=== PATIENT | female | born 1965 | race Caucasian/White ===

== ENCOUNTER 2016-09-16 18:32 | Outpatient (CLI) | payer OTHER ==
[2016-07-01 10:47] VITALS: BMI 33.9
== END 2016-09-16 18:33 | disposition home or self-care (01) ==
LOC: AMBL 18:32
PROVIDERS: ATTEND Internal Medicine Geriatric Medicine
DX: M79.605 Pain in left leg (principal); R07.1 Chest pain on breathing; E11.9 Type 2 diabetes mellitus without complications; J44.9 Chronic obstructive pulmonary disease, unspecified

== ENCOUNTER 2016-09-22 22:17 | Emergency (ER) ==
[2016-09-22 22:33] VITALS: BP 159/91; TEMP 100; BMI 30.7
[2016-09-22] MEDS ORDERED: LOPRESSOR PO STA (22:39)
[2016-09-22 22:41] LABS: BASOPHILS # (AUTO) 0.1 K/uL (0-0.2); BASOPHILS % (AUTO) 0.5 % (0.0-3.0); EOSINOPHILS # (AUTO) 0.3 K/ul (0.0-0.7); EOSINOPHILS % (AUTO) 1.4 % (0.0-7.0); HEMATOCRIT 40.7 % (37.0-47.0); HEMOGLOBIN 14.3 g/dl (12.0-16.0); IMMATURE GRANULOCYTE % (AUTO) 0.6 % (0.0-5.0); MEAN CORPUSCULAR HGB CONC 35.1 (31.8-35.4); MEAN CORPUSCULAR VOLUME 88.3 fl (81.0-99.0); MONOCYTES # (AUTO) 0.7 K/uL (0.4-2.0); MONOCYTES % (AUTO) 3.8 (0-10); NEUTROPHILS # (AUTO) 10.5 K/ul (2.0-6.9); NEUTROPHILS % (AUTO) 59.7; PLATELET COUNT 331 10^3/uL (140-440); RED BLOOD COUNT 4.61 10^6/ul (4.20-5.40); WHITE BLOOD COUNT 17.57 K/ul (4.6-10.2)
[2016-09-22 23:25] LABS: ALANINE AMINOTRANSFERASE 43 U/L (12-78); ALBUMIN 3.8 g/dL (3.4-5.0); ALBUMIN/GLOBULIN RATIO 0.97; ALKALINE PHOSPHATASE 135 U/L (42-98); ANION GAP 18.8; ASPARTATE AMINO TRANSFERASE 38 U/L (15-37); BILIRUBIN,TOTAL 0.33 mg/dL (0.00-1.20); BLOOD UREA NITROGEN 15 mg/dL (7-18); BUN/CREATININE RATIO 13.51; CALCIUM 10.1 mg/dL (8.2-10.2); CARBON DIOXIDE 23 mmol/L (21-32); CHLORIDE 99 mmol/L (98-107); CREATINE KINASE 48 U/L; CREATININE 1.11 mg/dL (0.60-1.30); GLUCOSE 296 mg/dL (70-110); MAGNESIUM 1.9 mg/dL (1.7-2.2); POTASSIUM 3.8 mmol/L (3.5-5.10); SODIUM 137 mmol/L (136-145); TOTAL PROTEIN 7.7 g/dL (6.4-8.2)
[2016-09-22] MEDS ORDERED: PERCOCET 10-325 PO STA (23:50)
--- NOTE | 2016-09-23 03:04 | ED.PDOC ---
General ED Provider: Dr. CHESTER PELAEZ-ER Chief Complaint: Palpitations Stated Complaint: my heart start beating fast!! Time Seen by Physician: 22:25 Mode of Arrival: Walk-In Information Source: Patient, Family Exam Limitations: No limitations Primary Care Provider: VINOD SALINAS Nursing and Triage Documentation Reviewed and Agree: Yes Cardiovascular Complaint Exam - Palpitations Complaint/Exam Onset/Duration: 30 minm Symptoms Are: Still present Timing: Constant Initial Severity: Mild Current Severity: Moderate Character: Reports: Fast, Pounding Aggravating: Reports: None Alleviating: Reports: None Associated Signs and Symptoms: Denies: Lightheadedness, Dizziness, Syncope, Chest pain, Shortness of breath, Diaphoresis, Nausea, Vomiting Related History: Similar episode Cardiac Risk Factors: Reports: Hypertension Pulmonary Embolism Risk Factors: Reports: None Atrial Fibrillation Risk Factors: Reports: Hypertension Thyroid Exam: Normal Quality Indicator For Non-Traumatic Chest Pain/Syncope: EKG Performed Review of Systems - Review Of Systems Constitutional: Reports: No symptoms Eyes: Reports: No symptoms Ears, Nose, Mouth, Throat: Reports: No symptoms Respiratory: Reports: No symptoms Cardiac: Reports: Palpitations GI: Reports: No symptoms : Reports: No symptoms Musculoskeletal: Reports: No symptoms Skin: Reports: No symptoms Neurological: Reports: No symptoms Endocrine: Reports: No symptoms Hematologic/Lymphatic: Reports: No symptoms All Other Systems: Reviewed and Negative Past Medical History - Past Medical History Previously Healthy: Yes Endocrine: Reports: DM 2 ( insulin) Cardiovascular: Reports: Hypertension Respiratory: Reports: COPD Hematological: Reports: None Gastrointestinal: Reports: None Genitourinary: Reports: CKD Neuro/Psych: Reports: None Musculoskeletal: Reports: None Cancer: Reports: None Last Menstrual Period: 1998 - Surgical History General Surgical History: Reports: Hysterectomy, Other - Family History Family History: Reports: Unknown - Social History Smoking Status: Current every day smoker, Heavy tobacco smoker Hx Substance Use: No Alcohol Screening: None Lives: With family - Immunizations Tetanus Shot up to Date: Yes Physical Exam - Physical Exam Appearance: Well-appearing, No pain distress, Well-nourished Eyes: ELOISA, EOMI, Conjunctiva clear ENT: Ears normal, Nose normal, Oropharynx normal Neck: Supple Respiratory: Airway patent, Breath sounds clear, Breath sounds equal, Respirations nonlabored Cardiovascular: Tachycardia GI/: Soft, Nontender, No masses, Bowel sounds normal, No Organomegaly Musculoskeletal: Normal strength, ROM intact, No edema, No calf tenderness Skin: Warm, Dry, Normal color Neurological: Sensation intact, Motor intact, Reflexes intact, Cranial nerves intact, Alert, Oriented Psychiatric: Affect appropriate, Mood appropriate Re-Evaluation - Re-Evaluation Time of Re-Evaluation: 03:03 Status: Improved Vital Signs Stable: Yes Pain Level: 0 Appearance: NAD Lungs: Clear Skin: Warm and Dry Neuro: Alert and Oriented X3 CV: RRR Critical Care Note - Critical Care Note Total Time (mins): 0 Course - Course Hematology/Chemistry: 09/22/16 22:35 09/22/16 22:35 Orders, Labs, Meds: Lab Review 09/22/16 09/23/16 22:35 03:10 WBC 17.57 H RBC 4.61 Hgb 14.3 Hct 40.7 MCV 88.3 MCH 31.0 MCHC 35.1 RDW Coeff of Barry 13.0 Plt Count 331 Immature Gran % (Auto) 0.6 Neut % (Auto) 59.7 Lymph % (Auto) 34.0 [place] % (Auto) 3.8 Eos % (Auto) 1.4 Baso % (Auto) 0.5 Immature Gran # (Auto) 0.1 Neut # 10.5 H Lymph # 6.0 H [place] # 0.7 Eos # 0.3 Baso # 0.1 D-Dimer < 0.19 L Sodium 137 Potassium 3.8 Chloride 99 Carbon Dioxide 23 Anion Gap 18.8 BUN 15 Creatinine 1.11 Estimated GFR (MDRD) 52.00 BUN/Creatinine Ratio 13.51 Glucose 296 H Calcium 10.1 Magnesium 1.9 Total Bilirubin 0.33 AST 38 H ALT 43 Alkaline Phosphatase 135 H Total Creatine Kinase 48 Troponin I < 0.0100 Total Protein 7.7 Albumin 3.8 Globulin 3.9 Albumin/Globulin Ratio 0.97 TSH < 0.003 L Free T4 0.78 Urine Color Yellow Urine Clarity Hazy Urine pH 5.5 Ur Specific [place] 1.025 Urine Protein Trace Urine Glucose (UA) Negative Urine Ketones Negative Urine Blood Negative Urine Nitrite Negative Urine Bilirubin Negative Urine Urobilinogen 0.2 Ur Leukocyte Esterase Trace Urine Microscopic WBC 5-10 Ur Squamous Epith Cells 20-30 Urine Bacteria 1+ Urine Opiates Screen Positive Ur Oxycodone Screen Positive Urine Methadone Screen Negative Ur Propoxyphene Screen Negative Ur Barbiturates Screen Negative U Tricyclic Antidepress Negative Ur Phencyclidine Scrn Negative Ur Amphetamine Screen Negative U Methamphetamines Scrn Negative U Benzodiazepines Scrn Positive Urine Cocaine Screen Negative U Cannabinoids Screen Negative Orders Category Date Time Status EKG-(ED ONLY) Stat CARDIO 09/22/16 22:19 Completed Zone Supervisor Firearms [ED INSIDE STEWARD/STEWARDESS APPLIED] .ONCE EMERGENCY 09/22/16 22:19 Active ED APPLY ICE AFFECTED AREA .ONCE EMERGENCY 09/22/16 23:50 Active CBC W/ AUTO DIFF Stat LAB 09/22/16 22:35 Completed COMPREHENSIVE METABOLIC PANEL Stat LAB 09/22/16 22:35 Completed CREATINE KINASE Stat LAB 09/22/16 22:35 Completed D-DIMER Stat LAB 09/22/16 22:35 Completed FREE T4 (FREE THYROXINE) Stat LAB 09/22/16 22:35 Completed MAGNESIUM Stat LAB 09/22/16 22:35 Completed THYROID STIMULATING HORMONE Stat LAB 09/22/16 22:35 Completed TROPONIN I Stat LAB 09/22/16 22:35 Completed URINALYSIS C & S IF INDICATED Stat LAB 09/23/16 03:10 Completed URINE CULTURE Stat LAB 09/23/16 03:10 Received URINE DRUG SCREEN (RAPID FOR ED) [DRUG SCREEN, URINE, LAB 09/23/16 03:10 Completed RAPID] Stat Metoprolol Tartrate [Lopressor] MEDS 09/22/16 22:39 Discontinued 50 mg PO ONCE STA Oxycodone-Acetaminophen 10-325 [Percocet 10-325] MEDS 09/22/16 23:50 Discontinued 1 tab PO ONCE STA Medications Discontinued Medications Generic Name Dose Route Start Last Admin Trade Name Freq PRN Reason Stop Dose Admin Metoprolol Tartrate 50 mg 09/22/16 22:39 09/22/16 23:33 Lopressor PO 09/22/16 22:40 50 mg ONCE STA Administration Oxycodone/Acetaminophen 1 tab 09/22/16 23:50 09/23/16 00:42 Percocet 10-325 PO 09/22/16 23:51 1 tab ONCE STA Administration Vital Signs: Temp Pulse Resp BP Pulse Ox 09/22/16 22:21 100 F H 100 H 22 159/91 H 95 KATHY Risk Score KATHY Risk Score: Risk Score Odds of by 30D 0 0.1 (0.1-0.2) 1 0.3 (0.2-0.3) 2 0.4 (0.3-0.5) 3 0.7 (0.6-0.9) 4 1.2 (1.0-1.5) 5 2.2 (1.9-2.6) 6 3.0 (2.5-3.6) 7 4.8 (3.8-6.1) Departure - Departure Time of Disposition: 03:03 Disposition: HOME SELF-CARE Discharge Problem: Palpitations Instructions: Palpitations (ED) Condition: Good Pt referred to PMD for follow-up: Yes Additional Instructions: keep appt with dr salinas tomorrow--discuss thyroid function testing and white count--levaquin 250mg x 7 days-- Allergies/Adverse Reactions: Allergies codeine Adverse Reaction (Verified 09/22/16 22:30) morphine Adverse Reaction (Verified 09/22/16 22:30) Home Medications: Ambulatory Orders Diazepam [Valium] 10 mg PO BEDTIME 03/28/14 Ezetimibe [Zetia] 10 mg PO DAILY #30 tablet 03/30/14 Pregabalin [Lyrica] 75 mg PO DAILY #30 capsule 03/30/14 Clopidogrel Bisulfate [Plavix] 75 mg PO DAILY 06/10/14 Insulin Regular, Human [Humulin R] See Protocol SQ ACHS PRN 07/08/15 Hydrocodone Bit/Acetaminophen [Lortab 10-500] 1 tab PO TID PRN #1 tablet Omeprazole [Prilosec] 20 mg PO QDAC 09/30/15 Citalopram Hydrobromide [Celexa] 40 mg PO DAILY 10/01/15 Insulin Glargine,Hum.rec.anlog [Lantus] 70 unit SUBCUT BEDTIME 02/17/16 Canagliflozin [Invokana] 300 mg PO DAILY 05/29/16 Icosapent Ethyl [Vascepa] 1 gm PO BID 05/29/16 Albuterol Sulfate 0.083% Neb [Albuterol 0.083% Neb] 1 vial NEB RTQ6H PRN #120 vial.neb 05/30/16 Atorvastatin Calcium [Lipitor] 40 mg PO DAILY #30 tablet 05/30/16 Bisoprolol Fumarate [Zebeta] 5 mg PO DAILY #30 tablet 05/30/16 Lisinopril 10 mg PO DAILY #30 tablet 05/30/16 Polyethylene Glycol 3350 [Miralax] 17 gm PO EVERY OTHER DAY 05/30/16 Naproxen [Naprosyn] 500 mg PO Q12HR PRN #30 tablet 07/01/16 Citalopram Hydrobromide [Celexa] 40 mg PO BEDTIME #30 09/18/16 Clonazepam [Klonopin] 0.5 mg PO BID #60 09/18/16 Trazodone HCl 50 mg PO BEDTIME #30 09/18/16 Disposition Discussed With: Patient, Family
[2016-09-23 03:28] LABS: BILIRUBIN,URINE Negative (NEGATIVE); KETONES,URINE Negative (NEGATIVE); LEUKOCYTE ESTERASE ,URINE Trace (NEGATIVE); NITRITE,URINE Negative (NEGATIVE); PH,URINE 5.5 (5-9); PROTEIN,URINE Trace (NEGATIVE); URINE, BLOOD Negative (NEGATIVE)
[2016-09-23 03:32] LABS: ADD URINE MICROSCOPIC YES; BACTERIA,URINE 1+ (NOT PRESENT)
[2016-09-23 03:37] LABS: COCAIN SCREEN,URINE NEGATIVE (NEGATIVE)
[2016-09-23] MEDS ORDERED: LEVAQUIN PO STA (03:41)
== END 2016-09-23 03:55 | disposition home or self-care (01) ==
LOC: ED 22:17
DX: R00.2 Palpitations (principal); I10 Essential (primary) hypertension; E11.9 Type 2 diabetes mellitus without complications; F17.210 Nicotine dependence, cigarettes, uncomplicated; N18.9 Chronic kidney disease, unspecified; J44.9 Chronic obstructive pulmonary disease, unspecified; Z79.899 Other long term (current) drug therapy
CPT/HCPCS: 36415; 80053; 80306; 81001; 82550; 83735; 84439; 84443; 84484; 85025; 85379; 87086; 93005; 93010; 99284

== ENCOUNTER 2016-09-23 14:47 | Inpatient (IN) ==
[2016-09-23] MEDS ORDERED: NITROSTAT SL PRN (15:06)
[2016-09-23] MEDS ORDERED: TYLENOL PO PRN (15:06)
[2016-09-23] MEDS ORDERED: VISTARIL INJ IM PRN (15:06)
[2016-09-23] MEDS ORDERED: ATROPINE SULFATE PFS IVP PRN (15:06)
[2016-09-23 15:23] VITALS: BMI 32.1
[2016-09-23] MEDS ORDERED: TORADOL IVP SCH (15:30)
[2016-09-23] MEDS ORDERED: NAPROXEN 500 MG PO PRN ×21 (15:31)
[2016-09-23] MEDS ORDERED: ALBUTEROL 0.083% NEB NEB PRN (15:31)
[2016-09-23] MEDS ORDERED: LYRICA PO PRN (15:31)
[2016-09-23] MEDS ORDERED: DESYREL PO PRN (15:31)
[2016-09-23] MEDS: DEXTROSE 5%-1/2NS IV SOLUTION 1,000 ML IV SCH (15:40)
[2016-09-23] MEDS: ROCEPHIN 1 GM in SODIUM CHLORIDE 50 ML IV SCH (15:41)
[2016-09-23 15:43] LABS: BASOPHILS # (AUTO) 0.1 K/uL (0-0.2); BASOPHILS % (AUTO) 0.6 % (0.0-3.0); EOSINOPHILS # (AUTO) 0.3 K/ul (0.0-0.7); EOSINOPHILS % (AUTO) 2.2 % (0.0-7.0); HEMATOCRIT 39.8 % (37.0-47.0); HEMOGLOBIN 13.7 g/dl (12.0-16.0); IMMATURE GRANULOCYTE % (AUTO) 0.7 % (0.0-5.0); LYMPHOCYTES # (AUTO) 4.7 K/uL (0.60-3.4); LYMPHOCYTES % (AUTO) 36.2 (10.0-50.0); MEAN CORPUSCULAR HGB CONC 34.4 (31.8-35.4); MEAN CORPUSCULAR VOLUME 87.3 fl (81.0-99.0); MONOCYTES # (AUTO) 0.7 K/uL (0.4-2.0); MONOCYTES % (AUTO) 5.3 (0-10); NEUTROPHILS # (AUTO) 7.1 K/ul (2.0-6.9); PLATELET COUNT 288 10^3/uL (140-440); RED BLOOD COUNT 4.56 10^6/ul (4.20-5.40); WHITE BLOOD COUNT 12.95 K/ul (4.6-10.2)
[2016-09-23 15:45] LABS: BILIRUBIN,URINE Negative (NEGATIVE); KETONES,URINE Negative (NEGATIVE); LEUKOCYTE ESTERASE ,URINE Negative (NEGATIVE); NITRITE,URINE Negative (NEGATIVE); PROTEIN,URINE Negative (NEGATIVE); URINE, BLOOD Negative (NEGATIVE)
[2016-09-23 15:48] LABS: ADD URINE MICROSCOPIC NO
--- NOTE | 2016-09-23 15:59 | DI ---
EXAM: PA and lateral views of the chest HISTORY: Cough. COMPARISON: Chest x-ray 05/28/2016 FINDINGS: The cardiomediastinal silhouette is normal. There is no pneumothorax or pleural effusion . There is no consolidation, nodule or mass. The osseous structures are unremarkable. IMPRESSION: No acute cardiopulmonary process
[2016-09-23 16:03] LABS: FLU INTERNAL QC INTERNAL QC VALID; RAPID FLU A NEGATIVE (NEGATIVE); RAPID FLU B NEGATIVE (NEGATIVE)
[2016-09-23] MEDS ORDERED: DUONEB NEB PRN (16:11)
--- NOTE | 2016-09-23 16:15 | US ---
EXAM: Ultrasound thyroid. HISTORY: Elevated thyroid function tests. COMPARISON: None available. TECHNIQUE: Mclean-scale and color Doppler images. FINDINGS: The right lobe of the thyroid measures 4.4 x 1.8 x 1.6 cm. There is mildly heterogeneous echogenicit y without discrete nodule. The thyroid isthmus measures 0.3 cm. The left lobe of the thyroid measures 4.2 x 1.9 x 1.6 cm. There is mildly heterogeneous echogenicit y without discrete nodule. IMPRESSION: Mildly heterogeneous thyroid gland without nodule.
[2016-09-23] MEDS ORDERED: NAPROSYN PO PRN (16:20)
[2016-09-23 16:29] LABS: ALANINE AMINOTRANSFERASE 50 U/L (12-78); ALBUMIN 3.8 g/dL (3.4-5.0); ALBUMIN/GLOBULIN RATIO 1.03; ALKALINE PHOSPHATASE 130 U/L (42-98); ANION GAP 16.7; ASPARTATE AMINO TRANSFERASE 52 U/L (15-37); BILIRUBIN,TOTAL 0.41 mg/dL (0.00-1.20); BLOOD UREA NITROGEN 13 mg/dL (7-18); BUN/CREATININE RATIO 14.94; CALCIUM 9.9 mg/dL (8.2-10.2); CARBON DIOXIDE 24 mmol/L (21-32); CHLORIDE 99 mmol/L (98-107); CREATINE KINASE 53 U/L; CREATININE 0.87 mg/dL (0.60-1.30); GLUCOSE 135 mg/dL (70-110); MYOGLOBIN 22 ng/ml; POTASSIUM 3.7 mmol/L (3.5-5.10); SODIUM 136 mmol/L (136-145); TOTAL PROTEIN 7.5 g/dL (6.4-8.2)
[2016-09-23] MEDS: NICODERM 21 MG TD SCH (16:37)
[2016-09-23] MEDS ORDERED: PERCOCET 10-325 PO STA (17:10)
[2016-09-23] MEDS ORDERED: MYLICON PO STA (19:03)
[2016-09-23] MEDS: KLONOPIN PO SCH (21:11)
[2016-09-23] MEDS: PERCOCET 10-325 PO SCH (21:11)
[2016-09-23] MEDS: HUMULIN R SUBCUT PRN (21:12)
[2016-09-23] MEDS: LANTUS SUBCUT SCH (21:12)
[2016-09-23] MEDS: TORADOL IVP SCH (21:13)
[2016-09-23] MEDS: NON-FORMULARY MEDICATION (Icosapent Ethyl [Vascepa] 1 GM) PO SCH (22:57)
[2016-09-23 23:23] LABS: CREATINE KINASE 49 U/L; MYOGLOBIN 29 ng/ml
[2016-09-24] MEDS: DEXTROSE 5%-1/2NS IV SOLUTION 1,000 ML IV SCH (03:23)
[2016-09-24] MEDS: PRILOSEC PO SCH (05:47)
[2016-09-24] MEDS: HUMULIN R SUBCUT PRN ×4 (05:52→21:03)
[2016-09-24] MEDS: ASPIRIN EC PO SCH (08:26)
[2016-09-24] MEDS: NON-FORMULARY MEDICATION (Canagliflozin [Invokana] 300 MG) PO SCH (08:27)
[2016-09-24] MEDS: CELEXA PO SCH (08:27)
[2016-09-24] MEDS: KLONOPIN PO SCH ×2 (08:28→21:02)
[2016-09-24] MEDS: NICODERM 21 MG TD SCH (08:28)
[2016-09-24] MEDS: LIPITOR PO SCH (08:28)
[2016-09-24] MEDS: NON-FORMULARY MEDICATION (Icosapent Ethyl [Vascepa] 1 GM) PO SCH ×2 (08:28→21:05)
[2016-09-24] MEDS: PERCOCET 10-325 PO SCH ×3 (08:29→21:02)
[2016-09-24] MEDS: PLAVIX PO SCH (08:29)
[2016-09-24] MEDS: ZESTRIL PO SCH (08:29)
[2016-09-24] MEDS: ROCEPHIN 1 GM in SODIUM CHLORIDE 50 ML IV SCH (08:29)
[2016-09-24] MEDS: ZETIA PO SCH (08:29)
[2016-09-24] MEDS: ZEBETA PO SCH (08:30)
[2016-09-24] MEDS ORDERED: NON-FORMULARY MEDICATION (Atorvastatin Calcium [Lipitor] 40 MG) PO SCH ×22 (09:00)
[2016-09-24] MEDS: TORADOL IVP SCH ×2 (09:05→20:56)
--- NOTE | 2016-09-24 11:53 | PCM.PROG ---
Attending Provider: ATTENDING PROVIDER: Dr. VINOD BLANC DATE OF SERVICE: 09/24/16 SUBJECTIVE: This 50 year old WHITE/ F was hospitalized 09/23/16. The patient is admitted with fever, palpitations, not feeling well (flu type symptoms). The patient is feeling much better and looks much better today. She has been afebrile since admission. WBC 17,000 down to 12. No evidence of UTI. Thyroid functions are normal. The ultrasound of the thyroid shows heterogenous thyroid without nodule. The patient's tachycardia resolved on its own. Hydration status looks better on physical exam. REVIEW OF SYSTEMS: CONSTITUTIONAL: No night sweats. No fatigue, malaise, lethargy. No fever or chills. HEENT: Eyes: No visual changes. No eye pain. No eye discharge. ENT: No runny nose. No epistaxis. No sinus pain. No odynophagia. No congestion. RESPIRATORY: No cough, no congestion. No hemoptysis. CARDIOVASCULAR: No angina symptoms. No CHF symptoms. No atypical chest pain for CAD. No palpitations. No shortness of breath. GASTROINTESTINAL: No abdominal pain. No nausea or vomiting. No diarrhea or constipation. No hematemesis. No hematochezia. GENITOURINARY: No urgency. No frequency. No dysuria. No hematuria. No obstructive symptoms. No discharge. No pain. No significant abnormal bleeding. MUSCULOSKELETAL: No musculoskeletal pain; no joint swelling. NEUROLOGICAL: Awake, alert, oriented to time, place and person. No headache. No neck pain. No syncope. No seizures. No dizziness. PSYCHIATRIC: Not anxious. No depression. No suicidal thoughts. No homicidal thoughts. SKIN: No rash. No lesions. No wounds. ENDOCRINE: No unexplained weight loss. No weight gain. HEMATOLOGIC/LYMPHATIC: No anemia. No purpura. No petechiae. No prolonged or excessive bleeding. No palpable lymph nodes. PHYSICAL EXAMINATION: GENERAL: The patient is awake, alert and oriented, lying in bed in no distress. VITAL SIGNS: Temperature 97.0 F, Pulse 67, Respiratory Rate 21, BP 91/58, Pulse Ox 96% HEENT: Head normocephalic, atraumatic. Eyes: Extraocular muscles are intact. Pupils are equal, round and reactive to light and accommodation. Ears: No lesions. Nose appeared normal. Throat: No exudate or erythema. NECK: Supple. No JVD, no carotid bruit. No lymphadenopathy or thyromegaly. LUNGS: Clear to auscultation. Percussion note normal. Chest symmetrical. HEART: S1, S2, no S3. No murmurs. No cyanosis or clubbing. No ascites. Pulses: Dorsalis pedis and posterior tibial pulses +1 to +2 both sides. ABDOMEN: Soft. Non-tender. Bowel sounds active. No CVA tenderness. No mass felt. EXTREMITIES: No edema. Full range of motion of all extremities, equal. NEUROLOGIC: No focal deficit. Cranial nerves II through XII are grossly intact. No headache, no double vision or headache. SKIN: Not dry. Intact. Turgor-normal. LYMPHATIC: No palpable lymph nodes/no lymphedema. MUSCULOSKELETAL: Normal joints with no swelling. Muscle tone is normal. LAB REVIEW: 09/23/16 15:30 09/23/16 15:30 09/23/16 22:57: Total Creatine Kinase 49, Myoglobin 29, Troponin I < 0.0100 09/23/16 15:30: WBC 12.95 H, RBC 4.56, Hgb 13.7, Hct 39.8, MCV 87.3, MCH 30.0, MCHC 34.4, RDW Coeff of Barry 13.1, Plt Count 288, Immature Gran % (Auto) 0.7, Neut % (Auto) 55.0, Lymph % (Auto) 36.2, [place] % (Auto) 5.3, Eos % (Auto) 2.2, Baso % (Auto) 0.6, Immature Gran # (Auto) 0.1, Neut # 7.1 H, Lymph # 4.7 H, [place] # 0.7, Eos # 0.3, Baso # 0.1, Sodium 136, Potassium 3.7, Chloride 99, Carbon Dioxide 24, Anion Gap 16.7, BUN 13, Creatinine 0.87, Estimated GFR (MDRD ) 69.00, BUN/Creatinine Ratio 14.94, Glucose 135 H D, Calcium 9.9, Total Bilirubin 0.41, AST 52 H, ALT 50, Alkaline Phosphatase 130 H, Total Creatine Kinase 53, Myoglobin 22, Troponin I < 0.0100, Total Protein 7.5, Albumin 3.8, Globulin 3.7, Albumin/Globulin Ratio 1.03, TSH 1.898, Free T4 1.29 H 09/23/16 15:25: Urine Color Yellow, Urine Clarity Clear, Urine pH 7.0, Ur Specific [place] 1.010, Urine Protein Negative, Urine Glucose (UA) Negative, Urine Ketones Negative, Urine Blood Negative, Urine Nitrite Negative, Urine Bilirubin Negative, Urine Urobilinogen 0.2, Ur Leukocyte Esterase Negative, Influenza A (Rapid) Negative, Influenza B (Rapid) Negative ASSESSMENT: 1. Likely flu type sickness with fever, tachycardia and dehydration. PLAN: 1. Stop IV fluids 2. Continue Rocephin 3. Blood cultures pending. 4. Continue telemetry. Plan and coordination of the patient's care discussed in the presence of [employer] Specialist and nurse. CONDITION: Stable SCRIBED BY: GLEN STANTON Dumping Machine Operator scribed while in presence of service performed by Dr. VINOD BLANC on 09/24/16 ([id number])
[2016-09-24 12:06] LABS: BASOPHILS # (AUTO) 0.1 K/uL (0-0.2); BASOPHILS % (AUTO) 0.4 % (0.0-3.0); EOSINOPHILS # (AUTO) 0.2 K/ul (0.0-0.7); HEMOGLOBIN 12.8 g/dl (12.0-16.0); IMMATURE GRANULOCYTE % (AUTO) 0.7 % (0.0-5.0); LYMPHOCYTES # (AUTO) 4.5 K/uL (0.60-3.4); LYMPHOCYTES % (AUTO) 37.2 (10.0-50.0); MEAN CORPUSCULAR HEMOGLOBIN 30.7 pg (27.0-31.0); MEAN CORPUSCULAR HGB CONC 34.6 (31.8-35.4); MEAN CORPUSCULAR VOLUME 88.7 fl (81.0-99.0); MONOCYTES # (AUTO) 0.6 K/uL (0.4-2.0); MONOCYTES % (AUTO) 4.9 (0-10); NEUTROPHILS # (AUTO) 6.6 K/ul (2.0-6.9); NEUTROPHILS % (AUTO) 54.8; PLATELET COUNT 262 10^3/uL (140-440); RED BLOOD COUNT 4.17 10^6/ul (4.20-5.40); WHITE BLOOD COUNT 12.05 K/ul (4.6-10.2)
[2016-09-24 12:31] LABS: ALANINE AMINOTRANSFERASE 49 U/L (12-78); ALBUMIN 3.4 g/dL (3.4-5.0); ALKALINE PHOSPHATASE 123 U/L (42-98); ANION GAP 17.1; ASPARTATE AMINO TRANSFERASE 44 U/L (15-37); BILIRUBIN,TOTAL 0.21 mg/dL (0.00-1.20); BLOOD UREA NITROGEN 20 mg/dL (7-18); BUN/CREATININE RATIO 17.54; CALCIUM 9.5 mg/dL (8.2-10.2); CARBON DIOXIDE 21 mmol/L (21-32); CHLORIDE 98 mmol/L (98-107); CREATINE KINASE 52 U/L; CREATININE 1.14 mg/dL (0.60-1.30); GLUCOSE 194 mg/dL (70-110); MYOGLOBIN 27 ng/ml; POTASSIUM 4.1 mmol/L (3.5-5.10); SODIUM 132 mmol/L (136-145); TOTAL PROTEIN 6.8 g/dL (6.4-8.2)
--- NOTE | 2016-09-24 13:25 | HP ---
DATE OF SERVICE: 09/23/16 REASON FOR HOSPITALIZATION/HISTORY OF PRESENT ILLNESS: The patient is a 50 year old white female was seen in the office on follow of ER visit 09/22/16 where she was seen by ER attending for palpitation. The patient's pulse rate was noted to be 100, EKG did not show any acute changes. The patient also had some symptoms of flu type abnormal WBC count. The patient has relatively high WBC count which ranges from 12,000 to 15,000 but in the emergency room it was 17,000. The patient had also had normal U/A with 1+ bacteria. The patient's temperature was 100 in the emergency room with blood pressure 160/90 and pulse of 100 per minute. The patient's other complaints are not feeling good, weakness, dizziness and denies of any frequency of urination plus palpitation. According to the patient there was some question about her getting admitted but she told the ER doctor that she would see me today, on that note the patient was sent home. The patient's says that her appetite is poor for past several days, looks dry and dehydrated. REVIEW OF SYSTEMS: CONSTITUTIONAL: History of fever yesterday also at home for past several days according to her with fatigue and weakness. HEENT: No sinus drainage, no sore throat. Mild nasal congestion. Mild Cough but no yellowish sputum or hemoptysis. RESPIRATORY: Mild cough, no congestion. CARDIOVASCULAR: No atypical chest pain for coronary artery disease. No angina , CHF symptoms or shortness of breath. Palpitation but no chest pain. No PND. No Orthopnea. GASTROINTESTINAL: No melena or abdominal pain. No GERD. GENITOURINARY: No hematuria, no prostatism, no polyuria. EDGE BASTER: No blackout, no dizziness, no headache, no double vision. MUSCULOSKELETAL: No osteoarthritis pain, no joint swelling. ENDOCRINE: No weight loss, no weight gain. SKIN: Not dry, no rash. PSYCHIATRIC: Not anxious, no depression, no suicidal thoughts, no homicidal thoughts. SOCIAL HISTORY: Marital Status: Single. Alcohol Usage: No. Tobacco Usage: Yes, 1 1/2 pack per day. Disabled due to neuropathy. Has two daughters. Family history: Father alive 69 years old; coronary artery disease and hypertension, Mother age 69 - of blood clot, two half sisters age 25 and 27 both healthy. MEDICAL/SURGICAL HISTORY: 1986 Total abdominal hysterectomy 2000 DR. Reynoso Hypertension Dyslipidemia Diabetes Mellitus, type 2 Neuropathy Chronic lung disease, smoking Chronic pain in neck and back, follows with pain management Depression Anxiety Status post hernia repair Status post hysterectomy MEDICATIONS: Lovastatin 20mg one PO daily Lisinopril 10mg one PO daily Ipratropium-albuterol 0.5m g-3mg inhale 3 milliliters by Nebulization Zebeta take one PO daily Lantus Solostar 100unit inject 80unit by SUBCUT rout as per insulin protocol one time daily Celexa 40mg PO daily Vascepa 1 gram capsule take two capsules PO with food two times daily Invokana 300mg take one tablet PO daily Insulin regular human 100 unit/ML solution injection SUBCUT as per insulin sliding scale protocol Potassium Chloride 20MEQ take one tablet PO daily with food Omeprazole 20mg PO daily Lyrica 75mg PO daily Zetia 10mg PO daily Clopidogrel 75mg PO daily Klonopin 0.5mg twice a day Percocet 10-325mg PO three times a day ALLERGIES: Codeine Morphine Neurontin Lamictal PHYSICAL EXAMINATION: V/S: Temperature 98.2m pulse 75, respiratory rate 22, blood pressure 134/96 and pulse ox 94% GENERAL: The patient is oriented to time, place and person. HEENT: Normal. Mucosa membrane dry NECK: No JVP, no bruits. No lymphadenopathy RESPIRATORY: Decreased breaths sounds. Percussion note normal. CARDIOVASCULAR: S1, S2, no S3, no murmurs. No cyanosis, clubbing. No ascites. PMI not palpable. No JVP. No carotid bruit. GI/ABDOMEN: Soft. No tenderness. Bowel sounds are active. EXTREMITIES: No edema, pulses +1, equal. MUSCULOSKELETAL: Normal. ENDOCRINE: Normal EDGE BASTER: Deep tendon reflexes, sensory, motor and gait all normal. PELVIC: Hysterectomy, mammogram advised. SKIN: Dry. ASSESSMENT: 1. Flu symptoms 2. Fever/UTI? 3. Dehydration 4. Palpitations 5. BMI 34.4 6. Spondylosis 7. Polycythemia 8. Depression 9. PAD 10. 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 Osteoarthritis 13. Hypertension 14. Dyslipidemia 15. Obesity 16. Mitral regurgitation 17. Diabetes Mellitus-two PLAN: 1. Admit regular 2. Routine telemetry orders 3. Blood cultures x2 4. Urinalysis and cultures 5. 1,000 cc D5 1/2 normal saline 12 hours 6. T4 TSH 7. Ultrasound of Thyroid gland 8. Rocephin 1 gram IV piggyback 24 hours 9. Toradol 30mg IV Q 12 hours 10. Rapid flu A7B, it was done yesterday in ER 11. Continue all home medications. TIME SPENT: More than 70 minutes. MTDD
[2016-09-24] MEDS: LANTUS SUBCUT SCH (21:02)
[2016-09-25] MEDS: PRILOSEC PO SCH (05:31)
[2016-09-25] MEDS: HUMULIN R SUBCUT PRN ×2 (06:49→18:10)
[2016-09-25 07:50] LABS: BASOPHILS # (AUTO) 0.1 K/uL (0-0.2); BASOPHILS % (AUTO) 0.6 % (0.0-3.0); EOSINOPHILS # (AUTO) 0.2 K/ul (0.0-0.7); EOSINOPHILS % (AUTO) 1.8 % (0.0-7.0); HEMOGLOBIN 13.1 g/dl (12.0-16.0); IMMATURE GRANULOCYTE % (AUTO) 0.5 % (0.0-5.0); LYMPHOCYTES # (AUTO) 4.8 K/uL (0.60-3.4); LYMPHOCYTES % (AUTO) 38.2 (10.0-50.0); MEAN CORPUSCULAR HEMOGLOBIN 30.6 pg (27.0-31.0); MEAN CORPUSCULAR HGB CONC 34.5 (31.8-35.4); MEAN CORPUSCULAR VOLUME 88.8 fl (81.0-99.0); MONOCYTES # (AUTO) 0.5 K/uL (0.4-2.0); MONOCYTES % (AUTO) 4.2 (0-10); NEUTROPHILS # (AUTO) 6.9 K/ul (2.0-6.9); NEUTROPHILS % (AUTO) 54.7; PLATELET COUNT 266 10^3/uL (140-440); RED BLOOD COUNT 4.28 10^6/ul (4.20-5.40)
[2016-09-25 08:08] LABS: ALBUMIN 3.3 g/dL (3.4-5.0); ALBUMIN/GLOBULIN RATIO 1.06; ANION GAP 15.2; BILIRUBIN,TOTAL 0.22 mg/dL (0.00-1.20); BUN/CREATININE RATIO 21.56; CREATININE 1.02 mg/dL (0.60-1.30); POTASSIUM 4.2 mmol/L (3.5-5.10); TOTAL PROTEIN 6.4 g/dL (6.4-8.2)
[2016-09-25] MEDS: ZEBETA PO SCH (08:45)
[2016-09-25] MEDS: NICODERM 21 MG TD SCH ×2 (08:45→08:47)
[2016-09-25] MEDS: LIPITOR PO SCH (08:45)
[2016-09-25] MEDS: ROCEPHIN 1 GM in SODIUM CHLORIDE 50 ML IV SCH (08:45)
[2016-09-25] MEDS: PERCOCET 10-325 PO SCH ×3 (08:46→21:52)
[2016-09-25] MEDS: ZETIA PO SCH (08:46)
[2016-09-25] MEDS: ASPIRIN EC PO SCH (08:46)
[2016-09-25] MEDS: ZESTRIL PO SCH (08:46)
[2016-09-25] MEDS: CELEXA PO SCH (08:46)
[2016-09-25] MEDS: KLONOPIN PO SCH ×2 (08:46→21:48)
[2016-09-25] MEDS: PLAVIX PO SCH (08:46)
[2016-09-25] MEDS ORDERED: MIRALAX PO SCH (09:00)
[2016-09-25] MEDS: NON-FORMULARY MEDICATION (Canagliflozin [Invokana] 300 MG) PO SCH (09:06)
[2016-09-25] MEDS: NON-FORMULARY MEDICATION (Icosapent Ethyl [Vascepa] 1 GM) PO SCH ×2 (09:06→21:24)
[2016-09-25] MEDS: TORADOL IVP SCH ×2 (09:52→21:28)
--- NOTE | 2016-09-25 10:13 | PCM.PROG ---
Attending Provider: ATTENDING PROVIDER: Dr. VINOD BLANC DATE OF SERVICE: 09/25/16 SUBJECTIVE: This 50 year old WHITE/ F was hospitalized 09/23/16. The patient is hospitalized with flu type of symptoms with weakness and dehydration, which has steadily improved. REVIEW OF SYSTEMS: CONSTITUTIONAL: No night sweats. No fatigue, malaise, lethargy. No fever or chills. HEENT: Eyes: No visual changes. No eye pain. No eye discharge. ENT: No runny nose. No epistaxis. No sinus pain. No odynophagia. No congestion. RESPIRATORY: No cough, no congestion. No hemoptysis. CARDIOVASCULAR: No angina symptoms. No CHF symptoms. No atypical chest pain for CAD. Episode of palpitations - practically no change in telemetry. No shortness of breath. GASTROINTESTINAL: No abdominal pain. No nausea or vomiting. No diarrhea or constipation. No hematemesis. No hematochezia. GENITOURINARY: No urgency. No frequency. No dysuria. No hematuria. No obstructive symptoms. No discharge. No pain. No significant abnormal bleeding. MUSCULOSKELETAL: No musculoskeletal pain; no joint swelling. NEUROLOGICAL: Awake, alert, oriented to time, place and person. No headache. No neck pain. No syncope. No seizures. No dizziness. PSYCHIATRIC: Not anxious. No depression. No suicidal thoughts. No homicidal thoughts. SKIN: No rash. No lesions. No wounds. ENDOCRINE: No unexplained weight loss. No weight gain. HEMATOLOGIC/LYMPHATIC: No anemia. No purpura. No petechiae. No prolonged or excessive bleeding. No palpable lymph nodes. PHYSICAL EXAMINATION: GENERAL: The patient is awake, alert and oriented, lying in bed in no distress. VITAL SIGNS: Temperature 97.6 F, Pulse 71, Respiratory Rate 21, BP 110/67, Pulse Ox 93% HEENT: Head normocephalic, atraumatic. Eyes: Extraocular muscles are intact. Pupils are equal, round and reactive to light and accommodation. Ears: No lesions. Nose appeared normal. Throat: No exudate or erythema. NECK: Supple. No JVD, no carotid bruit. No lymphadenopathy or thyromegaly. LUNGS: Clear to auscultation. Percussion note normal. Chest symmetrical. HEART: S1, S2, no S3. No murmurs. No cyanosis or clubbing. No ascites. Pulses: Dorsalis pedis and posterior tibial pulses +1 to +2 both sides. ABDOMEN: Soft. Non-tender. Bowel sounds active. No CVA tenderness. No mass felt. EXTREMITIES: No edema. Full range of motion of all extremities, equal. NEUROLOGIC: No focal deficit. Cranial nerves II through XII are grossly intact. No headache, no double vision or headache. SKIN: Not dry. Intact. Turgor-normal. LYMPHATIC: No palpable lymph nodes/no lymphedema. MUSCULOSKELETAL: Normal joints with no swelling. Muscle tone is normal. LAB REVIEW: 09/25/16 07:35 09/24/16 11:55 09/25/16 07:35: WBC 12.50 H, RBC 4.28, Hgb 13.1, Hct 38.0, MCV 88.8, MCH 30.6, MCHC 34.5, RDW Coeff of Barry 13.1, Plt Count 266, Immature Gran % (Auto) 0.5, Neut % (Auto) 54.7, Lymph % (Auto) 38.2, [place] % (Auto) 4.2, Eos % (Auto) 1.8, Baso % (Auto) 0.6, Immature Gran # (Auto) 0.1, Neut # 6.9, Lymph # 4.8 H, [place] # 0.5, Eos # 0.2, Baso # 0.1 09/24/16 11:55: WBC 12.05 H, RBC 4.17 L, Hgb 12.8, Hct 37.0, MCV 88.7, MCH 30.7 , MCHC 34.6, RDW Coeff of [place] 13.0, Plt Count 262, Immature Gran % (Auto) 0.7, Neut % (Auto) 54.8, Lymph % (Auto) 37.2, [place] % (Auto) 4.9, Eos % (Auto) 2.0, Baso % (Auto) 0.4, Immature Gran # (Auto) 0.1, Neut # 6.6, Lymph # 4.5 H, [place] # 0.6, Eos # 0.2, Baso # 0.1, Sodium 132 L, Potassium 4.1, Chloride 98, Carbon Dioxide 21, Anion Gap 17.1, BUN 20 H, Creatinine 1.14, Estimated GFR (MDRD) 51.00, BUN/Creatinine Ratio 17.54, Glucose 194 H D, Calcium 9.5, Total Bilirubin 0.21, AST 44 H, ALT 49, Alkaline Phosphatase 123 H, Total Creatine Kinase 52, Myoglobin 27, Troponin I < 0.0100, Total Protein 6.8, Albumin 3.4, Globulin 3.4, Albumin/Globulin Ratio 1.00 ASSESSMENT: 1. Flu type of symptoms, dehydration all resolved. 2. Smoking 3. Diabetes mellitus 4. Dyslipidemia 5. The patient is noncompliant, not taking medications as instructed, not coming to the office as instructed. She knows her medical problems and is intelligent. She had gone out to smoke this morning when blood was to be drawn. . PLAN: 1. Renal scan to rule out renal artery stenosis 2. Ultrasound Doppler of kidneys 3. NPO Plan and coordination of the patient's care discussed in the presence of Billet Grinder and nurse. CONDITION: Stable SCRIBED BY: GLEN STANTON Fluid Jet Cutter Operator scribed while in presence of service performed by Dr. VINOD BLANC on 09/25/16 ([id number])
--- NOTE | 2016-09-25 16:12 | US ---
EXAM: Renal artery duplex Doppler HISTORY: Hypertension FINDINGS: Renal artery duplex Doppler. Mclean-scale ultrasound, color Doppler imaging and spectral a nalysis performed. Aortic velocity (meters per second): 1.0 Aortic diameter: - cm. Could not identify adequately. IVC: Open Renal veins: Open See also same day dedicated renal ultrasound. Right renal artery peak systolic velocities (meters per second). Origin: 2.3 Mid: 1.9 Renal [place]: 0.9 Right renal artery/Aortic Ratios: Origin: 2.3 Mid: 1.9 Renal [place]: 0.9 Left renal artery peak systolic velocities (meters per second). Origin: 0.6 Mid: 0.3 Renal [place]: 0.6 Left renal artery/Aortic Ratios: Origin: 0.6 Mid: 0.3 Renal [place]: 0.2 Right renal resistive index was 1.0 Left renal resistive index was 1.0 IMPRESSION: 1. 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 2. Elevated bilateral renal resistive indices.
--- NOTE | 2016-09-25 16:17 | US ---
Exam: Bilateral renal sonogram. Clinical indication: Hypertension.. Findings: The right kidney measures 10.1 x 4.8 x 4.0 cm in diameter. The right renal cortex measures 1.2 cm i n thickness. There are no focal right renal abnormalities. There is mild prominence of the right r enal collecting system, but this is unchanged from the prior CT of the abdomen dated 05/30/2016. Th ere is no renal calculi. Color Doppler interrogation right kidney is grossly unremarkable. The left kidney measures 9.3 x 4.3 x 3.9 cm in diameter. The left renal cortex measures 1.0 cm in t hickness. There are no focal left renal abnormalities. There is no left-sided hydronephrosis or re nal calculi. Color Doppler interrogation of the left kidney is unremarkable. The bladder is sonographically unremarkable. Impression: Unremarkable bilateral renal sonogram.
[2016-09-25] MEDS: LANTUS SUBCUT SCH (21:49)
[2016-09-26] MEDS: PRILOSEC PO SCH (05:35)
[2016-09-26 06:05] VITALS: BP 133/80; TEMP 97.5
[2016-09-26 06:21] LABS: BASOPHILS # (AUTO) 0.1 K/uL (0-0.2); BASOPHILS % (AUTO) 0.6 % (0.0-3.0); EOSINOPHILS # (AUTO) 0.3 K/ul (0.0-0.7); EOSINOPHILS % (AUTO) 2.5 % (0.0-7.0); HEMATOCRIT 38.6 % (37.0-47.0); IMMATURE GRANULOCYTE % (AUTO) 0.6 % (0.0-5.0); LYMPHOCYTES % (AUTO) 39.3 (10.0-50.0); MEAN CORPUSCULAR HEMOGLOBIN 30.2 pg (27.0-31.0); MEAN CORPUSCULAR HGB CONC 33.7 (31.8-35.4); MEAN CORPUSCULAR VOLUME 89.6 fl (81.0-99.0); MONOCYTES # (AUTO) 0.6 K/uL (0.4-2.0); MONOCYTES % (AUTO) 4.4 (0-10); NEUTROPHILS # (AUTO) 6.7 K/ul (2.0-6.9); NEUTROPHILS % (AUTO) 52.6; PLATELET COUNT 257 10^3/uL (140-440); RED BLOOD COUNT 4.31 10^6/ul (4.20-5.40); WHITE BLOOD COUNT 12.76 K/ul (4.6-10.2)
[2016-09-26] MEDS: HUMULIN R SUBCUT PRN (06:25)
[2016-09-26 06:51] LABS: ALBUMIN 3.2 g/dL (3.4-5.0); ALBUMIN/GLOBULIN RATIO 1.03; ANION GAP 15.6; BILIRUBIN,TOTAL 0.27 mg/dL (0.00-1.20); CALCIUM 9.1 mg/dL (8.2-10.2); POTASSIUM 4.6 mmol/L (3.5-5.10); TOTAL PROTEIN 6.3 g/dL (6.4-8.2)
[2016-09-26] MEDS: CELEXA PO SCH (08:34)
[2016-09-26] MEDS: KLONOPIN PO SCH (08:34)
[2016-09-26] MEDS: ZETIA PO SCH (08:34)
[2016-09-26] MEDS: PLAVIX PO SCH (08:34)
[2016-09-26] MEDS: ASPIRIN EC PO SCH (08:34)
[2016-09-26] MEDS: TORADOL IVP SCH (08:35)
[2016-09-26] MEDS: ROCEPHIN 1 GM in SODIUM CHLORIDE 50 ML IV SCH (08:35)
[2016-09-26] MEDS: PERCOCET 10-325 PO SCH (08:35)
[2016-09-26] MEDS: ZEBETA PO SCH (08:35)
[2016-09-26] MEDS: ZESTRIL PO SCH (08:35)
[2016-09-26] MEDS: LIPITOR PO SCH (08:35)
[2016-09-26] MEDS: NICODERM 21 MG TD SCH (08:36)
[2016-09-26] MEDS: NON-FORMULARY MEDICATION (Canagliflozin [Invokana] 300 MG) PO SCH (08:36)
[2016-09-26] MEDS: NON-FORMULARY MEDICATION (Icosapent Ethyl [Vascepa] 1 GM) PO SCH (08:36)
--- NOTE | 2016-09-26 10:21 | PCM.PROG ---
Attending Provider: ATTENDING PROVIDER: Dr. VINOD BLANC DATE OF SERVICE: 09/26/16 SUBJECTIVE: This 50 year old WHITE/ F was hospitalized 09/23/16. The patient is hospitalized with flu type of symptoms and palpitations. The patient is afebrile. No PND, no orthopnea. No chest pain. Telemetry did not show any tachy arrhythmia of any significance. REVIEW OF SYSTEMS: CONSTITUTIONAL: No night sweats. No fatigue, malaise, lethargy. No fever or chills. HEENT: Eyes: No visual changes. No eye pain. No eye discharge. ENT: No runny nose. No epistaxis. No sinus pain. No odynophagia. No congestion. RESPIRATORY: No cough, no congestion. No hemoptysis. CARDIOVASCULAR: No angina symptoms. No CHF symptoms. No atypical chest pain for CAD. No palpitations. No shortness of breath. No PND, no orthopnea. GASTROINTESTINAL: No abdominal pain. No nausea or vomiting. No diarrhea or constipation. No hematemesis. No hematochezia. GENITOURINARY: No urgency. No frequency. No dysuria. No hematuria. No obstructive symptoms. No discharge. No pain. No significant abnormal bleeding. MUSCULOSKELETAL: No musculoskeletal pain; no joint swelling. NEUROLOGICAL: Awake, alert, oriented to time, place and person. No headache. No neck pain. No syncope. No seizures. No dizziness. PSYCHIATRIC: Not anxious. No depression. No suicidal thoughts. No homicidal thoughts. SKIN: No rash. No lesions. No wounds. ENDOCRINE: No unexplained weight loss. No weight gain. HEMATOLOGIC/LYMPHATIC: No anemia. No purpura. No petechiae. No prolonged or excessive bleeding. No palpable lymph nodes. PHYSICAL EXAMINATION: GENERAL: The patient is awake, alert and oriented, lying in bed in no distress. VITAL SIGNS: Temperature 97.5 F, Pulse 69, Respiratory Rate 18, BP 133/80, Pulse Ox 96% HEENT: Head normocephalic, atraumatic. Eyes: Extraocular muscles are intact. Pupils are equal, round and reactive to light and accommodation. Ears: No lesions. Nose appeared normal. Throat: No exudate or erythema. NECK: Supple. No JVD, no carotid bruit. No lymphadenopathy or thyromegaly. LUNGS: Decreased breath sounds. Clear to auscultation. Percussion note normal. Chest symmetrical. HEART: S1, S2, no S3. No murmurs. No cyanosis or clubbing. No ascites. Pulses: Dorsalis pedis and posterior tibial pulses +1 to +2 both sides. ABDOMEN: Soft. Non-tender. Bowel sounds active. No CVA tenderness. No mass felt. EXTREMITIES: No edema. Full range of motion of all extremities, equal. NEUROLOGIC: No focal deficit. Cranial nerves II through XII are grossly intact. No headache, no double vision or headache. SKIN: Not dry. Intact. Turgor-normal. LYMPHATIC: No palpable lymph nodes/no lymphedema. MUSCULOSKELETAL: Normal joints with no swelling. Muscle tone is normal. LAB REVIEW: 09/26/16 05:30 09/26/16 05:30 09/26/16 05:30: WBC 12.76 H, RBC 4.31, Hgb 13.0, Hct 38.6, MCV 89.6, MCH 30.2, MCHC 33.7, RDW Coeff of Barry 13.1, Plt Count 257, Immature Gran % (Auto) 0.6, Neut % (Auto) 52.6, Lymph % (Auto) 39.3, [place] % (Auto) 4.4, Eos % (Auto) 2.5, Baso % (Auto) 0.6, Immature Gran # (Auto) 0.1, Neut # 6.7, Lymph # 5.0 H, [place] # 0.6, Eos # 0.3, Baso # 0.1, Sodium 137, Potassium 4.6, Chloride 105, Carbon Dioxide 21, Anion Gap 15.6, BUN 26 H, Creatinine 1.00, Estimated GFR (MDRD) 59.00, BUN/Creatinine Ratio 26.00, Glucose 161 H, Calcium 9.1, Total Bilirubin 0.27, AST 21, ALT 32, Alkaline Phosphatase 105 H, Total Protein 6.3 L, Albumin 3.2 L, Globulin 3.1, Albumin/Globulin Ratio 1.03 09/25/16 07:35: Sodium 134 L, Potassium 4.2, Chloride 101, Carbon Dioxide 22, Anion Gap 15.2, BUN 22 H, Creatinine 1.02, Estimated GFR (MDRD) 58.00, BUN/ Creatinine Ratio 21.56, Glucose 210 H, Calcium 9.0, Total Bilirubin 0.22, AST 26 , ALT 39, Alkaline Phosphatase 121 H, Total Protein 6.4, Albumin 3.3 L, Globulin 3.1, Albumin/Globulin Ratio 1.06 ASSESSMENT: 1. Flu type of symptoms, dehydration all resolved. 2. Smoking 3. Diabetes mellitus 4. Dyslipidemia 5. Renal scan showed significantly blocked renal arteries by Doppler. The patient is going to be referred to vascular surgeon. The patient again agreed to have Doubtamine stress echo Sestamibi done on Thursday. 6. The patient has been up and about with no angina. She continues to go out and smoke. BMI 32. The patient is noncompliant with followup, has canceled a lot of tests including Sestamibi. PLAN: 1. Keflex 500 mg t.i.d. for 5 days 2. Referral to Dr. Montelongo 3. Dobutamine stress echo Sestamibi as outpatient on Thursday Plan and coordination of the patient's care discussed in the presence of International Account Manager and nurse. EDUCATION: The patient has a lot of risk factors for coronary artery disease. Discussed with her about it and how to modify. Counseling for smoking done. Counseling for weight loss done. CONDITION: Stable PROGNOSIS: Guarded SCRIBED BY: GLEN STANTON, Director Of Graduate Medical Education scribed while in presence of service performed by Dr. VINOD BLANC on 09/26/16 (0002)
--- NOTE | 2016-09-26 11:35 | CM.DICTOOL ---
ADMISSION: 09/23/16 14:47 DISCHARGE: 2106 DATE OF SERVICE: 09/26/16 FINAL DIAGNOSIS: Dehydration Palpitations Chest pain Hypertension Hyperlipoproteinemia Diabetes Mellitus, type 2 Renal Artery Stenosis Obesity, BMI 34 Mitral Reguritation Dyslipidemia Depression PAD GERD Osteoarthritis Chronic back and neck pain, follows with pain management Hysterectomy Chronic lung disease Continued smoking LAST VITALS Temp Pulse Resp BP Pulse Ox 97.5 F L 69 18 133/80 96 09/26/16 06:00 09/26/16 06:00 09/26/16 07:53 09/26/16 06:00 09/26/16 06:00 ACTIVE HOME MEDICATIONS Albuterol Sulfate 1 vial NEB RT Q6H PRN PRN Reason: Wheezing Aspirin (Aspirin Ec) 81 mg PO DAILYWM [facility] Last Admin: 09/26/16 08:34 Dose: 81 mg Atorvastatin Calcium (Lipitor) 40 mg PO DAILY [facility] Last Admin: 09/26/16 08:35 Dose: 40 mg Bisoprolol Fumarate (Zebeta) 5 mg PO DAILY [facility] Last Admin: 09/26/16 08:35 Dose: 5 mg Citalopram Hydrobromide (Celexa) 40 mg PO DAILY [facility] Last Admin: 09/26/16 08:34 Dose: 40 mg Clonazepam (Klonopin) 0.5 mg PO BID [facility] Last Admin: 09/26/16 08:34 Dose: 0.5 mg Clopidogrel Bisulfate (Plavix) 75 mg PO DAILY [facility] Last Admin: 09/26/16 08:34 Dose: 75 mg Ezetimibe (Zetia) 10 mg PO DAILY [facility] Last Admin: 09/26/16 08:34 Dose: 10 mg Insulin Glargine (Lantus) 70 unit SUBCUT BEDTIME [facility] Last Admin: 09/25/16 21:49 Dose: 70 unit Insulin Human Regular (Humulin R) 0 unit SUBCUT ACHS PRN; Protocol PRN Reason: hyperglycemia Last Admin: 09/26/16 06:25 Dose: 3 unit Lisinopril (Zestril) 10 mg PO DAILY [facility] Last Admin: 09/26/16 08:35 Dose: 10 mg Naproxen (Naprosyn) 500 mg PO Q12HR PRN PRN Reason: PAIN Non-Formulary Medication (Canagliflozin [Invokana]) 300 mg PO DAILY [facility] Last Admin: 09/26/16 08:36 Dose: Not Given Non-Formulary Medication (Icosapent Ethyl [Vascepa]) 1 gm PO BID [facility] Last Admin: 09/26/16 08:36 Dose: Not Given Omeprazole (Prilosec) 20 mg PO QDAC [facility] Last Admin: 09/26/16 05:35 Dose: 20 mg Oxycodone/Acetaminophen (Percocet 10-325) 1 tab PO TID [facility] Last Admin: 09/26/16 08:35 Dose: 1 tab Polyethylene Glycol (Miralax) 17 gm PO EVERY OTHER DAY [facility] Last Admin: 09/25/16 09:06 Dose: Not Given Pregabalin (Lyrica) 75 mg PO DAILY PRN PRN Reason: neuropathy Trazodone HCl (Desyrel) 50 mg PO BEDTIME PRN PRN Reason: sleep ALLERGIES codeine Adverse Reaction (Verified 09/22/16 22:30) morphine Adverse Reaction (Verified 09/22/16 22:30) NEW PRESCRIPTIONS: Keflex 500 mg TID for 5 days. SMOKING: Strongly advised to stop smoking DISEASE SPECIFIC EDUCATION: Smoking cessation Prescriptions Outpatient testing Physician appointments/referrals LAB REVIEW: 09/26/16 05:30 09/26/16 05:30 09/26/16 05:30: WBC 12.76 H, RBC 4.31, Hgb 13.0, Hct 38.6, MCV 89.6, MCH 30.2, MCHC 33.7, RDW Coeff of Barry 13.1, Plt Count 257, Immature Gran % (Auto) 0.6, Neut % (Auto) 52.6, Lymph % (Auto) 39.3, [place] % (Auto) 4.4, Eos % (Auto) 2.5, Baso % (Auto) 0.6, Immature Gran # (Auto) 0.1, Neut # 6.7, Lymph # 5.0 H, [place] # 0.6, Eos # 0.3, Baso # 0.1, Sodium 137, Potassium 4.6, Chloride 105, Carbon Dioxide 21, Anion Gap 15.6, BUN 26 H, Creatinine 1.00, Estimated GFR (MDRD) 59.00, BUN/Creatinine Ratio 26.00, Glucose 161 H, Calcium 9.1, Total Bilirubin 0.27, AST 21, ALT 32, Alkaline Phosphatase 105 H, Total Protein 6.3 L, Albumin 3.2 L, Globulin 3.1, Albumin/Globulin Ratio 1.03 PLAN: Discharge home Diet: Consistent Carbohydrates Activity: Resume as tolerated Continue to use c-pap at night for sleep apnea Continue accu-checks at least 3 times daily and as needed Advised to stop smoking Outpatient testing/Appointments: Dobutamine Stress/Rest Sestamibi Echo on Sep.29 at 6:30 Dr. Sierra appointment on Oct.02 at 2:[address] Montelongo at [facility] on at 10:45 am Ms. Lowe is alert and oriented x 3. She is independent with all activities of daily living. She is ambulatory without use of an assistive device. Meal intakes are good at 100%, no abdominal pain or nausea is reported. No chest pain or shortness of air. A disc of the Renal Ultrasound and Doppler flow studies has been provided for the patient to take to the vascular appointment. Skin is in good condition and free of rashes, open areas or irritation. Crispin Sierra MD
--- NOTE | 2016-09-26 11:41 | PN ---
DATE OF SERVICE: 09/25/16 SUBJECTIVE: The patient is a 50 year old white female hospitalized with flu type of symptoms with palpitations and possibility of UTI and dehydrations. The patient 's condition has improved a lot and her hydration status has improved. She does not have any fever or chills. Generalized aches and pains have resolved. She had episode of palpitations yesterday. The patient is to undergo renal flow study because of he labile hypertension which was previously advised as an outpatient but she is noncompliant and probably didn't keep her appointment. She has been again educated about diabetes mellitus and it's complications. The patient had stress echo performed nearly 6 months ago which was negative. The patient has multiple risk factor for coronary artery disease which are poorly controlled because of patient's choice. REVIEW OF SYSTEMS: CONSTITUTIONAL: No night sweats. No fatigue, malaise, lethargy. No fever or chills. HEENT: Eyes: No visual changes. No eye pain. No eye discharge. ENT: No runny nose. No epistaxis. No sinus pain. No sore throat. No odynophagia. No congestion. RESPIRATORY: No cough, no congestion. No hemoptysis. CARDIOVASCULAR: No angina symptoms. No CHF symptoms. No atypical chest pain for CAD. No palpitations. No shortness of breath. GASTROINTESTINAL: No abdominal pain. No nausea or vomiting. No diarrhea or constipation. No hematemesis. No hematochezia. GENITOURINARY: No urgency. No frequency. No dysuria. No hematuria. No obstructive symptoms. No discharge. No pain. No significant abnormal bleeding. MUSCULOSKELETAL: No musculoskeletal pain; no joint swelling. NEUROLOGICAL: No headache. No neck pain. No syncope. No seizures. No dizziness. PSYCHIATRIC: Not anxious. No depression. No suicidal thoughts. No homicidal thoughts. SKIN: No rash. No lesions. No wounds. ENDOCRINE: No unexplained weight loss. No weight gain. HEMATOLOGIC/LYMPHATIC: No anemia. No purpura. No petechiae. No prolonged or excessive bleeding. No palpable lymph nodes. PHYSICAL EXAMINATION: GENERAL: The patient is oriented to time, place and person. VITAL SIGNS: Temperature 97.6, pulse 71, respiratory rate 21, blood pressure 110/67 and pulse 93%. HEENT: Head normocephalic, atraumatic. Eyes: Extraocular muscles are intact. Pupils are equal, round and reactive to light and accommodation. Ears: No lesions. Nose appeared normal. Throat: No exudate or erythema. NECK: Supple. No JVD, no carotid bruit. No lymphadenopathy or thyromegaly. LUNGS: Decreased breath sounds but Clear to auscultation. Percussion note normal. Chest symmetrical. HEART: S1, S2, no S3. No murmurs. No cyanosis or clubbing. No ascites. Pulses: Dorsalis pedis and posterior tibial pulses +1 to +2 both sides. ABDOMEN: Soft. Nontender. Bowel sounds active. No CVA tenderness. No mass felt. EXTREMITIES: No edema. Full range of motion of all extremities, equal. NEUROLOGIC: No focal deficit. Cranial nerves II through XII are grossly intact. No headache, no double vision or headache. SKIN: Not dry. Intact. Turgor - normal. LYMPHATIC: No palpable lymph nodes/no lymphedema. MUSCULOSKELETAL: Normal joints with no swelling. Muscle tone is normal. ASSESSMENT: 1. Flu type of symptoms with aches and pains 2. Dehydration has resolved 3. Palpitations, no evidence of any tachy arrhythmias of any significance through telemetry PLAN: 1. Again the patient was advised to lose weight, her BMI is 32 2. The patient has severe dyslipidemia and she is advised to take her medications on regular basis and have regular followup. 3. The patient is a heavy smoker, this morning she didn't have any labs done because three times they come to draw but she was out smoking earlier morning in the winter time. CONDITION: Stable TIME SPENT: More than 30 minutes. Plan and coordination of the patient's care discussed in the presence of nurse. LASHANDA
--- NOTE | 2016-10-01 14:53 | DS ---
DATE OF SERVICE: 09/26/16 FINAL DIAGNOSIS: 1. DEHYDRATION 2. PALPITATIONS 3. CHEST PAIN 4. HYPERTENSION 5. HYPERLIPOPROTEINEMIA 6. DIABETES MELLITUS TYPE 2 7. RENAL ARTERY STENOSIS 8. OBESITY, BMI 34 9. MITRAL REGURGITATION 10. DYSLIPIDEMIA 11. DEPRESSION 12. PERIPHERAL ARTERIAL DISEASE 13. GERD 14. OSTEOARTHRITIS 15. CHRONIC BACK AND NECK PAIN, FOLLOWS WITH PAIN MANAGEMENT 16. HYSTERECTOMY 17. CHRONIC LUNG DISEASE 18. CONTINUED SMOKING DISCHARGE INSTRUCTIONS: Followup appointment with Dr. Sierra on 10/02/16 at 2:[address] Montelongo at [facility] on 10/14/15 at 10:45 a.m. Continue to use CPAP at night for sleep apnea. Continue Accu-Cheks at least 3 times daily and as needed. Dobutamine Stress/Rest Sestamibi Echo on 09/29/16 at 0630. MEDICATIONS AT DISCHARGE: Ezetimibe (Zetia) 10 mg p.o. daily Clopidogrel (Plavix) 75 mg p.o. daily Insulin, Regular See protocol SQ ac and h.s. p.r.n. Omeprazole (Prilosec) 20 mg p.o. q.d a.c. Insulin Glargine 70 unit SQ bedtime Canagliflozin (Invokana) 300 mg p.o. daily Icosapent Ethyl (Vascepa) 1 gm p.o. b.i.d. Polyethylene Glycol 17 mg p.o. every other day Atorvastatin 40 mg p.o. daily Bisoprolol (Zebeta) 5 mg p.o. daily Lisinopril 10 mg p.o. daily Albuterol neb RT q.6h p.r.n. Naproxen 500 mg p.o. q.12.hr p.r.n. Citalopram (Celexa) 40 mg p.o. bedtime Clonazepam 0.5 mg p.o. b.i.d. Trazodone 50 mg p.o. bedtime p.r.n. Oxycodone-Acetaminophen one tab p.o. t.i.d. Pregabalin (Lyrica) 75 mg p.o. daily p.r.n. Cephalexin (Keflex) 500 mg p.o.q.8hr NEW PRESCRIPTIONS: Keflex 500 mg t.i.d. for 5 days DIET INSTRUCTIONS: Consistent carbohydrates ACTIVITY: Resume as tolerated SMOKING: Strongly advised to stop smoking DISEASE SPECIFIC EDUCATION: Smoking cessation Prescriptions Outpatient testing Physician appointments/referrals HOSPITAL COURSE: 50-year-old white female was hospitalized with flu-type of symptoms and also had palpitations, the possibility of UTI existed along with dehydration. The patient was treated conservatively. Further workup was done. She was monitored for palpitations, didn't correlate with any significant tachyarrhythmias. The patient's cardiovascular status was stable. The patient underwent renal flow study which showed possibility of hemodynamically significant renal artery stenosis. The patient was also scheduled for Dobutamine Stress Echo Sestamibi which she has canceled in the past - several times. The patient is noncompliant , has continued to smoke heavy. She is not compliant about taking her medication for dyslipidemia. She has severe dyslipidemia with total cholesterol of 300 and non HDL cholesterol more than 200. Since cardiovascular status was stable at time of discharge. She was also advised to lose weight. CONDITION AT TIME OF DISCHARGE: Stable. TIME SPENT: More than 60 minutes. LASHANDA
== END 2016-09-26 12:18 | disposition home or self-care (01) | DRG 641 ==
LOC: MEDSURG B 14:47
PROVIDERS: ADMIT Internal Medicine; ATTEND Internal Medicine
DX: E86.0 Dehydration (principal); R00.2 Palpitations; I70.1 Atherosclerosis of renal artery; R00.0 Tachycardia, unspecified; R50.9 Fever, unspecified; R68.89 Other general symptoms and signs; E11.9 Type 2 diabetes mellitus without complications; I10 Essential (primary) hypertension; N18.9 Chronic kidney disease, unspecified; J44.9 Chronic obstructive pulmonary disease, unspecified; E78.5 Hyperlipidemia, unspecified; R07.9 Chest pain, unspecified; E66.09 Other obesity due to excess calories; I34.0 Nonrheumatic mitral (valve) insufficiency; F32.9 Major depressive disorder, single episode, unspecified; I73.9 Peripheral vascular disease, unspecified; K21.9 Gastro-esophageal reflux disease without esophagitis; M19.90 Unspecified osteoarthritis, unspecified site; G89.29 Other chronic pain; M54.9 Dorsalgia, unspecified; M54.2 Cervicalgia; F17.210 Nicotine dependence, cigarettes, uncomplicated; Z91.14 Patient's other noncompliance with medication regimen; Z68.32 Body mass index [BMI] 32.0-32.9, adult; Z79.899 Other long term (current) drug therapy; Z79.01 Long term (current) use of anticoagulants; Z79.4 Long term (current) use of insulin
CPT/HCPCS: 36415; 76770; 80053; 80306; 81001; 82550; 82962; 83735; 83874; 84439; 84443; 84484; 85025; 85379; 87040; 87086; 87804; 93005; 93010; 99284

== ENCOUNTER 2016-09-29 06:29 | Outpatient (CLI) ==
[2016-09-29] MEDS ORDERED: ATROPINE SULFATE PFS ONE (07:07)
[2016-09-29] MEDS ORDERED: DOBUTAMINE 250 ML IV ONE (07:07)
--- NOTE | 2016-09-29 10:55 | NM ---
Cardiac Stress Test HISTORY: Chest pain. COMPARISON: None of this type. TECHNIQUE: Resting: The patient was injected with 12.9 millicuries of 99m technetium Sestamibi (Cardiolite) in travenously after which a "resting" SPECT study of the heart was performed. Stress: The patient was stressed pharmacologically with dobutamine and at the appropriate time inje cted with 33.4 millicuries of 99m technetium Sestamibi (Cardiolite) after which a "stress" SPECT raheel dy of the heart was performed. Gated images of the heart were also obtained to assess wall motion an d calculate ejection fraction. For details of the stress protocol employed, reference is made to th e separate report of the performing physician. FINDINGS: The stress perfusion images demonstrate a generally uniform distribution of activity in t he left ventricular myocardium. The resting perfusion images demonstrate no evidence of significant redistribution/ischemia. The left ventricular ejection fraction (LVEF) is 77%. The left ventricular wall motion was not directly evaluated. IMPRESSION: 1. Left ventricular myocardial perfusion is within normal limits. 2. The left ventricular ejection fraction (LVEF) is 77%. 3. The left ventricular wall motion was not directly evaluated.
--- NOTE | 2016-09-30 09:19 | ECHOSTRESS ---
Date of Exam: 09/29/16 Ordering Physician: VINOD BLANC Reason for Echo: CHEST PAIN, PALPITATIONS, DOBUTAMINE STRESS--NO ISCHEMIA M-Mode Normal Adult Results LV Dimensions Normal Adult Results AoV Opening excursions >1.6 LVEDD-base- 3.5-5.8 Ao root dimensions 2.0-3.7 LVESD-base- 3.1-4.6 L. Atrium dimensions 1.9-3.8 Post. Wall thickness 0.8-1.1 IV septum (thickness) 0.7-1.2 Post. Wall excursion 0.72-1.3 Septal motion Systolic motion R. Ventricular cavity 1.5-2.0 LVEF 60% Paradoxical septal wall motion 2-D: NORMAL LEFT VENTRICULAR CONTRACTILITY--RESTING AND WITH DOBUTAMINE INFUSION M-MODE: MV: AV: TV: PV: CHAMBER SIZE: WALL MOTION: NORMAL LEFT VENTRICULAR CONTRACTILITY--RESTING AND WITH DOBUTAMINE INFUSION PERICARDIUM: INTERPRETATION: 1.NORMAL LEFT VENTRICULAR CONTRACTILITY--RESTING AND WITH DOBUTAMINE INFUSION MTDD
--- NOTE | 2016-09-30 13:06 | DOBSTECHST ---
Ordering Physician: VINOD BLANC Date of Test: 09/29/16 Reason for Examination: CHEST PAIN, PALPITATIONS Current Medications: ZETIA, PLAVIX, HUMULIN, PRILOSEC, LANTUS, INVOKANA, VASEPA , MIRALAX, LIPITOR, ZEBETA, LISINOPRIL, CELEXA, KLONOPIN, TRAZODONE, LYRICA Height: 67" Weight: 202 LBS Target Heart Rate: 146/172 ST Segment Stage Time HR BPM BP mmhg Rhythm +/- Up Down Comments/Symptoms Control Sitting 72 140/80 SR X NONE Dobutamine 250mg/D5W 5cmg/KG/mn 10cmg/KG/mn 3" 86 SR X NONE 15cmg/KG/mn 2" 93 188/66 SR X NONE 20cmg/KG/mn 2" 101 184/50 SR X NONE 25cmg/KG/mn 2" 115 SR X NONE 30cmg/KG/mn 2" 122 196/60 SR X NONE 35cmg/KG/mn 1:56 131 SR X NONE 40cmg/KG/mn Time: 4" HR B/P Time: 8" HR B/P Time: 10" HR B/P Recovery 110 180/62 Recovery 90 Recovery 84 Total Time: 12:56 Maximum Heart Rate Reached: 131 __ Interpretation: 1. NO EVIDENCE OF ISCHEMIA BY ST-T WAVE 2. NO CHEST PAIN OR CHEST DISCOMFORT 3. NORMAL LEFT VENTRICULAR CONTRACTILITY--RESTING AND WITH DOBUTAMINE INFUSION MTDD
--- NOTE | 2016-10-01 06:29 | DOBSTECHST ---
Ordering Physician: [] Date of Test: [] Reason for Examination: [] Cardiac History: [] Current Medications: [] Physical Findings: [] Height: [] Weight: [] Resting EKG: [] Target Heart Rate: [] ST Segment Stage Time HR BPM BP mmhg Rhythm +/- Up Down Comments/Symptoms Control Sitting [] [] [] [] [] Dobutamine 250mg/D5W [] [] [] [] [] 5cmg/KG/mn [] [] [] [] [] 10cmg/KG/mn 15cmg/KG/mn 20cmg/KG/mn 25cmg/KG/mn 30cmg/KG/mn 35cmg/KG/mn 40cmg/KG/mn Time: [] HR B/P Time: [] HR B/P Time: [] HR B/P Recovery [] [] Recovery [] [] Recovery [] [] Total Time: [] Duration of Exercise: [] Maximum Heart Rate Reached: [] Reason for Termination: [] __ Interpretation: 1. [] 2. [] 3. [] 4. [] MTDD
== END 2016-09-29 06:30 | disposition home or self-care (01) ==
LOC: CAR 06:29
PROVIDERS: ATTEND Internal Medicine
DX: R07.9 Chest pain, unspecified (principal); I10 Essential (primary) hypertension; R00.2 Palpitations

== ENCOUNTER 2016-11-21 19:24 | Emergency (ER) ==
[2016-11-21 19:32] VITALS: BP 121/83; TEMP 99.4; BMI 30.7
[2016-11-21 19:46] LABS: BILIRUBIN,URINE Negative (NEGATIVE); KETONES,URINE Negative (NEGATIVE); LEUKOCYTE ESTERASE ,URINE Negative (NEGATIVE); NITRITE,URINE Negative (NEGATIVE); PROTEIN,URINE Negative (NEGATIVE); URINE, BLOOD Negative (NEGATIVE)
[2016-11-21 19:48] LABS: ADD URINE MICROSCOPIC NO
--- NOTE | 2016-11-21 20:06 | ED.PDOC ---
General ED Provider: Dr. JASS BALES Chief Complaint: Urinary Problem Stated Complaint: BURNING, FREQUENCY URINATION, HURTING IN LOWER BACK. also coughing some, she took azo tablets Time Seen by Physician: 20:04 Mode of Arrival: Walk-In Information Source: Patient Primary Care Provider: VINOD BLANC Nursing and Triage Documentation Reviewed and Agree: Yes Complaint Exam - UTI Female Complaint/Exam Patient Complains of: Reports: Painful urination Symptoms Are: Still present Timing: Constant Initial Severity: Mild Current Severity: Mild Location of Pain: Reports: Flank Associated Signs and Symptoms: Denies: Fever, Chills, Flank pain, Dyspareunia, Vaginal discharge Related History: Reports: Similar episode Related Surgical History: Reports: None Suprapubic Tenderness: No Differential Diagnoses: Cystitis Review of Systems - Review Of Systems Constitutional: Reports: No symptoms Eyes: Reports: No symptoms Ears, Nose, Mouth, Throat: Reports: No symptoms Respiratory: Reports: Cough Cardiac: Reports: No symptoms GI: Reports: No symptoms : Reports: Burning, Dysuria Musculoskeletal: Reports: No symptoms Skin: Reports: No symptoms Neurological: Reports: No symptoms Endocrine: Reports: No symptoms Hematologic/Lymphatic: Reports: No symptoms All Other Systems: Reviewed and Negative Past Medical History - Past Medical History Previously Healthy: Yes Endocrine: Reports: DM 2 ( insulin) Cardiovascular: Reports: Hypertension Respiratory: Reports: COPD Hematological: Reports: None Gastrointestinal: Reports: None Genitourinary: Reports: CKD Neuro/Psych: Reports: None Musculoskeletal: Reports: None Cancer: Reports: None Last Menstrual Period: NA - Surgical History General Surgical History: Reports: Hysterectomy, Other - Family History Family History: Reports: Unknown - Social History Smoking Status: Current every day smoker, Heavy tobacco smoker Smoking Cessation Counseling Time: > 3 min - 10 min Hx Substance Use: No Alcohol Screening: None Physical Exam - Physical Exam Appearance: Ill-appearing, Obese Eyes: ELOISA, EOMI, Conjunctiva clear ENT: Ears normal, Nose normal, Oropharynx normal Respiratory: Airway patent, Breath sounds clear, Breath sounds equal, Respirations nonlabored Cardiovascular: RRR, Pulses normal, No rub, No murmur GI/: Soft, Tender Musculoskeletal: Normal strength, ROM intact, No edema, No calf tenderness Skin: Warm, Dry, Normal color Neurological: Sensation intact, Motor intact, Reflexes intact, Cranial nerves intact, Alert, Oriented Psychiatric: Affect appropriate, Mood appropriate Critical Care Note - Critical Care Note Total Time (mins): 0 Course - Course Hematology/Chemistry: 11/21/16 20:10 11/21/16 20:10 Orders, Labs, Meds: Lab Review 11/21/16 11/21/16 19:35 20:10 WBC 13.74 H RBC 4.58 Hgb 13.9 Hct 40.8 MCV 89.1 MCH 30.3 MCHC 34.1 RDW Coeff of Barry 12.8 Plt Count 262 Immature Gran % (Auto) 0.4 Neut % (Auto) 61.8 Lymph % (Auto) 31.7 [place] % (Auto) 4.0 Eos % (Auto) 1.6 Baso % (Auto) 0.5 Immature Gran # (Auto) 0.1 Neut # 8.5 H Lymph # 4.4 H [place] # 0.6 Eos # 0.2 Baso # 0.1 Sodium 136 Potassium 3.9 Chloride 102 Carbon Dioxide 27 Anion Gap 10.9 BUN 20 H Creatinine 1.00 Estimated GFR (MDRD) 59.00 BUN/Creatinine Ratio 20.00 Glucose 321 H Calcium 9.1 Total Bilirubin 0.20 AST 24 ALT 49 Alkaline Phosphatase 141 H Total Protein 7.0 Albumin 4.2 Globulin 2.8 Albumin/Globulin Ratio 1.50 Urine Color Yellow Urine Clarity Clear Urine pH 5.0 Ur Specific [place] 1.015 Urine Protein Negative Urine Glucose (UA) 2+ Urine Ketones Negative Urine Blood Negative Urine Nitrite Negative Urine Bilirubin Negative Urine Urobilinogen 0.2 Ur Leukocyte Esterase Negative Orders Category Date Time Status CBC W/ AUTO DIFF Stat LAB 11/21/16 20:10 Completed COMPREHENSIVE METABOLIC PANEL Stat LAB 11/21/16 20:10 Completed UA [URINALYSIS C & S IF INDICATED] Stat LAB 11/21/16 19:35 Completed CXR [CHEST, 2 VIEWS PA & LAT] Stat RADS 11/21/16 20:03 Taken Vital Signs: Temp Pulse Resp BP Pulse Ox 11/21/16 19:28 99.4 F 92 H 20 121/83 94 L Departure - Departure Time of Disposition: 20:58 Disposition: HOME SELF-CARE Discharge Problem: Urinary symptoms Instructions: Urinary Tract Infection in Women (ED) Condition: Stable Pt referred to PMD for follow-up: Yes Additional Instructions: INCREASE HYDRATION PROBIOTICS Prescriptions: Ciprofloxacin HCl [Cipro] 250 mg PO Q12HR #14 tablet Allergies/Adverse Reactions: Allergies codeine Adverse Reaction (Verified 11/21/16 19:26) morphine Adverse Reaction (Verified 11/21/16 19:26) Home Medications: Ambulatory Orders Ezetimibe [Zetia] 10 mg PO DAILY #30 tablet 03/30/14 Clopidogrel Bisulfate [Plavix] 75 mg PO DAILY 06/10/14 Insulin Regular, Human [Humulin R] See Protocol SQ ACHS PRN 07/08/15 Omeprazole [Prilosec] 20 mg PO QDAC 09/30/15 Insulin Glargine,Hum.rec.anlog [Lantus] 70 unit SUBCUT BEDTIME 02/17/16 Canagliflozin [Invokana] 300 mg PO DAILY 05/29/16 Icosapent Ethyl [Vascepa] 1 gm PO BID 05/29/16 Albuterol Sulfate 0.083% Neb [Albuterol 0.083% Neb] 1 vial NEB RTQ6H PRN #120 vial.neb 05/30/16 Atorvastatin Calcium [Lipitor] 40 mg PO DAILY #30 tablet 05/30/16 Bisoprolol Fumarate [Zebeta] 5 mg PO DAILY #30 tablet 05/30/16 Lisinopril 10 mg PO DAILY #30 tablet 05/30/16 Polyethylene Glycol 3350 [Miralax] 17 gm PO EVERY OTHER DAY 05/30/16 Naproxen [Naprosyn] 500 mg PO Q12HR PRN #30 tablet 07/01/16 Citalopram Hydrobromide [Celexa] 40 mg PO BEDTIME #30 09/18/16 Clonazepam [Klonopin] 0.5 mg PO BID #60 09/18/16 Trazodone HCl 50 mg PO BEDTIME PRN #30 09/18/16 Oxycodone-Acetaminophen 10-325 [Percocet 10-325] 1 tab PO TID 09/23/16 Pregabalin [Lyrica] 75 mg PO DAILY PRN 09/23/16 Hydroxyzine HCl 25 mg PO TID #90 10/23/16 Zolpidem Tartrate [Ambien] 5 mg PO BEDTIME #30 10/23/16 Ciprofloxacin HCl [Cipro] 250 mg PO Q12HR #14 tablet 11/21/16 Disposition Discussed With: Patient
[2016-11-21 20:15] LABS: BASOPHILS # (AUTO) 0.1 K/uL (0-0.2); BASOPHILS % (AUTO) 0.5 % (0.0-3.0); EOSINOPHILS # (AUTO) 0.2 K/ul (0.0-0.7); EOSINOPHILS % (AUTO) 1.6 % (0.0-7.0); HEMATOCRIT 40.8 % (37.0-47.0); HEMOGLOBIN 13.9 g/dl (12.0-16.0); IMMATURE GRANULOCYTE % (AUTO) 0.4 % (0.0-5.0); LYMPHOCYTES # (AUTO) 4.4 K/uL (0.60-3.4); LYMPHOCYTES % (AUTO) 31.7 (10.0-50.0); MEAN CORPUSCULAR HEMOGLOBIN 30.3 pg (27.0-31.0); MEAN CORPUSCULAR HGB CONC 34.1 (31.8-35.4); MEAN CORPUSCULAR VOLUME 89.1 fl (81.0-99.0); MONOCYTES # (AUTO) 0.6 K/uL (0.4-2.0); NEUTROPHILS # (AUTO) 8.5 K/ul (2.0-6.9); NEUTROPHILS % (AUTO) 61.8; PLATELET COUNT 262 10^3/uL (140-440); RED BLOOD COUNT 4.58 10^6/ul (4.20-5.40); WHITE BLOOD COUNT 13.74 K/ul (4.6-10.2)
[2016-11-21 20:34] LABS: ANION GAP 10.9; CALCIUM 9.1 mg/dL (8.2-10.2); POTASSIUM 3.9 mmol/L (3.5-5.10)
[2016-11-21 20:35] LABS: ALBUMIN 4.2 g/dL (3.4-5.0); ALBUMIN/GLOBULIN RATIO 1.5; BILIRUBIN,TOTAL 0.2 mg/dL (0.00-1.20)
[2016-11-21] MEDS ORDERED: CIPRO PO STA (20:59)
--- NOTE | 2016-11-22 03:53 | DI ---
EXAM: Chest, two views, 10/24 09/09 HISTORY: Cough COMPARISON: 09/23/2016 FINDINGS / IMPRESSION: Cardiomediastinal contours appear stable. Interstitial prominence with paxton bronchial thickening. Correlate for bronchiolitis There is no focal pulmonary consolidation. No pleural effusion or pneumothorax.
== END 2016-11-21 21:15 | disposition home or self-care (01) ==
LOC: ED 19:24
DX: R30.0 Dysuria (principal); R35.0 Frequency of micturition; M54.5 Low back pain; R05 Cough; E11.9 Type 2 diabetes mellitus without complications; N18.9 Chronic kidney disease, unspecified; I10 Essential (primary) hypertension; F17.210 Nicotine dependence, cigarettes, uncomplicated; Z79.899 Other long term (current) drug therapy
CPT/HCPCS: 36415; 80053; 81001; 85025; 99283

== ENCOUNTER 2016-12-07 04:37 | Emergency (ER) ==
[2016-12-07 05:05] VITALS: BP 156/90; TEMP 98.9; BMI 30.4
--- NOTE | 2016-12-07 06:12 | ED.PDOC ---
General ED Provider: Dr. NESTOR SCOTT Chief Complaint: Extremity Pain/Injury Stated Complaint: Patient complaints of Right Elbow pain with radiation to the right 4th and 5th digits with numbness. pain started after a [place] the [place]. Denies any Trauma. Has a history of elbow fracture 20 years ago. Time Seen by Physician: 06:09 Mode of Arrival: Walk-In Information Source: Patient Exam Limitations: No limitations Primary Care Provider: VINOD BLANC Nursing and Triage Documentation Reviewed and Agree: Yes Musculoskeletal Complaint Exam - Elbow Pain Complaint/Exam Mechanism of Injury: Reports: No known trauma Onset/Duration: 5 day Symptoms Are: Still present Onset of Pain: Reports: Immediate Initial Severity: Moderate Current Severity: Moderate Location: Reports: Diffuse (lateral aspect of the elbow with radiation to the 4 and 5th digits. ) Character: Reports: Aching Alleviating: Reports: None Aggravating: Reports: Movement (bending ) Associated Signs and Symptoms: Reports: Numbness. Denies: Swelling, Redness, Bruising, Fever, Weakness, Tingling Related History: Denies: Similar episode, Occupational injury Related Surgical History: Reports: Other Orthopedic Surgery (prior fracture to the ebow 20 years ago ) Tenderness: Present: Lateral Condyle Limited Range of Motion: Present: Supination Differential Diagnoses: Sprain, Strain, Tendonitis, Other (ulnar Neuropathy ) Review of Systems - Review Of Systems Constitutional: Reports: No symptoms Eyes: Reports: No symptoms Ears, Nose, Mouth, Throat: Reports: No symptoms Respiratory: Reports: No symptoms Cardiac: Reports: No symptoms GI: Reports: No symptoms : Reports: No symptoms Musculoskeletal: Reports: Joint pain Skin: Reports: No symptoms Neurological: Reports: Anxiety, Numbness (4th and 5th digit. ) Endocrine: Reports: No symptoms Hematologic/Lymphatic: Reports: No symptoms All Other Systems: Reviewed and Negative Past Medical History - Past Medical History Previously Healthy: Yes Endocrine: Reports: DM 2 ( insulin) Cardiovascular: Reports: Hypertension Respiratory: Reports: COPD Hematological: Reports: None Gastrointestinal: Reports: None Genitourinary: Reports: CKD Neuro/Psych: Reports: None Musculoskeletal: Reports: None Cancer: Reports: None Last Menstrual Period: 1998 surg. - Surgical History General Surgical History: Reports: Hysterectomy, Other - Family History Family History: Reports: Unknown - Social History Smoking Status: Current every day smoker, Heavy tobacco smoker Hx Substance Use: No Alcohol Screening: None - Immunizations Tetanus Shot up to Date: Yes Physical Exam - Physical Exam Appearance: Ill-appearing Ill-appearing: Mild Pain Distress: Moderate Neck: Supple Respiratory: Airway patent, Breath sounds clear, Breath sounds equal, Respirations nonlabored Cardiovascular: RRR, Pulses normal, No rub, No murmur GI/: Soft, Nontender, No masses, Bowel sounds normal, No Organomegaly Musculoskeletal: Normal strength, ROM intact, No edema, No calf tenderness Skin: Warm, Dry, Normal color Neurological: Sensation intact, Motor intact, Reflexes intact, Cranial nerves intact, Alert, Oriented Psychiatric: Anxious Critical Care Note - Critical Care Note Total Time (mins): 0 Course - Course Vital Signs: Temp Pulse Resp BP Pulse Ox 12/07/16 04:54 98.9 F 90 20 156/90 H 96 Departure - Departure Time of Disposition: 06:19 Disposition: HOME SELF-CARE Discharge Problem: Ulnar neuropathy at elbow of right upper extremity Instructions: Cubital Tunnel Syndrome (ED) Condition: Fair Pt referred to PMD for follow-up: Yes Additional Instructions: take Ibuprofen as needed Take Medrol dose pack as prescribed. Prescriptions: Methylprednisolone [Medrol Dosepak] 4 mg PO DIRECTED #1 pkg Allergies/Adverse Reactions: Allergies codeine Adverse Reaction (Verified 12/07/16 05:05) morphine Adverse Reaction (Verified 12/07/16 05:05) Home Medications: Ambulatory Orders Ezetimibe [Zetia] 10 mg PO DAILY #30 tablet 03/30/14 Clopidogrel Bisulfate [Plavix] 75 mg PO DAILY 06/10/14 Insulin Regular, Human [Humulin R] See Protocol SQ ACHS PRN 07/08/15 Omeprazole [Prilosec] 20 mg PO QDAC 09/30/15 Insulin Glargine,Hum.rec.anlog [Lantus] 70 unit SUBCUT BEDTIME 02/17/16 Canagliflozin [Invokana] 300 mg PO DAILY 05/29/16 Icosapent Ethyl [Vascepa] 1 gm PO BID 05/29/16 Albuterol Sulfate 0.083% Neb [Albuterol 0.083% Neb] 1 vial NEB RTQ6H PRN #120 vial.neb 05/30/16 Atorvastatin Calcium [Lipitor] 40 mg PO DAILY #30 tablet 05/30/16 Bisoprolol Fumarate [Zebeta] 5 mg PO DAILY #30 tablet 05/30/16 Lisinopril 10 mg PO DAILY #30 tablet 05/30/16 Polyethylene Glycol 3350 [Miralax] 17 gm PO EVERY OTHER DAY 05/30/16 Naproxen [Naprosyn] 500 mg PO Q12HR PRN #30 tablet 07/01/16 Citalopram Hydrobromide [Celexa] 40 mg PO BEDTIME #30 09/18/16 Clonazepam [Klonopin] 0.5 mg PO BID #60 09/18/16 Trazodone HCl 50 mg PO BEDTIME PRN #30 09/18/16 Oxycodone-Acetaminophen 10-325 [Percocet 10-325] 1 tab PO TID 09/23/16 Pregabalin [Lyrica] 75 mg PO DAILY PRN 09/23/16 Hydroxyzine HCl 25 mg PO TID #90 10/23/16 Zolpidem Tartrate [Ambien] 5 mg PO BEDTIME #30 10/23/16 Ciprofloxacin HCl [Cipro] 250 mg PO Q12HR #14 tablet 11/21/16 Methylprednisolone [Medrol Dosepak] 4 mg PO DIRECTED #1 pkg 12/07/16 Disposition Discussed With: Patient
[2016-12-07] MEDS ORDERED: DECADRON 4 MG/ML SDV IM STA (06:18)
== END 2016-12-07 06:50 | disposition home or self-care (01) ==
LOC: ED 04:37
DX: G56.21 Lesion of ulnar nerve, right upper limb (principal)
CPT/HCPCS: 96372; 99283

== ENCOUNTER 2017-01-19 02:12 | Emergency (ER) | payer OTHER ==
[2017-01-19 02:28] VITALS: BP 157/83; TEMP 98; BMI 30.7
[2017-01-19] MEDS ORDERED: DECADRON 4 MG/ML SDV IM STA (03:04)
--- NOTE | 2017-01-19 03:11 | ED.PDOC ---
General ED Provider: Dr. JASS BALES Chief Complaint: Shortness of Air Stated Complaint: coughing, congestion, hurting all over, shortness of breath. sat 96 on ra now. Time Seen by Physician: 03:09 Mode of Arrival: Ambulance Information Source: Patient Primary Care Provider: VINOD BLACN Nursing and Triage Documentation Reviewed and Agree: Yes Respiratory Complaint Exam - Shortness of Air Complaint/Exam Symptoms Are: Resolved Timing: Intermittent Initial Severity: Mild Current Severity: None Character: Reports: Dyspnea on exertion Aggravating: Reports: URI Alleviating: Reports: None Associated Signs and Symptoms: Reports: Cough, Edema (per patient, none on exam. ) Related History: Reports: Similar episode History of Healthcare-Acquired Pneumonia: No Pulmonary Embolism Risk Factors: Reports: None Cardiac Risk Factors: Reports: None Pseudomonas Risk Factors: Reports: None Tuberculosis Risk Factors: Reports: None Home Oxygen Use: No Recent Stress Test: No Recent Echo/LV Function: No Stridor Present: No Tracheal Deviation: No Subcutaneous Emphysema: No Accessory Muscle Use: No Diminished Breath Sounds: No Prolonged Expiratory Phase: No Unable to Speak Full Sentences: No Differential Diagnoses: CHF, COPD Exacerbation, Pneumonia Review of Systems - Review Of Systems Constitutional: Reports: Malaise Eyes: Reports: No symptoms Ears, Nose, Mouth, Throat: Reports: No symptoms Respiratory: Reports: Cough, Short of air Cardiac: Reports: No symptoms GI: Reports: No symptoms : Reports: No symptoms Musculoskeletal: Reports: No symptoms Skin: Reports: No symptoms Neurological: Reports: No symptoms Endocrine: Reports: No symptoms Hematologic/Lymphatic: Reports: No symptoms All Other Systems: Reviewed and Negative Past Medical History - Past Medical History Previously Healthy: Yes Endocrine: Reports: DM 2 ( insulin) Cardiovascular: Reports: Hypertension, CHF Respiratory: Reports: COPD Hematological: Reports: None Gastrointestinal: Reports: None Genitourinary: Reports: CKD Neuro/Psych: Reports: None Musculoskeletal: Reports: None Cancer: Reports: None Last Menstrual Period: 1998 - Surgical History General Surgical History: Reports: Hysterectomy, Other - Family History Family History: Reports: Unknown - Social History Smoking Status: Current every day smoker, Heavy tobacco smoker Smoking Cessation Counseling Time: > 3 min - 10 min Hx Substance Use: No Alcohol Screening: None - Immunizations Tetanus Shot up to Date: Yes Physical Exam - Physical Exam Appearance: Well-appearing, No pain distress, Well-nourished Eyes: ELOISA, EOMI, Conjunctiva clear ENT: Ears normal, Nose normal, Oropharynx normal Respiratory: Airway patent, Breath sounds clear, Breath sounds equal, Respirations nonlabored Cardiovascular: RRR, Pulses normal, No rub, No murmur GI/: Soft, Nontender, No masses, Bowel sounds normal, No Organomegaly Musculoskeletal: Normal strength, ROM intact, No edema, No calf tenderness Skin: Warm, Dry, Normal color Neurological: Sensation intact, Motor intact, Reflexes intact, Cranial nerves intact, Alert, Oriented Psychiatric: Affect appropriate, Mood appropriate Interpretation - Radiology Interpretation Radiology Interpretation By: ED Physician Radiology Results: Negative Exam Interpreted: CXR Critical Care Note - Critical Care Note Total Time (mins): 0 Course - Course Hematology/Chemistry: 01/19/17 03:10 01/19/17 03:10 Orders, Labs, Meds: Lab Review 01/19/17 03:10 WBC 12.50 H RBC 4.31 Hgb 12.9 Hct 37.8 MCV 87.7 MCH 29.9 MCHC 34.1 RDW Coeff of [place] 12.9 Plt Count 228 Immature Gran % (Auto) 0.5 Neut % (Auto) 54.4 Lymph % (Auto) 37.6 [place] % (Auto) 4.8 Eos % (Auto) 2.2 Baso % (Auto) 0.5 Immature Gran # (Auto) 0.1 Neut # 6.8 Lymph # 4.7 H [place] # 0.6 Eos # 0.3 Baso # 0.1 Sodium 138 Potassium 3.9 Chloride 105 Carbon Dioxide 21 Anion Gap 15.9 BUN 14 Creatinine 0.83 Estimated GFR (MDRD) 73.00 BUN/Creatinine Ratio 16.86 Glucose 227 H Calcium 9.1 Total Bilirubin 0.20 AST 27 ALT 40 Alkaline Phosphatase 131 H Total Creatine Kinase 53 Troponin I < 0.0100 Total Protein 6.6 Albumin 3.4 Globulin 3.2 Albumin/Globulin Ratio 1.06 Orders Category Date Time Status EKG-(ED ONLY) Stat CARDIO 01/19/17 03:04 Ordered CBC W/ AUTO DIFF Stat LAB 01/19/17 03:10 Completed COMPREHENSIVE METABOLIC PANEL Stat LAB 01/19/17 03:10 Completed CREATINE KINASE Stat LAB 01/19/17 03:10 Completed TROPONIN I Stat LAB 01/19/17 03:10 Completed Dexamethasone 4 mg/ml Inj [Decadron 4 mg/ml Sdv] MEDS 01/19/17 03:04 Discontinued 4 mg IM ONCE STA Ketorolac Tromethamine [Toradol] MEDS 01/19/17 03:37 Discontinued 30 mg IVP ONCE STA CHEST, 1V AP ONLY Stat RADS 01/19/17 03:04 Taken Medications Discontinued Medications Generic Name Dose Route Start Last Admin Trade Name Freq PRN Reason Stop Dose Admin Dexamethasone Sodium Phosphate 4 mg 01/19/17 03:04 01/19/17 03:17 Decadron 4 Mg/Ml Sdv IM 01/19/17 03:05 4 mg ONCE STA Administration Ketorolac Tromethamine 30 mg 01/19/17 03:37 Toradol IVP 01/19/17 03:38 ONCE STA Vital Signs: Temp Pulse Resp BP Pulse Ox 01/19/17 02:13 98.0 F 88 22 157/83 H 98 Departure - Departure Time of Disposition: 03:43 Disposition: HOME SELF-CARE Discharge Problem: URTI (acute upper respiratory infection) Instructions: Upper Respiratory Infection (ED) Condition: Stable Pt referred to PMD for follow-up: Yes Additional Instructions: Keep monitoring the blood sugars. take medications with food. f/u with PMD Prescriptions: Cephalexin [Keflex] 500 mg PO Q12HR #20 capsule Prednisone 5 mg PO BIDWM #14 tablet Allergies/Adverse Reactions: Allergies codeine Adverse Reaction (Verified 01/19/17 02:29) morphine Adverse Reaction (Verified 01/19/17 02:29) Home Medications: Ambulatory Orders Ezetimibe [Zetia] 10 mg PO DAILY #30 tablet 03/30/14 Clopidogrel Bisulfate [Plavix] 75 mg PO DAILY 06/10/14 Insulin Regular, Human [Humulin R] See Protocol SQ ACHS PRN 07/08/15 Omeprazole [Prilosec] 20 mg PO QDAC 09/30/15 Insulin Glargine,Hum.rec.anlog [Lantus] 70 unit SUBCUT BEDTIME 02/17/16 Canagliflozin [Invokana] 300 mg PO DAILY 05/29/16 Icosapent Ethyl [Vascepa] 1 gm PO BID 05/29/16 Albuterol Sulfate 0.083% Neb [Albuterol 0.083% Neb] 1 vial NEB RTQ6H PRN #120 vial.neb 05/30/16 Atorvastatin Calcium [Lipitor] 40 mg PO DAILY #30 tablet 05/30/16 Bisoprolol Fumarate [Zebeta] 5 mg PO DAILY #30 tablet 05/30/16 Lisinopril 10 mg PO DAILY #30 tablet 05/30/16 Polyethylene Glycol 3350 [Miralax] 17 gm PO EVERY OTHER DAY 05/30/16 Naproxen [Naprosyn] 500 mg PO Q12HR PRN #30 tablet 07/01/16 Citalopram Hydrobromide [Celexa] 40 mg PO BEDTIME #30 09/18/16 Trazodone HCl 50 mg PO BEDTIME PRN #30 09/18/16 Oxycodone-Acetaminophen 10-325 [Percocet 10-325] 1 tab PO TID 09/23/16 Pregabalin [Lyrica] 75 mg PO DAILY PRN 09/23/16 Hydroxyzine HCl 25 mg PO TID #90 10/23/16 Zolpidem Tartrate [Ambien] 5 mg PO BEDTIME #30 10/23/16 Diazepam [Valium] 10 mg PO TID #90 01/15/17 Cephalexin [Keflex] 500 mg PO Q12HR #20 capsule 01/19/17 Prednisone 5 mg PO BIDWM #14 tablet 01/19/17 Disposition Discussed With: Patient
[2017-01-19 03:15] LABS: BASOPHILS # (AUTO) 0.1 K/uL (0-0.2); BASOPHILS % (AUTO) 0.5 % (0.0-3.0); EOSINOPHILS # (AUTO) 0.3 K/ul (0.0-0.7); EOSINOPHILS % (AUTO) 2.2 % (0.0-7.0); HEMATOCRIT 37.8 % (37.0-47.0); HEMOGLOBIN 12.9 g/dl (12.0-16.0); IMMATURE GRANULOCYTE % (AUTO) 0.5 % (0.0-5.0); LYMPHOCYTES # (AUTO) 4.7 K/uL (0.60-3.4); LYMPHOCYTES % (AUTO) 37.6 (10.0-50.0); MEAN CORPUSCULAR HEMOGLOBIN 29.9 pg (27.0-31.0); MEAN CORPUSCULAR HGB CONC 34.1 (31.8-35.4); MEAN CORPUSCULAR VOLUME 87.7 fl (81.0-99.0); MONOCYTES # (AUTO) 0.6 K/uL (0.4-2.0); MONOCYTES % (AUTO) 4.8 (0-10); NEUTROPHILS # (AUTO) 6.8 K/ul (2.0-6.9); NEUTROPHILS % (AUTO) 54.4; PLATELET COUNT 228 10^3/uL (140-440); RED BLOOD COUNT 4.31 10^6/ul (4.20-5.40)
[2017-01-19] MEDS ORDERED: TORADOL IM STA (03:35)
[2017-01-19] MEDS ORDERED: TORADOL IVP STA (03:37)
[2017-01-19 03:40] LABS: ALANINE AMINOTRANSFERASE 40 U/L (12-78); ALBUMIN 3.4 g/dL (3.4-5.0); ALBUMIN/GLOBULIN RATIO 1.06; ALKALINE PHOSPHATASE 131 U/L (42-98); ANION GAP 15.9; ASPARTATE AMINO TRANSFERASE 27 U/L (15-37); BLOOD UREA NITROGEN 14 mg/dL (7-18); BUN/CREATININE RATIO 16.86; CALCIUM 9.1 mg/dL (8.2-10.2); CARBON DIOXIDE 21 mmol/L (21-32); CHLORIDE 105 mmol/L (98-107); CREATINE KINASE 53 U/L; CREATININE 0.83 mg/dL (0.60-1.30); GLUCOSE 227 mg/dL (70-110); POTASSIUM 3.9 mmol/L (3.5-5.10); SODIUM 138 mmol/L (136-145); TOTAL PROTEIN 6.6 g/dL (6.4-8.2)
--- NOTE | 2017-01-19 06:50 | DI ---
EXAM: Chest one view HISTORY: Shortness of breath COMPARISON: 11/21/2016 TECHNIQUE: Single view of the chest was performed FINDINGS: The lungs are clear. There is no pleural effusion or pneumothorax. The heart is normal in size. The mediastinal contour is normal. There are no acute abnormalities of the bones. IMPRESSION: No acute cardiopulmonary process.
== END 2017-01-19 03:55 | disposition home or self-care (01) ==
LOC: ED 02:12
DX: J06.9 Acute upper respiratory infection, unspecified (principal); R06.02 Shortness of breath; F17.200 Nicotine dependence, unspecified, uncomplicated
CPT/HCPCS: 36415; 80053; 82550; 84484; 85025; 93005; 93010; 96372; 96374; 96375; 99284

== ENCOUNTER 2017-01-23 02:03 | Outpatient (CLI) | END 2017-01-23 02:04 | disposition home or self-care (01) | LOC: AMBL 02:03 | PROVIDERS: ATTEND Emergency Medicine | DX: R06.02 Shortness of breath (principal); R06.2 Wheezing; R60.0 Localized edema; R33.9 Retention of urine, unspecified; R73.9 Hyperglycemia, unspecified ==

== ENCOUNTER 2017-03-11 14:05 | Outpatient (CLI) ==
--- NOTE | 2017-03-11 14:36 | DI ---
EXAM: Views of the lumbar spine HISTORY: Pain, radiculopathy. TECHNIQUE: AP lateral, oblique views of the lumbar spine were obtained. FINDINGS: The alignment is normal. There is no evidence of compression deformity. The interverteb ral discs demonstrate normal height. There is no pars defect. There is mild facet arthropathy seen at L5-S1. IMPRESSION: No acute abnormalities are seen within the lumbar spine.
--- NOTE | 2017-03-11 14:40 | DI ---
EXAM: Views of the cervical spine HISTORY: Pain, degeneration. TECHNIQUE: AP lateral, oblique and open mouth views and swimmers lateral views of the cervical spin e were obtained. FINDINGS: There is straightening of the cervical spine. The intervertebral discs demonstrate jahaira l height. The neural foramina appear patent. There is a normal alignment of the facet joints. The odontoid process appears normal. IMPRESSION: No acute abnormalities are seen within the cervical spine.
== END 2017-03-11 14:06 | disposition home or self-care (01) ==
LOC: RAD 14:05
PROVIDERS: ATTEND Pain Medicine Interventional Pain Medicine
DX: M51.16 Intervertebral disc disorders with radiculopathy, lumbar region (principal); M51.17 Intervertebral disc disorders with radiculopathy, lumbosacral region; M47.812 Spondylosis without myelopathy or radiculopathy, cervical region; M47.813 Spondylosis without myelopathy or radiculopathy, cervicothoracic region; M50.31 Other cervical disc degeneration, high cervical region; M50.321 Other cervical disc degeneration at C4-C5 level; M50.322 Other cervical disc degeneration at C5-C6 level; M50.323 Other cervical disc degeneration at C6-C7 level; M50.33 Other cervical disc degeneration, cervicothoracic region

== ENCOUNTER 2017-04-04 03:42 | Emergency (ER) ==
[2017-04-04 03:49] VITALS: BP 150/88; TEMP 99.7; BMI 29.0
[2017-04-04 04:01] LABS: BASOPHILS # (AUTO) 0.1 K/uL (0-0.2); BASOPHILS % (AUTO) 0.5 % (0.0-3.0); EOSINOPHILS # (AUTO) 0.2 K/ul (0.0-0.7); EOSINOPHILS % (AUTO) 1.3 % (0.0-7.0); HEMATOCRIT 39.3 % (37.0-47.0); IMMATURE GRANULOCYTE % (AUTO) 0.3 % (0.0-5.0); LYMPHOCYTES # (AUTO) 5.9 K/uL (0.60-3.4); LYMPHOCYTES % (AUTO) 33.1 (10.0-50.0); MEAN CORPUSCULAR HEMOGLOBIN 31.5 pg (27.0-31.0); MEAN CORPUSCULAR HGB CONC 35.6 (31.8-35.4); MEAN CORPUSCULAR VOLUME 88.3 fl (81.0-99.0); MONOCYTES # (AUTO) 0.8 K/uL (0.4-2.0); MONOCYTES % (AUTO) 4.7 (0-10); NEUTROPHILS # (AUTO) 10.7 K/ul (2.0-6.9); NEUTROPHILS % (AUTO) 60.1; PLATELET COUNT 291 10^3/uL (140-440); RED BLOOD COUNT 4.45 10^6/ul (4.20-5.40); WHITE BLOOD COUNT 17.82 K/ul (4.6-10.2)
[2017-04-04 04:06] LABS: BILIRUBIN,URINE Negative (NEGATIVE); KETONES,URINE Negative (NEGATIVE); LEUKOCYTE ESTERASE ,URINE 1+ (NEGATIVE); NITRITE,URINE Negative (NEGATIVE); PROTEIN,URINE 1+ (NEGATIVE); URINE, BLOOD 3+ (NEGATIVE)
[2017-04-04 04:07] LABS: ADD URINE MICROSCOPIC YES
[2017-04-04 04:19] LABS: BACTERIA,URINE 2+ (NOT PRESENT)
[2017-04-04 04:20] LABS: ALBUMIN 3.7 g/dL (3.4-5.0); ALBUMIN/GLOBULIN RATIO 1.42; BILIRUBIN,TOTAL 0.21 mg/dL (0.00-1.20); BUN/CREATININE RATIO 22.69; CALCIUM 9.9 mg/dL (8.2-10.2); CREATININE 1.41 mg/dL (0.60-1.30); TOTAL PROTEIN 6.3 g/dL (6.4-8.2)
--- NOTE | 2017-04-04 05:01 | CT ---
Exam: CT of the abdomen and pelvis without contrast History: Flank pain and hematuria Technique: [address] of the abdomen and pelvis without intravascular contrast FINDINGS: The lung bases are clear. No significant liver abnormality. The adrenals, pancreas and sp patricia are unremarkable. The stomach and hiatus are unremarkable.Trace right hydroureter with periuret eral stranding. Right parapelvic cyst stable from 05/30/2016. No bernardo hydronephrosis. No urolithia sis is seen. The appendix is normal. Bowel loops demonstrate normal caliber. No inflamatory change s een in the mesentery or retroperitoneum. Atherosclerotic calcification of the aorta without aneurysm . Left renal artery stenting. Prior hysterectomy. Normal urinary bladder. No inflammation of the pelvic fat. No acute findings of the skeleton. Impression: 1. There is trace right hydroureter with periureteral stranding. E No urolithiasis is seen. Corre late for passed calculus versus urinary tract infection. 2. Left renal artery stenting 3. No acute findings of the abdomen or pelvis otherwise.
[2017-04-04] MEDS ORDERED: LEVAQUIN PO STA (05:10)
--- NOTE | 2017-04-04 05:13 | ED.PDOC ---
General ED Provider: Dr. CHESTER PELAEZ-ER Chief Complaint: Urinary Problem Stated Complaint: i was hurting on my right side and then it wwent away--now blood in the urine Time Seen by Physician: 03:50 Mode of Arrival: Walk-In Information Source: Patient Exam Limitations: No limitations Primary Care Provider: VINOD BLANC Nursing and Triage Documentation Reviewed and Agree: Yes Complaint Exam - UTI Female Complaint/Exam Patient Complains of: Reports: Painful urination, Blood in urine Onset/Duration: one hour Symptoms Are: Still present Timing: Constant Initial Severity: Mild Current Severity: Mild Location of Pain: Reports: Right, Flank Associated Signs and Symptoms: Reports: Flank pain. Denies: Fever, Chills, Dyspareunia, Vaginal discharge CVA Tenderness: No Suprapubic Tenderness: No Differential Diagnoses: Pyelonephritis, Ureteral Calculus Review of Systems - Review Of Systems Constitutional: Reports: No symptoms Eyes: Reports: No symptoms Ears, Nose, Mouth, Throat: Reports: No symptoms Respiratory: Reports: No symptoms Cardiac: Reports: No symptoms GI: Reports: No symptoms : Reports: Flank pain, Hematuria Musculoskeletal: Reports: No symptoms Skin: Reports: No symptoms Neurological: Reports: No symptoms Endocrine: Reports: No symptoms Hematologic/Lymphatic: Reports: No symptoms All Other Systems: Reviewed and Negative Past Medical History - Past Medical History Previously Healthy: Yes Endocrine: Reports: DM 2 ( insulin) Cardiovascular: Reports: Hypertension, CHF Respiratory: Reports: COPD Hematological: Reports: None Gastrointestinal: Reports: None Genitourinary: Reports: CKD Neuro/Psych: Reports: None Musculoskeletal: Reports: None Cancer: Reports: None Last Menstrual Period: 1998 - Surgical History General Surgical History: Reports: Hysterectomy, Other - Family History Family History: Reports: Unknown - Social History Smoking Status: Current every day smoker, Heavy tobacco smoker Hx Substance Use: No Alcohol Screening: None Lives: With family - Immunizations Tetanus Shot up to Date: Yes Physical Exam - Physical Exam Appearance: Well-appearing, No pain distress, Well-nourished Eyes: ELOISA, EOMI, Conjunctiva clear ENT: Ears normal, Nose normal, Oropharynx normal Neck: Supple Respiratory: Airway patent Cardiovascular: RRR GI/: Soft, Nontender, No masses, Bowel sounds normal, No Organomegaly Musculoskeletal: Normal strength, ROM intact, No edema, No calf tenderness Skin: Warm Neurological: Sensation intact Psychiatric: Affect appropriate, Mood appropriate Re-Evaluation - Re-Evaluation Time of Re-Evaluation: 05:12 Status: Improved (no pain) Vital Signs Stable: Yes Pain Level: 0 Appearance: NAD Lungs: Clear Skin: Warm and Dry Neuro: Alert and Oriented X3 CV: RRR Critical Care Note - Critical Care Note Total Time (mins): 0 Course - Course Hematology/Chemistry: 04/04/17 03:55 04/04/17 03:55 Orders, Labs, Meds: Lab Review 04/04/17 04/04/17 03:55 04:00 WBC 17.82 H RBC 4.45 Hgb 14.0 Hct 39.3 MCV 88.3 MCH 31.5 H MCHC 35.6 H RDW Coeff of Barry 13.2 Plt Count 291 Immature Gran % (Auto) 0.3 Neut % (Auto) 60.1 Lymph % (Auto) 33.1 [place] % (Auto) 4.7 Eos % (Auto) 1.3 Baso % (Auto) 0.5 Immature Gran # (Auto) 0.1 Neut # 10.7 H Lymph # 5.9 H [place] # 0.8 Eos # 0.2 Baso # 0.1 Sodium 138 Potassium 4.0 Chloride 102 Carbon Dioxide 23 Anion Gap 17.0 BUN 32 H Creatinine 1.41 H Estimated GFR (MDRD) 40.00 BUN/Creatinine Ratio 22.69 Glucose 195 H Calcium 9.9 Total Bilirubin 0.21 AST 14 L ALT 23 Alkaline Phosphatase 105 H Total Protein 6.3 L Albumin 3.7 Globulin 2.6 Albumin/Globulin Ratio 1.42 Urine Color Brown Urine Clarity Turbid Urine pH 6.0 Ur Specific [place] 1.015 Urine Protein 1+ Urine Glucose (UA) 3+ H Urine Ketones Negative Urine Blood 3+ Urine Nitrite Negative Urine Bilirubin Negative Urine Urobilinogen 0.2 Ur Leukocyte Esterase 1+ Urine Microscopic RBC Tntc Urine Microscopic WBC 30-50 Ur Squamous Epith Cells 2-5 Urine Bacteria 2+ Orders Category Date Time Status CBC W/ AUTO DIFF Stat LAB 04/04/17 03:55 Completed COMPREHENSIVE METABOLIC PANEL Stat LAB 04/04/17 03:55 Completed URINALYSIS C & S IF INDICATED Stat LAB 04/04/17 04:00 Completed URINE CULTURE Routine LAB 04/04/17 04:08 Received Levofloxacin [Levaquin] MEDS 04/04/17 05:10 Stat 500 mg PO ONCE STA CT ABDOMEN/PELVIS WO CONTRAST Stat RADS 04/04/17 03:49 Completed Vital Signs: Temp Pulse Resp BP Pulse Ox 04/04/17 03:44 99.7 F H 69 20 150/88 H 96 Departure - Departure Time of Disposition: 05:12 Disposition: HOME SELF-CARE Discharge Problem: Hematuria Qualifiers: Hematuria type: unspecified type Qualifier Code: (R31.9) Hematuria, unspecified Instructions: Hematuria (ED) Condition: Good Pt referred to PMD for follow-up: Yes Additional Instructions: fluids today--levaquin 250mg x 7 days--f/u wit pcp Allergies/Adverse Reactions: Allergies codeine Adverse Reaction (Verified 04/04/17 03:49) morphine Adverse Reaction (Verified 04/04/17 03:49) Home Medications: Ambulatory Orders Ezetimibe [Zetia] 10 mg PO DAILY #30 tablet 03/30/14 Clopidogrel Bisulfate [Plavix] 75 mg PO DAILY 06/10/14 Insulin Regular, Human [Humulin R] See Protocol SQ ACHS PRN 07/08/15 Omeprazole [Prilosec] 20 mg PO QDAC 09/30/15 Insulin Glargine,Hum.rec.anlog [Lantus] 80 unit SUBCUT BEDTIME 02/17/16 Canagliflozin [Invokana] 300 mg PO DAILY 05/29/16 Icosapent Ethyl [Vascepa] 1 gm PO BID 05/29/16 Albuterol Sulfate 0.083% Neb [Albuterol 0.083% Neb] 1 vial NEB RTQ6H PRN #120 vial.neb 05/30/16 Atorvastatin Calcium [Lipitor] 40 mg PO DAILY #30 tablet 05/30/16 Bisoprolol Fumarate [Zebeta] 5 mg PO DAILY #30 tablet 05/30/16 Lisinopril 10 mg PO DAILY #30 tablet 05/30/16 Polyethylene Glycol 3350 [Miralax] 17 gm PO EVERY OTHER DAY 05/30/16 Naproxen [Naprosyn] 500 mg PO Q12HR PRN #30 tablet 07/01/16 Oxycodone-Acetaminophen 10-325 [Percocet 10-325] 1 tab PO TID 09/23/16 Pregabalin [Lyrica] 75 mg PO DAILY PRN 09/23/16 Hydroxyzine HCl 25 mg PO TID #90 10/23/16 Diazepam [Valium] 10 mg PO TID PRN #90 01/15/17 Prednisone 5 mg PO BIDWM #14 tablet 01/19/17 Potassium Chloride [K-Tab ER] 10 meq PO DAILY 04/04/17 Disposition Discussed With: Patient
== END 2017-04-04 05:20 | disposition home or self-care (01) ==
LOC: ED 03:42
DX: R31.9 Hematuria, unspecified (principal); R30.0 Dysuria; E11.9 Type 2 diabetes mellitus without complications; I10 Essential (primary) hypertension; N18.9 Chronic kidney disease, unspecified; F17.210 Nicotine dependence, cigarettes, uncomplicated; Z79.899 Other long term (current) drug therapy
CPT/HCPCS: 36415; 80053; 81001; 85025; 87086; 87186; 99283

== ENCOUNTER 2017-06-09 08:20 | Outpatient (CLI) | payer OTHER ==
--- NOTE | 2017-06-09 09:25 | US ---
EXAM: Ultrasound bilateral carotid duplex. HISTORY: Dizziness. COMPARISON: 03/20/2016. TECHNIQUE: Multiple iglesias scale and color Doppler images were obtained. FINDINGS: Please note that estimates of internal carotid artery stenoses are based upon NASCET crite sari. Right carotid: Calcified plaquing noted without 50% or greater stenosis. Peak systolic velocity lien surement in the right internal carotid artery is 1.0 meters per second. Right internal to common car otid artery peak systolic velocity ratio measures 1.2. End diastolic velocity measurement in the rig ht internal carotid artery is 0.2 meters per second. Flow in the right vertebral artery is antegrade . Left carotid: Calcified plaquing noted without 50% or greater stenosis. Peak systolic velocity luis urement in the left internal carotid artery is 0.8 meters per second. Left internal to common caroti d artery peak systolic velocity ratio measures 0.8. End diastolic velocity measurement in the left i nternal carotid artery measures 0.3 meters per second. Flow in the left vertebral artery is antegrad e. IMPRESSION: 1. No evidence for 50% or greater stenosis in the right or left internal carotid artery. 2. Antegrade flow in both vertebral arteries.
== END 2017-06-09 08:21 | disposition home or self-care (01) ==
LOC: RAD 08:20
PROVIDERS: ATTEND Internal Medicine
DX: R42 Dizziness and giddiness (principal); R41.3 Other amnesia

== ENCOUNTER 2017-06-12 15:27 | Emergency (ER) ==
[2017-06-12 15:34] VITALS: BP 148/80; TEMP 98.9; BMI 31.1
--- NOTE | 2017-06-12 16:13 | ED.PDOC ---
General ED Provider: Dr. AVA PATRICK Chief Complaint: Extremity Swelling/Pain Stated Complaint: bilateral leg muscle pain hips through ankles x 2 days. Pain is different from her neuropathy or PAD pain. Patient denies any recent trauma or change in medications. Time Seen by Physician: 16:00 Mode of Arrival: Walk-In Information Source: Patient Exam Limitations: No limitations Primary Care Provider: VINOD BLANC Nursing and Triage Documentation Reviewed and Agree: Yes Musculoskeletal Complaint Exam - Lower Extremity Complaint/Exam Location of Pain: Reports: Right, Left, Ankle, Leg, Knee, Thigh, Hip Mechanism of Injury: Reports: No known trauma Onset/Duration: 2 days Symptoms Are: Still present Onset of Pain: Reports: Immediate Initial Severity: Moderate Current Severity: Severe Location: Reports: Diffuse Character: Reports: Aching, Throbbing Alleviating: Reports: None Aggravating: Reports: Movement, Weight bearing, Prolonged standing (cannot bear weight for more than a few minutes secondary to pain) Able to Bear Weight: Yes (cannot bear weight for more than a few minutes secondary to pain) DVT Risk Factors: Reports: Smoking Septic Arthritis Risk Factors: Reports: None Related Surgical History: Reports: None Lower Extremity Findings: Present: Tenderness (all muscle groups are tender to palpation, increased pain in anterior muscles with flexion of hips or knees vs resistance), Limited range of motion (pain in posterior leg groups with SLR bilaterally (left with left, right with right) (no back pain)) NV Bundle Intact Distal to Injury: Yes Compartment Syndrome Risk Factors: Present: Pain Aishwarya's Sign Present: No Differential Diagnoses: Sciatica, Strain, Other Review of Systems - Review Of Systems Constitutional: Reports: No symptoms Respiratory: Reports: No symptoms Cardiac: Reports: No symptoms GI: Reports: Nausea (from pain) : Reports: No symptoms Musculoskeletal: Reports: Muscle pain (bilateral all msucle groups of both legs , hips to ankles) Skin: Reports: No symptoms Neurological: Reports: No symptoms All Other Systems: Reviewed and Negative Past Medical History - Past Medical History Previously Healthy: Yes Endocrine: Reports: DM 2 ( insulin-requiring) Cardiovascular: Reports: Hypertension, CHF, Other (PAD) Respiratory: Reports: COPD Hematological: Reports: None Gastrointestinal: Reports: None Genitourinary: Reports: CKD Neuro/Psych: Reports: Other (peripheral neuropathy) Musculoskeletal: Reports: None Cancer: Reports: None Last Menstrual Period: hysterectomy - Surgical History General Surgical History: Reports: Hysterectomy - Family History Family History: Reports: Unknown - Social History Smoking Status: Current every day smoker, Heavy tobacco smoker Hx Substance Use: No Alcohol Screening: None Lives: Alone - Immunizations Tetanus Shot up to Date: No Influenza Vaccine within 12 Months: No Pneumococcal Vaccine up to Date: No Physical Exam - Physical Exam Appearance: Well-appearing, Well-nourished, Obese Ill-appearing: None Pain Distress: Moderate Respiratory: Airway patent, Breath sounds clear, Breath sounds equal, Respirations nonlabored Cardiovascular: RRR, Pulses normal, No rub, No murmur GI/: Soft, Nontender, No masses, Bowel sounds normal, No Organomegaly Musculoskeletal: Normal strength, No edema, No calf tenderness, Limited ROM (can 't/won't move legs secondary to pain, increased pain with passive ROM; back is nontender) Skin: Warm, Dry, Normal color Neurological: Sensation intact, Motor intact, Reflexes intact, Cranial nerves intact, Alert, Oriented Psychiatric: Affect appropriate, Mood appropriate Re-Evaluation - Re-Evaluation Time of Re-Evaluation: 18:39 Status: Improved Vital Signs Stable: Yes Pain Level: 2/10 Appearance: NAD Lungs: Clear Skin: Warm and Dry Neuro: Alert and Oriented X3 CV: RRR Additional Comments: Patient when questioned about her home meds notes she is out of oxycodone Critical Care Note - Critical Care Note Total Time (mins): 0 Course - Course Hematology/Chemistry: 06/12/17 16:24 06/12/17 16:24 Orders, Labs, Meds: Lab Review 06/12/17 06/12/17 06/12/17 16:24 16:24 16:24 WBC 13.86 H RBC 4.99 Hgb 15.1 Hct 44.1 MCV 88.4 MCH 30.3 MCHC 34.2 RDW Coeff of Barry 12.9 Plt Count 300 Immature Gran % (Auto) 0.5 Neut % (Auto) 56.3 Lymph % (Auto) 36.7 [place] % (Auto) 4.3 Eos % (Auto) 1.8 Baso % (Auto) 0.4 Immature Gran # (Auto) 0.1 Neut # 7.8 H Lymph # 5.1 H [place] # 0.6 Eos # 0.3 Baso # 0.1 Sodium 140 Potassium 4.0 Chloride 102 Carbon Dioxide 24 Anion Gap 18.0 BUN 24 H Creatinine 1.06 Estimated GFR (MDRD) 55.00 BUN/Creatinine Ratio 22.64 Glucose 152 H Lactic Acid 10.8 Calcium 10.5 H Total Bilirubin 0.24 AST 15 ALT 23 Alkaline Phosphatase 146 H Total Creatine Kinase 38 Total Protein 8.0 Albumin 4.1 Globulin 3.9 Albumin/Globulin Ratio 1.05 Orders Category Date Time Status CBC W/ AUTO DIFF Stat LAB 06/12/17 16:24 Completed CK [CREATINE KINASE] Stat LAB 06/12/17 16:24 Completed COMPREHENSIVE METABOLIC PANEL Stat LAB 06/12/17 16:24 Completed LACTIC ACID Stat LAB 06/12/17 16:24 Completed URINALYSIS C & S IF INDICATED Stat LAB 06/12/17 16:30 Received Hydromorphone HCl [Dilaudid 1 mg/ml Syringe] MEDS 06/12/17 17:54 Discontinued 1 mg IVP ONCE STA Ondansetron HCl/Pf [Zofran 4 mg/2 ml] MEDS 06/12/17 17:55 Discontinued 4 mg IVP ONCE STA Sodium Chloride 0.9% [Sodium Chloride] 1,000 ml MEDS 06/12/17 17:05 Discontinued IV BOLUS Medications Discontinued Medications Generic Name Dose Route Start Last Admin Trade Name Freq PRN Reason Stop Dose Admin Hydromorphone HCl 1 mg 06/12/17 17:54 06/12/17 18:08 Dilaudid 1 Mg/Ml Syringe IVP 06/12/17 17:55 1 mg ONCE STA Administration Sodium Chloride 1,000 mls @ 1,000 mls/hr 06/12/17 17:05 06/12/17 18:00 Sodium Chloride IV 06/12/17 18:04 1,000 mls/hr BOLUS STA Administration Ondansetron HCl 4 mg 06/12/17 17:55 06/12/17 18:04 Zofran 4 Mg/2 Ml IVP 06/12/17 17:56 4 mg ONCE STA Administration Vital Signs: Temp Pulse Resp BP Pulse Ox 06/12/17 15:28 98.9 F 86 20 148/80 H 94 L Departure - Departure Time of Disposition: 18:40 Disposition: HOME SELF-CARE Discharge Problem: Bilateral leg pain Instructions: Leg Pain (ED) Condition: Good Pt referred to PMD for follow-up: Yes (See doctor if no better in 3 days) Allergies/Adverse Reactions: Allergies codeine Adverse Reaction (Verified 06/12/17 15:36) morphine Adverse Reaction (Verified 06/12/17 15:36) Home Medications: Ambulatory Orders Ezetimibe [Zetia] 10 mg PO DAILY #30 tablet 03/30/14 Clopidogrel Bisulfate [Plavix] 75 mg PO DAILY 06/10/14 Insulin Regular, Human [Humulin R] See Protocol SQ ACHS PRN 07/08/15 Omeprazole [Prilosec] 20 mg PO QDAC 09/30/15 Insulin Glargine,Hum.rec.anlog [Lantus] 80 unit SUBCUT BEDTIME 02/17/16 Canagliflozin [Invokana] 300 mg PO DAILY 05/29/16 Icosapent Ethyl [Vascepa] 1 gm PO BID 05/29/16 Albuterol Sulfate 0.083% Neb [Albuterol 0.083% Neb] 1 vial NEB RTQ6H PRN #120 vial.neb 05/30/16 Bisoprolol Fumarate [Zebeta] 5 mg PO DAILY #30 tablet 05/30/16 Lisinopril 10 mg PO DAILY #30 tablet 05/30/16 Polyethylene Glycol 3350 [Miralax] 17 gm PO EVERY OTHER DAY 05/30/16 Naproxen [Naprosyn] 500 mg PO Q12HR PRN #30 tablet 07/01/16 Oxycodone-Acetaminophen 10-325 [Percocet 10-325] 1 tab PO TID 09/23/16 Pregabalin [Lyrica] 75 mg PO DAILY PRN 09/23/16 Hydroxyzine HCl 25 mg PO TID #90 10/23/16 Diazepam [Valium] 10 mg PO TID PRN #90 01/15/17 Potassium Chloride [K-Tab ER] 10 meq PO DAILY 04/04/17 Oxycodone HCl/Acetaminophen [Percocet 5-325 mg Tablet] 1 each PO TID PRN #20 tablet 06/12/17 Disposition Discussed With: Patient
[2017-06-12 16:31] LABS: BASOPHILS # (AUTO) 0.1 K/uL (0-0.2); BASOPHILS % (AUTO) 0.4 % (0.0-3.0); EOSINOPHILS # (AUTO) 0.3 K/ul (0.0-0.7); EOSINOPHILS % (AUTO) 1.8 % (0.0-7.0); HEMATOCRIT 44.1 % (37.0-47.0); HEMOGLOBIN 15.1 g/dl (12.0-16.0); IMMATURE GRANULOCYTE % (AUTO) 0.5 % (0.0-5.0); LYMPHOCYTES # (AUTO) 5.1 K/uL (0.60-3.4); LYMPHOCYTES % (AUTO) 36.7 (10.0-50.0); MEAN CORPUSCULAR HEMOGLOBIN 30.3 pg (27.0-31.0); MEAN CORPUSCULAR HGB CONC 34.2 (31.8-35.4); MEAN CORPUSCULAR VOLUME 88.4 fl (81.0-99.0); MONOCYTES # (AUTO) 0.6 K/uL (0.4-2.0); MONOCYTES % (AUTO) 4.3 (0-10); NEUTROPHILS # (AUTO) 7.8 K/ul (2.0-6.9); NEUTROPHILS % (AUTO) 56.3; PLATELET COUNT 300 10^3/uL (140-440); RED BLOOD COUNT 4.99 10^6/ul (4.20-5.40); WHITE BLOOD COUNT 13.86 K/ul (4.6-10.2)
[2017-06-12 16:51] LABS: ALBUMIN 4.1 g/dL (3.4-5.0); ALBUMIN/GLOBULIN RATIO 1.05; BILIRUBIN,TOTAL 0.24 mg/dL (0.00-1.20); BUN/CREATININE RATIO 22.64; CALCIUM 10.5 mg/dL (8.2-10.2); CREATININE 1.06 mg/dL (0.60-1.30)
[2017-06-12] MEDS ORDERED: SODIUM CHLORIDE 1,000 ML IV STA (17:05)
[2017-06-12] MEDS ORDERED: DILAUDID 1 MG/ML SYRINGE IVP STA (17:54)
[2017-06-12] MEDS ORDERED: ZOFRAN 4 MG/2 ML IVP STA (17:55)
[2017-06-12 18:43] LABS: BILIRUBIN,URINE Negative (NEGATIVE); KETONES,URINE Trace (NEGATIVE); LEUKOCYTE ESTERASE ,URINE Negative (NEGATIVE); NITRITE,URINE Negative (NEGATIVE); PROTEIN,URINE Negative (NEGATIVE); URINE, BLOOD Negative (NEGATIVE)
[2017-06-12 18:55] LABS: ADD URINE MICROSCOPIC NO
== END 2017-06-12 19:00 | disposition home or self-care (01) ==
LOC: ED 15:27
DX: M79.605 Pain in left leg (principal); M79.604 Pain in right leg; I10 Essential (primary) hypertension; E11.9 Type 2 diabetes mellitus without complications; N18.9 Chronic kidney disease, unspecified; I73.9 Peripheral vascular disease, unspecified; G62.9 Polyneuropathy, unspecified; I50.9 Heart failure, unspecified; J44.9 Chronic obstructive pulmonary disease, unspecified; F17.210 Nicotine dependence, cigarettes, uncomplicated; Z79.899 Other long term (current) drug therapy
CPT/HCPCS: 36415; 80053; 81001; 82550; 83605; 85025; 96361; 96374; 96375; 99283

== ENCOUNTER 2017-09-09 15:52 | Emergency (ER) | payer OTHER ==
[2017-09-09 16:04] VITALS: BMI 29.8
--- NOTE | 2017-09-09 17:44 | ED.PDOC ---
General ED Provider: Dr. ADELE ROBLERO Chief Complaint: Chest Pain Stated Complaint: chest pain Time Seen by Physician: 16:00 (started around 5 am ) Mode of Arrival: Walk-In Information Source: Patient Exam Limitations: No limitations Primary Care Provider: VINOD BLANC Nursing and Triage Documentation Reviewed and Agree: Yes Reviewed sepsis parameters & appropriate labs ordered?: Yes (described as pressure ) System Inflammatory Response Syndrome: Not Applicable Sepsis Protocol: For patient's 13 years and over: Temp is 96.8 and below OR 101 and greater Pulse >90 BPM Resp >20/minute Acutely Altered Mental Status Are patient's symptoms suggestive of a new infection, such as: -Pneumonia -Skin, Soft Tissue -Endocarditis -UTI -Bone, Joint Infection -Implantable Device -Acute Abdominal Infection -Wound Infection -Meningitis -Blood Stream Catheter Infection -Unknown System Inflammatory Response Syndrome: Not Applicable Review of Systems - Review Of Systems Constitutional: Reports: No symptoms Eyes: Reports: No symptoms Ears, Nose, Mouth, Throat: Reports: No symptoms Respiratory: Reports: No symptoms Cardiac: Reports: Chest pain GI: Reports: No symptoms : Reports: No symptoms Musculoskeletal: Reports: No symptoms Skin: Reports: No symptoms Neurological: Reports: No symptoms Endocrine: Reports: No symptoms Hematologic/Lymphatic: Reports: No symptoms All Other Systems: Reviewed and Negative Past Medical History - Past Medical History Previously Healthy: Yes Endocrine: Reports: DM 2 ( insulin-requiring) Cardiovascular: Reports: Hypertension, CHF, Other (PAD) Respiratory: Reports: COPD Hematological: Reports: None Gastrointestinal: Reports: None Genitourinary: Reports: CKD Neuro/Psych: Reports: Other (peripheral neuropathy) Musculoskeletal: Reports: None Cancer: Reports: None Last Menstrual Period: NA - Surgical History General Surgical History: Reports: Hysterectomy - Family History Family History: Reports: Unknown - Social History Smoking Status: Current some day smoker Hx Substance Use: No Alcohol Screening: None - Immunizations Tetanus Shot up to Date: Yes Influenza Vaccine within 12 Months: No Pneumococcal Vaccine up to Date: No Physical Exam - Physical Exam Appearance: Well-appearing, No pain distress, Well-nourished Eyes: ELOISA, EOMI, Conjunctiva clear ENT: Ears normal, Nose normal, Oropharynx normal Respiratory: Airway patent, Breath sounds clear, Breath sounds equal, Respirations nonlabored Cardiovascular: RRR, Pulses normal, No rub, No murmur GI/: Soft, Nontender, No masses, Bowel sounds normal, No Organomegaly Musculoskeletal: Normal strength, ROM intact, No edema, No calf tenderness Skin: Warm, Dry, Normal color Neurological: Sensation intact, Motor intact, Reflexes intact, Cranial nerves intact, Alert, Oriented Psychiatric: Affect appropriate, Mood appropriate Interpretation - Home Health Registered Nurse Rate: Normal Rhythm: Sinus Ectopy: None - EKG Interpretation Rate: Normal Rhythm: Sinus Ectopy: None [place]: NL ST Segment: Normal Physician Notification - Case Discussed Physician Notified: pmd Time of Notification: 17:52 Critical Care Note - Critical Care Note Total Time (mins): 0 Course - Course Hematology/Chemistry: 09/09/17 16:40 09/09/17 16:40 Orders, Labs, Meds: Lab Review 09/09/17 09/09/17 09/09/17 16:34 16:40 16:40 WBC 11.66 H RBC 4.40 Hgb 13.7 Hct 38.9 MCV 88.4 MCH 31.1 H MCHC 35.2 RDW Coeff of Barry 12.9 Plt Count 307 Immature Gran % (Auto) 0.6 Neut % (Auto) 47.8 Lymph % (Auto) 43.4 [place] % (Auto) 4.9 Eos % (Auto) 2.7 Baso % (Auto) 0.6 Immature Gran # (Auto) 0.1 Neut # 5.6 Lymph # 5.1 H [place] # 0.6 Eos # 0.3 Baso # 0.1 PT 9.0 L INR 0.88 Puncture Site Rr O2 Saturation 96.0 ABG pH 7.393 ABG pCO2 40.9 ABG pO2 81.0 L ABG HCO3 24.9 ABG Total CO2 26 ABG Base Excess 0 Jason Test + FiO2 % 21.0 Sodium Potassium Chloride Carbon Dioxide Anion Gap BUN Creatinine Estimated GFR (MDRD) BUN/Creatinine Ratio Glucose Calcium Total Bilirubin AST ALT Alkaline Phosphatase Total Protein Albumin Globulin Albumin/Globulin Ratio Urine Color Urine Clarity Urine pH Ur Specific [place] Urine Protein Urine Glucose (UA) Urine Ketones Urine Blood Urine Nitrite Urine Bilirubin Urine Urobilinogen Ur Leukocyte Esterase 09/09/17 09/09/17 16:40 17:00 WBC RBC Hgb Hct MCV MCH MCHC RDW Coeff of Barry Plt Count Immature Gran % (Auto) Neut % (Auto) Lymph % (Auto) [place] % (Auto) Eos % (Auto) Baso % (Auto) Immature Gran # (Auto) Neut # Lymph # [place] # Eos # Baso # PT INR Puncture Site O2 Saturation ABG pH ABG pCO2 ABG pO2 ABG HCO3 ABG Total CO2 ABG Base Excess Jason Test FiO2 % Sodium 138 Potassium 4.1 Chloride 102 Carbon Dioxide 28 Anion Gap 12.1 BUN 10 Creatinine 0.80 Estimated GFR (MDRD) 76.00 BUN/Creatinine Ratio 12.50 Glucose 228 H Calcium 9.4 Total Bilirubin 0.2 AST 27 ALT 33 Alkaline Phosphatase 149 H Total Protein 6.9 Albumin 4.3 Globulin 2.6 Albumin/Globulin Ratio 1.65 Urine Color Yellow Urine Clarity Clear Urine pH 7.0 Ur Specific [place] 1.020 Urine Protein Negative Urine Glucose (UA) Negative Urine Ketones Negative Urine Blood Negative Urine Nitrite Negative Urine Bilirubin Negative Urine Urobilinogen 0.2 Ur Leukocyte Esterase Negative Orders Category Date Time Status ABG DRAW REQUEST Stat CARDIO 09/09/17 16:34 Ordered EKG-(ED ONLY) Stat CARDIO 09/09/17 16:34 Ordered ABG Stat LAB 09/09/17 16:34 Completed CBC W/ AUTO DIFF Stat LAB 09/09/17 16:40 Completed COMPREHENSIVE METABOLIC PANEL Stat LAB 09/09/17 16:40 Completed PT WITH INR Stat LAB 09/09/17 16:40 Completed URINALYSIS C & S IF INDICATED Stat LAB 09/09/17 17:00 Completed Vital Signs: Temp Pulse Resp BP Pulse Ox 09/09/17 15:53 99.2 F 99 H 16 130/82 94 L KATHY Risk Score KATHY Risk Score: Risk Score Odds of by 30D 0 0.1 (0.1-0.2) 1 0.3 (0.2-0.3) 2 0.4 (0.3-0.5) 3 0.7 (0.6-0.9) 4 1.2 (1.0-1.5) 5 2.2 (1.9-2.6) 6 3.0 (2.5-3.6) 7 4.8 (3.8-6.1) Departure - Departure Time of Disposition: 17:52 Disposition: ADMITTED INPATIENT Discharge Problem: Chest pain Instructions: Chest Pain (ED), Angina (ED) Condition: Good Pt referred to PMD for follow-up: Yes IPMP verified?: Yes Additional Instructions: Please call your Family Physician as soon as possible to schedule a follow-up appointment. Allergies/Adverse Reactions: Allergies codeine Adverse Reaction (Verified 09/09/17 16:05) morphine Adverse Reaction (Verified 09/09/17 16:05) Home Medications: Ambulatory Orders Ezetimibe [Zetia] 10 mg PO DAILY #30 tablet 03/30/14 Clopidogrel Bisulfate [Plavix] 75 mg PO DAILY 06/10/14 Insulin Regular, Human [Humulin R] See Protocol SQ ACHS PRN 07/08/15 Omeprazole [Prilosec] 20 mg PO QDAC 09/30/15 Insulin Glargine,Hum.rec.anlog [Lantus] 80 unit SUBCUT BEDTIME 02/17/16 Canagliflozin [Invokana] 300 mg PO DAILY 05/29/16 Icosapent Ethyl [Vascepa] 1 gm PO BID 05/29/16 Albuterol Sulfate 0.083% Neb [Albuterol 0.083% Neb] 1 vial NEB RTQ6H PRN #120 vial.neb 05/30/16 Bisoprolol Fumarate [Zebeta] 5 mg PO DAILY #30 tablet 05/30/16 Lisinopril 10 mg PO DAILY #30 tablet 05/30/16 Polyethylene Glycol 3350 [Miralax] 17 gm PO EVERY OTHER DAY 05/30/16 Naproxen [Naprosyn] 500 mg PO Q12HR PRN #30 tablet 07/01/16 Oxycodone-Acetaminophen 10-325 [Percocet 10-325] 1 tab PO TID 09/23/16 Pregabalin [Lyrica] 75 mg PO DAILY PRN 09/23/16 Hydroxyzine HCl 25 mg PO TID #90 10/23/16 Diazepam [Valium] 10 mg PO TID PRN #90 01/15/17 Potassium Chloride [K-Tab ER] 10 meq PO DAILY 04/04/17 Oxycodone HCl/Acetaminophen [Percocet 5-325 mg Tablet] 1 each PO TID PRN #20 tablet 06/12/17 Disposition Discussed With: Patient
[2017-09-09] MEDS ORDERED: NON-FORMULARY MEDICATION (Diazepam [Valium] 10 MG) PO PRN (17:59)
[2017-09-09] MEDS ORDERED: PERCOCET 5-325 PO PRN (17:59)
[2017-09-09] MEDS ORDERED: HUMULIN R SUBCUT STA (18:05)
[2017-09-09] MEDS: NORCO 10-325 ONE ×2 (18:31→18:35)
[2017-09-09] MEDS ORDERED: PERCOCET 10-325 ONE (18:40)
[2017-09-09] MEDS: PERCOCET 10-325 PO SCH ×2 (18:44→22:14)
--- NOTE | 2017-09-09 19:46 | DI ---
EXAM: Chest PA and lateral HISTORY: Shortness of breath. COMPARRISON: 01/19/2017 FINDINGS: The heart is normal in size. Pulmonary vascularity is within normal limits. No focal airspa ce opacity or pleural effusion is seen. Osseous structures are unremarkable. IMPRESSION: No acute cardiopulmonary findings.
[2017-09-09] MEDS ORDERED: PERCOCET 10-325 PO PRN (21:21)
[2017-09-09] MEDS ORDERED: VALIUM ONE (21:29)
[2017-09-10] MEDS ORDERED: PERCOCET 10-325 ONE (00:36)
[2017-09-10] MEDS ORDERED: PRILOSEC PO SCH (06:30)
[2017-09-10 06:50] VITALS: BP 122/65; TEMP 98.1
[2017-09-10] MEDS ORDERED: PLAVIX PO SCH (09:00)
[2017-09-10] MEDS ORDERED: ZEBETA PO SCH (09:00)
[2017-09-10] MEDS ORDERED: ZESTRIL PO SCH (09:00)
[2017-09-10] MEDS ORDERED: NON-FORMULARY MEDICATION (Potassium Chloride [K-Tab Er] 10 MEQ) PO SCH (09:00)
[2017-09-11] MEDS ORDERED: MIRALAX PO SCH (09:00)
== END 2017-09-10 05:00 | disposition left against medical advice (07) ==
LOC: ED 15:52
DX: R07.9 Chest pain, unspecified (principal); E11.9 Type 2 diabetes mellitus without complications; I10 Essential (primary) hypertension; I50.9 Heart failure, unspecified; J44.9 Chronic obstructive pulmonary disease, unspecified; N18.9 Chronic kidney disease, unspecified; F17.210 Nicotine dependence, cigarettes, uncomplicated; I73.9 Peripheral vascular disease, unspecified; Z79.899 Other long term (current) drug therapy
CPT/HCPCS: 36415; 80053; 81001; 82550; 82803; 82962; 84484; 85025; 85610; 93005; 93010; 96372; 99284

== ENCOUNTER 2017-12-07 21:43 | Emergency (ER) ==
[2017-12-07 22:03] VITALS: BP 165/95; TEMP 99.3; BMI 32.3
[2017-12-07] MEDS ORDERED: BENTYL IM STA (22:13)
[2017-12-07] MEDS ORDERED: TORADOL IVP STA (22:13)
[2017-12-07] MEDS ORDERED: ZOFRAN 4 MG/2 ML IVP STA (22:13)
--- NOTE | 2017-12-07 23:15 | CT ---
EXAM: CT scan abdomen pelvis without contrast HISTORY: Flank pain COMPARISON: CT scan abdomen pelvis 04/04/2017 FINDINGS: Contiguous axial images obtained through the abdomen pelvis without contrast utilizing 3-m m collimation. Sagittal and coronal reconstructions were imaged and reviewed. . The visualized surya g bases are clear. The right lobe of liver is enlarged. There is diffuse fatty infiltration with fo omar fatty sparing adjacent to the gallbladder. Gallbladder is contracted. The pancreas spleen and a drenal glands have normal unenhanced CT appearance. Atherosclerotic changes are seen involving the a cammie without aneurysm formation. There is a left renal artery stent.. There is no evidence of nephr olithiasis or ureterolithiasis. There has been prior hysterectomy.. There is a normal appendix. Th ere is no free fluid or inflammatory changes. IMPRESSION: There is no acute findings.
--- NOTE | 2017-12-07 23:25 | ED.PDOC ---
General ED Provider: Dr. NESTOR SCOTT Chief Complaint: Abdominal Pain Stated Complaint: Patient states she has had right lower abdominal pain Time Seen by Physician: 21:45 Mode of Arrival: Walk-In Information Source: Patient Primary Care Provider: VINOD BLANC Nursing and Triage Documentation Reviewed and Agree: Yes Reviewed sepsis parameters & appropriate labs ordered?: No System Inflammatory Response Syndrome: Not Applicable Sepsis Protocol: For patient's 13 years and over: Temp is 96.8 and below OR 101 and greater Pulse >90 BPM Resp >20/minute Acutely Altered Mental Status Are patient's symptoms suggestive of a new infection, such as: -Pneumonia -Skin, Soft Tissue -Endocarditis -UTI -Bone, Joint Infection -Implantable Device -Acute Abdominal Infection -Wound Infection -Meningitis -Blood Stream Catheter Infection -Unknown System Inflammatory Response Syndrome: Not Applicable GI Complaint Exam - Abdominal Pain Complaint/Exam Onset: Gradual Duration: constatnt Symptoms Are: Still present Timing: Constant Initial Severity: Moderate Current Severity: Moderate Location of Pain: RLQ Radiates To: Reports: Flank Character: Reports: Aching, Throbbing Aggravating: Reports: None Associated Signs and Symptoms: Reports: Back pain, Nausea Patient Rh Status: Unknown Abdominal Findings: Present: None Review of Systems - Review Of Systems Constitutional: Reports: No symptoms Eyes: Reports: No symptoms Ears, Nose, Mouth, Throat: Reports: No symptoms Respiratory: Reports: No symptoms Cardiac: Reports: No symptoms GI: Reports: Abdominal pain : Reports: No symptoms Musculoskeletal: Reports: No symptoms Skin: Reports: No symptoms Neurological: Reports: No symptoms Endocrine: Reports: No symptoms Hematologic/Lymphatic: Reports: No symptoms All Other Systems: Reviewed and Negative Past Medical History - Past Medical History Previously Healthy: Yes Endocrine: Reports: DM 2 ( insulin-requiring) Cardiovascular: Reports: Hypertension, CHF, Other (PAD) Respiratory: Reports: COPD Hematological: Reports: None Gastrointestinal: Reports: None Genitourinary: Reports: CKD Neuro/Psych: Reports: Other (peripheral neuropathy) Musculoskeletal: Reports: None Cancer: Reports: None Last Menstrual Period: PT HAS HAD A HYSTERECTOMY - Surgical History General Surgical History: Reports: Hysterectomy - Family History Family History: Reports: Unknown - Social History Smoking Status: Current every day smoker, Heavy tobacco smoker Hx Substance Use: No Alcohol Screening: None - Immunizations Tetanus Shot up to Date: No Influenza Vaccine within 12 Months: No Pneumococcal Vaccine up to Date: No Physical Exam - Physical Exam Appearance: Ill-appearing, Obese Ill-appearing: Mild Eyes: ELOISA, EOMI, Conjunctiva clear ENT: Ears normal, Nose normal, Oropharynx normal Neck: Supple Respiratory: Airway patent, Breath sounds clear, Breath sounds equal, Respirations nonlabored Cardiovascular: RRR, Pulses normal, No rub, No murmur GI/: Soft, Nontender, No masses, Bowel sounds normal, No Organomegaly Musculoskeletal: Normal strength, ROM intact, No edema, No calf tenderness Skin: Warm, Dry, Normal color Neurological: Sensation intact, Motor intact, Reflexes intact, Cranial nerves intact, Alert, Oriented Psychiatric: Anxious Critical Care Note - Critical Care Note Total Time (mins): 0 Course - Course Hematology/Chemistry: 12/07/17 22:26 12/07/17 22:26 Orders, Labs, Meds: Lab Review 12/07/17 12/07/17 12/07/17 22:26 22:26 22:40 WBC 13.65 H RBC 4.50 Hgb 13.8 Hct 39.7 MCV 88.2 MCH 30.7 MCHC 34.8 RDW Coeff of Barry 12.0 Plt Count 307 Immature Gran % (Auto) 0.7 Neut % (Auto) 58.8 Lymph % (Auto) 33.2 [place] % (Auto) 4.8 Eos % (Auto) 1.9 Baso % (Auto) 0.6 Immature Gran # (Auto) 0.1 Neut # (Auto) 8.0 H Lymph # (Auto) 4.5 H [place] # (Auto) 0.7 Eos # (Auto) 0.3 Baso # (Auto) 0.1 Sodium 139 Potassium 4.3 Chloride 102 Carbon Dioxide 22 Anion Gap 19.3 BUN 15 Creatinine 0.95 Estimated GFR (MDRD) 62.00 BUN/Creatinine Ratio 15.78 Glucose 229 H Calcium 9.8 Total Bilirubin 0.2 AST 15 ALT 25 Alkaline Phosphatase 154 H Total Protein 7.1 Albumin 3.6 Globulin 3.5 Albumin/Globulin Ratio 1.03 Amylase 60 Lipase 94 H Urine Color Yellow Urine Clarity Clear Urine pH 6.0 Ur Specific [place] 1.020 Urine Protein Trace Urine Glucose (UA) Trace Urine Ketones Negative Urine Blood Negative Urine Nitrite Negative Urine Bilirubin Negative Urine Urobilinogen 0.2 Ur Leukocyte Esterase Negative Ur Squamous Epith Cells 10-20 Urine Mucus Trace Urine Yeast Trace Orders Category Date Time Status ED IV/MEDIPORT/POWERPORT .ONCE EMERGENCY 12/07/17 22:13 Active AMYLASE Stat LAB 12/07/17 22:26 Completed CBC W/ AUTO DIFF Stat LAB 12/07/17 22:26 Completed COMPREHENSIVE METABOLIC PANEL Stat LAB 12/07/17 22:26 Completed LIPASE Stat LAB 12/07/17 22:26 Completed URINALYSIS C & S IF INDICATED Stat LAB 12/07/17 22:40 Completed 0.9 % Sodium Chloride [Saline Flush] MEDS 12/07/17 22:13 Discontinued 1 syr IVF PRN PRN Dicyclomine Inj [Bentyl] MEDS 12/07/17 22:13 Discontinued 20 mg IM ONCE STA Ketorolac Tromethamine [Toradol] MEDS 12/07/17 22:13 Discontinued 15 mg IVP ONCE STA Ondansetron HCl/Pf [Zofran 4 mg/2 ml] MEDS 12/07/17 22:13 Discontinued 4 mg IVP ONCE STA CT ABD/PEL WO RENAL STONE PROT Stat RADS 12/07/17 22:13 Completed Medications Discontinued Medications Generic Name Dose Route Start Last Admin Trade Name Freq PRN Reason Stop Dose Admin Dicyclomine HCl 20 mg 12/07/17 22:13 12/07/17 22:36 Bentyl IM 12/07/17 22:14 20 mg ONCE STA Administration Ketorolac Tromethamine 15 mg 12/07/17 22:13 12/07/17 22:36 Toradol IVP 12/07/17 22:14 15 mg ONCE STA Administration Ondansetron HCl 4 mg 12/07/17 22:13 12/07/17 22:36 Zofran 4 Mg/2 Ml IVP 12/07/17 22:14 4 mg ONCE STA Administration Sodium Chloride 1 syr 12/07/17 22:13 Saline Flush IVF PRN PRN To flush IV Vital Signs: Temp Pulse Resp BP Pulse Ox 12/07/17 21:43 99.3 F 108 H 20 165/95 H 95 Departure - Departure Time of Disposition: 23:25 Disposition: HOME SELF-CARE Discharge Problem: Abdominal pain, Gastroenteritis Instructions: Gastroenteritis (ED), Acute Abdominal Pain (ED) Condition: Stable Pt referred to PMD for follow-up: Yes IPMP verified?: No Additional Instructions: Continue home medications Follow up with PCP in 3 days. Allergies/Adverse Reactions: Allergies codeine Adverse Reaction (Verified 12/07/17 22:00) Rash morphine Adverse Reaction (Verified 12/07/17 22:00) Vomiting SEVERE ABD PAIN, VOMITING Home Medications: Ambulatory Orders Ezetimibe [Zetia] 10 mg PO DAILY #30 tablet 03/30/14 Clopidogrel Bisulfate [Plavix] 75 mg PO DAILY 06/10/14 Insulin Regular, Human [Humulin R] See Protocol SQ ACHS PRN 07/08/15 Omeprazole [Prilosec] 20 mg PO QDAC 09/30/15 Insulin Glargine,Hum.rec.anlog [Lantus] 80 unit SUBCUT BEDTIME 02/17/16 Icosapent Ethyl [Vascepa] 1 gm PO BID 05/29/16 Albuterol Sulfate 0.083% Neb [Albuterol 0.083% Neb] 1 vial NEB RTQ6H PRN #120 vial.neb 05/30/16 Bisoprolol Fumarate [Zebeta] 5 mg PO DAILY #30 tablet 05/30/16 Lisinopril 10 mg PO DAILY #30 tablet 05/30/16 Polyethylene Glycol 3350 [Miralax] 17 gm PO EVERY OTHER DAY PRN 05/30/16 Naproxen [Naprosyn] 500 mg PO Q12HR PRN #30 tablet 07/01/16 Oxycodone-Acetaminophen 10-325 [Percocet 10-325] 1 tab PO TID 09/23/16 Pregabalin [Lyrica] 75 mg PO DAILY PRN 09/23/16 Hydroxyzine HCl 25 mg PO TID #90 10/23/16 Diazepam [Valium] 10 mg PO TID PRN #90 01/15/17 Potassium Chloride [K-Tab ER] 10 meq PO DAILY 04/04/17 Disposition Discussed With: Patient
== END 2017-12-07 23:40 | disposition home or self-care (01) ==
LOC: ED 21:43
DX: K52.9 Noninfective gastroenteritis and colitis, unspecified (principal); R10.31 Right lower quadrant pain; E11.9 Type 2 diabetes mellitus without complications; I10 Essential (primary) hypertension; I50.9 Heart failure, unspecified; N18.9 Chronic kidney disease, unspecified; G62.9 Polyneuropathy, unspecified; I73.9 Peripheral vascular disease, unspecified; F17.210 Nicotine dependence, cigarettes, uncomplicated; Z79.899 Other long term (current) drug therapy; Z79.4 Long term (current) use of insulin
CPT/HCPCS: 36415; 74176; 80053; 80061; 81001; 82150; 83690; 85025; 96372; 96374; 96375; 99283; 99284

== ENCOUNTER 2018-01-21 09:31 | Inpatient (IN) | payer OTHER ==
[2018-01-21] MEDS ORDERED: NON-FORMULARY MEDICATION (Diazepam [Valium] 10 MG) PO PRN (10:29)
[2018-01-21] MEDS ORDERED: DUONEB NEB PRN (10:29)
[2018-01-21 10:44] VITALS: BMI 31.6
--- NOTE | 2018-01-21 11:43 | CT ---
Exam: CT abdomen pelvis without intravenous contrast. Comparison: 04/04/2017. Reason for exam: Abdominal pain. FINDINGS: No pleural effusion, or focal consolidation in the partially imaged lung bases. Image interpretation is limited by the lack of intravenous contrast administration. The liver is lower in attenuation than the spleen. The spleen measures approximately 12.8 mm in length. The splenic parenchyma, adrenal glands, pancreas, and gallbladder appear grossly unremarkable within limitations of a noncontrasted study. No hydronephrosis, hydroureter, or nephrolithiasis is seen in either kidney. The bladder appears grossly unremarkable. No focal small bowel dilatation or transition point. The appendix is unremarkable. No intra-abdominal free air or pelvic free fluid. No acute fracture or malalignment. No suspicious appearing osteoblastic or osteolytic lesions. There is a tiny only fat containing periumbilical hernia. Impression: 1. No acute inflammatory findings are seen within the abdomen or pelvis. 2. Hepatic steatosis. 3. The spleen measures borderline within normal limits for size.
--- NOTE | 2018-01-21 12:25 | DI ---
EXAM: Two views of the chest. History: Chest pain, third Comparison: Chest radiograph 09/09/2017 Findings: Heart size is normal. No focal consolidation. No appreciable pleural fluid and no pneumo thorax. No acute osseous abnormalities. Metallic ring-like structure seen only on the lateral view c ould be outside the patient or within the upper abdomen. Impression: No acute cardiopulmonary process
[2018-01-21] MEDS: SODIUM CHLORIDE 1,000 ML IV SCH (13:34)
[2018-01-21] MEDS: FLAGYL PO SCH ×2 (13:35→21:08)
[2018-01-21] MEDS: HUMULIN R SUBCUT PRN ×3 (13:39→21:07)
[2018-01-21] MEDS: PERCOCET 10-325 PO SCH ×2 (15:27→21:08)
[2018-01-21] MEDS: OMEGA-3 FISH OIL PO SCH (16:59)
[2018-01-21] MEDS ORDERED: ZOFRAN 4 MG/2 ML IVP PRN (20:25)
[2018-01-21] MEDS: GI COCKTAIL PO PRN (20:32)
[2018-01-21] MEDS ORDERED: NON-FORMULARY MEDICATION (Citalopram Hydrobromide [Celexa] 40 MG) PO SCH (21:00)
[2018-01-21] MEDS ORDERED: NON-FORMULARY MEDICATION (Icosapent Ethyl [Vascepa] 1 GM) PO SCH (21:00)
[2018-01-21] MEDS: LANTUS SUBCUT SCH (21:07)
[2018-01-21] MEDS: CELEXA PO SCH (21:08)
[2018-01-21] MEDS: MEVACOR PO SCH (21:08)
[2018-01-22] MEDS: SODIUM CHLORIDE 1,000 ML IV SCH ×2 (02:12→17:35)
[2018-01-22] MEDS: GI COCKTAIL PO PRN (04:20)
[2018-01-22] MEDS: FLAGYL PO SCH ×3 (04:20→21:05)
[2018-01-22] MEDS: HUMULIN R SUBCUT PRN ×4 (05:32→22:13)
[2018-01-22] MEDS: PRILOSEC PO SCH (05:33)
[2018-01-22] MEDS ORDERED: NON-FORMULARY MEDICATION (Canagliflozin [Invokana] 300 MG) PO SCH (08:00)
[2018-01-22] MEDS ORDERED: NON-FORMULARY MEDICATION (Evolocumab [Repatha Syringe] 140 MG) IM SCH (09:00)
[2018-01-22] MEDS: K-DUR PO SCH (09:05)
[2018-01-22] MEDS: LYRICA PO SCH (09:06)
[2018-01-22] MEDS: OMEGA-3 FISH OIL PO SCH ×2 (09:06→17:10)
[2018-01-22] MEDS: ZEBETA PO SCH (09:07)
[2018-01-22] MEDS: PLAVIX PO SCH (09:07)
[2018-01-22] MEDS: PERCOCET 10-325 PO SCH ×3 (09:07→21:05)
[2018-01-22] MEDS: ZETIA PO SCH (09:08)
[2018-01-22] MEDS: ZESTRIL PO SCH (09:08)
--- NOTE | 2018-01-22 13:58 | PCM.PROG ---
Attending Provider: ATTENDING PROVIDER: Dr. VINOD BLANC This patient is seen with Sonam Abel, Nurse Practitioner. DATE OF SERVICE: 01/22/18 SUBJECTIVE: This 52 year old WHITE/ F was hospitalized 01/21/18. The patient is lying in bed, alert. She hasn't had a bowel movement since admission and unable to collect a specimen for C. diff as of yet. She is not complaining of abdominal pain. She has been on Flagyl. White count is elevated. REVIEW OF SYSTEMS: CONSTITUTIONAL: Fatigue. No night sweats. No malaise, lethargy. No fever or chills. HEENT: Eyes: No visual changes. No eye pain. No eye discharge. ENT: No runny nose. No epistaxis. No sinus pain. No odynophagia. No congestion. RESPIRATORY: Cough. No congestion. No hemoptysis. No shortness of breath. CARDIOVASCULAR: No angina symptoms. No CHF symptoms. No atypical chest pain for CAD. No palpitations. No orthopnea.. GASTROINTESTINAL: No abdominal pain. No nausea or vomiting. No diarrhea or constipation. No hematemesis. No hematochezia. GENITOURINARY: No urgency. No frequency. No dysuria. No hematuria. No obstructive symptoms. No discharge. No pain. No significant abnormal bleeding. MUSCULOSKELETAL: No musculoskeletal pain; no joint swelling. NEUROLOGICAL: Awake, alert, oriented to time, place and person. No headache. No neck pain. No syncope. No seizures. No dizziness. PSYCHIATRIC: Not anxious. No depression. No suicidal thoughts. No homicidal thoughts. SKIN: No rash. No lesions. No wounds. ENDOCRINE: No unexplained weight loss. No weight gain. HEMATOLOGIC/LYMPHATIC: No anemia. No purpura. No petechiae. No prolonged or excessive bleeding. No palpable lymph nodes. PHYSICAL EXAMINATION: GENERAL: The patient is awake, alert and oriented, lying in bed in no distress. VITAL SIGNS: Temperature 98.5 F, Pulse 65, Respiratory Rate 16, BP 126/69, Pulse Ox 97% HEENT: Head normocephalic, atraumatic. Eyes: Extraocular muscles are intact. Pupils are equal, round and reactive to light and accommodation. Ears: No lesions. Nose appeared normal. Throat: No exudate or erythema. NECK: Supple. No JVD, no carotid bruit. No lymphadenopathy or thyromegaly. LUNGS: Clear to auscultation. Percussion note normal. Chest symmetrical. HEART: S1, S2, no S3. No murmurs. No cyanosis or clubbing. No ascites. Pulses: Dorsalis pedis and posterior tibial pulses +1 to +2 both sides. ABDOMEN: Soft. Non-tender. Bowel sounds active. No CVA tenderness. No mass felt. EXTREMITIES: No edema. Full range of motion of all extremities, equal. NEUROLOGIC: No focal deficit. Cranial nerves II through XII are grossly intact. No headache, no double vision or headache. SKIN: Not dry. Intact. Turgor-normal. LYMPHATIC: No palpable lymph nodes/no lymphedema. MUSCULOSKELETAL: Normal joints with no swelling. Muscle tone is normal. LAB REVIEW: 01/22/18 04:40 01/22/18 04:40 01/22/18 04:40: Sodium 139, Potassium 4.3, Chloride 104, Carbon Dioxide 23, Anion Gap 16.3, BUN 17, Creatinine 0.85, Estimated GFR (MDRD) 71.00, BUN/ Creatinine Ratio 20.00, Glucose 152 H D, Calcium 9.4, Total Bilirubin 0.3, AST 22, ALT 32, Alkaline Phosphatase 112 H, Total Protein 6.7, Albumin 3.5, Globulin 3.2, Albumin/Globulin Ratio 1.09 01/22/18 04:40: WBC 12.66 H, RBC 4.29, Hgb 13.0, Hct 38.7, MCV 90.2, MCH 30.3, MCHC 33.6, RDW Coeff of Barry 12.9, Plt Count 288, Immature Gran % (Auto) 0.3, Neut % (Auto) 40.5, Lymph % (Auto) 49.8, [place] % (Auto) 6.1, Eos % (Auto) 2.7, Baso % (Auto) 0.6, Immature Gran # (Auto) 0.0, Neut # (Auto) 5.1, Lymph # (Auto ) 6.3 H, [place] # (Auto) 0.8, Eos # (Auto) 0.3, Baso # (Auto) 0.1 01/21/18 10:00: Sodium 136, Potassium 4.4, Chloride 103, Carbon Dioxide 20 L, Anion Gap 17.4, BUN 18, Creatinine 0.97, Estimated GFR (MDRD) 61.00, BUN/ Creatinine Ratio 18.55, Glucose 219 H, Calcium 10.3 H, Total Bilirubin 0.3, AST 21, ALT 36, Alkaline Phosphatase 128 H, Total Protein 7.2, Albumin 3.7, Globulin 3.5, Albumin/Globulin Ratio 1.06, Amylase 36, Lipase 40, TSH 1.327, Free T4 1.16 01/21/18 10:00: WBC 15.21 H, RBC 4.53, Hgb 13.7, Hct 40.4, MCV 89.2, MCH 30.2, MCHC 33.9, RDW Coeff of [place] 12.9, Plt Count 289, Immature Gran % (Auto) 0.5, Neut % (Auto) 59.4, Lymph % (Auto) 32.2, [place] % (Auto) 4.8, Eos % (Auto) 2.6, Baso % (Auto) 0.5, Immature Gran # (Auto) 0.1, Neut # (Auto) 9.0 H, Lymph # ( Auto) 4.9 H, [place] # (Auto) 0.7, Eos # (Auto) 0.4, Baso # (Auto) 0.1 ASSESSMENT: 1. DIARRHEA SEEMS TO BE IMPROVING 2. DEHYDRATION RESOLVED PLAN: 1. Collect stool for c. diff 2. Continue Flagyl Plan and coordination of the patient's care discussed in the presence of Clinical Support Specialist and nurse. CONDITION: Stable SCRIBED BY: GLEN STANTON Knockdown Man scribed while in presence of service performed by Dr. Blanc/Sonam Abel APRN on 01/22/18 ([id number])
[2018-01-22] MEDS: CELEXA PO SCH (21:05)
[2018-01-22] MEDS: MEVACOR PO SCH (21:06)
[2018-01-22] MEDS: VALIUM PO PRN (22:12)
[2018-01-22] MEDS: LANTUS SUBCUT SCH (22:17)
[2018-01-23] MEDS: PRILOSEC PO SCH (05:43)
[2018-01-23] MEDS: FLAGYL PO SCH ×3 (05:43→21:01)
[2018-01-23] MEDS: HUMULIN R SUBCUT PRN ×4 (05:45→21:15)
[2018-01-23] MEDS: K-DUR PO SCH (08:44)
[2018-01-23] MEDS: OMEGA-3 FISH OIL PO SCH ×2 (08:44→16:58)
[2018-01-23] MEDS: LYRICA PO SCH (08:44)
[2018-01-23] MEDS: PLAVIX PO SCH (08:45)
[2018-01-23] MEDS: PERCOCET 10-325 PO SCH ×3 (08:45→21:01)
[2018-01-23] MEDS: ZEBETA PO SCH (08:46)
[2018-01-23] MEDS: ZESTRIL PO SCH (08:46)
[2018-01-23] MEDS: ZETIA PO SCH (08:46)
[2018-01-23] MEDS: VALIUM PO PRN (13:14)
[2018-01-23] MEDS ORDERED: DULCOLAX RC STA (14:42)
[2018-01-23] MEDS: GI COCKTAIL PO PRN (21:00)
[2018-01-23] MEDS: MEVACOR PO SCH (21:01)
[2018-01-23] MEDS: CELEXA PO SCH (21:01)
[2018-01-23] MEDS: LANTUS SUBCUT SCH (21:13)
[2018-01-24 05:53] VITALS: BP 102/62; TEMP 98.6
[2018-01-24] MEDS: PRILOSEC PO SCH (05:57)
[2018-01-24] MEDS: FLAGYL PO SCH (05:57)
[2018-01-24] MEDS: HUMULIN R SUBCUT PRN (06:26)
--- NOTE | 2018-01-29 09:05 | PN ---
DATE OF SERVICE: 01/22/18 SUBJECTIVE: The patient was hospitalized yesterday with the abdominal pain, weight loss and diarrhea. Being investigated for C-Diff. Her condition is stable. She is afebrile. The patient is being treated with Flagyl. The patient was seen and examined with the Nurse Practitioner. TIME SPENT: More than 30 minutes. Plan and coordination of the patient's care discussed in the presence of nurse. LASHANDA
--- NOTE | 2018-01-29 09:09 | PN ---
DATE OF SERVICE: 01/23/18 SUBJECTIVE: The patient is up and about and in fact the patient had practically no bowel movement. We will give her some Dulcox suppository to get the bowel samples. The patient had given the history of having 20 loose bowel movements and had lost 15-20 pounds. REVIEW OF SYSTEMS: CONSTITUTIONAL: No night sweats. No fatigue, malaise, lethargy. No fever or chills. HEENT: Eyes: No visual changes. No eye pain. No eye discharge. ENT: No runny nose. No epistaxis. No sinus pain. No sore throat. No odynophagia. No congestion. RESPIRATORY: No cough, no congestion. No hemoptysis. No shortness of breath. CARDIOVASCULAR: No angina symptoms. No CHF symptoms. No atypical chest pain for CAD. No palpitations. No orthopnea. GASTROINTESTINAL: No abdominal pain. No nausea or vomiting. No diarrhea or constipation. No hematemesis. No hematochezia. GENITOURINARY: No urgency. No frequency. No dysuria. No hematuria. No obstructive symptoms. No discharge. No pain. No significant abnormal bleeding. MUSCULOSKELETAL: No musculoskeletal pain; no joint swelling. NEUROLOGICAL: No headache. No neck pain. No syncope. No seizures. No dizziness. PSYCHIATRIC: Not anxious. No depression. No suicidal thoughts. No homicidal thoughts. SKIN: No rash. No lesions. No wounds. ENDOCRINE: No unexplained weight loss. No weight gain. HEMATOLOGIC/LYMPHATIC: No anemia. No purpura. No petechiae. No prolonged or excessive bleeding. No palpable lymph nodes. PHYSICAL EXAMINATION: HEENT: Head normocephalic, atraumatic. Eyes: Extraocular muscles are intact. Pupils are equal, round and reactive to light and accommodation. Ears: No lesions. Nose appeared normal. Throat: No exudate or erythema. NECK: Supple. No JVD, no carotid bruit. No lymphadenopathy or thyromegaly. LUNGS: Clear to auscultation. Percussion note normal. Chest symmetrical. HEART: S1, S2, no S3. No murmurs. No cyanosis or clubbing. No ascites. Pulses: Dorsalis pedis and posterior tibial pulses +1 to +2 both sides. ABDOMEN: Soft. Nontender. Bowel sounds active. No CVA tenderness. No mass felt. EXTREMITIES: No edema. Full range of motion of all extremities, equal. NEUROLOGIC: No focal deficit. Cranial nerves II through XII are grossly intact. No headache, no double vision or headache. SKIN: Not dry. Intact. Turgor - normal. LYMPHATIC: No palpable lymph nodes/no lymphedema. MUSCULOSKELETAL: Normal joints with no swelling. Muscle tone is normal. ASSESSMENT: 1. Acute colitis, seems to have resolved no evidence of it while she is in the hospital PLAN: 1. Will get stool culture by given Dulcolax suppository 2. Cardiovascular status is stable 3. The patient is strongly advised to quit smoking, she going out to smoke. 4. She is intelligent, CAD risk factor discussed with the patient. 5. The patient is noncompliant of her medication lifestyle PROGNOSIS: Poor TIME SPENT: More than 30 minutes. Plan and coordination of the patient's care discussed in the presence of nurse. LASHANDA
--- NOTE | 2018-01-29 09:17 | PN ---
DATE OF SERVICE: 01/24/18 SUBJECTIVE: The patient is up and about doing well. The patient had a stool sample, she is forming stools. No diarrhea at all and no abdominal pain, no fowl smell stool sample she gave yesterday. Her appetite is normal with no fever and no chills. REVIEW OF SYSTEMS: CONSTITUTIONAL: No night sweats. No fatigue, malaise, lethargy. No fever or chills. HEENT: Eyes: No visual changes. No eye pain. No eye discharge. ENT: No runny nose. No epistaxis. No sinus pain. No sore throat. No odynophagia. No congestion. RESPIRATORY: No cough, no congestion. No hemoptysis. No shortness of breath. CARDIOVASCULAR: No angina symptoms. No CHF symptoms. No atypical chest pain for CAD. No palpitations. No orthopnea. GASTROINTESTINAL: No abdominal pain. No nausea or vomiting. No diarrhea or constipation. No hematemesis. No hematochezia. GENITOURINARY: No urgency. No frequency. No dysuria. No hematuria. No obstructive symptoms. No discharge. No pain. No significant abnormal bleeding. MUSCULOSKELETAL: No musculoskeletal pain; no joint swelling. NEUROLOGICAL: No headache. No neck pain. No syncope. No seizures. No dizziness. PSYCHIATRIC: Not anxious. No depression. No suicidal thoughts. No homicidal thoughts. SKIN: No rash. No lesions. No wounds. ENDOCRINE: No unexplained weight loss. No weight gain. HEMATOLOGIC/LYMPHATIC: No anemia. No purpura. No petechiae. No prolonged or excessive bleeding. No palpable lymph nodes. PHYSICAL EXAMINATION: GENERAL: The patient is oriented to time, place and person. HEENT: Head normocephalic, atraumatic. Eyes: Extraocular muscles are intact. Pupils are equal, round and reactive to light and accommodation. Ears: No lesions. Nose appeared normal. Throat: No exudate or erythema. NECK: Supple. No JVD, no carotid bruit. No lymphadenopathy or thyromegaly. LUNGS: Clear to auscultation. Percussion note normal. Chest symmetrical. HEART: S1, S2, no S3. No murmurs. No cyanosis or clubbing. No ascites. Pulses: Dorsalis pedis and posterior tibial pulses +1 to +2 both sides. ABDOMEN: Soft. Nontender. Bowel sounds active. No CVA tenderness. No mass felt. EXTREMITIES: No edema. Full range of motion of all extremities, equal. NEUROLOGIC: No focal deficit. Cranial nerves II through XII are grossly intact. No headache, no double vision or headache. SKIN: Not dry. Intact. Turgor - normal. LYMPHATIC: No palpable lymph nodes/no lymphedema. MUSCULOSKELETAL: Normal joints with no swelling. Muscle tone is normal. ASSESSMENT: 1. Acute colitis, seems to have resolved, likely the patient has IBS with a lot of underlined socioeconomic problems PLAN: 1. The patient is going out frequently to smoke, again counseling for smoking done. 2. The patient will be discharged home. CONDITION: Stable TIME SPENT: More than 30 minutes. Plan and coordination of the patient's care discussed in the presence of nurse. LASHANDA
--- NOTE | 2018-01-29 09:36 | HP ---
DATE OF SERVICE: 01/21/18 REASON FOR HOSPITALIZATION/HISTORY OF PRESENT ILLNESS: Still with diarrhea-very fowl smelling. Got constipated with Lomotil. Lost 10 pounds since last vitis. PAST MEDICAL HISTORY: Depression PAD Hypertension Diabetes Mellitus type 2 Esophageal reflux Osteoarthritis Dyslipidemia Mitral regurgitation Polycythemia Spondylosis PAST SURGICAL HISTORY: Hysterectomy Hernia Stent right kidney REVIEW OF SYSTEMS: CONSTITUTIONAL: No fever, Fatigue. HEENT: No sinus drainage, no sore throat. RESPIRATORY: No cough, no congestion. CARDIOVASCULAR: No atypical chest pain for coronary artery disease. No angina , CHF symptoms, palpitations or shortness of breath. GASTROINTESTINAL: No melena or abdominal pain. No GERD. Diarrhea 5x today. GENITOURINARY: No hematuria, no prostatism, no polyuria. SHEET METAL SMITH: No blackout, no dizziness, no headache, no double vision. MUSCULOSKELETAL: Osteoarthritis pain, no joint swelling. ENDOCRINE: Weight loss; 10 pounds, no weight gain. SKIN: Not dry, no rash. PSYCHIATRIC: Not anxious, no depression, no suicidal thoughts, no homicidal thoughts. SOCIAL HISTORY: Marital Status: . Alcohol Usage: No. Tobacco Usage: Yes. FAMILY HISTORY: Father living Mother Brother 0 Sister 5 (1/2 sister) MEDICATIONS: Lantus 60 units Celexa 40mg PO daily Invokana 300mg PO daily Lyrica 75mg PO daily Valium 10mg three times a day PRN Vascepa 1 gram two capsules PO twice a day Zebeta 5mg PO daily Zetia 10mg Po daily Clopidogrel 75mg PO daily Lisinopril 10mg Po daily Lovastatin 20mg PO daily Metformin 500mg two times a day Omeprazole 20mg Po daily Potassium Chloride 20meq PO daily Insulin regular Lotrisone cream apply twice daily Percocet 10-325 ALLERGIES: Codeine Morphine PHYSICAL EXAMINATION: V/S: Pulse 132, blood pressure 102/72, oxygen saturation 97%. Height 5'5", weight 195.8 with BMI 32.6. GENERAL APPEARANCE: Oriented times three. Pale. Mucosa membrane dry. HEENT: Normal. NECK: No JVP, no bruits. RESPIRATORY: Decreased breath sounds. CARDIOVASCULAR: S1, S2, no S3, no murmurs. No cyanosis, clubbing. No ascites. GI/ABDOMEN: No tenderness. Bowel sounds are hyperactive. EXTREMITIES: edema, pulses +1, equal. SHEET METAL SMITH: Deep tendon reflexes, sensory, motor and gait all normal. RECTAL: Appointment Dr. Gtz January 2018/PELVIC: hysterectomy, Mammogram advised. ASSESSMENT: 1. Diarrhea x5 today/Colitis/IBS? 2. Dehydration 3. Spondylosis 4. Polycythemia 5. Depression 6. PAD 7. Esophageal reflux 8. Osteoarthritis 9. Hypertension 10. Obesity 11.Hyperlipoproteinemia 12.Mitral regurgitation 13.Diabetes Mellitus type 2 14.Dyslipidemia 15.Family history colon cancer 16.Renal artery stents; 10/10 Dr. Malone PLAN: 1. Admit 2. Normal saline @75cc and hour 3. BRAT diet(bland) 4. Stool for C-Diff 5. Stool for blood occult 6. GI panel by PCR (send out) 7. CT of abdomen without contrast 8. CBC/CMP now and daily 9. Chest x-ray now 10.Continue home medications-hold Metformin 11.Flagyl 500mg PO three times a day 12.Sliding scale for insulin TIME SPENT: More than 70 minutes. MTDD
--- NOTE | 2018-01-29 13:51 | DS ---
DATE OF SERVICE: 01/24/18 FINAL DIAGNOSIS: 1. Diarrhea likely irritable bowel syndrome alternating diarrhea with constipation 2. Dyslipidemia 3. Coronary artery disease 4. Diabetes Mellitus 5. Obesity 6. Smoking with chronic lung disease 7. Metabolic syndrome 8. Noncompliance 9. PAD 10.Esophageal reflux 11.Hyperlipoproteinemia 12.Mitral regurgitation 13.Renal artery stents, 10/10 14.Depression 15.Polycythemia DISCHARGE INSTRUCTIONS: Discharge home. Continue the same medications as before. MEDICATIONS AT DISCHARGE: Zetia 10mg PO daily Plavix 75mg PO daily Humulin R ACHS PRN Prilosec 20mg PO QDAC Lantus 60 units SUBCUT bedtime Vascepa 1gram PO twice a day Zebeta 5mg PO daily Lisinopril 10mg PO daily Percocet 10-325 PO three times a day Lyrica 75mg Po daily Valium 10mg PO three times a day PRN Celexa 40mg PO bedtime K-Dur 20meq PO daily Glucophage 500mg PO twice a day Mevacor 20mg PO bedtime DUO NEBS three times a day PRN ALLERGIES: Codeine Morphine NEW PRESCRIPTIONS: None. DIET INSTRUCTIONS: As tolerated ACTIVITY: As tolerated SMOKING: Current everyday smoker HOSPITAL COURSE: Anita was hospitalized with history of weight loss and diarrhea of four weeks duration. She said that she had been going to the bathroom 10-15 times. As soon as she was admitted to the hospital there was no bowl movement at all for couple of days. The patient is noncompliance and doesn't keep her appointment on regular basis. She does not follow her lifestyle modifications. Continued to smoke. Prognosis is poor considering family history and multiple risk factors that she has for stroke, coronary artery disease, etc. She is discharged in stable condition to be followed as an outpatient. TIME SPENT: More than 60 minutes. LASHANDA
--- NOTE | 2018-01-29 13:52 | PN ---
01/23/18: Level 5 01/24/18: Intermediate 01/25/18: D as in discharge. MTDD
== END 2018-01-24 08:00 | disposition home or self-care (01) | DRG 392 ==
LOC: MEDSURG B 09:31
PROVIDERS: ADMIT Internal Medicine; ATTEND Internal Medicine
DX: K58.2 Mixed irritable bowel syndrome (principal); E78.5 Hyperlipidemia, unspecified; I25.10 Atherosclerotic heart disease of native coronary artery without angina pectoris; E11.9 Type 2 diabetes mellitus without complications; E66.9 Obesity, unspecified; J44.9 Chronic obstructive pulmonary disease, unspecified; E88.81 Metabolic syndrome and other insulin resistance; I73.9 Peripheral vascular disease, unspecified; K21.9 Gastro-esophageal reflux disease without esophagitis; I34.0 Nonrheumatic mitral (valve) insufficiency; F32.9 Major depressive disorder, single episode, unspecified; D75.1 Secondary polycythemia; F17.210 Nicotine dependence, cigarettes, uncomplicated; Z95.820 Peripheral vascular angioplasty status with implants and grafts; Z91.19 Patient's noncompliance with other medical treatment and regimen; Z79.4 Long term (current) use of insulin; Z79.02 Long term (current) use of antithrombotics/antiplatelets
CPT/HCPCS: 36415; 80053; 82150; 82272; 82962; 83690; 84439; 84443; 85025; 87493

== ENCOUNTER 2018-02-20 00:58 | Emergency (ER) | payer OTHER ==
[2018-02-20 01:04] VITALS: BP 159/82; TEMP 99.5; BMI 31.9
[2018-02-20] MEDS ORDERED: NORCO 10-325 PO STA (02:07)
[2018-02-20] MEDS ORDERED: DILAUDID ONE (02:12)
--- NOTE | 2018-02-20 02:21 | CT ---
EXAM: CT scan pelvis without contrast HISTORY: Fall COMPARISON: None. FINDINGS: Contiguous axial images obtained through the pelvis without contrast utilizing 3-mm collim ation sagittal and coronal reconstructions were imaged and reviewed. Facet arthropathy is seen in th e lower lumbar spine.. There is no acute fracture or dislocation. Mild degenerative changes noted a bout the hip joints right greater than left.. There is no free fluid or inflammatory changes. IMPRESSION: No acute findings
--- NOTE | 2018-02-20 02:29 | CT ---
EXAM: CT scan lumbar spine HISTORY: Fall COMPARISON: None. FINDINGS: Contiguous axial images obtained through the lumbar spine utilizing 3-mm collimation. Sag ittal and coronal reconstructions were imaged and reviewed... The vertebral bodies normal height and alignment. Facet joints intact. There is mild levoscoliosis. There is no acute fracture or disloc ation. There is a concentric non compressive disc bulge L4-L5 with facet arthropathy. At L5-S1 ther e is moderate disc bulge with likely left paracentral protrusion abutting the left S1 nerve with narr owing of both neural foramen. IMPRESSION: No acute findings.
[2018-02-20] MEDS ORDERED: DILAUDID IM STA (02:39)
--- NOTE | 2018-02-20 02:54 | ED.PDOC ---
General ED Provider: Dr. CHESTER PELAEZ-ER Chief Complaint: Extremity Pain/Injury Stated Complaint: my hip hurts since i fell last week Time Seen by Physician: 01:00 Mode of Arrival: Walk-In Information Source: Patient Exam Limitations: No limitations Primary Care Provider: VINOD BLANC Nursing and Triage Documentation Reviewed and Agree: Yes Does patient meet sepsis criteria?: No System Inflammatory Response Syndrome: Not Applicable Sepsis Protocol: For patient's 13 years and over: Temp is 96.8 and below OR 101 and greater Pulse >90 BPM Resp >20/minute Acutely Altered Mental Status Are patient's symptoms suggestive of a new infection, such as: -Pneumonia -Skin, Soft Tissue -Endocarditis -UTI -Bone, Joint Infection -Implantable Device -Acute Abdominal Infection -Wound Infection -Meningitis -Blood Stream Catheter Infection -Unknown Musculoskeletal Complaint Exam - Hip/Pelvis Complaint/Exam Location of Pain: Reports: Right, Hip Mechanism of Injury: Reports: Trauma Onset/Duration: one week Symptoms Are: Still present Initial Severity: Mild Location: Reports: Discrete Character: Reports: Aching Aggravating: Reports: Movement, Weight bearing Associated Signs and Symptoms: Reports: Syncope Tenderness: Present: Right NV Bundle Intact Distal to Injury: Yes Review of Systems - Review Of Systems Constitutional: Reports: No symptoms Eyes: Reports: No symptoms Ears, Nose, Mouth, Throat: Reports: No symptoms Respiratory: Reports: No symptoms Cardiac: Reports: No symptoms GI: Reports: No symptoms : Reports: No symptoms Musculoskeletal: Reports: Muscle pain Skin: Reports: No symptoms Neurological: Reports: No symptoms Endocrine: Reports: No symptoms Hematologic/Lymphatic: Reports: No symptoms All Other Systems: Reviewed and Negative Past Medical History - Past Medical History Previously Healthy: Yes Endocrine: Reports: DM 2 ( insulin-requiring) Cardiovascular: Reports: Hypertension, CHF, Other (PAD) Respiratory: Reports: COPD Hematological: Reports: None Gastrointestinal: Reports: None Genitourinary: Reports: CKD Neuro/Psych: Reports: Other (peripheral neuropathy) Musculoskeletal: Reports: None Cancer: Reports: None Last Menstrual Period: PT HAS HAD A HYSTERECTOMY - Surgical History General Surgical History: Reports: Hysterectomy - Family History Family History: Reports: Unknown - Social History Smoking Status: Current every day smoker, Heavy tobacco smoker Hx Substance Use: No Alcohol Screening: None - Immunizations Tetanus Shot up to Date: No Influenza Vaccine within 12 Months: No Pneumococcal Vaccine up to Date: No Physical Exam - Physical Exam Appearance: Well-appearing, No pain distress, Well-nourished Pain Distress: Moderate Eyes: ELOISA, EOMI, Conjunctiva clear ENT: Ears normal, Nose normal, Oropharynx normal Neck: Supple Respiratory: Airway patent, Breath sounds clear, Breath sounds equal, Respirations nonlabored Cardiovascular: RRR, Pulses normal, No rub, No murmur GI/: Soft, Nontender, No masses, Bowel sounds normal, No Organomegaly Musculoskeletal: Limited ROM Skin: Warm, Dry, Normal color Neurological: Sensation intact, Motor intact, Reflexes intact, Cranial nerves intact, Alert, Oriented Psychiatric: Affect appropriate, Mood appropriate Interpretation - Radiology Interpretation Radiology Interpretation By: Radiologist Radiology Results: Negative Exam Interpreted: CT Scan Critical Care Note - Critical Care Note Total Time (mins): 0 Course - Course Orders, Labs, Meds: Orders Category Date Time Status Hydromorphone HCl [Dilaudid] MEDS 02/20/18 02:12 Discontinued 1 mg .ROUTE .STK-MED ONE Hydromorphone HCl [Dilaudid] MEDS 02/20/18 02:39 Discontinued 1 mg IM ONCE STA CT LUMBAR SPINE W/O CONTRAST Stat RADS 02/20/18 01:[address] PELVIS W/O CONTRAST Stat RADS 02/20/18 01:53 Completed Medications Discontinued Medications Generic Name Dose Route Start Last Admin Trade Name Freq PRN Reason Stop Dose Admin Hydromorphone HCl 1 mg 02/20/18 02:39 02/20/18 02:41 Dilaudid IM 02/20/18 02:40 1 mg ONCE STA Administration Vital Signs: Temp Pulse Resp BP Pulse Ox 02/20/18 00:59 99.5 F 98 H 20 159/82 H 95 Departure - Departure Time of Disposition: 02:55 Disposition: HOME SELF-CARE Discharge Problem: Injury of lower extremity Instructions: Hip Sprain (ED) Condition: Good Pt referred to PMD for follow-up: Yes IPMP verified?: No Additional Instructions: f/u with pcp Allergies/Adverse Reactions: Allergies codeine Adverse Reaction (Verified 02/20/18 01:05) Rash morphine Adverse Reaction (Verified 02/20/18 01:05) Vomiting SEVERE ABD PAIN, VOMITING Home Medications: Ambulatory Orders Ezetimibe [Zetia] 10 mg PO DAILY #30 tablet 08/07/14 Clopidogrel Bisulfate [Plavix] 75 mg PO DAILY 06/10/14 Insulin Regular, Human [Humulin R] See Protocol SQ ACHS PRN 07/08/15 Omeprazole [Prilosec] 20 mg PO QDAC 09/30/15 Insulin Glargine,Hum.rec.anlog [Lantus] 60 unit SUBCUT BEDTIME 02/17/16 Icosapent Ethyl [Vascepa] 1 gm PO BID 05/29/16 Bisoprolol Fumarate [Zebeta] 5 mg PO DAILY #30 tablet 05/30/16 Lisinopril 10 mg PO DAILY #30 tablet 05/30/16 Oxycodone-Acetaminophen 10-325 [Percocet 10-325] 1 tab PO TID 09/23/16 Pregabalin [Lyrica] 75 mg PO DAILY 09/23/16 Diazepam [Valium] 10 mg PO TID PRN #90 01/15/17 Evolocumab [Repatha Syringe] 140 mg IM EVERY OTHER WEEK 01/21/18 Ipratropium/Albuterol Neb [Duoneb] 1 vial INH TID PRN 01/21/18 Lovastatin [Mevacor] 20 mg PO BEDTIME 01/21/18 Metformin HCl [Glucophage] 500 mg PO BID 01/21/18 Potassium Chloride [K-Dur] 20 meq PO DAILY 01/21/18 Disposition Discussed With: Patient
== END 2018-02-20 04:25 | disposition home or self-care (01) ==
LOC: ED 00:58
DX: M25.551 Pain in right hip (principal); W19.XXXA Unspecified fall, initial encounter; F17.210 Nicotine dependence, cigarettes, uncomplicated
CPT/HCPCS: 96372; 99282

== ENCOUNTER 2018-02-25 23:00 | Emergency (ER) | payer OTHER ==
[2018-02-25 23:08] VITALS: BP 139/84; TEMP 98.9; BMI 30.7
--- NOTE | 2018-02-25 23:41 | DI ---
EXAM: Left tibia-fibula two views HISTORY: Pain by 3 days , no Trauma COMPARISON: None. FINDINGS: There is no acute fracture or dislocation or bony abnormality. The surrounding soft tissu es are unremarkable. IMPRESSION: No acute findings
[2018-02-26] MEDS ORDERED: PHENERGAN 25 MG/ML VIAL IM STA (00:31)
--- NOTE | 2018-02-26 00:34 | ED.PDOC ---
General ED Provider: Dr. CHESTER PELAEZ-ER Chief Complaint: Extremity Swelling/Pain Stated Complaint: my leg is numb again Time Seen by Physician: 23:10 Mode of Arrival: Walk-In Information Source: Patient Exam Limitations: No limitations Primary Care Provider: VINOD SALINAS Nursing and Triage Documentation Reviewed and Agree: Yes Does patient meet sepsis criteria?: No System Inflammatory Response Syndrome: Not Applicable Sepsis Protocol: For patient's 13 years and over: Temp is 96.8 and below OR 101 and greater Pulse >90 BPM Resp >20/minute Acutely Altered Mental Status Are patient's symptoms suggestive of a new infection, such as: -Pneumonia -Skin, Soft Tissue -Endocarditis -UTI -Bone, Joint Infection -Implantable Device -Acute Abdominal Infection -Wound Infection -Meningitis -Blood Stream Catheter Infection -Unknown Musculoskeletal Complaint Exam - Lower Extremity Complaint/Exam Location of Pain: Reports: Left Mechanism of Injury: Reports: No known trauma Symptoms Are: Still present Onset of Pain: Reports: Immediate Initial Severity: Mild Current Severity: Mild Location: Reports: Diffuse Character: Reports: Dull, Aching Alleviating: Reports: None Aggravating: Reports: None Able to Bear Weight: Yes Associated Signs and Symptoms: Reports: Numbness NV Bundle Intact Distal to Injury: Yes Compartment Syndrome Risk Factors: Present: Pain Differential Diagnoses: Sciatica Review of Systems - Review Of Systems Constitutional: Reports: No symptoms Eyes: Reports: No symptoms Ears, Nose, Mouth, Throat: Reports: No symptoms Respiratory: Reports: No symptoms Cardiac: Reports: No symptoms GI: Reports: No symptoms : Reports: No symptoms Musculoskeletal: Reports: No symptoms Skin: Reports: No symptoms Neurological: Reports: Tingling Endocrine: Reports: No symptoms Hematologic/Lymphatic: Reports: No symptoms All Other Systems: Reviewed and Negative Past Medical History - Past Medical History Previously Healthy: Yes Endocrine: Reports: DM 2 ( insulin-requiring) Cardiovascular: Reports: Hypertension, CHF, Other (PAD) Respiratory: Reports: COPD Hematological: Reports: None Gastrointestinal: Reports: None Genitourinary: Reports: CKD Neuro/Psych: Reports: Other (peripheral neuropathy) Musculoskeletal: Reports: None Cancer: Reports: None Last Menstrual Period: PT HAS HAD A HYSTERECTOMY - Surgical History General Surgical History: Reports: Hysterectomy - Family History Family History: Reports: Unknown - Social History Smoking Status: Current every day smoker, Heavy tobacco smoker Hx Substance Use: No Alcohol Screening: None - Immunizations Tetanus Shot up to Date: No Influenza Vaccine within 12 Months: No Pneumococcal Vaccine up to Date: No Physical Exam - Physical Exam Appearance: Well-appearing, No pain distress, Well-nourished Pain Distress: Mild Eyes: ELOISA, EOMI, Conjunctiva clear ENT: Ears normal, Nose normal, Oropharynx normal Neck: Supple Respiratory: Airway patent, Breath sounds clear, Breath sounds equal, Respirations nonlabored Cardiovascular: RRR GI/: Soft, Nontender, No masses, Bowel sounds normal, No Organomegaly Musculoskeletal: Normal strength Skin: Warm, Dry, Normal color Neurological: Sensation intact Psychiatric: Affect appropriate, Mood appropriate Interpretation - Radiology Interpretation Radiology Interpretation By: Radiologist Radiology Results: Negative Critical Care Note - Critical Care Note Total Time (mins): 0 Course - Course Orders, Labs, Meds: Lab Review 02/25/18 23:31 D-Dimer (Manual) 402.68 Orders Category Date Time Status CBC W/ AUTO DIFF Stat LAB 02/26/18 00:31 Ordered COMPREHENSIVE METABOLIC PANEL Stat LAB 02/26/18 00:31 Ordered D-DIMER Stat LAB 02/25/18 23:31 Completed ESR Stat LAB 02/26/18 00:31 Ordered SERUM PROTEIN ELECTROPHORESIS Stat LAB 02/26/18 00:31 Ordered Promethazine HCl [Phenergan 25 mg/ml Vial] MEDS 02/26/18 00:31 Stat 25 mg IM ONCE STA TIBIA/FIBULA, LEFT 2 VIEWS Stat RADS 02/25/18 23:20 Completed Vital Signs: Temp Pulse Resp BP Pulse Ox 02/25/18 23:01 98.9 F 80 20 139/84 94 L Departure - Departure Time of Disposition: 00:34 Disposition: HOME SELF-CARE Discharge Problem: Leg pain Qualifiers: Laterality: left Qualified Code(s): M79.605 - Pain in left leg Instructions: Leg Pain (ED) Condition: Good Pt referred to PMD for follow-up: Yes IPMP verified?: No Additional Instructions: f/u with dr [place] Allergies/Adverse Reactions: Allergies codeine Adverse Reaction (Verified 02/25/18 23:09) Rash morphine Adverse Reaction (Verified 02/25/18 23:09) Vomiting SEVERE ABD PAIN, VOMITING Home Medications: Ambulatory Orders Ezetimibe [Zetia] 10 mg PO DAILY #30 tablet 03/30/14 Clopidogrel Bisulfate [Plavix] 75 mg PO DAILY 06/10/14 Insulin Regular, Human [Humulin R] See Protocol SQ ACHS PRN 07/08/15 Omeprazole [Prilosec] 20 mg PO QDAC 09/30/15 Insulin Glargine,Hum.rec.anlog [Lantus] 60 unit SUBCUT BEDTIME 02/17/16 Icosapent Ethyl [Vascepa] 1 gm PO BID 05/29/16 Bisoprolol Fumarate [Zebeta] 5 mg PO DAILY #30 tablet 05/30/16 Lisinopril 10 mg PO DAILY #30 tablet 05/30/16 Oxycodone-Acetaminophen 10-325 [Percocet 10-325] 1 tab PO TID 09/23/16 Pregabalin [Lyrica] 75 mg PO DAILY 09/23/16 Diazepam [Valium] 10 mg PO TID PRN #90 01/15/17 Evolocumab [Repatha Syringe] 140 mg IM EVERY OTHER WEEK 01/21/18 Ipratropium/Albuterol Neb [Duoneb] 1 vial INH TID PRN 01/21/18 Lovastatin [Mevacor] 20 mg PO BEDTIME 01/21/18 Metformin HCl [Glucophage] 500 mg PO BID 01/21/18 Potassium Chloride [K-Dur] 20 meq PO DAILY 01/21/18 Disposition Discussed With: Patient
== END 2018-02-26 01:30 | disposition home or self-care (01) ==
LOC: ED 23:00
DX: M79.605 Pain in left leg (principal); R20.0 Anesthesia of skin; F17.210 Nicotine dependence, cigarettes, uncomplicated; Z79.899 Other long term (current) drug therapy
CPT/HCPCS: 36415; 80053; 84165; 85025; 85379; 85651; 96372; 99283

== ENCOUNTER 2018-03-06 04:41 | Emergency (ER) | payer OTHER ==
[2018-03-06 04:51] VITALS: BP 152/87; TEMP 98.8; BMI 32.3
[2018-03-06] MEDS ORDERED: DILAUDID 2 MG/ML SYRINGE ONE (05:12)
[2018-03-06] MEDS ORDERED: PHENERGAN 25 MG/ML VIAL ONE (05:13)
[2018-03-06] MEDS ORDERED: PHENERGAN 25 MG/ML VIAL IM STA (05:15)
[2018-03-06] MEDS ORDERED: DILAUDID 2 MG/ML SYRINGE IM STA (05:15)
--- NOTE | 2018-03-06 06:20 | ED.PDOC ---
General ED Provider: Dr. CHESTER PELAEZ-ER Chief Complaint: Extremity Pain/Injury Stated Complaint: this pain is shooting down my leg into my calf Time Seen by Physician: 04:45 Mode of Arrival: Walk-In Information Source: Patient Exam Limitations: No limitations Primary Care Provider: VINOD SALINAS Nursing and Triage Documentation Reviewed and Agree: Yes Does patient meet sepsis criteria?: No System Inflammatory Response Syndrome: Not Applicable Sepsis Protocol: For patient's 13 years and over: Temp is 96.8 and below OR 101 and greater Pulse >90 BPM Resp >20/minute Acutely Altered Mental Status Are patient's symptoms suggestive of a new infection, such as: -Pneumonia -Skin, Soft Tissue -Endocarditis -UTI -Bone, Joint Infection -Implantable Device -Acute Abdominal Infection -Wound Infection -Meningitis -Blood Stream Catheter Infection -Unknown Musculoskeletal Complaint Exam - Lower Extremity Complaint/Exam Location of Pain: Reports: Left, Leg Mechanism of Injury: Reports: No known trauma Symptoms Are: Still present Onset of Pain: Reports: Weeks Initial Severity: Mild Current Severity: Moderate Location: Reports: Discrete Character: Reports: Spasmodic, Stiffness, Burning Alleviating: Reports: None Aggravating: Reports: None Able to Bear Weight: Yes Associated Signs and Symptoms: Denies: Swelling, Redness, Bruising, Fever, Weakness, Numbness, Tingling Septic Arthritis Risk Factors: Reports: None Lower Extremity Findings: Absent: Swelling, Ecchymosis, Abnormal contour, Laceration, Erythema, Foreign body, Tenderness, Limited range of motion NV Bundle Intact Distal to Injury: Yes Compartment Syndrome Risk Factors: Present: Pain Aishwarya's Sign Present: No Differential Diagnoses: Sciatica, Other Review of Systems - Review Of Systems Constitutional: Reports: No symptoms Eyes: Reports: No symptoms Ears, Nose, Mouth, Throat: Reports: No symptoms Respiratory: Reports: No symptoms Cardiac: Reports: No symptoms GI: Reports: No symptoms : Reports: No symptoms Musculoskeletal: Reports: No symptoms Skin: Reports: No symptoms Neurological: Reports: No symptoms Endocrine: Reports: No symptoms Hematologic/Lymphatic: Reports: No symptoms All Other Systems: Reviewed and Negative Past Medical History - Past Medical History Previously Healthy: Yes Endocrine: Reports: DM 2 ( insulin-requiring) Cardiovascular: Reports: Hypertension, CHF, Other (PAD) Respiratory: Reports: COPD Hematological: Reports: None Gastrointestinal: Reports: None Genitourinary: Reports: CKD Neuro/Psych: Reports: Other (peripheral neuropathy) Musculoskeletal: Reports: None Cancer: Reports: None Last Menstrual Period: PT HAS HAD A HYSTERECTOMY - Surgical History General Surgical History: Reports: Hysterectomy - Family History Family History: Reports: Unknown - Social History Smoking Status: Current every day smoker, Heavy tobacco smoker Hx Substance Use: No Alcohol Screening: None - Immunizations Tetanus Shot up to Date: (UNKNOWN) Influenza Vaccine within 12 Months: No Pneumococcal Vaccine up to Date: No Physical Exam - Physical Exam Appearance: Well-appearing, No pain distress, Well-nourished Pain Distress: Moderate Eyes: ELOISA, EOMI, Conjunctiva clear ENT: Ears normal, Nose normal, Oropharynx normal Neck: Supple Respiratory: Airway patent, Breath sounds clear, Breath sounds equal, Respirations nonlabored Cardiovascular: RRR, Pulses normal, No rub, No murmur GI/: Soft, Nontender, No masses, Bowel sounds normal, No Organomegaly Musculoskeletal: Normal strength, ROM intact, No edema, No calf tenderness Skin: Warm, Dry, Normal color Neurological: Sensation intact, Motor intact, Reflexes intact, Cranial nerves intact, Alert, Oriented Psychiatric: Affect appropriate, Mood appropriate Re-Evaluation - Re-Evaluation Time of Re-Evaluation: 06:20 Status: Improved Vital Signs Stable: Yes Pain Level: 1 Appearance: NAD Lungs: Clear Skin: Warm and Dry Neuro: Alert and Oriented X3 CV: RRR Critical Care Note - Critical Care Note Total Time (mins): 0 Course - Course Hematology/Chemistry: 03/06/18 05:20 03/06/18 05:20 Orders, Labs, Meds: Lab Review 03/06/18 03/06/18 03/06/18 05:20 05:20 05:20 WBC 14.27 H RBC 4.32 Hgb 13.4 Hct 38.5 MCV 89.1 MCH 31.0 MCHC 34.8 RDW Coeff of Barry 12.7 Plt Count 280 Immature Gran % (Auto) 0.7 Neut % (Auto) 53.3 Lymph % (Auto) 38.1 Coke % (Auto) 5.3 Eos % (Auto) 2.0 Baso % (Auto) 0.6 Immature Gran # (Auto) 0.1 Neut # (Auto) 7.6 H Lymph # (Auto) 5.4 H Coke # (Auto) 0.8 Eos # (Auto) 0.3 Baso # (Auto) 0.1 D-Dimer (Manual) 410.16 Sodium 134 L Potassium 4.1 Chloride 102 Carbon Dioxide 18 L Anion Gap 18.1 BUN 17 Creatinine 1.10 Estimated GFR (MDRD) 53.00 BUN/Creatinine Ratio 15.45 Glucose 245 H Calcium 9.7 Total Bilirubin 0.3 AST 28 ALT 39 Alkaline Phosphatase 129 H Total Protein 7.6 Albumin 3.6 Globulin 4.0 Albumin/Globulin Ratio 0.90 TSH 1.606 Orders Category Date Time Status CBC W/ AUTO DIFF Stat LAB 03/06/18 05:20 Completed COMPREHENSIVE METABOLIC PANEL Stat LAB 03/06/18 05:20 Completed D-DIMER Stat LAB 03/06/18 05:20 Completed THYROID STIMULATING HORMONE Stat LAB 03/06/18 05:20 Completed Hydromorphone HCl/Pf [Dilaudid 2 mg/ml Syringe] MEDS 03/06/18 05:12 Discontinued 2 mg .ROUTE .STK-MED ONE Hydromorphone HCl/Pf [Dilaudid 2 mg/ml Syringe] MEDS 03/06/18 05:15 Discontinued 2 mg IM ONCE STA Promethazine HCl [Phenergan 25 mg/ml Vial] MEDS 03/06/18 05:13 Discontinued 25 mg .ROUTE .STK-MED ONE Promethazine HCl [Phenergan 25 mg/ml Vial] MEDS 03/06/18 05:15 Discontinued 25 mg IM ONCE STA Medications Discontinued Medications Generic Name Dose Route Start Last Admin Trade Name Freq PRN Reason Stop Dose Admin Hydromorphone HCl 2 mg 03/06/18 05:15 03/06/18 05:22 Dilaudid 2 Mg/Ml Syringe IM 03/06/18 05:16 Not Given ONCE STA Promethazine HCl 25 mg 03/06/18 05:15 03/06/18 05:20 Phenergan 25 Mg/Ml Vial IM 03/06/18 05:16 25 mg ONCE STA Administration Vital Signs: Temp Pulse Resp BP Pulse Ox 03/06/18 04:42 98.8 F 91 H 18 152/87 H 97 Departure - Departure Time of Disposition: 06:21 Disposition: HOME SELF-CARE Discharge Problem: Neuropathy Instructions: Paresthesia (ED) Condition: Good Pt referred to PMD for follow-up: Yes IPMP verified?: No Additional Instructions: f/u with dr [place] Allergies/Adverse Reactions: Allergies codeine Adverse Reaction (Verified 03/06/18 04:51) Rash morphine Adverse Reaction (Verified 03/06/18 04:51) Vomiting SEVERE ABD PAIN, VOMITING Home Medications: Ambulatory Orders Ezetimibe [Zetia] 10 mg PO DAILY #30 tablet 03/30/14 Clopidogrel Bisulfate [Plavix] 75 mg PO DAILY 06/10/14 Insulin Regular, Human [Humulin R] See Protocol SQ ACHS PRN 07/08/15 Omeprazole [Prilosec] 20 mg PO QDAC 09/30/15 Insulin Glargine,Hum.rec.anlog [Lantus] 60 unit SUBCUT BEDTIME 02/17/16 Icosapent Ethyl [Vascepa] 1 gm PO BID 05/29/16 Bisoprolol Fumarate [Zebeta] 5 mg PO DAILY #30 tablet 05/30/16 Lisinopril 10 mg PO DAILY #30 tablet 05/30/16 Oxycodone-Acetaminophen 10-325 [Percocet 10-325] 1 tab PO TID 09/23/16 Pregabalin [Lyrica] 75 mg PO DAILY 09/23/16 Diazepam [Valium] 10 mg PO TID PRN #90 01/15/17 Evolocumab [Repatha Syringe] 140 mg IM EVERY OTHER WEEK 01/21/18 Ipratropium/Albuterol Neb [Duoneb] 1 vial INH TID PRN 01/21/18 Lovastatin [Mevacor] 20 mg PO BEDTIME 01/21/18 Metformin HCl [Glucophage] 500 mg PO BID 01/21/18 Potassium Chloride [K-Dur] 20 meq PO DAILY 01/21/18 Amoxicillin 500 mg PO BID 03/06/18 Disposition Discussed With: Patient
== END 2018-03-06 06:37 | disposition home or self-care (01) ==
LOC: ED 04:41
DX: G62.9 Polyneuropathy, unspecified (principal); E11.9 Type 2 diabetes mellitus without complications; N18.9 Chronic kidney disease, unspecified; I10 Essential (primary) hypertension; I73.9 Peripheral vascular disease, unspecified; F17.210 Nicotine dependence, cigarettes, uncomplicated; Z79.4 Long term (current) use of insulin; Z79.899 Other long term (current) drug therapy
CPT/HCPCS: 36415; 80053; 84443; 85025; 85379; 96372; 99283

== ENCOUNTER 2018-03-22 04:29 | Emergency (ER) ==
[2018-03-22 04:29] VITALS: BMI 32.3
[2018-03-22 04:49] VITALS: BP 155/83; TEMP 99.4
[2018-03-22] MEDS ORDERED: DILAUDID 0.5 MG/0.5 ML SYRINGE IM STA (05:30)
[2018-03-22] MEDS ORDERED: PHENERGAN 25 MG/ML VIAL IM STA (05:30)
--- NOTE | 2018-03-22 06:02 | ED.PDOC ---
General ED Provider: Dr. CHESTER PELAEZ-ER Chief Complaint: Palpitations Stated Complaint: stephany got three things going on--stephany got this cyst down there i have been squeeingand getting pus and blood out and it made me nervous--also my neuropathy is flaring and my legs hurt Time Seen by Physician: 04:35 Mode of Arrival: Walk-In Information Source: Patient Exam Limitations: No limitations Primary Care Provider: VINOD SALINAS Nursing and Triage Documentation Reviewed and Agree: Yes Does patient meet sepsis criteria?: No System Inflammatory Response Syndrome: Not Applicable Sepsis Protocol: For patient's 13 years and over: Temp is 96.8 and below OR 101 and greater Pulse >90 BPM Resp >20/minute Acutely Altered Mental Status Are patient's symptoms suggestive of a new infection, such as: -Pneumonia -Skin, Soft Tissue -Endocarditis -UTI -Bone, Joint Infection -Implantable Device -Acute Abdominal Infection -Wound Infection -Meningitis -Blood Stream Catheter Infection -Unknown Skin Complaint Exam - Skin/Soft Tissue Complaint/Exam Onset/Duration: seveal weeks Symptoms Are: Still present Timing: Constant Initial Severity: Mild Current Severity: None Character: Reports: Painful Aggravating: Reports: Touch Alleviating: Reports: None Associated Signs and Symptoms: Reports: Drainage, Tenderness Recent Exposure to Others w/Similar Symptoms: No Skin Findings: Present: Induration, Pustules Joint Tenderness Present: No Differential Diagnoses: Infection Review of Systems - Review Of Systems Constitutional: Reports: No symptoms Eyes: Reports: No symptoms Ears, Nose, Mouth, Throat: Reports: No symptoms Respiratory: Reports: No symptoms Cardiac: Reports: Palpitations GI: Reports: No symptoms : Reports: No symptoms Musculoskeletal: Reports: Muscle pain Skin: Reports: No symptoms Neurological: Reports: No symptoms Endocrine: Reports: No symptoms Hematologic/Lymphatic: Reports: No symptoms All Other Systems: Reviewed and Negative Past Medical History - Past Medical History Previously Healthy: Yes Endocrine: Reports: DM 2 ( insulin-requiring) Cardiovascular: Reports: Hypertension, CHF, Other (PAD) Respiratory: Reports: COPD Hematological: Reports: None Gastrointestinal: Reports: None Genitourinary: Reports: CKD Neuro/Psych: Reports: Other (peripheral neuropathy) Musculoskeletal: Reports: None Cancer: Reports: None Last Menstrual Period: PT HAS HAD A HYSTERECTOMY - Surgical History General Surgical History: Reports: Hysterectomy - Family History Family History: Reports: Unknown - Social History Smoking Status: Current every day smoker, Heavy tobacco smoker Hx Substance Use: No Alcohol Screening: None - Immunizations Tetanus Shot up to Date: (UNKNOWN) Influenza Vaccine within 12 Months: No Pneumococcal Vaccine up to Date: No Physical Exam - Physical Exam Appearance: Well-appearing, No pain distress, Well-nourished Eyes: ELOISA, EOMI, Conjunctiva clear ENT: Ears normal, Nose normal, Oropharynx normal Neck: Supple Respiratory: Airway patent, Breath sounds clear, Breath sounds equal, Respirations nonlabored Cardiovascular: RRR GI/: Soft, Nontender, No masses, Bowel sounds normal, No Organomegaly Musculoskeletal: Normal strength Skin: Warm (noted pustule near left labia) Neurological: Sensation intact Psychiatric: Affect appropriate, Mood appropriate, Anxious Interpretation - EKG Interpretation Time of EKG #1: 06:05 Rate: Normal Rhythm: Sinus Ectopy: None [place]: [place] ST Segment: Normal Critical Care Note - Critical Care Note Total Time (mins): 0 Course - Course Hematology/Chemistry: 03/22/18 05:18 Orders, Labs, Meds: Lab Review 03/22/18 05:18 WBC 13.71 H RBC 4.28 Hgb 13.3 Hct 38.0 MCV 88.8 MCH 31.1 H MCHC 35.0 RDW Coeff of Barry 12.6 Plt Count 268 Immature Gran % (Auto) 0.4 Neut % (Auto) 53.9 Lymph % (Auto) 39.2 [place] % (Auto) 4.7 Eos % (Auto) 1.4 Baso % (Auto) 0.4 Immature Gran # (Auto) 0.1 Neut # (Auto) 7.4 H Lymph # (Auto) 5.4 H [place] # (Auto) 0.6 Eos # (Auto) 0.2 Baso # (Auto) 0.1 Orders Category Date Time Status EKG-(ED ONLY) Stat CARDIO 03/22/18 05:11 Completed Livestock Slaughterer [ED CUSHION MAT MAKER APPLIED] .ONCE EMERGENCY 03/22/18 05:12 Active CBC W/ AUTO DIFF Stat LAB 03/22/18 05:18 Completed COMPREHENSIVE METABOLIC PANEL Stat LAB 03/22/18 05:18 Received CREATINE KINASE Stat LAB 03/22/18 05:18 Received TROPONIN I Stat LAB 03/22/18 05:18 Received TSH [THYROID STIMULATING HORMONE] Stat LAB 03/22/18 05:18 Received Hydromorphone HCl [Dilaudid 0.5 mg/0.5 ml Syringe] MEDS 03/22/18 05:30 Discontinued 0.5 mg IM ONCE STA Promethazine HCl [Phenergan 25 mg/ml Vial] MEDS 03/22/18 05:30 Discontinued 25 mg IM ONCE STA Medications Discontinued Medications Generic Name Dose Route Start Last Admin Trade Name Caroline PRN Reason Stop Dose Admin Hydromorphone HCl 0.5 mg 03/22/18 05:30 03/22/18 05:46 Dilaudid 0.5 Mg/0.5 Ml Syringe IM 03/22/18 05:31 0.5 mg ONCE STA Administration Promethazine HCl 25 mg 03/22/18 05:30 03/22/18 05:46 Phenergan 25 Mg/Ml Vial IM 03/22/18 05:31 25 mg ONCE STA Administration Vital Signs: Temp Pulse Resp BP Pulse Ox 03/22/18 04:30 99.4 F 98 H 24 155/83 H 96 Departure - Departure Time of Disposition: 06:03 Disposition: HOME SELF-CARE Discharge Problem: Palpitations, Anxiety, Labial abscess, Neuropathy Instructions: Abscess (ED) Condition: Good Pt referred to PMD for follow-up: Yes IPMP verified?: No Additional Instructions: clindamycin 300mg tid #21---warm compresses--see dr salinas this week for f/u Allergies/Adverse Reactions: Allergies codeine Adverse Reaction (Verified 03/22/18 04:41) Rash morphine Adverse Reaction (Verified 03/22/18 04:41) Vomiting SEVERE ABD PAIN, VOMITING Home Medications: Ambulatory Orders Ezetimibe [Zetia] 10 mg PO DAILY #30 tablet 03/30/14 Clopidogrel Bisulfate [Plavix] 75 mg PO DAILY 06/10/14 Insulin Regular, Human [Humulin R] See Protocol SQ ACHS PRN 07/08/15 Omeprazole [Prilosec] 20 mg PO QDAC 09/30/15 Insulin Glargine,Hum.rec.anlog [Lantus] 60 unit SUBCUT BEDTIME 02/17/16 Icosapent Ethyl [Vascepa] 1 gm PO BID 05/29/16 Bisoprolol Fumarate [Zebeta] 5 mg PO DAILY #30 tablet 05/30/16 Lisinopril 10 mg PO DAILY #30 tablet 05/30/16 Oxycodone-Acetaminophen 10-325 [Percocet 10-325] 1 tab PO TID 09/23/16 Pregabalin [Lyrica] 75 mg PO DAILY 09/23/16 Diazepam [Valium] 10 mg PO TID PRN #90 01/15/17 Evolocumab [Repatha Syringe] 140 mg IM EVERY OTHER WEEK 01/21/18 Ipratropium/Albuterol Neb [Duoneb] 1 vial INH TID PRN 01/21/18 Lovastatin [Mevacor] 20 mg PO BEDTIME 01/21/18 Metformin HCl [Glucophage] 500 mg PO BID 01/21/18 Potassium Chloride [K-Dur] 20 meq PO DAILY 01/21/18
== END 2018-03-22 06:13 | disposition home or self-care (01) ==
LOC: ED 04:29
DX: R00.2 Palpitations (principal); F41.9 Anxiety disorder, unspecified; G62.9 Polyneuropathy, unspecified; N76.4 Abscess of vulva; F17.210 Nicotine dependence, cigarettes, uncomplicated; Z79.899 Other long term (current) drug therapy
CPT/HCPCS: 36415; 80053; 82550; 84443; 84484; 85025; 93005; 93010; 96372; 99283

== ENCOUNTER 2018-05-03 10:06 | Inpatient (IN) ==
--- NOTE | 2018-05-03 11:19 | DI ---
Exam: Chest two-view HISTORY: Pain. Comparison: 01/21/2018. FINDINGS: Two views of the chest demonstrate moderately expanded lungs with no evidence of pneumonia or edema. The cardiac silhouette is at the upper limit of normal size. The pulmonary vasculature is not congested. The skeletal structures are intact. Mild degenerative findings are noted in the spin e. IMPRESSION: No acute cardiopulmonary disease. The cardiac silhouette is at the upper limit of normal size.
[2018-05-03] MEDS ORDERED: HUMULIN R SUBCUT STA (11:48)
[2018-05-03] MEDS ORDERED: NON-FORMULARY MEDICATION (Diazepam [Valium] 10 MG) PO PRN (11:49)
[2018-05-03] MEDS ORDERED: DUONEB NEB PRN (11:49)
--- NOTE | 2018-05-03 11:55 | ED.PDOC ---
General ED Provider: Dr. ADELE ROBLERO Chief Complaint: Hypertension Stated Complaint: chest pain, pt stated that she care for her father the stress imposed upon her causes her blood pressure to go up and she experinces chest pains Time Seen by Physician: 10:10 (pt see with her nurse at all times at time of exam was pain free) Mode of Arrival: Walk-In Information Source: Patient Exam Limitations: No limitations Primary Care Provider: VINOD SALINAS Nursing and Triage Documentation Reviewed and Agree: Yes Does patient meet sepsis criteria?: No System Inflammatory Response Syndrome: Not Applicable Sepsis Protocol: For patient's 13 years and over: Temp is 96.8 and below OR 101 and greater Pulse >90 BPM Resp >20/minute Acutely Altered Mental Status Are patient's symptoms suggestive of a new infection, such as: -Pneumonia -Skin, Soft Tissue -Endocarditis -UTI -Bone, Joint Infection -Implantable Device -Acute Abdominal Infection -Wound Infection -Meningitis -Blood Stream Catheter Infection -Unknown Cardiovascular Complaint Exam - Chest Pain Complaint/Exam Onset: Gradual Duration: 2 days Symptoms Are: Resolved Timing: Intermittent Length of Chest Pain Episodes: 1 hr Initial Severity: Moderate Current Severity: None Location: Reports: Midsternal Pain Radiates: Reports: None Character: Reports: Aching Aggravating: Reports: None Alleviating: Reports: Rest Associated Signs and Symptoms: Denies: Diaphoresis, Nausea, Vomiting, Fever, Palpitations, Cough, Hemoptysis, Back pain, Abdominal pain, Dizziness, Short of air, Calf pain, Calf swelling Related History: Reports: Similar episode Related Surgical History: Reports: None History of Healthcare-Acquired Pneumonia: Reports: No AMI/ACS Risk Factors: Reports: Hypertension TAD Risk Factors: Reports: Hypertension Pulmonary Embolism Risk Factors: Reports: None Recent Stress Test: No Recent Echo/LV Function: No JVD Present: No Subcutaneous Emphysema Present: No Diminshed Breath Sounds: No Reproducible Chest Wall Pain: No Bilateral Pulses Present: No Unequal Pulses Noted: No If Risk Factors for AMI/ACS Consider: EKG, Cardiac Enzymes Differential Diagnoses: Stable Angina Quality Indicators For Acute NH or Cardiac Chest Pain: EKG in 10min. Review of Systems - Review Of Systems Constitutional: Reports: No symptoms Eyes: Reports: No symptoms Ears, Nose, Mouth, Throat: Reports: No symptoms Respiratory: Reports: No symptoms Cardiac: Reports: Chest pain GI: Reports: No symptoms : Reports: No symptoms Musculoskeletal: Reports: No symptoms Skin: Reports: No symptoms Neurological: Reports: No symptoms Endocrine: Reports: No symptoms Hematologic/Lymphatic: Reports: No symptoms All Other Systems: Reviewed and Negative Past Medical History - Past Medical History Previously Healthy: Yes Endocrine: Reports: DM 2 ( insulin-requiring) Cardiovascular: Reports: Hypertension, CHF, Other (PAD) Respiratory: Reports: COPD Hematological: Reports: None Gastrointestinal: Reports: None Genitourinary: Reports: CKD Neuro/Psych: Reports: Other (peripheral neuropathy) Musculoskeletal: Reports: None Cancer: Reports: None Last Menstrual Period: N/A - Surgical History General Surgical History: Reports: Hysterectomy - Family History Family History: Reports: Unknown - Social History Smoking Status: Current every day smoker, Heavy tobacco smoker Hx Substance Use: No Alcohol Screening: None - Immunizations Influenza Vaccine within 12 Months: No Pneumococcal Vaccine up to Date: No Physical Exam - Physical Exam Appearance: Well-appearing, No pain distress, Well-nourished Eyes: ELOISA, EOMI, Conjunctiva clear ENT: Ears normal, Nose normal, Oropharynx normal Respiratory: Airway patent, Breath sounds clear, Breath sounds equal, Respirations nonlabored Cardiovascular: RRR, Pulses normal, No rub, No murmur GI/: Soft, Nontender, No masses, Bowel sounds normal, No Organomegaly Musculoskeletal: Normal strength, ROM intact, No edema, No calf tenderness Skin: Warm, Dry, Normal color Neurological: Sensation intact, Motor intact, Reflexes intact, Cranial nerves intact, Alert, Oriented Psychiatric: Affect appropriate, Mood appropriate Interpretation - Radiology Interpretation Radiology Interpretation By: Radiologist Radiology Results: No acute changes Exam Interpreted: CXR - Manager Business Information Rate: Normal Rhythm: Sinus Ectopy: None - EKG Interpretation Rate: Normal Rhythm: Sinus Ectopy: None [place]: [place] ST Segment: Normal Re-Evaluation - Re-Evaluation Time of Re-Evaluation: 11:00 Status: Improved Vital Signs Stable: Yes Pain Level: 0 Appearance: NAD Lungs: Clear Skin: Warm and Dry Neuro: Alert and Oriented X3 CV: RRR - Re-Evaluation Time of Re-Evaluation: 11:57 Status: Improved Vital Signs Stable: Yes Pain Level: 0 Appearance: NAD Skin: Warm and Dry Neuro: Alert and Oriented X3 CV: RRR Physician Notification - Case Discussed Physician Notified: salinas Time of Notification: 11:57 Admit/Transition Orders Entered by ED Provider: Yes Admit To: Inpatient Critical Care Note - Critical Care Note Total Time (mins): 0 Course - Course Hematology/Chemistry: 05/03/18 10:50 05/03/18 10:50 Orders, Labs, Meds: Lab Review 05/03/18 05/03/18 10:50 10:50 WBC 10.68 H RBC 4.26 Hgb 13.0 Hct 38.4 MCV 90.1 MCH 30.5 MCHC 33.9 RDW Coeff of Barry 12.6 Plt Count 259 Immature Gran % (Auto) 0.7 Neut % (Auto) 51.9 Lymph % (Auto) 40.6 [place] % (Auto) 4.5 Eos % (Auto) 1.7 Baso % (Auto) 0.6 Immature Gran # (Auto) 0.1 Neut # (Auto) 5.5 Lymph # (Auto) 4.3 H [place] # (Auto) 0.5 Eos # (Auto) 0.2 Baso # (Auto) 0.1 Sodium 132 L Potassium 4.6 Chloride 99 Carbon Dioxide 22 Anion Gap 15.6 BUN 20 H Creatinine 0.85 Estimated GFR (MDRD) 71.00 BUN/Creatinine Ratio 23.52 Glucose 436 H Calcium 9.6 Total Bilirubin 0.3 AST 34 ALT 42 H Alkaline Phosphatase 170 H Total Creatine Kinase 31 Troponin I < 0.012 Total Protein 7.5 Albumin 4.1 Globulin 3.4 Albumin/Globulin Ratio 1.21 Orders Category Date Time Status EKG-(ED ONLY) Stat CARDIO 05/03/18 10:45 Ordered EKG-(ED ONLY) Stat CARDIO 05/03/18 11:48 Ordered EKG-(IP & OP ONLY) DAILY CARDIO 05/04/18 06:00 Ordered EKG-(IP & OP ONLY) DAILY CARDIO 05/05/18 06:00 Ordered EKG-(IP & OP ONLY) DAILY CARDIO 05/06/18 06:00 Ordered STRESS ECHO Routine CARDIO 05/03/18 11:48 Ordered ACTIVITY .BR with BRP CARE 05/03/18 11:52 Ordered BLOOD GLUCOSE MONITORING ACCUCHECK Q6H CARE 05/03/18 11:52 Ordered GIVE HS SNACK 2100 CARE 05/03/18 11:53 Ordered VITAL SIGNS Q8HR CARE 05/03/18 11:52 Ordered ADA 1800 THERESA. DIET DIETARY 05/03/18 Lunch Ordered HS SNACK DIETARY 05/03/18 Dinner Ordered CBC W/ AUTO DIFF DAILY@0600 LAB 05/04/18 06:00 Ordered CBC W/ AUTO DIFF DAILY@0600 LAB 05/05/18 06:00 Ordered CBC W/ AUTO DIFF Stat LAB 05/03/18 10:45 Ordered COMPREHENSIVE METABOLIC PANEL DAILY@0600 LAB 05/04/18 06:00 Ordered COMPREHENSIVE METABOLIC PANEL DAILY@0600 LAB 05/05/18 06:00 Ordered COMPREHENSIVE METABOLIC PANEL Stat LAB 05/03/18 10:45 Ordered CREATINE KINASE Q8H LAB 05/03/18 18:00 Ordered CREATINE KINASE Q8H LAB 05/04/18 02:00 Ordered CREATINE KINASE Stat LAB 05/03/18 10:45 Ordered TROPONIN I Q8H LAB 05/03/18 18:00 Ordered TROPONIN I Q8H LAB 05/04/18 02:00 Ordered TROPONIN I Stat LAB 05/03/18 10:45 Ordered Bisoprolol Fumarate [Zebeta] MEDS 05/04/18 09:00 Ordered 5 mg PO DAILY Citalopram Hydrobromide [Celexa] MEDS 05/03/18 21:00 Ordered 40 mg PO BEDTIME Clopidogrel Bisulfate [Plavix] MEDS 05/04/18 09:00 Ordered 75 mg PO DAILY Diazepam [Valium] MEDS 05/03/18 11:49 Ordered 10 mg PO TID PRN Evolocumab [Repatha Syringe] MEDS 05/03/18 12:00 Ordered 140 mg IM EVERY OTHER WEEK Ezetimibe [Zetia] MEDS 05/04/18 09:00 Ordered 10 mg PO DAILY Insulin Regular, Human [Humulin R] MEDS 05/03/18 11:48 Stat See Dose Instructions SUBCUT ONCE STA Ipratropium/Albuterol Neb [Duoneb] MEDS 05/03/18 11:49 Ordered 1 vial NEB TID PRN Lisinopril [Zestril] MEDS 05/04/18 09:00 Ordered 10 mg PO DAILY Lovastatin [Mevacor] MEDS 05/03/18 21:00 Ordered 20 mg PO BEDTIME Omeprazole [Prilosec] MEDS 05/04/18 06:30 Ordered 20 mg PO QDAC Oxycodone-Acetaminophen 10-325 [Percocet 10-325] MEDS 05/03/18 15:00 Ordered 1 tab PO TID Pregabalin [Lyrica] MEDS 05/04/18 09:00 Ordered 75 mg PO DAILY Sodium Chloride 0.9% [Sodium Chloride] 1,000 ml MEDS 05/03/18 12:00 Ordered IV 75 mls/hr CHEST, 2 VIEWS PA & LAT Stat RADS 05/03/18 10:45 Ordered Medications Generic Name Dose Route Start Last Admin Trade Name Freq PRN Reason Stop Dose Admin Albuterol/Ipratropium 1 vial 05/03/18 11:49 Duoneb NEB TID PRN Bronchospasm Bisoprolol Fumarate 5 mg 05/04/18 09:00 Zebeta PO DAILY CAMILA Clopidogrel Bisulfate 75 mg 05/04/18 09:00 Plavix PO DAILY CAMILA Ezetimibe 10 mg 05/04/18 09:00 Zetia PO DAILY CAMILA Lisinopril 10 mg 05/04/18 09:00 Zestril PO DAILY CAMILA Lovastatin 20 mg 05/03/18 21:00 Mevacor PO BEDTIME CAMILA Non-Formulary Medication 40 mg 05/03/18 21:00 Citalopram Hydrobromide [Celexa] PO BEDTIME CAMILA Non-Formulary Medication 10 mg 05/03/18 11:49 Diazepam [Valium] PO TID PRN Agitation Non-Formulary Medication 140 mg 05/03/18 12:00 Evolocumab [Repatha Syringe] IM EVERY OTHER WEEK CAMILA Omeprazole 20 mg 05/04/18 06:30 Prilosec PO QDAC CAMILA Oxycodone/Acetaminophen 1 tab 05/03/18 15:00 Percocet 10-325 PO TID CAMILA Pregabalin 75 mg 05/04/18 09:00 Lyrica PO DAILY CAMILA Discontinued Medications Generic Name Dose Route Start Last Admin Trade Name Freq PRN Reason Stop Dose Admin Insulin Human Regular 0 unit 05/03/18 11:48 Humulin R SUBCUT 05/03/18 11:49 ONCE STA Protocol Vital Signs: Temp Pulse Resp BP Pulse Ox 05/03/18 10:07 98.2 F 88 20 150/88 H 97 KATHY Risk Score KATHY Risk Score: Risk Score Odds of by 30D 0 0.1 (0.1-0.2) 1 0.3 (0.2-0.3) 2 0.4 (0.3-0.5) 3 0.7 (0.6-0.9) 4 1.2 (1.0-1.5) 5 2.2 (1.9-2.6) 6 3.0 (2.5-3.6) 7 4.8 (3.8-6.1) Departure - Departure Time of Disposition: 11:57 Disposition: ADMITTED INPATIENT Discharge Problem: Chest pain Qualifiers: Chest pain type: unspecified Qualified Code(s): R07.9 - Chest pain, unspecified Instructions: Angina (ED), Chest Pain (DC) Condition: Good Pt referred to PMD for follow-up: Yes IPMP verified?: No Additional Instructions: Please call your Family Physician as soon as possible to schedule a follow-up appointment. Allergies/Adverse Reactions: Allergies codeine Adverse Reaction (Verified 05/03/18 10:11) Rash morphine Adverse Reaction (Verified 05/03/18 10:11) Vomiting SEVERE ABD PAIN, VOMITING Home Medications: Ambulatory Orders Ezetimibe [Zetia] 10 mg PO DAILY #30 tablet 03/30/14 Clopidogrel Bisulfate [Plavix] 75 mg PO DAILY 06/10/14 Insulin Regular, Human [Humulin R] See Protocol SQ ACHS PRN 07/08/15 Omeprazole [Prilosec] 20 mg PO QDAC 09/30/15 Insulin Glargine,Hum.rec.anlog [Lantus] 60 unit SUBCUT BEDTIME 02/17/16 Icosapent Ethyl [Vascepa] 1 gm PO BID 05/29/16 Bisoprolol Fumarate [Zebeta] 5 mg PO DAILY #30 tablet 05/30/16 Lisinopril 10 mg PO DAILY #30 tablet 05/30/16 Oxycodone-Acetaminophen 10-325 [Percocet 10-325] 1 tab PO TID 09/23/16 Pregabalin [Lyrica] 75 mg PO DAILY 09/23/16 Diazepam [Valium] 10 mg PO TID PRN #90 01/15/17 Evolocumab [Repatha Syringe] 140 mg IM EVERY OTHER WEEK 01/21/18 Ipratropium/Albuterol Neb [Duoneb] 1 vial INH TID PRN 01/21/18 Lovastatin [Mevacor] 20 mg PO BEDTIME 05/31/18 Metformin HCl [Glucophage] 500 mg PO BID 01/21/18 Potassium Chloride [K-Dur] 20 meq PO DAILY 01/21/18 Disposition Discussed With: Patient
[2018-05-03] MEDS ORDERED: NON-FORMULARY MEDICATION (Evolocumab [Repatha Syringe] 140 MG) IM SCH (12:00)
[2018-05-03] MEDS: SODIUM CHLORIDE 1,000 ML IV SCH (12:50)
[2018-05-03 13:20] VITALS: BMI 33.5
[2018-05-03] MEDS: VALIUM PO PRN (13:48)
[2018-05-03] MEDS: PERCOCET 10-325 PO SCH ×2 (14:19→21:05)
[2018-05-03] MEDS ORDERED: TORADOL IVP STA (18:27)
[2018-05-03] MEDS ORDERED: NON-FORMULARY MEDICATION (Citalopram Hydrobromide [Celexa] 40 MG) PO SCH (21:00)
[2018-05-03] MEDS: CELEXA PO SCH (21:05)
[2018-05-03] MEDS: MEVACOR PO SCH (21:05)
[2018-05-03] MEDS: HUMULIN R SUBCUT PRN (21:05)
[2018-05-04] MEDS: TORADOL IVP SCH ×3 (05:35→20:36)
[2018-05-04] MEDS: HUMULIN R SUBCUT PRN ×4 (05:36→20:36)
[2018-05-04] MEDS: SODIUM CHLORIDE 1,000 ML IV SCH (05:37)
[2018-05-04] MEDS: PRILOSEC PO SCH (05:37)
[2018-05-04] MEDS: ZETIA PO SCH (08:16)
[2018-05-04] MEDS: ZEBETA PO SCH (08:16)
[2018-05-04] MEDS: LYRICA PO SCH (08:16)
[2018-05-04] MEDS: PLAVIX PO SCH (08:16)
[2018-05-04] MEDS: ZESTRIL PO SCH (08:16)
[2018-05-04] MEDS: PERCOCET 10-325 PO SCH ×3 (08:17→20:36)
[2018-05-04] MEDS: WELLBUTRIN XL PO SCH (10:21)
--- NOTE | 2018-05-04 10:42 | PCM.PROG ---
Attending Provider: ATTENDING PROVIDER: Dr. VINOD BLANC DATE OF SERVICE: 05/04/18 SUBJECTIVE: This 52 year old WHITE/ F was hospitalized 05/03/18 with chest pain. No evidence of myocardial event. She is up and about smoking. Counseling for smoking done. She has multiple risk factors for CAD. She is noncompliant and she agrees to not taking care of herself. REVIEW OF SYSTEMS: CONSTITUTIONAL: No night sweats. No fatigue, malaise, lethargy. No fever or chills. HEENT: Eyes: No visual changes. No eye pain. No eye discharge. ENT: No runny nose. No epistaxis. No sinus pain. No odynophagia. No congestion. RESPIRATORY: No cough, no congestion. No hemoptysis. No shortness of breath. CARDIOVASCULAR: No angina symptoms. No CHF symptoms. No atypical chest pain for CAD. No palpitations. No orthopnea.. GASTROINTESTINAL: No abdominal pain. No nausea or vomiting. No diarrhea or constipation. No hematemesis. No hematochezia. GENITOURINARY: No urgency. No frequency. No dysuria. No hematuria. No obstructive symptoms. No discharge. No pain. No significant abnormal bleeding. MUSCULOSKELETAL: No musculoskeletal pain; no joint swelling. NEUROLOGICAL: Awake, alert, oriented to time, place and person. No headache. No neck pain. No syncope. No seizures. No dizziness. PSYCHIATRIC: Not anxious. No depression. No suicidal thoughts. No homicidal thoughts. SKIN: No rash. No lesions. No wounds. ENDOCRINE: No unexplained weight loss. No weight gain. HEMATOLOGIC/LYMPHATIC: No anemia. No purpura. No petechiae. No prolonged or excessive bleeding. No palpable lymph nodes. PHYSICAL EXAMINATION: GENERAL: The patient is awake, alert and oriented, sitting in chair in no distress. VITAL SIGNS: Temperature 97.6 F, Pulse 85, Respiratory Rate 18, BP 158/94, Pulse Ox 95% HEENT: Head normocephalic, atraumatic. Eyes: Extraocular muscles are intact. Pupils are equal, round and reactive to light and accommodation. Ears: No lesions. Nose appeared normal. Throat: No exudate or erythema. NECK: Supple. No JVD, no carotid bruit. No lymphadenopathy or thyromegaly. LUNGS: Clear to auscultation. Percussion note normal. Chest symmetrical. HEART: S1, S2, no S3. No murmurs. No cyanosis or clubbing. No ascites. Pulses: Dorsalis pedis and posterior tibial pulses +1 to +2 both sides. ABDOMEN: Soft. Non-tender. Bowel sounds active. No CVA tenderness. No mass felt. EXTREMITIES: No edema. Full range of motion of all extremities, equal. NEUROLOGIC: No focal deficit. Cranial nerves II through XII are grossly intact. No headache, no double vision or headache. SKIN: Warm and dry. Intact. Turgor-normal. LYMPHATIC: No palpable lymph nodes/no lymphedema. MUSCULOSKELETAL: Normal joints with no swelling. Muscle tone is normal. LAB REVIEW: 05/04/18 01:50 05/04/18 01:50 05/04/18 01:50: Sodium 135 L, Potassium 4.28, Chloride 100, Carbon Dioxide 28.0 , Anion Gap 11.28, BUN 27 H, Creatinine 1.42 H D, Estimated GFR (MDRD) 39.00, BUN/Creatinine Ratio 19.01, Glucose 285.9 H D, Calcium 8.8, Total Bilirubin 0.3 , AST 41 H, ALT 39 H, Alkaline Phosphatase 129 H D, Total Protein 6.8, Albumin 3.7, Globulin 3.1, Albumin/Globulin Ratio 1.19 05/04/18 01:50: WBC 10.54 H, RBC 4.16 L, Hgb 12.8, Hct 37.6, MCV 90.4, MCH 30.8 , MCHC 34.0, RDW Coeff of Barry 12.5, Plt Count 262, Immature Gran % (Auto) 1.0, Neut % (Auto) 48.0, Lymph % (Auto) 43.6, [place] % (Auto) 4.7, Eos % (Auto) 2.1, Baso % (Auto) 0.6, Immature Gran # (Auto) 0.1, Neut # (Auto) 5.1, Lymph # (Auto ) 4.6 H, [place] # (Auto) 0.5, Eos # (Auto) 0.2, Baso # (Auto) 0.1 05/04/18 01:50: Total Creatine Kinase 39, Troponin I < 0.012 05/03/18 17:50: Total Creatine Kinase 37, Troponin I < 0.012 05/03/18 10:50: Sodium 132 L, Potassium 4.6, Chloride 99, Carbon Dioxide 22, Anion Gap 15.6, BUN 20 H, Creatinine 0.85, Estimated GFR (MDRD) 71.00, BUN/ Creatinine Ratio 23.52, Glucose 436 H, Calcium 9.6, Total Bilirubin 0.3, AST 34 , ALT 42 H, Alkaline Phosphatase 170 H, Total Creatine Kinase 31, Troponin I < 0.012, Total Protein 7.5, Albumin 4.1, Globulin 3.4, Albumin/Globulin Ratio 1.21 05/03/18 10:50: WBC 10.68 H, RBC 4.26, Hgb 13.0, Hct 38.4, MCV 90.1, MCH 30.5, MCHC 33.9, RDW Coeff of [place] 12.6, Plt Count 259, Immature Gran % (Auto) 0.7, Neut % (Auto) 51.9, Lymph % (Auto) 40.6, [place] % (Auto) 4.5, Eos % (Auto) 1.7, Baso % (Auto) 0.6, Immature Gran # (Auto) 0.1, Neut # (Auto) 5.5, Lymph # (Auto ) 4.3 H, [place] # (Auto) 0.5, Eos # (Auto) 0.2, Baso # (Auto) 0.1 ASSESSMENT: 1. The patient wants a mood stabilizer. She states Celexa is working well. I will add Wellbutrin to help cut down on smoking and to add mood stabilizing effect, will start on smaller dose. 2. Cardiovascular status is stable. PLAN: 1. Stress Sestamibi tomorrow 2. D/C IV 3. Counseling for smoking done 4. Wellbutrin 150 mg daily Plan and coordination of the patient's care discussed in the presence of Insurance Salesman and nurse. CONDITION: STABLE SCRIBED BY: GLEN STANTON, Supervisor Remelt scribed while in presence of service performed by Dr. VINOD BLANC on 05/04/18 ([id number])
[2018-05-04] MEDS: MEVACOR PO SCH (20:36)
[2018-05-04] MEDS: CELEXA PO SCH (20:36)
[2018-05-05] MEDS: TORADOL IVP SCH ×3 (05:21→20:57)
[2018-05-05] MEDS ORDERED: ATROPINE SULFATE PFS ONE (07:50)
[2018-05-05] MEDS ORDERED: DOBUTAMINE 250 ML IV ONE (07:50)
[2018-05-05] MEDS ORDERED: DILAUDID 2 MG/ML SDV IVP STA (07:55)
[2018-05-05] MEDS ORDERED: DILAUDID 2 MG/ML SDV ONE (07:57)
[2018-05-05] MEDS: PLAVIX PO SCH (07:59)
[2018-05-05] MEDS: PRILOSEC PO SCH (07:59)
[2018-05-05] MEDS: ZEBETA PO SCH (07:59)
[2018-05-05] MEDS: ZETIA PO SCH (07:59)
[2018-05-05] MEDS: PERCOCET 10-325 PO SCH ×3 (07:59→20:57)
[2018-05-05] MEDS: LYRICA PO SCH (07:59)
[2018-05-05] MEDS: ZESTRIL PO SCH (07:59)
[2018-05-05] MEDS: WELLBUTRIN XL PO SCH (08:00)
[2018-05-05] MEDS ORDERED: CATAPRES PO STA (08:08)
[2018-05-05] MEDS ORDERED: VASOTEC IV IVP STA (08:08)
--- NOTE | 2018-05-05 10:35 | NM ---
Cardiac Stress Test HISTORY: Chest pain. COMPARISON: 09/29/2016. TECHNIQUE: Resting: The patient was injected with 3.4 mCi of thallium 201 chloride intravenously after which a "resting" SPECT study of the heart was performed. Stress: The patient was stressed pharmacologically with dobutamine and at the appropriate time injec jus with 24.8 millicuries of 99m technetium Sestamibi (Cardiolite) after which a "stress" SPECT study of the heart was performed. Gated images of the heart were also obtained to assess wall motion and c alculate ejection fraction. For details of the stress protocol employed, reference is made to the se landine report of the performing physician. FINDINGS: The stress perfusion images demonstrate a generally uniform distribution of activity in th e left ventricular myocardium. The resting perfusion images demonstrate no evidence of significant r edistribution/ischemia. The left ventricular ejection fraction (LVEF) is 79%. The previous ejection fraction was 77%. IMPRESSION: 1. Left ventricular myocardial perfusion is within normal limits. 2. The left ventricular ejection fraction (LVEF) is 79%. The previous ejection fraction was 77%.
--- NOTE | 2018-05-05 10:39 | ECHOSTRESS ---
Date of Exam: 05/05/18 Ordering Physician: DR. VINOD BLANC Reason for Echo: CHEST PAIN, DOBUTAMINE STRESS SESTAMIBI--NO ISCHEMIA M-Mode Normal Adult Results LV Dimensions Normal Adult Results AoV Opening excursions >1.6 LVEDD-base- 3.5-5.8 Ao root dimensions 2.0-3.7 LVESD-base- 3.1-4.6 L. Atrium dimensions 1.9-3.8 Post. Wall thickness 0.8-1.1 IV septum (thickness) 0.7-1.2 Post. Wall excursion 0.72-1.3 Septal motion Systolic motion R. Ventricular cavity 1.5-2.0 LVEF 60% Paradoxical septal wall motion 2-D: NORMAL LEFT VENTRICULAR CONTRACTILITY RESTING AND WITH DOBUTAMINE INFUSION M-MODE: MV: AV: TV: PV: CHAMBER SIZE: WALL MOTION: NORMAL LEFT VENTRICULAR CONTRACTILITY RESTING AND WITH DOBUTAMINE INFUSION PERICARDIUM: INTERPRETATION: 1. NORMAL LEFT VENTRICULAR CONTRACTILITY RESTING AND WITH DOBUTAMINE INFUSION MTDD
--- NOTE | 2018-05-05 10:44 | ECHO2D ---
Date of Exam: 05/05/18 Ordering Physician: DR. VINOD BLANC Room #: 119 Reason for Echo: CHEST PAIN M-Mode Normal Adult Results LV Dimensions Normal Adult Results AoV Opening excursions >1.6 >1.6 LVEDD-base- 3.5-5.8 5.0 Ao root dimensions 2.0-3.7 3.3 LVESD-base- 3.1-4.6 L. Atrium dimensions 1.9-3.8 4.5 Post. Wall thickness 0.8-1.1 1.2 IV septum (thickness) 0.7-1.2 1.2 Post. Wall excursion 0.72-1.3 NORMAL Septal motion NORMAL Systolic motion R. Ventricular cavity 1.5-2.0 NORMAL LVEF 60% 72% Paradoxical septal wall motion NORMAL 2-D : 2-D M Mode Echocardiogram was performed using apical four chamber and left parasternal long and short axis views. Mitral, tricuspid and aortic valves appear to be normal. Contractility of the left ventricle seems to be normal, so is the cavity size. Enlarged left atrial cavity. Aortic root appears to be normal. There is no pericardial effusion. There is no thrombus noted in the left ventricular or left aortic cavity. No mitral valve prolapse noted. M-MODE: MV: NORMAL AV: NORMAL TV: NORMAL PV: CHAMBER SIZE: ENLARGED LEFT ATRIAL CAVITY WALL MOTION: NORMAL PERICARDIUM: NORMAL INTERPRETATION: 1. BORDERLINE LEFT VENTRICULAR HYPERTROPHY 2. ENLARGED LEFT ATRIAL CAVITY 3. NORMAL VALVES 4. NORMAL LEFT VENTRICULAR CONTRACTILITY MTDD
--- NOTE | 2018-05-05 10:57 | DOBSTECHST ---
Ordering Physician: DR. VINOD BLANC Date of Test: 05/05/18 Occupation: UNEMPLOYED Reason for Examination: CHEST PAIN Smoking History: YES Height: 66" Weight: 207 LBS Current Medications: ZETIA, PLAVIX, HUMULIN, PRILOSEC, LANTUS, VASCEPAL, ZEBETA , LISINOPRIL, PERCOCET, LYRICA, VALIUM, CELEXA, REPATHA, GLUCOPHAGE, MEVACOR Target Heart Rate: 144/170 S-T Segment Stage Time HR BPM BP MMHG Rhythm +/- Elevation Depression Comments/ Symptoms Control Sitting 68 170/94 SR X NONE Dobutamine 250mg/D5W 5cmg/KG/mn 10cmg/KG/mn 3:00 82 168/92 SR X NONE 15cmg/KG/mn 2:00 95 184/70 SR X NONE 20cmg/KG/mn 1:20 108 200/64 SR X NONE 25cmg/KG/mn 30cmg/KG/mn 35cmg/KG/mn 40cmg/KG/mn 4:00 MIN POST INFUSION z 93 192/72 SR X NO COMMENTS 10:00 MIN POST INFUSION z 72 180/64 SR X NO COMMENTS DURATION OF INFUSION 6:20 MAXIMUM HEART RATE REACHED 108 BPM 93% OXYGEN SATURATION WITH DOBUTAMINE INFUSION Interpretation: 1. NO EVIDENCE OF ISCHEMIA BY ST-T WAVE FROM RESTING HEART RATE OF 68 BPM TO 108 BPM WITH DOBUTAMINE INFUSION 2. NO CHEST PAIN OR DISCOMFORT 3. NORMAL LEFT VENTRICULAR CONTRACTILITY--RESTING AND WITH DOBUTAMINE INFUSION SESTAMIBI TO FOLLOW PATIENT WAS GIVEN VASOTEC 1.25MG IV AND 0.1 CLONIDINE PO BEFORE THE STRESS TEST MTDD
[2018-05-05] MEDS: HUMULIN R SUBCUT PRN ×3 (11:15→20:57)
--- NOTE | 2018-05-05 14:55 | PN ---
DATE OF SERVICE: 05/03/18 SUBJECTIVE: This is a 52 year old white female hospitalized with chest pain. The patient is going through a lot of stress at home, the father has been for the last three months at home dying. She is noncompliant of her medications, followups, diet and is noncompliant in all the departments of her care. She is intelligent. PHYSICAL EXAMINATION: VITAL SIGNS: Temp 96.2, pulse 80, RR 20, BP 150/88, pulse ox 97% room air HEENT: Head normocephalic, atraumatic. Eyes: Extraocular muscles are intact. Pupils are equal, round and reactive to light and accommodation. Ears: No lesions. Nose appeared normal. Throat: No exudate or erythema. NECK: Supple. No JVD, no carotid bruit. No lymphadenopathy or thyromegaly. LUNGS: Decreased breath sounds and clear. Chest symmetrical. HEART: S1, S2, no S3. No murmurs. No cyanosis or clubbing. No ascites. Pulses: Dorsalis pedis and posterior tibial pulses +1 to +2 both sides. ABDOMEN: Soft. Bowel sounds active. EXTREMITIES: No edema. Full range of motion of all extremities, equal. NEUROLOGIC: No focal deficit. Cranial nerves II through XII are grossly intact. No headache, no double vision or headache. SKIN: Not dry. Intact. Turgor - normal. LYMPHATIC: No palpable lymph nodes/no lymphedema. MUSCULOSKELETAL: Normal joints with no swelling. Muscle tone is normal. ASSESSMENT: CHEST PAIN, ETIOLOGY SEEMS TO BE NONCARDIAC WITH MULTIPLE RISK FACTORS FOR CORONARY ARTERY DISEASE LIKE DIABETES, HYPERTENSION, DYSLIPIDEMIA, OBESITY, FAMILY HISTORY. PLAN: Do telemetry, do stress echo and also do sliding scale with coverage. EDUCATION CARRIED OUT ABOUT: Education for diabetes carried out. Patient was examined in her room 119-1 TIME SPENT: More than 30 minutes. Plan and coordination of the patient's care discussed in the presence of nurse. LASHANDA
[2018-05-05] MEDS: MEVACOR PO SCH (20:56)
[2018-05-05] MEDS: CELEXA PO SCH (20:56)
[2018-05-05] MEDS: VALIUM PO PRN (22:04)
[2018-05-06] MEDS: TORADOL IVP SCH (05:49)
[2018-05-06] MEDS: PRILOSEC PO SCH (05:49)
[2018-05-06] MEDS: HUMULIN R SUBCUT PRN (06:30)
[2018-05-06] MEDS: ZESTRIL PO SCH (09:18)
[2018-05-06] MEDS: LYRICA PO SCH (09:18)
[2018-05-06] MEDS: PLAVIX PO SCH (09:18)
[2018-05-06] MEDS: WELLBUTRIN XL PO SCH (09:18)
[2018-05-06] MEDS: ZEBETA PO SCH (09:18)
[2018-05-06] MEDS: ZETIA PO SCH (09:18)
[2018-05-06] MEDS: PERCOCET 10-325 PO SCH (09:19)
[2018-05-06 09:51] VITALS: BP 168/83; TEMP 97.8
--- NOTE | 2018-05-06 09:56 | CM.DICTOOL ---
ADMISSION: 05/03/18 11:56 DISCHARGE: 05/06/18 FINAL DIAGNOSIS CHEST PAIN -ACUTE ANXIETY HISTORY OF: HYPERTENSION DM TYPE 2 CHF COPD CHRONIC KIDNEY DISEASE PERIPHERAL NEUROPATHY S/P HYSTERECTOMY SMOKER DYSLIPIDEMIA S/P RIGHT KIDNEY STENT SLEEP APNEA GERD OSTEOARTHRITIS DEPRESSION/ANXIETY ANEMIA S/P LEFT INGUINAL HERNIA REPAIR S/P X 2 LAST VITALS Temp Pulse Resp BP Pulse Ox 97.9 F 70 18 127/71 95 05/06/18 05:28 05/06/18 05:28 05/06/18 05:28 05/06/18 05:28 05/06/18 05:28 TAKE THESE MEDICATIONS AT HOME Albuterol/Ipratropium (Duoneb) 1 vial NEB RTTID PRN PRN Reason: Bronchospasm Bisoprolol Fumarate (Zebeta) 5 mg PO DAILY [facility] Last Admin: 05/06/18 09:18 Dose: 5 mg Bupropion HCl (Wellbutrin Xl) 150 mg PO DAILY [facility] Last Admin: 05/06/18 09:18 Dose: 150 mg Citalopram Hydrobromide (Celexa) 40 mg PO BEDTIME [facility] Last Admin: 05/05/18 20:56 Dose: 40 mg Clopidogrel Bisulfate (Plavix) 75 mg PO DAILY [facility] Last Admin: 05/06/18 09:18 Dose: 75 mg Diazepam (Valium) 10 mg PO TID PRN PRN Reason: AGITATION Last Admin: 05/05/18 22:04 Dose: 10 mg Ezetimibe (Zetia) 10 mg PO DAILY [facility] Last Admin: 05/06/18 09:18 Dose: 10 mg Insulin Human Regular (Humulin R) 0 unit SUBCUT PRN PRN; Protocol PRN Reason: Hyperglycemica Last Admin: 05/06/18 06:30 Dose: 4 unit Lisinopril (Zestril) 10 mg PO DAILY [facility] Last Admin: 05/06/18 09:18 Dose: 10 mg Lovastatin (Mevacor) 20 mg PO BEDTIME [facility] Last Admin: 05/05/18 20:56 Dose: 20 mg Non-Formulary Medication (Evolocumab [Repatha Syringe]) 140 mg IM EVERY OTHER WEEK [facility] Omeprazole (Prilosec) 20 mg PO QDAC [facility] Last Admin: 05/06/18 05:49 Dose: 20 mg Oxycodone/Acetaminophen (Percocet 10-325) 1 tab PO TID [facility] Last Admin: 05/06/18 09:19 Dose: 1 tab Pregabalin (Lyrica) 75 mg PO DAILY [facility] Last Admin: 05/06/18 09:18 Dose: 75 mg Sodium Chloride (Saline Flush) 1 syr IVF Q8HR [facility] Last Admin: 05/06/18 05:50 Dose: 1 syr VASCEPA 1 GM PO BID LANTUS 60UNITS SQ AT HS METFORMIN 500MG PO BID K-DUR 20MEQ PO EVERY OTHER DAY ALLERGIES codeine Adverse Reaction (Verified 05/03/18 10:11) Rash morphine Adverse Reaction (Verified 05/03/18 10:11) Vomiting Discontinued Medications Clonidine (Catapres) 0.1 mg PO ONCE STA Stop: 05/05/18 08:09 Last Admin: 05/05/18 08:12 Dose: 0.1 mg Enalaprilat (Vasotec Iv) 1.25 mg IVP ONCE STA Stop: 05/05/18 08:09 Last Admin: 05/05/18 08:13 Dose: 1.25 mg Hydromorphone HCl (Dilaudid 2 Mg/Ml Sdv) 1 mg IVP ONCE STA Stop: 05/05/18 07:56 Last Admin: 05/05/18 08:00 Dose: 1 mg Sodium Chloride (Sodium Chloride) 1,000 mls @ 75 mls/hr IV .[id number] [facility] Last Admin: 05/04/18 05:37 Dose: 75 mls/hr Insulin Human Regular (Humulin R) 0 unit SUBCUT ONCE STA; Protocol Stop: 05/03/18 11:49 Last Admin: 05/03/18 13:47 Dose: 6 unit Ketorolac Tromethamine (Toradol) 30 mg IVP ONCE STA Stop: 05/03/18 18:28 Last Admin: 05/03/18 18:38 Dose: 30 mg NEW PRESCRIPTIONS: CONTINUE HOME MEDICATIONS PER NURSING SHEET WITH FOLLOWING CHANGE: 1. TAKE POTASSIUM ON THURSDAY, THURSDAY AND THURSDAY INSTEAD OF DAILY. NEW MEDICATIONS: 1. DYAZIDE 15MG TAKE 1 TABLET 2 TIMES A WEEK NEEDED FOR SWELLING. 2. WELLBUTRIN 150MG TAKE 1 TABLET DAILY SMOKING: SMOKING CESSATION COUNSELING DISEASE SPECIFIC EDUCATION: CHEST PAIN ANXIETY STRESS MANAGEMENT MEDICATION MANAGEMENT IMPORTANCE OF FOLLOW UP WITH MENTAL HEALTH SMOKING LAB REVIEW: 05/06/18 06:45 05/06/18 06:45 05/06/18 06:45: Sodium 135.2 L, Potassium 4.79, Chloride 104.4, Carbon Dioxide 22.3, Anion Gap 13.29, BUN 19.6 H, Creatinine 0.93, Estimated GFR (MDRD) 64.00, BUN/Creatinine Ratio 21.07, Glucose 249.5 H, Calcium 8.98, Total Bilirubin 0.64 , AST 70.6 H, ALT 72.3 H, Alkaline Phosphatase 143.1 H D, Total Protein 7.10, Albumin 4.01, Globulin 3.09, Albumin/Globulin Ratio 1.29 05/06/18 06:45: WBC 11.89 H, RBC 4.02 L, Hgb 12.3, Hct 35.9 L, MCV 89.3, MCH 30.6, MCHC 34.3, RDW Coeff of Barry 12.6, Plt Count 235, Immature Gran % (Auto) 0.8, Neut % (Auto) 64.5, Lymph % (Auto) 27.6, [place] % (Auto) 5.0, Eos % (Auto) 1.7, Baso % (Auto) 0.4, Immature Gran # (Auto) 0.1, Neut # (Auto) 7.7 H, Lymph # (Auto) 3.3, [place] # (Auto) 0.6, Eos # (Auto) 0.2, Baso # (Auto) 0.1 PLAN: DISCHARGE HOME TODAY. 05/06/18. CONTINUE HOME MEDICATIONS PER NURSING SHEET WITH FOLLOWING CHANGE: 1. TAKE POTASSIUM EVERY OTHER DAY INSTEAD OF DAILY. NEW MEDICATIONS: 1. DYAZIDE 15MG TAKE 1 TABLET 2 TIMES A WEEK NEEDED FOR SWELLING. 2. WELLBUTRIN 150MG TAKE 1 TABLET DAILY DECREASE/STOP SMOKING. DIET 1800 CALORIE DIET. ACTIVITY TOLERATED. GRADUALLY RESUME ACTIVITY. FOLLOW UP WITH MENTAL HEALTH. FOLLOW UP WITH DR. BLANC NEXT WEEK. YOU HAVE CHOOSEN TO MAKE YOUR OWN APPOINTMENT. PLEASE CALL TO MAKE APPOINTMENT. [phone]. PATIENT IS A DNR. SITTING UP IN BED. ALERT AND ORIENTED X 4. Pepe LACEY MANAGER OFFICE SERVICES INTO SEE PATIENT. PATIENT STATES SHE IS FEELING BETTER. STATES SHE HAS A NEW GRANDBABY BORN LAST PM. TEST RESULTS REVIEWED PER Pepe LACEY MANAGER OFFICE SERVICES. PLAN OF CARE DISCUSSED PER Pepe LACEY INCLUDING MEDICATIONS, DISCHARGE INSTRUCTIONS AND IMPORTANCE OF FOLLOWING UP WITH MENTAL HEALTH. PATIENT VERBALIZES UNDERSTANDING AND AGREEMENT. APPETITE IS GOOD. VITAL SIGNS ARE STABLE WITH BLOOD PRESSURE IMPROVED. HAS BEEN AFEBRILE. POX 95% ON O2 AT 2L/C. HEART TONES ARE REGULAR WITH TELEMETRY REVEALING SINUS RHYTHM WITH FIRST DEGREE AVB AND BBB. NO C/O CHEST PAIN. LUNGS ARE CLEAR WITH DIMINISHED BREATH SOUNDS. NO COUGH OR DYSPNEA NOTED. ABDOMEN IS SOFT, NON-TENDER WITH BOWEL SOUNDS POSITIVE IN ALL 4 QUADS. PEDAL PULSES POSITIVE WITHOUT EDEMA. HAS SALINE LOCK IN RIGHT FOREARM SITE IS CLEAR. IS INDEPENDENT WITH ACTIVITIES OF DAILY LIVING. PATIENT STATES SHE IS READY TO GO HOME TODAY. EDUCATION COMPLETED PER Pepe LACEY APRN OF ANXIETY AND STRESS MANAGEMENT. VINOD BLANC MD Pepe PETTY APRN
--- NOTE | 2018-05-06 10:14 | PCM.PROG ---
Attending Provider: ATTENDING PROVIDER: Dr. VINOD BLANC This patient is seen with Sonam Abel, Nurse Practitioner. DATE OF SERVICE: 05/06/18 SUBJECTIVE: This 52 year old WHITE/ F was hospitalized 05/03/18. The patient is sitting in the bed resting comfortably. She has been going out to smoke. She had a negative Dobutamine yesterday. Chest pain and elevation in BP likely due to increasing anxiety due to stress at home. The patient has been started on Wellbutrin. She also sees [facility] which she was advised to followup with as soon as possible. Blood pressure has been within normal limits after stress test. REVIEW OF SYSTEMS: CONSTITUTIONAL: No night sweats. No fatigue, malaise, lethargy. No fever or chills. HEENT: Eyes: No visual changes. No eye pain. No eye discharge. ENT: No runny nose. No epistaxis. No sinus pain. No odynophagia. No congestion. RESPIRATORY: No cough, no congestion. No hemoptysis. No shortness of breath. CARDIOVASCULAR: No angina symptoms. No CHF symptoms. No atypical chest pain for CAD. No palpitations. No orthopnea.. GASTROINTESTINAL: No abdominal pain. No nausea or vomiting. No diarrhea or constipation. No hematemesis. No hematochezia. GENITOURINARY: No urgency. No frequency. No dysuria. No hematuria. No obstructive symptoms. No discharge. No pain. No significant abnormal bleeding. MUSCULOSKELETAL: No musculoskeletal pain; no joint swelling. NEUROLOGICAL: Awake, alert, oriented to time, place and person. No headache. No neck pain. No syncope. No seizures. No dizziness. PSYCHIATRIC: Anxious. No depression. No suicidal thoughts. No homicidal thoughts. SKIN: No rash. No lesions. No wounds. ENDOCRINE: No unexplained weight loss. No weight gain. HEMATOLOGIC/LYMPHATIC: No anemia. No purpura. No petechiae. No prolonged or excessive bleeding. No palpable lymph nodes. PHYSICAL EXAMINATION: GENERAL: The patient is awake, alert and oriented, sitting in bed in no distress. VITAL SIGNS: Temperature 97.9 F, Pulse 70, Respiratory Rate 18, BP 127/71, Pulse Ox 95% HEENT: Head normocephalic, atraumatic. Eyes: Extraocular muscles are intact. Pupils are equal, round and reactive to light and accommodation. Ears: No lesions. Nose appeared normal. Throat: No exudate or erythema. NECK: Supple. No JVD, no carotid bruit. No lymphadenopathy or thyromegaly. LUNGS: Diminished breath sounds. Clear to auscultation. Percussion note normal. Chest symmetrical. HEART: S1, S2, no S3. No murmurs. No cyanosis or clubbing. No ascites. Pulses: Dorsalis pedis and posterior tibial pulses +1 to +2 both sides. ABDOMEN: Soft. Non-tender. Bowel sounds active. No CVA tenderness. No mass felt. EXTREMITIES: Trace pedal edema. Full range of motion of all extremities, equal. NEUROLOGIC: No focal deficit. Cranial nerves II through XII are grossly intact. No headache, no double vision or headache. SKIN: Not dry. Intact. Turgor-normal. LYMPHATIC: No palpable lymph nodes/no lymphedema. MUSCULOSKELETAL: Normal joints with no swelling. Muscle tone is normal. LAB REVIEW: 05/06/18 06:45 05/06/18 06:45 05/06/18 06:45: Sodium 135.2 L, Potassium 4.79, Chloride 104.4, Carbon Dioxide 22.3, Anion Gap 13.29, BUN 19.6 H, Creatinine 0.93, Estimated GFR (MDRD) 64.00, BUN/Creatinine Ratio 21.07, Glucose 249.5 H, Calcium 8.98, Total Bilirubin 0.64 , AST 70.6 H, ALT 72.3 H, Alkaline Phosphatase 143.1 H D, Total Protein 7.10, Albumin 4.01, Globulin 3.09, Albumin/Globulin Ratio 1.29 05/06/18 06:45: WBC 11.89 H, RBC 4.02 L, Hgb 12.3, Hct 35.9 L, MCV 89.3, MCH 30.6, MCHC 34.3, RDW Coeff of Barry 12.6, Plt Count 235, Immature Gran % (Auto) 0.8, Neut % (Auto) 64.5, Lymph % (Auto) 27.6, [place] % (Auto) 5.0, Eos % (Auto) 1.7, Baso % (Auto) 0.4, Immature Gran # (Auto) 0.1, Neut # (Auto) 7.7 H, Lymph # (Auto) 3.3, [place] # (Auto) 0.6, Eos # (Auto) 0.2, Baso # (Auto) 0.1 ASSESSMENT: 1. The patient wants a mood stabilizer. She states Celexa is working well. I will add Wellbutrin to help cut down on smoking and to add mood stabilizing effect, will start on smaller dose. 2. The patient has been having some foot swelling off and on when standing. Will start Dyazide p.r.n. 1 to 2 times per week. 3. Cardiovascular status is stable. 4. Hypertension controlled. 5. Anxiety. PLAN: 1. D/C home today 2. Start Dyazide 15 mg 3. Continue Wellbutrin daily 4. The patent to follow with Mental Health as soon as possible 5. Anxiety and stress management discussed 6. Monitor blood pressure weekly at home 7. Followup next week in Dr. Blanc's office Plan and coordination of the patient's care discussed in the presence of Curriculum Writer and nurse. CONDITION: Stable SCRIBED BY: GLEN STANTON Decorating Supervisor scribed while in presence of service performed by Dr. Blanc/Sonam Abel APRN on 05/06/18 ([id number])
--- NOTE | 2018-05-06 13:23 | PN ---
DATE OF SERVICE: 05/06/18 SUBJECTIVE: The patient was seen and examined with Nurse Practitioner. The patient's condition is stable. Her Dobutamine Stress Sestamibi was negative for ischemia. The patient is up and about smoking. She is noncompliant of her medications, followup and lifestyle. She is open about is. PROGNOSIS: Guarded TIME SPENT: More than 30 minutes. Plan and coordination of the patient's care discussed in the presence of nurse. LASHANDA
--- NOTE | 2018-05-06 13:24 | PN ---
05/03/18: Level 5 05/04/18: Intermediate 05/05/18: Intermediate 05/06/18: D as in discharge MTDD
--- NOTE | 2018-05-06 14:39 | DS ---
DATE OF SERVICE: 05/06/18 FINAL DIAGNOSIS: 1. CHEST PAIN ACUTE 2. ANXIETY 3. HISTORY OF HYPERTENSION 4. DIABETES MELLITUS TYPE 2 5. CHF 6. COPD 7. CHRONIC KIDNEY DISEASE 8. PERIPHERAL NEUROPATHY 9. S/P HYSTERECTOMY 10. SMOKER 11. DYSLIPIDEMIA 12. S/P RIGHT KIDNEY STENT 13. SLEEP APNEA 14. GERD 15. OSTEOARTHRITIS 16. DEPRESSION/ANXIETY 17. ANEMIA 18. S/P LEFT INGUINAL HERNIA REPAIR 19. S/P TIMES TWO DISCHARGE INSTRUCTIONS: Followup appointment: Followup with Dr. Sierra next week. You have chosen to make your own appointment. Please call to make appointment. Patient is DNR. MEDICATIONS AT DISCHARGE: Albuterol/Ipratropium (Duoneb) one vial neb RT t.i.d. p.r.n. Zebeta 5 mg p.o. daily [facility] Wellbutrin XL 150 mg p.o. daily [facility] Celexa 40 mg p.o. bedtime [facility] Plavix 75 mg p.o. daily [facility] Diazepam 10 mg p.o. t.i.d. p.r.n. Zetia 10 mg p.o. daily [facility] Humulin R 0 unit subcut p.r.n. Lisinopril (Zestril) 10 mg p.o. daily [facility] Lovastatin (Mevacor) 20 mg p.o. bedtime Repatha 140 mg IM every other week [facility] Prilosec 20 mg p.o. qda.c. [facility] Oxycodone/Acetaminophen (Percocet 10-325) one tab p.o. t.i.d. [facility] Pregablin (Lyrica) 75 mg p.o. daily [facility] Sodium Chloride one syringe IVF q.8hr [facility] Vascepa 1 gm p.o. b.i.d. Lantus 50 units SQ at h.s. Metformin 500 mg p.o. b.i.d. K-Dur 20 mEq p.o. every other day DISCONTINUED MEDICATIONS: Clonidine (Catapres) 0.1 mg p.o. once STA Enalaprilat (Vasotec IV) 1.25 IVP once STA Hydromorphone (Dilaudid 2 mg/mL Sdv) 1 mg IVP once STA Sodium Chloride 1,000 mls @ 75 mls/hr IV q13h 20M [facility] Insulin Human regular 0 uit subcut once STA Ketorolac (Toradol) 30 mg IVP once STA MEDICATION CHANGE: Continue home medications per nursing sheet with the following change: Take potassium on Thursday, Thursday and Thursday instead of daily. NEW PRESCRIPTIONS: Dyazide 15 mg take one tablet 2 times a week as needed for swelling Wellbutrin 150 mg take one tablet daily DIET INSTRUCTIONS: 1800 calorie diet ACTIVITY: As tolerated. Gradually resume activity SMOKING: Smoking cessation counseling DISEASE SPECIFIC EDUCATION: Chest pain Anxiety Stress Management Medication Management Importance of follow up with Mental Health Smoking HOSPITAL COURSE: This is a 52-year-old white female who presented to the emergency room with elevated blood pressure around 150/90 complaining of chest pain. She states she has been under a lot of stress lately caring for a family member. She is a heavy smoker and has several cardiac risk factors including hypertension, diabetes mellitus Type 2, peripheral vascular disease, dyslipidemia. EKG showed no acute changes in the emergency room. Troponin was normal. CK was normal. She was admitted, placed on routine telemetry orders. She was initially given Clonidine 0.1 mg in order to lower her blood pressure. Chest x-ray was normal. She was placed on fluids. Dr. Sierra ordered a Dobutamine Stress Sestamibi and an echo which he performed yesterday. Echo showed ejection fraction of 79% with borderline left ventricular hypertrophy. The Sestamibi was negative for any ischemia. It is believed to be that her chest pain is more a result of anxiety and panic type attacks. She has Valium 10 mg. She can take t.i.d. p.r.n. that has been given to her. She is also a patient of [facility] but she states she missed her last appointment. She is also on Celexa 40 mg daily which was also continued while she was here. Dr. Sierra also started her on Wellbutrin 150 mg in order to help with her anxiety. Information was also given to her regarding smoking cessation. She was educated on stress management and anxiety. She has not experienced any chest pain since admission. Her chest pain, she did report as a tightness, however she did not experience any shortness of breath or sweating. Again, her EKG was normal with no acute changes as well as cardiac enzymes are normal. Her telemetry was normal during her stay. All of her testing was negative. Again, this is all thought to be a result of increased stress and anxiety. She is instructed to followup with Mental Health at [place] as soon as possible. She is to continue the Wellbutrin for which she will be given a new prescription. Her blood pressure has been normal since she has been admitted. It was increased prior to the stress test however after the stress test was over it has been normal, was normal through the night. Again this is also thought to be due to stress and anxiety as she reported that she was anxious about having the test. She is discharged in stable condition and will see her next week. TIME SPENT: More than 60 minutes. LASHANDA
--- NOTE | 2018-05-07 09:51 | HP ---
DATE OF SERVICE: 05/03/18 REASON FOR HOSPITALIZATION/HISTORY OF PRESENT ILLNESS: 53 year old white female who presents to the emergency room complaining of chest pain. She stated that she had been caring for her father here lately and has been under increased stress which is causing her blood pressure to go up and she is reporting pain. PAST MEDICAL HISTORY: History of colitis Spondylosis Polycythemia Depression Peripheral arterial disease GERD Osteoarthritis Dyslipidemia Hypertension Obesity Mitral regurgitation Diabetes Mellitus type 2 Cyst on the back of the neck Renal artery stenosis PAST SURGICAL HISTORY: Status post hysterectomy Stents in renal arteries. She had an appointment with Dr. Gtz in January2017 for which she did not go for colonoscopy REVIEW OF SYSTEMS: CONSTITUTIONAL: No night sweats. Fatigue. No fever or chills. HEENT: Eyes: No visual changes. No eye pain. No eye discharge. ENT: No runny nose. No epistaxis. No sinus pain. No sore throat. No odynophagia. No ear pain. No congestion. RESPIRATORY: No cough, no congestion. No hemoptysis. No shortness of breath. CARDIOVASCULAR: No angina symptoms. No CHF symptoms. Atypical chest pain for CAD. No palpitations. No PND. No orthopnea. GASTROINTESTINAL: No abdominal pain. No nausea or vomiting. No diarrhea or constipation. No hematemesis. No hematochezia. GENITOURINARY: No urgency. No frequency. No dysuria. No hematuria. No obstructive symptoms. No discharge. No pain. No significant abnormal bleeding. MUSCULOSKELETAL: No musculoskeletal pain. No joint swelling. No arthritis. NEUROLOGICAL: No headache. No neck pain. No syncope. No seizures. No dizziness. PSYCHIATRIC: Anxious. No depression. No suicidal thoughts. No homicidal thoughts. SKIN: No rash. No lesions. No wounds. ENDOCRINE: No unexplained weight loss. No weight gain. HEMATOLOGIC/LYMPHATIC: No anemia. No purpura. No petechiae. No prolonged or excessive bleeding. No palpable lymph nodes. PERSONAL/FAMILY/SOCIAL HISTORY: The is a heavy current everyday smoker. Denies any alcohol or illicit drug use. She is and lives alone. MEDICATIONS: Zetia 10mg PO daily Plavix 75mg PO daily Humulin R Prilosec 20mg PO QDAC Lantus 60 unit SUBCUT bedtime Vascepa 1gram PO twice a day Zebeta 5mg PO daily Lisinopril 10mg PO daily Percocet 10-325 PO three times a day Lyrica 75mg PO daily Valium 10mg PO three times a day PRN Celexa 40mg PO bedtime Repatha syringe 140mg IM every other week K-Dur 20meq PO daily Glucophage 500mg PO twice a day Mevacor 20mg PO bedtime DUO NEB 1 vial three times a day PRN ALLERGIES: Codeine Morphine PHYSICAL EXAMINATION: GENERAL: The patient is alert and oriented with no acute distress. VITAL SIGNS: Temperature 98.2, heart rate 88, respiratory rate 20, blood pressure 150/88 and pulse 97% on room air. HEENT: Head normocephalic, atraumatic. Eyes: Extraocular muscles are intact. Pupils are equal, round and reactive to light and accommodation. Ears: No lesions. Nose appeared normal. Throat: No exudate or erythema. NECK: Supple. No JVD, no carotid bruit. No lymphadenopathy or thyromegaly. LUNGS: Diminished breath sounds bilaterally. Clear to auscultation. Percussion note normal. Chest symmetrical. HEART: S1, S2, no S3. No murmurs. No cyanosis or clubbing. No ascites. Pulses: Dorsalis pedis and posterior tibial pulses +1 to +2 bilaterally. ABDOMEN: Soft. Nontender. Bowel sounds active. No CVA tenderness. No mass felt. EXTREMITIES: No edema. Full range of motion of all extremities, equal. NEUROLOGIC: No focal deficit. Cranial nerves II through XII are grossly intact. No headache, no double vision or headache. SKIN: Not dry. Intact. Turgor - normal. LYMPHATIC: No palpable lymph nodes/no lymphedema. MUSCULOSKELETAL: Normal joints with no swelling. Muscle tone is normal. LABS: WBC 10.68, hgb 13, hct 38.4, plt count 259, sodium 132, potassium 4.6, BUN 210, creatinine 0.85, glucose 436, AST 34, ALT 42, Alkaline phosphatase 170 , total CK 31, Troponin less than 0.01, total protein 7.5. EKG shows no acute changes. ASSESSMENT: 1. Chest pain 2. Hypertension 3. Peripheral arterial disease 4. Dyslipidemia 5. Diabetes Mellitus 6. Chronic kidney disease 7. Heavy smoker 8. COPD PLAN: 1. Will admit 2. Routine telemetry orders 3. CBC and CMP daily 4. Continue all home medications 5. Low sodium diet 6. Information regarding smoking cessation 7. Normal saline IV and 75cc and hour 8. Chest x-ray 9. A1c 10.Serial cardiac enzymes 11.DUO NEBS three times a day PRN Will follow closely. TIME SPENT: More than 70 minutes. MTDD
== END 2018-05-06 10:28 | disposition home or self-care (01) | DRG 313 ==
LOC: ED 10:06 → MEDSURG B 11:56
PROVIDERS: ADMIT Internal Medicine; ATTEND Internal Medicine
DX: R07.9 Chest pain, unspecified (principal); E11.9 Type 2 diabetes mellitus without complications; E78.5 Hyperlipidemia, unspecified; I50.9 Heart failure, unspecified; J44.9 Chronic obstructive pulmonary disease, unspecified; N18.9 Chronic kidney disease, unspecified; G62.9 Polyneuropathy, unspecified; G47.30 Sleep apnea, unspecified; K21.9 Gastro-esophageal reflux disease without esophagitis; M19.90 Unspecified osteoarthritis, unspecified site; F41.8 Other specified anxiety disorders; D64.9 Anemia, unspecified
CPT/HCPCS: 36415; 80053; 81001; 82550; 82962; 84484; 85025; 93005; 93010; 97802; 99283

== ENCOUNTER 2018-12-28 06:31 | Outpatient (CLI) | payer OTHER ==
--- NOTE | 2018-12-28 12:58 | ECHO2D ---
Date of Exam: 12/28/18 Ordering Physician: DR. VINOD BLANC Room #: OP Reason for Echo: PALPITATIONS, SOB M-Mode Normal Adult Results LV Dimensions Normal Adult Results AoV Opening excursions >1.6 >1.6 LVEDD-base- 3.5-5.8 4.3 Ao root dimensions 2.0-3.7 3.2 LVESD-base- 3.1-4.6 L. Atrium dimensions 1.9-3.8 4.5 Post. Wall thickness 0.8-1.1 1.3 IV septum (thickness) 0.7-1.2 1.3 Post. Wall excursion 0.72-1.3 NORMAL Septal motion NORMAL Systolic motion R. Ventricular cavity 1.5-2.0 NORMAL LVEF 60% 76% Paradoxical septal wall motion NORMAL 2-D : 2-D M Mode Echocardiogram was performed using apical four chamber and left parasternal long and short axis views. Mitral, tricuspid and aortic valves appear to be normal. Contractility of the left ventricle seems to be normal, so is the cavity size. Enlarged Left atrial cavity size. Aortic root appears to be normal. There is no pericardial effusion. There is no thrombus noted in the left ventricular or left aortic cavity. No mitral valve prolapse noted. M-MODE: MV: NORMAL AV: NORMAL TV: NORMAL PV: CHAMBER SIZE: ENLARGED LEFT ATRIAL CAVITY WALL MOTION: NORMAL PERICARDIUM: NORMAL INTERPRETATION: 1. LEFT VENTRICULAR HYPERTROPHY WITH ENLARGED LEFT ATRIAL CAVITY 2. NORMAL LEFT VENTRICULAR CONTRACTILITY 3. NORMAL VALVES MTDD
== END 2018-12-28 06:32 | disposition home or self-care (01) ==
LOC: RAD 06:31 → CAR 06:32
PROVIDERS: ATTEND Internal Medicine
DX: R06.02 Shortness of breath (principal); R00.2 Palpitations
CPT/HCPCS: 93227

== ENCOUNTER 2019-01-26 10:52 | Emergency (ER) ==
[2019-01-26 10:59] VITALS: TEMP 98.5; BMI 31.8
[2019-01-26 11:11] VITALS: BP 156/97
--- NOTE | 2019-01-26 11:21 | ED.PDOC ---
General ED Provider: Dr. BRANNON LACKEY Chief Complaint: Hypertension Stated Complaint: 53 y ole patient saye that she feels exhausted.Suffers frim HTN,DM,smokes and COPD with chronic bronchitis,wheezes poresent,also dysuria with frequency she believes she has a UTI.Diabetes is apparently not controlled patient states that her dietary discioline and BG are up anmd down.Takes 69 Lantus at pm and supplements with metrformin am and later in a day.For HTN she mentions Lisinopril,atenolol and statin.She rests on her bed comfortably. Time Seen by Physician: 11:15 Mode of Arrival: Walk-In Information Source: Patient Exam Limitations: No limitations Primary Care Provider: VINOD BLANC Nursing and Triage Documentation Reviewed and Agree: Yes Does patient meet sepsis criteria?: No System Inflammatory Response Syndrome: Not Applicable Sepsis Protocol: For patient's 13 years and over: Temp is 96.8 and below OR 101 and greater Pulse >90 BPM Resp >20/minute Acutely Altered Mental Status Are patient's symptoms suggestive of a new infection, such as: -Pneumonia -Skin, Soft Tissue -Endocarditis -UTI -Bone, Joint Infection -Implantable Device -Acute Abdominal Infection -Wound Infection -Meningitis -Blood Stream Catheter Infection -Unknown Cardiovascular Complaint Exam - Hypertension Complaint/Exam Onset/Duration: today Symptoms Are: Still present Timing: Intermittent Reported B/P Prior to Arrival: 195/68 Aggravating: Reports: None Alleviating: Reports: None Associated Signs and Symptoms: Reports: Anxiety Related History: Reports: Similar episode, Current Estiven Inhibitors, Current Beta Angelia Related Surgical History: Reports: None Cardiac Risk Factors: Reports: Hypertension, Smoking Recent Change in Medications: No A/V [place]: No Papilledema Present: No JVD Present: No Carotid Bruit Present: No Femoral Pulses Bounding: No Differential Diagnoses: Endocrine Disorder, Hypertension Review of Systems - Review Of Systems Constitutional: Reports: Malaise Eyes: Reports: No symptoms Ears, Nose, Mouth, Throat: Reports: No symptoms Respiratory: Reports: Other Cardiac: Reports: No symptoms GI: Reports: No symptoms : Reports: No symptoms Musculoskeletal: Reports: No symptoms Skin: Reports: No symptoms Neurological: Reports: No symptoms Endocrine: Reports: No symptoms Hematologic/Lymphatic: Reports: No symptoms All Other Systems: Reviewed and Negative Past Medical History - Past Medical History Previously Healthy: Yes Endocrine: Reports: DM 2 ( insulin-requiring) Cardiovascular: Reports: Hypertension, CHF, Other (PAD) Respiratory: Reports: COPD Hematological: Reports: None Gastrointestinal: Reports: None Genitourinary: Reports: CKD Neuro/Psych: Reports: Other (peripheral neuropathy) Musculoskeletal: Reports: None Cancer: Reports: None Last Menstrual Period: hysterectomy - Surgical History General Surgical History: Reports: Hysterectomy - Family History Family History: Reports: Unknown - Social History Smoking Status: Current every day smoker, Heavy tobacco smoker Hx Substance Use: No Alcohol Screening: None - Immunizations Influenza Vaccine within 12 Months: No Pneumococcal Vaccine up to Date: No Physical Exam - Physical Exam Appearance: Well-appearing Ill-appearing: Mild Pain Distress: None Eyes: ELOISA, EOMI, Conjunctiva clear, Conjunctiva inflammed ENT: Ears normal, Nose normal, Oropharynx normal Neck: Supple Respiratory: Airway patent, Breath sounds diminished, Wheezes Cardiovascular: RRR, Pulses normal, No rub, No murmur GI/: Soft, Nontender, No masses, Bowel sounds normal, No Organomegaly Musculoskeletal: Normal strength, ROM intact, No edema, No calf tenderness Skin: Warm, Dry, Normal color Neurological: Sensation intact, Motor intact, Reflexes intact, Cranial nerves intact, Alert, Oriented Psychiatric: Affect appropriate Critical Care Note - Critical Care Note Total Time (mins): 0 Course - Course Hematology/Chemistry: 01/26/19 11:35 01/26/19 11:35 Orders, Labs, Meds: Lab Review 01/26/19 01/26/19 01/26/19 11:29 11:35 11:35 WBC 10.38 H RBC 4.28 Hgb 12.9 Hct 37.7 MCV 88.1 MCH 30.1 MCHC 34.2 RDW Coeff of Barry 12.3 Plt Count 247 Immature Gran % (Auto) 0.9 Neut % (Auto) 50.0 Lymph % (Auto) 40.7 [place] % (Auto) 5.2 Eos % (Auto) 2.8 Baso % (Auto) 0.4 Immature Gran # (Auto) 0.1 Neut # (Auto) 5.2 Lymph # (Auto) 4.2 H [place] # (Auto) 0.5 Eos # (Auto) 0.3 Baso # (Auto) 0.0 Sodium 133.7 L Potassium 4.06 Chloride 97.6 L Carbon Dioxide 24.4 Anion Gap 15.76 BUN 9.7 Creatinine 0.74 Estimated GFR (MDRD) 83.00 BUN/Creatinine Ratio 13.10 Glucose 558.5 H* Calcium 9.53 Total Bilirubin 0.43 AST 42.8 H ALT 34.3 Alkaline Phosphatase 143.6 H Troponin I Total Protein 6.93 Albumin 4.30 Globulin 2.63 Albumin/Globulin Ratio 1.63 Urine Color Yellow Urine Clarity Clear Urine pH 6.0 Ur Specific [place] <=1.005 Urine Protein Negative Urine Glucose (UA) 2+ Urine Ketones Negative Urine Blood Trace-intact Urine Nitrite Negative Urine Bilirubin Negative Urine Urobilinogen 0.2 Ur Leukocyte Esterase Negative Urine Microscopic RBC 2-5 Urine Microscopic WBC 0-2 Ur Squamous Epith Cells 2-5 Acetone, Qual 01/26/19 01/26/19 01/26/19 11:35 11:35 12:35 WBC RBC Hgb Hct MCV MCH MCHC RDW Coeff of Barry Plt Count Immature Gran % (Auto) Neut % (Auto) Lymph % (Auto) [place] % (Auto) Eos % (Auto) Baso % (Auto) Immature Gran # (Auto) Neut # (Auto) Lymph # (Auto) [place] # (Auto) Eos # (Auto) Baso # (Auto) Sodium Potassium Chloride Carbon Dioxide Anion Gap BUN Creatinine Estimated GFR (MDRD) BUN/Creatinine Ratio Glucose Calcium Total Bilirubin AST ALT Alkaline Phosphatase Troponin I < 0.012 < 0.012 Total Protein Albumin Globulin Albumin/Globulin Ratio Urine Color Urine Clarity Urine pH Ur Specific [place] Urine Protein Urine Glucose (UA) Urine Ketones Urine Blood Urine Nitrite Urine Bilirubin Urine Urobilinogen Ur Leukocyte Esterase Urine Microscopic RBC Urine Microscopic WBC Ur Squamous Epith Cells Acetone, Qual N Orders Category Date Time Status EKG-(ED ONLY) Stat CARDIO 01/26/19 11:27 Completed BLOOD GLUCOSE MONITORING DIRECTED CARE 01/26/19 12:17 Active IV [ED IV/MEDIPORT/POWERPORT] .ONCE EMERGENCY 01/26/19 12:22 Active ACETONE, QUALITATIVE Stat LAB 01/26/19 11:35 Completed CBC W/ AUTO DIFF Stat LAB 01/26/19 11:35 Completed COMPREHENSIVE METABOLIC PANEL Stat LAB 01/26/19 11:35 Completed TROPONIN I Stat LAB 01/26/19 11:35 Completed TROPONIN I Stat LAB 01/26/19 12:35 Completed URINALYSIS C & S IF INDICATED Stat LAB 01/26/19 11:29 Completed 0.9 % Sodium Chloride [Saline Flush] MEDS 01/26/19 12:22 Active 1 syr IVF PRN PRN 0.9 % Sodium Chloride [Sodium Chloride] 100 ml MEDS 01/26/19 12:30 Active Insulin Regular, Human [Humulin R] 100 unit IV 5 unit/hr Sodium Chloride 0.9% [Sodium Chloride] 1,000 ml MEDS 01/26/19 12:23 Discontinued IV BOLUS CHEST, 2 VIEWS PA & LAT Stat RADS 01/26/19 11:28 Completed Medications Generic Name Dose Route Start Last Admin Trade Name Freq PRN Reason Stop Dose Admin Insulin Human Regular 100 unit 100 mls @ 5 mls/hr 01/26/19 12:30 01/26/19 12: 30 / Sodium Chloride IV 5 unit/hr .Q20H CAMILA 5 mls/hr Administration Protocol 5 UNIT/HR Sodium Chloride 1 syr 01/26/19 12:22 Saline Flush IVF PRN PRN To flush IV Discontinued Medications Generic Name Dose Route Start Last Admin Trade Name Freq PRN Reason Stop Dose Admin Sodium Chloride 1,000 mls @ 1,000 mls/hr 01/26/19 12:23 01/26/19 12:30 Sodium Chloride IV 01/26/19 13:22 1,000 mls/hr BOLUS STA Administration Vital Signs: Temp Pulse Resp BP Pulse Ox 01/26/19 11:10 156/97 H 01/26/19 10:52 98.5 F 85 20 195/68 H 96 KATHY Risk Score KATHY Risk Score: Risk Score Odds of by 30D 0 0.1 (0.1-0.2) 1 0.3 (0.2-0.3) 2 0.4 (0.3-0.5) 3 0.7 (0.6-0.9) 4 1.2 (1.0-1.5) 5 2.2 (1.9-2.6) 6 3.0 (2.5-3.6) 7 4.8 (3.8-6.1) Departure - Departure Time of Disposition: 14:25 Disposition: HOME SELF-CARE Discharge Problem: Hypertension Instructions: Foot Care for People with Diabetes (ED), Hyperosmolar Hyperglycemic State (ED), Hypertension in the Older Adult (ED) Condition: Good Pt referred to PMD for follow-up: Yes (Follow with Dr.B.Patel WOOD within 1 week) IPMP verified?: No Additional Instructions: Continue Lantus and OHA as before with diet as prescribed.Results of today IV insulin drip show no Insulin resistance. Allergies/Adverse Reactions: Allergies codeine Adverse Reaction (Verified 01/26/19 11:01) Rash morphine Adverse Reaction (Verified 01/26/19 11:01) Vomiting SEVERE ABD PAIN, VOMITING Home Medications: Ambulatory Orders Ezetimibe [Zetia] 10 mg PO DAILY #30 tablet 03/30/14 Clopidogrel Bisulfate [Plavix] 75 mg PO DAILY 06/10/14 Insulin Regular, Human [Humulin R] See Protocol SQ ACHS PRN 07/08/15 Omeprazole [Prilosec] 20 mg PO QDAC 09/30/15 Insulin Glargine,Hum.rec.anlog [Lantus] 60 unit SUBCUT BEDTIME 02/17/16 Icosapent Ethyl [Vascepa] 1 gm PO BID 05/29/16 Bisoprolol Fumarate [Zebeta] 5 mg PO DAILY #30 tablet 05/30/16 Lisinopril 10 mg PO DAILY #30 tablet 05/30/16 Oxycodone-Acetaminophen 10-325 [Percocet 10-325] 1 tab PO TID 09/23/16 Pregabalin [Lyrica] 75 mg PO DAILY 09/23/16 Diazepam [Valium] 10 mg PO TID PRN #90 01/15/17 Evolocumab [Repatha Syringe] 140 mg IM EVERY OTHER WEEK 01/21/18 Ipratropium/Albuterol Neb [Duoneb] 1 vial INH TID PRN 01/21/18 Lovastatin [Mevacor] 20 mg PO BEDTIME 01/21/18 Metformin HCl [Glucophage] 500 mg PO BID 01/21/18 Bupropion HCl [Wellbutrin Sr] 150 mg PO DAILY #30 tablet.er 05/06/18 Potassium Chloride [K-Dur] 20 meq PO MOWEFR #20 tab 05/06/18 Triamterene/Hydrochlorothiazid [Dyazide 37.5-25 Capsule] 1 each PO 2 TIMES PER WEEK PRN #15 capsule 05/06/18 Disposition Discussed With: Patient
--- NOTE | 2019-01-26 12:05 | DI ---
EXAM: CHEST FRONTAL AND LATERAL VIEWS HISTORY: Hypertension. COMPARISON: 05/03/2018 FINDINGS: Mild cardiomegaly is again suggested. No acute infiltrates are seen. No vascular congest ion. There is no consolidation, visible pleural fluid or pneumothorax. Bones reveal no acute fractu re. IMPRESSION: Mild cardiomegaly. No acute cardiopulmonary process.
[2019-01-26] MEDS ORDERED: SODIUM CHLORIDE 1,000 ML IV STA ×3 (12:23→14:09)
[2019-01-26] MEDS ORDERED: HUMULIN R 100 UNIT in SODIUM CHLORIDE 100 ML IV SCH (12:30)
== END 2019-01-26 14:45 | disposition home or self-care (01) ==
LOC: ED 10:52
DX: I10 Essential (primary) hypertension (principal); E11.65 Type 2 diabetes mellitus with hyperglycemia; R30.0 Dysuria; R35.0 Frequency of micturition; R53.83 Other fatigue; J44.9 Chronic obstructive pulmonary disease, unspecified; N18.9 Chronic kidney disease, unspecified; F17.210 Nicotine dependence, cigarettes, uncomplicated; Z79.4 Long term (current) use of insulin; Z79.899 Other long term (current) drug therapy
CPT/HCPCS: 36415; 80053; 81001; 82009; 82962; 84484; 85025; 93005; 93010; 96365; 96366; 99283

== ENCOUNTER 2019-02-13 07:41 | Inpatient (IN) ==
--- NOTE | 2019-02-13 07:56 | ED.PDOC ---
General ED Provider: Dr. CHESTER SANDOVAL Chief Complaint: Urinary Problem Stated Complaint: Rt Flank Pain; 2-3 day hx of discomfort in her Rt side involving Flank and RLQ. Believes there is blood in urine. States Past hx Rt Renal Arterial Stent. States has take percocet at home without relief. Time Seen by Physician: 07:45 Mode of Arrival: Walk-In Information Source: Patient Exam Limitations: No limitations Primary Care Provider: VINOD SALINAS Nursing and Triage Documentation Reviewed and Agree: Yes Does patient meet sepsis criteria?: No System Inflammatory Response Syndrome: Not Applicable Sepsis Protocol: For patient's 13 years and over: Temp is 96.8 and below OR 101 and greater Pulse >90 BPM Resp >20/minute Acutely Altered Mental Status Are patient's symptoms suggestive of a new infection, such as: -Pneumonia -Skin, Soft Tissue -Endocarditis -UTI -Bone, Joint Infection -Implantable Device -Acute Abdominal Infection -Wound Infection -Meningitis -Blood Stream Catheter Infection -Unknown Review of Systems - Review Of Systems Constitutional: Reports: No symptoms Eyes: Reports: No symptoms Ears, Nose, Mouth, Throat: Reports: No symptoms Respiratory: Reports: No symptoms Cardiac: Reports: No symptoms GI: Reports: No symptoms, Abdominal pain (RT Mid -Rt CVA/Flank) : Reports: No symptoms, Dysuria Musculoskeletal: Reports: No symptoms Skin: Reports: No symptoms Neurological: Reports: No symptoms Endocrine: Reports: No symptoms Hematologic/Lymphatic: Reports: No symptoms All Other Systems: Reviewed and Negative Past Medical History - Past Medical History Previously Healthy: Yes Endocrine: Reports: DM 2 ( insulin-requiring) Cardiovascular: Reports: Hypertension, CHF, Other (PAD) Respiratory: Reports: COPD Hematological: Reports: None Gastrointestinal: Reports: None Genitourinary: Reports: CKD Neuro/Psych: Reports: Other (peripheral neuropathy) Musculoskeletal: Reports: None Cancer: Reports: None Last Menstrual Period: N/A - Surgical History General Surgical History: Reports: Hysterectomy - Family History Family History: Reports: Unknown - Social History Smoking Status: Current every day smoker, Heavy tobacco smoker Hx Substance Use: No Alcohol Screening: None - Immunizations Tetanus Shot up to Date: No Influenza Vaccine within 12 Months: No Pneumococcal Vaccine up to Date: No Physical Exam - Physical Exam Appearance: Ill-appearing, Obese Ill-appearing: Mild Pain Distress: Moderate Eyes: ELOISA, EOMI, Conjunctiva clear ENT: Ears normal, Nose normal, Oropharynx normal Neck: Supple Respiratory: Airway patent, Breath sounds clear, Breath sounds equal, Respirations nonlabored GI/: Soft, No masses, Bowel sounds normal, No Organomegaly, Tender (RUQ/RLQ and RT Flank) Musculoskeletal: Normal strength, ROM intact, No edema, No calf tenderness Skin: Warm, Dry, Normal color Neurological: Sensation intact, Motor intact, Reflexes intact, Cranial nerves intact, Alert, Oriented Psychiatric: Affect appropriate, Mood appropriate Re-Evaluation - Re-Evaluation Time of Re-Evaluation: 08:40 Status: Unchanged (Continues experience moderate pain in Rt Flank and Rt Mid abdomen. State sl nauseated and had multiple episoded of N-V last night.) Vital Signs Stable: Yes (Explained current findings discussed with patient) Appearance: NAD Lungs: Clear Skin: Warm and Dry Neuro: Alert and Oriented X3 CV: RRR Physician Notification - Case Discussed Physician Notified: Dr Salinas Time of Notification: 10:10 (agrees to admit-telemetry) Critical Care Note - Critical Care Note Total Time (mins): 60 Course - Course Hematology/Chemistry: 02/13/19 08:05 02/13/19 08:05 Orders, Labs, Meds: Lab Review 02/13/19 02/13/19 02/13/19 08:00 08:00 08:05 WBC 11.61 H RBC 4.10 L Hgb 12.3 Hct 36.6 L MCV 89.3 MCH 30.0 MCHC 33.6 RDW Coeff of Barry 12.3 Plt Count 288 Immature Gran % (Auto) 0.7 Neut % (Auto) 81.3 Lymph % (Auto) 15.6 Teller % (Auto) 1.2 Eos % (Auto) 0.9 Baso % (Auto) 0.3 Immature Gran # (Auto) 0.1 Neut # (Auto) 9.4 H Lymph # (Auto) 1.8 Teller # (Auto) 0.1 L Eos # (Auto) 0.1 Baso # (Auto) 0.0 Sodium Potassium Chloride Carbon Dioxide Anion Gap BUN Creatinine Estimated GFR (MDRD) BUN/Creatinine Ratio Glucose Lactic Acid Calcium Total Bilirubin AST ALT Alkaline Phosphatase Total Protein Albumin Globulin Albumin/Globulin Ratio Urine Color Yellow Urine Clarity Cloudy Urine pH 7.0 Ur Specific [place] 1.015 Urine Protein 2+ Urine Glucose (UA) 2+ Urine Ketones Negative Urine Blood 3+ Urine Nitrite Positive Urine Bilirubin Negative Urine Urobilinogen 2.0 Ur Leukocyte Esterase 2+ Urine Microscopic RBC Tntc Urine Microscopic WBC 30-50 Ur Squamous Epith Cells Not present Urine Bacteria 3+ Urine Opiates Screen Negative Ur Oxycodone Screen Negative Urine Methadone Screen Negative Ur Propoxyphene Screen Negative Ur Barbiturates Screen Negative U Tricyclic Antidepress Negative Ur Phencyclidine Scrn Negative Ur Amphetamine Screen Negative U Methamphetamines Scrn Negative U Benzodiazepines Scrn Positive Urine Cocaine Screen Negative U Cannabinoids Screen Negative 02/13/19 02/13/19 08:05 10:00 WBC RBC Hgb Hct MCV MCH MCHC RDW Coeff of Barry Plt Count Immature Gran % (Auto) Neut % (Auto) Lymph % (Auto) Teller % (Auto) Eos % (Auto) Baso % (Auto) Immature Gran # (Auto) Neut # (Auto) Lymph # (Auto) Teller # (Auto) Eos # (Auto) Baso # (Auto) Sodium 136.9 Potassium 3.99 Chloride 96.0 L Carbon Dioxide 28.3 Anion Gap 16.59 BUN 17.1 H Creatinine 0.79 Estimated GFR (MDRD) 77.00 BUN/Creatinine Ratio 21.64 Glucose 300.2 H Lactic Acid 2.61 H Calcium 9.42 Total Bilirubin 0.53 AST 23.0 ALT 26.7 Alkaline Phosphatase 121.5 Total Protein 6.74 Albumin 4.31 Globulin 2.43 Albumin/Globulin Ratio 1.77 Urine Color Urine Clarity Urine pH Ur Specific [place] Urine Protein Urine Glucose (UA) Urine Ketones Urine Blood Urine Nitrite Urine Bilirubin Urine Urobilinogen Ur Leukocyte Esterase Urine Microscopic RBC Urine Microscopic WBC Ur Squamous Epith Cells Urine Bacteria Urine Opiates Screen Ur Oxycodone Screen Urine Methadone Screen Ur Propoxyphene Screen Ur Barbiturates Screen U Tricyclic Antidepress Ur Phencyclidine Scrn Ur Amphetamine Screen U Methamphetamines Scrn U Benzodiazepines Scrn Urine Cocaine Screen U Cannabinoids Screen Orders Category Date Time Status ADMIT PATIENT INPATIENT .TO MEDSURG (MONITORED BED) ADMISSION 02/13/19 10: 01 Active EKG-(ED ONLY) Stat CARDIO 02/13/19 10:01 Ordered ACTIVITY .BR with BRP CARE 02/13/19 10:02 Active BLOOD GLUCOSE MONITORING 0630,1100,1700,2100 CARE 02/13/19 10:04 Active BLOOD GLUCOSE MONITORING Q1HR CARE 02/13/19 08:53 Active GIVE HS SNACK 2100 CARE 02/13/19 10:04 Active INTAKE & OUTPUT Q8HR CARE 02/13/19 10:02 Active NPO REMINDER: IMAGING ONCE CARE 02/13/19 07:59 Completed TELEMETRY MONITORING TELE CARE 02/13/19 10:01 Active Telemetry [TELEMETRY MONITORING] TELE CARE 02/13/19 10:00 Active VITAL SIGNS Q4HR CARE 02/13/19 10:02 Active ADA 1800 THERESA. DIET DIETARY 02/13/19 Lunch Ordered HS SNACK DIETARY 02/13/19 Dinner Ordered ED IV/MEDIPORT/POWERPORT .ONCE EMERGENCY 02/13/19 07:58 Active BLOOD CULTURE (ED ONLY) Stat LAB 02/13/19 10:00 Received BLOOD CULTURE Routine LAB 02/13/19 10:03 Uncollected CBC W/ AUTO DIFF DAILY@0600 LAB 02/14/19 06:00 Ordered CBC W/ AUTO DIFF DAILY@0600 LAB 02/15/19 06:00 Ordered CBC W/ AUTO DIFF Stat LAB 02/13/19 08:05 Completed CMP [COMPREHENSIVE METABOLIC PANEL] Stat LAB 02/13/19 08:05 Completed COMPREHENSIVE METABOLIC PANEL DAILY@0600 LAB 02/14/19 06:00 Ordered COMPREHENSIVE METABOLIC PANEL DAILY@0600 LAB 02/15/19 06:00 Ordered LACTIC ACID Stat LAB 02/13/19 10:00 Completed PT WITH INR DAILY@0600 LAB 02/14/19 06:00 Ordered PT WITH INR DAILY@0600 LAB 02/15/19 06:00 Ordered UA [URINALYSIS C & S IF INDICATED] Stat LAB 02/13/19 08:00 Completed URINE CULTURE Stat LAB 02/13/19 08:00 Received URINE DRUG SCREEN (RAPID FOR ED) [DRUG SCREEN, URINE, LAB 02/13/19 08:00 Completed RAPID] Stat Aztreonam [Azactam] 1 gm MEDS 02/13/19 13:00 Ordered 0.9 % Sodium Chloride [Sodium Chloride] 50 ml IV Q8HR Ceftriaxone Sodium [Rocephin] MEDS 02/13/19 09:48 Discontinued 1 gm .ROUTE .STK-MED ONE Ceftriaxone Sodium [Rocephin] 1 gm MEDS 02/14/19 09:00 Ordered 0.9 % Sodium Chloride [Sodium Chloride] 50 ml IV DAILY Ceftriaxone Sodium [Rocephin] 1 gm MEDS 02/13/19 09:01 Discontinued 0.9 % Sodium Chloride [Sodium Chloride] 50 ml IV ONCE Enoxaparin Sodium [Lovenox] MEDS 02/13/19 10:30 Active 40 mg SUBCUT DAILY Insulin Regular, Human [Humulin R] MEDS 02/13/19 08:52 Discontinued 8 unit SUBCUT ONCE STA Nalbuphine HCl [Nubain] MEDS 02/13/19 08:54 Discontinued 10 mg IM ONCE STA Oxycodone-Acetaminophen 5-325 [Percocet 5-325] MEDS 02/13/19 10:02 Active 1 tab PO Q6H PRN Potassium Chloride in 0.9%NaCl [Sodium Chloride 0.9%- MEDS 02/13/19 10:30 Active KCl 20 Meq] 1,000 ml IV 125 mls/hr Promethazine HCl [Phenergan 25 mg/ml Vial] MEDS 02/13/19 08:55 Discontinued 25 mg .ROUTE .STK-MED ONE Promethazine HCl [Phenergan 25 mg/ml Vial] 25 mg MEDS 02/13/19 08:48 Discontinued 0.9 % Sodium Chloride [Sodium Chloride] 50 ml IV ONCE Sodium Chloride 0.9% [Sodium Chloride] 1,000 ml MEDS 02/13/19 08:42 Discontinued IV BOLUS RESUSCITATION STATUS Routine OTHERS 02/13/19 10:[address] ABDOMEN W/O CONTRAST Stat RADS 02/13/19 09:[address] ABDOMEN/PELVIS W/WO CONTRAS Stat RADS 02/13/19 07:58 Completed Medications Generic Name Dose Route Start Last Admin Trade Name Freq PRN Reason Stop Dose Admin Enoxaparin Sodium 40 mg 02/13/19 10:30 Lovenox SUBCUT DAILY CAMILA Ceftriaxone Sodium 1 gm/ 50 mls @ 75 mls/hr 02/14/19 09:00 Sodium Chloride IV 02/17/19 08:59 DAILY CAMILA Potassium Chloride/Sodium Chloride 1,000 mls @ 125 mls/hr 02/13/19 10:30 Sodium Chloride 0.9%-Kcl 20 Meq IV .Q8H CAMILA Aztreonam 1 gm/ Sodium 50 mls @ 75 mls/hr 02/13/19 13:00 Chloride IV 02/16/19 12:59 Q8HR CAMILA Oxycodone/Acetaminophen 1 tab 02/13/19 10:02 Percocet 5-325 PO Q6H PRN Flank or abdominal pain Discontinued Medications Generic Name Dose Route Start Last Admin Trade Name Caroline PRN Reason Stop Dose Admin Sodium Chloride 1,000 mls @ 1,000 mls/hr 02/13/19 08:42 02/13/19 09:06 Sodium Chloride IV 02/13/19 09:41 1,000 mls/hr BOLUS STA Administration Promethazine HCl 25 mg/ Sodium 51 mls @ 75 mls/hr 02/13/19 08:48 02/13/19 09: 06 Chloride IV 02/13/19 09:28 75 mls/hr ONCE STA Administration Ceftriaxone Sodium 1 gm/ 50 mls @ 75 mls/hr 02/13/19 09:01 02/13/19 10:04 Sodium Chloride IV 02/13/19 09:40 75 mls/hr ONCE STA Administration Insulin Human Regular 8 unit 02/13/19 08:52 02/13/19 09:08 Humulin R SUBCUT 02/13/19 08:53 8 unit ONCE STA Administration Nalbuphine HCl 10 mg 02/13/19 08:54 02/13/19 09:07 Nubain IM 02/13/19 08:55 10 mg ONCE STA Administration Vital Signs: Temp Pulse Resp BP Pulse Ox 02/13/19 07:43 99.7 F H 102 H 20 145/73 H 96 Departure - Departure Time of Disposition: 10:15 Disposition: ADMITTED INPATIENT Discharge Problem: Pyelonephritis, Dyslipidemia, Hypertension DM II (diabetes mellitus, type II), controlled Qualifiers: Diabetes mellitus complication status: with circulatory complication Condition: Fair Pt referred to PMD for follow-up: Yes (dr salinas) IPMP verified?: No Allergies/Adverse Reactions: Allergies codeine Adverse Reaction (Verified 02/13/19 07:57) Rash morphine Adverse Reaction (Verified 02/13/19 07:57) Vomiting SEVERE ABD PAIN, VOMITING Home Medications: Ambulatory Orders Ezetimibe [Zetia] 10 mg PO DAILY #30 tablet 03/30/14 Clopidogrel Bisulfate [Plavix] 75 mg PO DAILY 06/10/14 Insulin Regular, Human [Humulin R] See Protocol SQ ACHS PRN 07/08/15 Omeprazole [Prilosec] 20 mg PO QDAC 09/30/15 Insulin Glargine,Hum.rec.anlog [Lantus] 60 unit SUBCUT BEDTIME 02/17/16 Icosapent Ethyl [Vascepa] 1 gm PO BID 05/29/16 Bisoprolol Fumarate [Zebeta] 5 mg PO DAILY #30 tablet 05/30/16 Lisinopril 10 mg PO DAILY #30 tablet 05/30/16 Oxycodone-Acetaminophen 10-325 [Percocet 10-325] 1 tab PO TID 09/23/16 Pregabalin [Lyrica] 75 mg PO DAILY 09/23/16 Diazepam [Valium] 10 mg PO TID PRN #90 01/15/17 Evolocumab [Repatha Syringe] 140 mg IM EVERY OTHER WEEK 01/21/18 Ipratropium/Albuterol Neb [Duoneb] 1 vial INH TID PRN 01/21/18 Lovastatin [Mevacor] 20 mg PO BEDTIME 01/21/18 Metformin HCl [Glucophage] 500 mg PO BID 01/21/18 Bupropion HCl [Wellbutrin Sr] 150 mg PO DAILY #30 tablet.er 05/06/18 Potassium Chloride [K-Dur] 20 meq PO MOWEFR #20 tab 05/06/18 Triamterene/Hydrochlorothiazid [Dyazide 37.5-25 Capsule] 1 each PO 2 TIMES PER WEEK PRN #15 capsule 05/06/18 Disposition Discussed With: Patient, Other (Dr Salinas)
[2019-02-13] MEDS ORDERED: SODIUM CHLORIDE 1,000 ML IV STA (08:42)
[2019-02-13] MEDS ORDERED: PHENERGAN 25 MG/ML VIAL 25 MG in SODIUM CHLORIDE 50 ML IV STA (08:48)
[2019-02-13] MEDS ORDERED: HUMULIN R SUBCUT STA (08:52)
[2019-02-13] MEDS ORDERED: NUBAIN IM STA (08:54)
[2019-02-13] MEDS ORDERED: PHENERGAN 25 MG/ML VIAL ONE (08:55)
[2019-02-13] MEDS ORDERED: ROCEPHIN 1 GM VIAL 1 GM in SODIUM CHLORIDE 50 ML IV STA (09:01)
--- NOTE | 2019-02-13 09:14 | CT ---
EXAM: CT of the abdomen and pelvis without and with contrast dated 02/13/2019 CLINICAL HISTORY: Right flank pain TECHNIQUE: Multiple axial images were obtained through the abdomen and pelvis prior to and after int ravenous contrast. Sagittal and coronal reformats were obtained. FINDINGS: The lung bases are clear. The heart size is normal. The liver shows mild fatty infiltrat ion. The gallbladder is normal. The spleen is normal. The pancreas and adrenal glands are unremark able. Mild hydronephrosis and hydroureter is seen on the right with no evidence of distal ureteral s tone. The right kidney is enlarged. Bowel loops within the abdomen and pelvis are normal. No bowel obstruction is seen. The urinary bladder is intact. No free fluid is seen. The aorta is atheroscl erotic. No retroperitoneal masses are seen. A left renal arterial stent is present. Bony structure s are intact. The abdominal wall is also intact. IMPRESSION: Mild fatty infiltration of the liver Mild right hydronephrosis and hydroureter with no evidence of stones Enlargement of the right kidney Left renal arterial stent
[2019-02-13] MEDS ORDERED: ROCEPHIN 1 GM VIAL ONE (09:48)
[2019-02-13] MEDS ORDERED: PERCOCET 5-325 PO PRN (10:02)
[2019-02-13] MEDS ORDERED: NON-FORMULARY MEDICATION (Diazepam [Valium] 10 MG) PO PRN (10:23)
[2019-02-13] MEDS ORDERED: DUONEB NEB PRN (10:25)
[2019-02-13] MEDS ORDERED: HUMULIN R SUBCUT PRN (10:25)
[2019-02-13] MEDS ORDERED: DYAZIDE PO PRN ×2 (10:30→10:54)
[2019-02-13 10:42] VITALS: BMI 30.4
--- NOTE | 2019-02-13 10:52 | DI ---
EXAM: Portable AP view of the chest CLINICAL HISTORY: Sepsis FINDINGS: Comparison is made to an exam dated 01/26/2019. The heart size and mediastinal contours are normal. No masses are seen. No infiltrates are demonstrated. No pneumothorax is evident. No effu sions are seen. Bony structures are grossly intact. IMPRESSION: No acute cardiopulmonary process
[2019-02-13] MEDS: AZACTAM 1 GM in SODIUM CHLORIDE 50 ML IV SCH ×2 (12:43→21:12)
[2019-02-13] MEDS: SODIUM CHLORIDE 0.9%-KCL 20 MEQ 1,000 ML IV SCH (12:44)
[2019-02-13] MEDS: LOVENOX SUBCUT SCH (12:44)
[2019-02-13] MEDS: TORADOL IVP PRN ×2 (12:53→22:49)
[2019-02-13] MEDS: NICODERM 21 MG TD SCH (14:44)
[2019-02-13] MEDS: PERCOCET 10-325 PO SCH ×2 (14:44→21:11)
[2019-02-13] MEDS ORDERED: NON-FORMULARY MEDICATION (Icosapent Ethyl [Vascepa] 1 GM) PO SCH (21:00)
[2019-02-13] MEDS ORDERED: NON-FORMULARY MEDICATION (Citalopram Hydrobromide [Celexa] 40 MG) PO SCH (21:00)
[2019-02-13] MEDS: LANTUS SUBCUT SCH (21:09)
[2019-02-13] MEDS: HUMULIN R SUBCUT PRN (21:10)
[2019-02-13] MEDS: MEVACOR PO SCH (21:11)
[2019-02-13] MEDS: OMEGA-3 FISH OIL PO SCH (21:11)
[2019-02-13] MEDS: CELEXA PO SCH (21:11)
[2019-02-13] MEDS: VALIUM PO PRN (21:15)
[2019-02-14] MEDS: SODIUM CHLORIDE 0.9%-KCL 20 MEQ 1,000 ML IV SCH ×2 (00:11→12:04)
[2019-02-14] MEDS: AZACTAM 1 GM in SODIUM CHLORIDE 50 ML IV SCH ×3 (05:42→20:55)
[2019-02-14] MEDS: PRILOSEC PO SCH (05:42)
[2019-02-14] MEDS: HUMULIN R SUBCUT PRN ×4 (05:43→21:01)
[2019-02-14] MEDS: ZETIA PO SCH (09:21)
[2019-02-14] MEDS: LYRICA PO SCH (09:21)
[2019-02-14] MEDS: ZEBETA PO SCH (09:21)
[2019-02-14] MEDS: PLAVIX PO SCH (09:21)
[2019-02-14] MEDS: SODIUM CHLORIDE 1,000 ML IV SCH ×2 (09:21→23:58)
[2019-02-14] MEDS: OMEGA-3 FISH OIL PO SCH ×2 (09:22→20:55)
[2019-02-14] MEDS: PERCOCET 10-325 PO SCH ×3 (09:22→21:02)
[2019-02-14] MEDS: ROCEPHIN 1 GM VIAL 1 GM in SODIUM CHLORIDE 50 ML IV SCH (09:22)
[2019-02-14] MEDS: LOVENOX SUBCUT SCH (09:22)
[2019-02-14] MEDS: ZESTRIL PO SCH (09:22)
[2019-02-14] MEDS: NICODERM 21 MG TD SCH (09:26)
--- NOTE | 2019-02-14 09:52 | PCM.PROG ---
Attending Provider: ATTENDING PROVIDER: Dr. VINOD BLANC This patient is seen with Sonam Abel, Nurse Practitioner. DATE OF SERVICE: 02/14/19 SUBJECTIVE: This 53 year old WHITE/ F was hospitalized 02/13/19. The patient is resting comfortably. CT showed she had swelling of right kidney. She is still complaining of some flank pain. No fever or vomiting since admission. The patient is nauseated and not much appetite. REVIEW OF SYSTEMS: CONSTITUTIONAL: No night sweats. No fatigue, malaise, lethargy. No fever or chills. HEENT: Eyes: No visual changes. No eye pain. No eye discharge. ENT: No runny nose. No epistaxis. No sinus pain. No odynophagia. No congestion. RESPIRATORY: No cough, no congestion. No hemoptysis. No shortness of breath. CARDIOVASCULAR: No angina symptoms. No CHF symptoms. No atypical chest pain for CAD. No palpitations. No orthopnea.. GASTROINTESTINAL: Flank pain. No nausea or vomiting. No diarrhea or constipation. No hematemesis. No hematochezia. GENITOURINARY: No urgency. No frequency. Dysuria. No hematuria. No obstructive symptoms. No discharge. No pain. No significant abnormal bleeding. MUSCULOSKELETAL: No musculoskeletal pain; no joint swelling. Weakness. NEUROLOGICAL: Awake, alert, oriented to time, place and person. No headache. No neck pain. No syncope. No seizures. No dizziness. PSYCHIATRIC: Not anxious. No depression. No suicidal thoughts. No homicidal thoughts. SKIN: No rash. No lesions. No wounds. ENDOCRINE: No unexplained weight loss. No weight gain. HEMATOLOGIC/LYMPHATIC: No anemia. No purpura. No petechiae. No prolonged or excessive bleeding. No palpable lymph nodes. PHYSICAL EXAMINATION: GENERAL: The patient is awake, alert and oriented, lying in bed in no distress. VITAL SIGNS: Temperature 98.1 F, Pulse 69, Respiratory Rate 16, BP 121/65, Pulse Ox 99% HEENT: Head normocephalic, atraumatic. Eyes: Extraocular muscles are intact. Pupils are equal, round and reactive to light and accommodation. Ears: No lesions. Nose appeared normal. Throat: No exudate or erythema. NECK: Supple. No JVD, no carotid bruit. No lymphadenopathy or thyromegaly. LUNGS: Decrased breath sounds. Clear to auscultation. Percussion note normal. Chest symmetrical. HEART: S1, S2, no S3. No murmurs. No cyanosis or clubbing. No ascites. Pulses: Dorsalis pedis and posterior tibial pulses +1 to +2 both sides. ABDOMEN: Soft. Non-tender. Bowel sounds active. Right CVA tenderness. No mass felt. EXTREMITIES: No edema. Full range of motion of all extremities, equal. NEUROLOGIC: No focal deficit. Cranial nerves II through XII are grossly intact. No headache, no double vision or headache. SKIN: Not dry. Intact. Turgor-normal. LYMPHATIC: No palpable lymph nodes/no lymphedema. MUSCULOSKELETAL: Normal joints with no swelling. Muscle tone is normal. LAB REVIEW: 02/14/19 03:45 02/14/19 03:45 02/14/19 03:45: Sodium 136.2, Potassium 4.30, Chloride 100.7, Carbon Dioxide 26.6, Anion Gap 13.20, BUN 20.4 H, Creatinine 0.78, Estimated GFR (MDRD) 78.00, BUN/Creatinine Ratio 26.15, Glucose 187.1 H D, Calcium 8.60, Total Bilirubin 0.47, AST 30.9, ALT 25.8, Alkaline Phosphatase 106.5, Total Protein 6.13 L, Albumin 3.64, Globulin 2.49, Albumin/Globulin Ratio 1.46 02/14/19 03:45: PT 9.7, INR 0.97 02/14/19 03:45: WBC 12.51 H, RBC 3.63 L, Hgb 11.0 L, Hct 32.8 L, MCV 90.4, MCH 30.3, MCHC 33.5, RDW Coeff of Barry 12.4, Plt Count 241, Immature Gran % (Auto) 0.6, Neut % (Auto) 59.2, Lymph % (Auto) 30.2, [place] % (Auto) 8.3, Eos % (Auto) 1.4, Baso % (Auto) 0.3, Immature Gran # (Auto) 0.1, Neut # (Auto) 7.4 H, Lymph # (Auto) 3.8 H, [place] # (Auto) 1.0, Eos # (Auto) 0.2, Baso # (Auto) 0.0 02/13/19 10:00: Lactic Acid 2.61 H 02/13/19 08:05: Sodium 136.9, Potassium 3.99, Chloride 96.0 L, Carbon Dioxide 28.3, Anion Gap 16.59, BUN 17.1 H, Creatinine 0.79, Estimated GFR (MDRD) 77.00, BUN/Creatinine Ratio 21.64, Glucose 300.2 H, Calcium 9.42, Total Bilirubin 0.53 , AST 23.0, ALT 26.7, Alkaline Phosphatase 121.5, Total Protein 6.74, Albumin 4.31, Globulin 2.43, Albumin/Globulin Ratio 1.77 02/13/19 08:05: WBC 11.61 H, RBC 4.10 L, Hgb 12.3, Hct 36.6 L, MCV 89.3, MCH 30.0, MCHC 33.6, RDW Coeff of Barry 12.3, Plt Count 288, Immature Gran % (Auto) 0.7, Neut % (Auto) 81.3, Lymph % (Auto) 15.6, [place] % (Auto) 1.2, Eos % (Auto) 0.9, Baso % (Auto) 0.3, Immature Gran # (Auto) 0.1, Neut # (Auto) 9.4 H, Lymph # (Auto) 1.8, [place] # (Auto) 0.1 L, Eos # (Auto) 0.1, Baso # (Auto) 0.0 02/13/19 08:00: Urine Color Yellow, Urine Clarity Cloudy, Urine pH 7.0, Ur Specific [place] 1.015, Urine Protein 2+, Urine Glucose (UA) 2+, Urine Ketones Negative, Urine Blood 3+, Urine Nitrite Positive, Urine Bilirubin Negative, Urine Urobilinogen 2.0, Ur Leukocyte Esterase 2+, Urine Microscopic RBC Tntc, Urine Microscopic WBC 30-50, Ur Squamous Epith Cells Not present, Urine Bacteria 3+ 02/13/19 08:00: Urine Opiates Screen Negative, Ur Oxycodone Screen Negative, Urine Methadone Screen Negative, Ur Propoxyphene Screen Negative, Ur Barbiturates Screen Negative, U Tricyclic Antidepress Negative, Ur Phencyclidine Scrn Negative, Ur Amphetamine Screen Negative, U Methamphetamines Scrn Negative, U Benzodiazepines Scrn Positive, Urine Cocaine Screen Negative, U Cannabinoids Screen Negative ASSESSMENT: Please see below. 1. Acute right pyelonephritis 2. UTI, culture pending 3. Diabetes mellitus type 2 controlled 4. Hypertension 5. Noncompliance with medications, diet, lifestyle and followup. PLAN: 1. Normal saline 75cc an hour 2. Continue IV antibiotics 3. Continue all home medications. Plan and coordination of the patient's care discussed in the presence of Jet Operator and nurse. SCRIBED BY: Augusta HUMMEL scribed while in presence of service performed by Dr. Blanc/Sonam Abel APRN on 02/14/19 (0800)
[2019-02-14] MEDS: TORADOL IVP PRN ×2 (11:03→22:35)
[2019-02-14] MEDS: NON-FORMULARY MEDICATION (Bupropion Hcl [Wellbutrin Sr] 150 MG) PO SCH (12:15)
[2019-02-14] MEDS: K-DUR PO SCH (12:37)
[2019-02-14] MEDS: VALIUM PO PRN (15:34)
[2019-02-14] MEDS: CELEXA PO SCH (20:56)
[2019-02-14] MEDS: MEVACOR PO SCH (20:56)
[2019-02-14] MEDS: LANTUS SUBCUT SCH (20:58)
[2019-02-15] MEDS: AZACTAM 1 GM in SODIUM CHLORIDE 50 ML IV SCH (05:56)
[2019-02-15] MEDS: PRILOSEC PO SCH (05:56)
--- NOTE | 2019-02-15 08:35 | HP ---
DATE OF SERVICE: 02/13/19 HISTORY OF PRESENT ILLNESS: 53-year-old white female hospitalized in the emergency room because of having chills and fever with evidence of acute pyelonephritis on the right side. The patient had right angle sign positive on physical exam. She has been having this problem for the past several days. She was busy with a family affair that she had to take care of so she decided to come today for several days. REVIEW OF SYSTEMS: CONSTITUTIONAL: No night sweats. No fatigue, malaise, lethargy. Fever and chills at home the past several days. HEENT: Eyes: No visual changes. No eye pain. No eye discharge. ENT: No runny nose. No epistaxis. No sinus pain. No sore throat. No odynophagia. No congestion. RESPIRATORY: No cough, no congestion. No hemoptysis. CARDIOVASCULAR: Short of breath on exertion as usual. No angina symptoms. No CHF symptoms. No atypical chest pain for CAD. No palpitations. No PND. No orthopnea. GASTROINTESTINAL: Poor appetite. No abdominal pain. Mild nausea. No vomiting. No diarrhea or constipation. No hematemesis. No hematochezia. GENITOURINARY: The patient has pain in the right renal angle. No urgency. No frequency. No dysuria. No hematuria. No obstructive symptoms. No discharge. No significant abnormal bleeding. MUSCULOSKELETAL: No musculoskeletal pain; no joint swelling. NEUROLOGICAL: No headache. No neck pain. No syncope. No seizures. No dizziness. PSYCHIATRIC: Not anxious. No depression. No suicidal thoughts. No homicidal thoughts. SKIN: No rash. No lesions. No wounds. ENDOCRINE: No unexplained weight loss. No weight gain. HEMATOLOGIC/LYMPHATIC: No anemia. No purpura. No petechiae. No prolonged or excessive bleeding. No palpable lymph nodes. ALLERGIES: CODEINE AND MORPHINE MEDICATIONS: Zetia 10 mg p.o. daily Plavix 75 mg p.o. daily Humulin R Insulin SQ a.c. h.s. p.r.n. Prilosec 20 mg p.o. q.d a.c. Insulin Lantus 60 unit subcut bedtime Vascepa 1 gm p.o. b.i.d. Zebeta 5 mg p.o. daily Lisinopril 10 mg p.o. daily Oxycodone-Acetaminophen 10-325 one tab p.o. t.i.d. Pregabalin 75 mg p.o. daily Valium 10 mg p.o. t.i.d. p.r.n. Celexa 40 mg p.o. bedtime Evolocumab 140 mg IM every other week Metformin 500 mg p.o. b.i.d. Mevacor 20 mg p.o. bedtime Ipratropium/Albuterol one vial INH t.i.d. p.r.n. Bupropion 150 mg p.o. daily Potassium Chloride (K-Dur) 20 mEq p.o. MoWeFr Triamterene/Hydrochlorothiazide one each p.o. two times per week p.r.n. PERSONAL/FAMILY/SOCIAL HISTORY: The patient is single. She smokes more than one pack per day. No alcohol use. She lives alone. She does all activity of daily living. PAST MEDICAL HISTORY: The patient is noncompliant of medications, followup, diet and lifestyle. The patient has several medical problems like severe dyslipidemia, poorly treated by patient's choice. Hypertension Diabetes mellitus BMI 30 PHYSICAL EXAMINATION: GENERAL: The patient is oriented to time, place and person. VITAL SIGNS: Temperature 98.2, pulse 94, respiratory rate 18, blood pressure 140/70, pulse ox 93%. HEENT: Head normocephalic, atraumatic. Eyes: Extraocular muscles are intact. Pupils are equal, round and reactive to light and accommodation. Ears: No lesions. Nose appeared normal. Throat: No exudate or erythema. Mucous membranes dry. NECK: Supple. No JVD, no carotid bruit. No lymphadenopathy or thyromegaly. LUNGS: Decreased breath sounds but clear to auscultation. Percussion note normal. Chest symmetrical. HEART: S1, S2, no S3. No murmurs. No cyanosis or clubbing. No ascites. Pulses: Dorsalis pedis and posterior tibial pulses +2 bilaterally. ABDOMEN: Soft. Nontender. Bowel sounds active. No CVA tenderness. No mass felt. EXTREMITIES: No pedal edema. Full range of motion of all extremities, equal. NEUROLOGIC: Complete neurological status is normal. No focal deficit. Cranial nerves II through XII are grossly intact. No headache, no double vision or headache. SKIN: Dry. Intact. Turgor - normal. LYMPHATIC: No palpable lymph nodes/no lymphedema. MUSCULOSKELETAL: Normal joints with no swelling. Muscle tone is normal. LABS: Hemoglobin 12.3, hematocrit 36, WBC 11.61, normal differential. Creatinine 0.7, BUN 17, potassium 3.9, glucose 300, GFR 77 cc/min. Chest x-ray normal. CT scan of the abdomen and pelvis with and without contrast mild fatty infiltration of the liver, mild right hydronephrosis, hydroureter with no evidence of stone. Enlargement of the right kidney, left renal arterial stent. ASSESSMENT: 1. ACUTE PYELONEPHRITIS. 2. DEHYDRATION. 3. NONCOMPLIANCE OF LIFESTYLE, MEDICATIONS, FOLLOWUP. 4. SEVERE DYSLIPIDEMIA. 5. LEFT RENAL ARTERY STENT. 6. DIABETES MELLITUS. 7. HYPERTENSION. 8. DYSLIPIDEMIA. 9. SMOKING. PLAN: 1. Give IV fluids. 2. Watch for fluid overload. 3. Telemetry. 4. IV Rocephin and Azactam combination. 5. Blood cultures. 6. Urine cultures. 7. CT scan of the abdomen was already done. Report as discussed above. 8. Counseling for smoking done. CONDITION: Stable. TIME SPENT: More than 30 minutes. Plan and coordination of the patient's care discussed in the presence of nurse. LASHANDA
[2019-02-15] MEDS: ROCEPHIN 1 GM VIAL 1 GM in SODIUM CHLORIDE 50 ML IV SCH (09:27)
[2019-02-15] MEDS: NON-FORMULARY MEDICATION (Bupropion Hcl [Wellbutrin Sr] 150 MG) PO SCH (09:37)
[2019-02-15] MEDS: ZEBETA PO SCH (09:38)
[2019-02-15] MEDS: LYRICA PO SCH (09:39)
[2019-02-15] MEDS: ZETIA PO SCH (09:39)
[2019-02-15] MEDS: OMEGA-3 FISH OIL PO SCH ×2 (09:39→21:11)
[2019-02-15] MEDS: PLAVIX PO SCH (09:39)
[2019-02-15] MEDS: ZESTRIL PO SCH (09:39)
[2019-02-15] MEDS: PERCOCET 10-325 PO SCH ×3 (09:39→21:11)
[2019-02-15] MEDS: PYRIDIUM PO PRN ×2 (09:40→21:10)
[2019-02-15] MEDS: NICODERM 21 MG TD SCH (09:40)
[2019-02-15] MEDS: VALIUM PO PRN ×2 (09:56→22:01)
--- NOTE | 2019-02-15 09:57 | PCM.PROG ---
Attending Provider: ATTENDING PROVIDER: Dr. VINOD BLANC This patient is seen with Sonam Abel, Nurse Practitioner. DATE OF SERVICE: 02/15/19 SUBJECTIVE: This 53 year old WHITE/ F was hospitalized 02/13/19. The patient is resting comfortably. Her pain has slightly improved, still with bladder spasms and right flank pain. The patient has been getting up multiple times a day to go out and smoke. REVIEW OF SYSTEMS: CONSTITUTIONAL: No night sweats. No fatigue, malaise, lethargy. No fever or chills. HEENT: Eyes: No visual changes. No eye pain. No eye discharge. ENT: No runny nose. No epistaxis. No sinus pain. No odynophagia. No congestion. RESPIRATORY: No cough, no congestion. No hemoptysis. No shortness of breath. CARDIOVASCULAR: No angina symptoms. No CHF symptoms. No atypical chest pain for CAD. No palpitations. No orthopnea.. GASTROINTESTINAL: No abdominal pain. No nausea or vomiting. No diarrhea or constipation. No hematemesis. No hematochezia. Right flank pain. GENITOURINARY: No urgency. No frequency. Dysuria. No hematuria. No obstructive symptoms. No discharge. No pain. No significant abnormal bleeding. MUSCULOSKELETAL: No musculoskeletal pain; no joint swelling. NEUROLOGICAL: Awake, alert, oriented to time, place and person. No headache. No neck pain. No syncope. No seizures. No dizziness. PSYCHIATRIC: Not anxious. No depression. No suicidal thoughts. No homicidal thoughts. SKIN: No rash. No lesions. No wounds. ENDOCRINE: No unexplained weight loss. No weight gain. HEMATOLOGIC/LYMPHATIC: No anemia. No purpura. No petechiae. No prolonged or excessive bleeding. No palpable lymph nodes. PHYSICAL EXAMINATION: GENERAL: The patient is awake, alert and oriented, lying in bed in no distress. VITAL SIGNS: Temperature 97.9 F, Pulse 73, Respiratory Rate 16, BP 131/73, Pulse Ox 98% HEENT: Head normocephalic, atraumatic. Eyes: Extraocular muscles are intact. Pupils are equal, round and reactive to light and accommodation. Ears: No lesions. Nose appeared normal. Throat: No exudate or erythema. NECK: Supple. No JVD, no carotid bruit. No lymphadenopathy or thyromegaly. LUNGS: Diminished breath sounds. Clear to auscultation. Percussion note normal. Chest symmetrical. HEART: S1, S2, no S3. No murmurs. No cyanosis or clubbing. No ascites. Pulses: Dorsalis pedis and posterior tibial pulses +1 to +2 both sides. ABDOMEN: Soft. Non-tender. Bowel sounds active. No CVA tenderness. No mass felt. EXTREMITIES: No edema. Full range of motion of all extremities, equal. NEUROLOGIC: No focal deficit. Cranial nerves II through XII are grossly intact. No headache, no double vision or headache. SKIN: Not dry. Intact. Turgor-normal. LYMPHATIC: No palpable lymph nodes/no lymphedema. MUSCULOSKELETAL: Normal joints with no swelling. Muscle tone is normal. LAB REVIEW: 02/15/19 05:00 02/15/19 05:00 02/15/19 05:00: Sodium 138.0, Potassium 4.61, Chloride 104.3, Carbon Dioxide 27.2, Anion Gap 11.11, BUN 20.0 H, Creatinine 0.88, Estimated GFR (MDRD) 68.00, BUN/Creatinine Ratio 22.72, Glucose 132.0 H, Calcium 8.35 L, Total Bilirubin 0.42, AST 39.6 H, ALT 39.0 H, Alkaline Phosphatase 129.3 H, Total Protein 6.13 L , Albumin 3.51, Globulin 2.62, Albumin/Globulin Ratio 1.33 02/15/19 05:00: PT 9.7, INR 0.97 02/15/19 05:00: WBC 9.11, RBC 3.68 L, Hgb 11.0 L, Hct 33.7 L, MCV 91.6, MCH 29.9 , MCHC 32.6, RDW Coeff of Barry 12.2, Plt Count 224, Immature Gran % (Auto) 0.9, Neut % (Auto) 59.5, Lymph % (Auto) 29.3, Teller % (Auto) 8.0, Eos % (Auto) 2.0, Baso % (Auto) 0.3, Immature Gran # (Auto) 0.1, Neut # (Auto) 5.4, Lymph # (Auto ) 2.7, Teller # (Auto) 0.7, Eos # (Auto) 0.2, Baso # (Auto) 0.0 ASSESSMENT: Please see below. 1. Acute right pyelonephritis 2. UTI,e-coli 3. Noncompliance PLAN: 1. Discontinue Azactam 2. Discontinue IV fluids 3. Pyridium 200mg three times a day PRN 4. Discontinue Lovenox. Plan and coordination of the patient's care discussed in the presence of Corporate Planner and nurse. SCRIBED BY: Augusta HUMMEL scribed while in presence of service performed by Dr. Blanc/Sonam Abel APRN on 02/15/19 ([id number])
[2019-02-15] MEDS: HUMULIN R SUBCUT PRN ×3 (13:04→21:12)
[2019-02-15] MEDS: TORADOL IVP PRN (14:46)
[2019-02-15] MEDS: CELEXA PO SCH (21:10)
[2019-02-15] MEDS: MEVACOR PO SCH (21:10)
[2019-02-15] MEDS: LANTUS SUBCUT SCH (21:11)
[2019-02-16] MEDS: TORADOL IVP PRN (02:19)
[2019-02-16] MEDS: HUMULIN R SUBCUT PRN ×2 (05:44→11:20)
[2019-02-16] MEDS: PRILOSEC PO SCH (05:47)
[2019-02-16] MEDS: ROCEPHIN 1 GM VIAL 1 GM in SODIUM CHLORIDE 50 ML IV SCH (09:04)
[2019-02-16] MEDS: K-DUR PO SCH (09:04)
[2019-02-16] MEDS: ZETIA PO SCH (09:04)
[2019-02-16] MEDS: ZEBETA PO SCH (09:04)
[2019-02-16] MEDS: PLAVIX PO SCH (09:04)
[2019-02-16] MEDS: LYRICA PO SCH (09:04)
[2019-02-16] MEDS: OMEGA-3 FISH OIL PO SCH (09:04)
[2019-02-16] MEDS: ZESTRIL PO SCH (09:04)
[2019-02-16] MEDS: PERCOCET 10-325 PO SCH ×2 (09:05→14:29)
[2019-02-16] MEDS: NICODERM 21 MG TD SCH (09:10)
[2019-02-16] MEDS: NON-FORMULARY MEDICATION (Bupropion Hcl [Wellbutrin Sr] 150 MG) PO SCH (09:10)
[2019-02-16] MEDS: VALIUM PO PRN (11:39)
[2019-02-16] MEDS: PYRIDIUM PO PRN (11:39)
[2019-02-16 14:31] VITALS: BP 162/89; TEMP 98.4
--- NOTE | 2019-03-03 11:44 | PN ---
DATE OF SERVICE: 02/16/19 - DISCHARGE NOTE SUBJECTIVE: 53-year-old white female hospitalized with pyelonephritis. The patient is afebrile, walking around. REVIEW OF SYSTEMS: CONSTITUTIONAL: No night sweats. No fatigue, malaise, lethargy. No fever or chills. HEENT: Eyes: No visual changes. No eye pain. No eye discharge. ENT: No runny nose. No epistaxis. No sinus pain. No sore throat. No odynophagia. No congestion. RESPIRATORY: No cough, no congestion. No hemoptysis. No shortness of breath. CARDIOVASCULAR: No angina symptoms. No CHF symptoms. No atypical chest pain for CAD. No palpitations. No PND. No orthopnea. GASTROINTESTINAL: No abdominal pain. No nausea or vomiting. No diarrhea or constipation. No hematemesis. No hematochezia. GENITOURINARY: No urgency. No frequency. No dysuria. No hematuria. No obstructive symptoms. No discharge. No pain. No significant abnormal bleeding. MUSCULOSKELETAL: No musculoskeletal pain; no joint swelling. NEUROLOGICAL: No headache. No neck pain. No syncope. No seizures. No dizziness. PSYCHIATRIC: Not anxious. No depression. No suicidal thoughts. No homicidal thoughts. SKIN: No rash. No lesions. No wounds. ENDOCRINE: No unexplained weight loss. No weight gain. HEMATOLOGIC/LYMPHATIC: No anemia. No purpura. No petechiae. No prolonged or excessive bleeding. No palpable lymph nodes. PHYSICAL EXAMINATION: HEENT: Head normocephalic, atraumatic. Eyes: Extraocular muscles are intact. Pupils are equal, round and reactive to light and accommodation. Ears: No lesions. Nose appeared normal. Throat: No exudate or erythema. NECK: Supple. No JVD, no carotid bruit. No lymphadenopathy or thyromegaly. LUNGS: Clear to auscultation. Percussion note normal. Chest symmetrical. HEART: S1, S2, no S3. No murmurs. No cyanosis or clubbing. No ascites. Pulses: Dorsalis pedis and posterior tibial pulses +1 to +2 bilaterally. ABDOMEN: Soft. Nontender. Bowel sounds active. No CVA tenderness. No mass felt. EXTREMITIES: No edema. Full range of motion of all extremities, equal. NEUROLOGIC: No focal deficit. Cranial nerves II through XII are grossly intact. No headache, no double vision or headache. SKIN: Not dry. Intact. Turgor - normal. LYMPHATIC: No palpable lymph nodes/no lymphedema. MUSCULOSKELETAL: Normal joints with no swelling. Muscle tone is normal. ASSESSMENT/PLAN: 1. The patient is obese, noncompliant of medications, diet, followup and lifestyle. 2. Pyelonephritis seems to have clinically resolved. Advised to continue all the medications with her antibiotics. She is to be seen as an outpatient. CONDITION: Stable. TIME SPENT: More than 30 minutes. Plan and coordination of the patient's care discussed in the presence of nurse. LASHANDA
--- NOTE | 2019-03-22 10:19 | DS ---
DATE OF SERVICE: 02/16/19 FINAL DIAGNOSIS: 1. Acute pyelonephritis 2. UTI, E-coli organism 3. COPD 4. Hypertension 5. Diabetes Mellitus type 2. 6. Obesity, BMI 30.5 7. Dyslipidemia 8. Depression 9. Anxiety 10.Peripheral artery disease 11.GERD 12.Osteoarthritis 13.Continued smoking 14. Sleep apnea, CPAP 15. Non-compliance of lifestyle, medications and followups. 16. Left inguinal hernia repair 17. Renal artery stent, left per CT 18. Last echocardiogram: 12/2018 LVEF 76%, LVH with enlarged left atrial cavity. Normal valves LAST VITAL: Temperature 98.1, Pulse 73, respiratory rate 18, blood pressure 148/82, pulse ox 90%. DISCHARGE INSTRUCTIONS: Discharge home. An appointment is scheduled with Dr. Sierra/Sonam Abel APRN on February 21 at 9:30am. Continue all medications as listed on nursing discharge information sheet. MEDICATIONS AT DISCHARGE: DUO NEB one vial NEB three times a day PRN Zebeta 5mg PO daily Celexa 40mg PO bedtime Plavix 75mg PO daily Valium 10mg PO three times a day PRN Zetia 10mg PO daily Vascepa 1,000mg PO twice a day Lantus 60 units SUCUT at bedtime daily Humulin R 0 units SUBCUT ACHS PRN Metformin 500mg twice a day Zestril 10mg PO daily Mevacor 20mg PO bedtime Wellbutrin SR 150mg PO daily Prilosec 20mg PO QDAC Percocet 10-325 one tablet PO three times a day Pyridium 100mg PO three times a day PRN K-Dur 20meq PO MoWeFr @ [address] Lyrica 75mg PO daily Dyazide 1 capsule PO Thu and PRN Keflex 500mg TIC PO [facility] for 7 days ALLERGIES: Codeine Morphine NEW PRESCRIPTIONS: Keflex 500mg three times a day for 7 days Pyridium 100mg three times a day PRN DISCONTINUED MEDICATIONS: None DIET INSTRUCTIONS: Consistent carbohydrates Water encouraged, limit caffeine products ACTIVITY: Gradually resume as tolerated SMOKING: Advised to stop smoking DISEASE SPECIFIC EDUCATION: Urinary tract infection Risk factor modification: diet, exercise, blood sugar control and smoking. HOSPITAL COURSE: Anita Lowe was hospitalized with acute pyelonephritis. She was treated with IV Azactam and Rocephin. Her condition improved. At the time of discharge she has been up and about. In fact she has been going out and smoking in spite of counseling. She has multiple risk factors for coronary artery disease. She is also diabetic. She is noncompliant of followup, lifestyle. She is to be seen in the office on Thursday morning on followup and until then she is advised to rest and to drink plenty of fluids. TIME SPENT: More than 60 minutes. LASHANDA
--- NOTE | 2019-03-22 10:24 | PN ---
02/13/19: Level 5 02/14/19: Intermediate 02/15/19: Intermediate 02/16/19: D as in discharge MTDD
--- NOTE | 2019-04-08 14:15 | PN ---
DATE OF SERVICE: 02/14/19 SUBJECTIVE: The patient was seen and examined with Nurse Practitioner. The patient is afebrile. Acute pyelonephritis seems to be under control. Condition antibiotics. TIME SPENT: More than 30 minutes. Plan and coordination of the patient's care discussed in the presence of nurse. LASHANDA
--- NOTE | 2019-04-08 14:28 | PN ---
DATE OF SERVICE: 02/15/19 SUBJECTIVE: The patient is up and about going out to smoke. Pyelonephritis is better. Appetite has improved. Continue antibiotics. The patient was seen and examined with Nurse Practitioner. TIME SPENT: More than 30 minutes. Plan and coordination of the patient's care discussed in the presence of nurse. LASHANDA
== END 2019-02-16 14:57 | disposition home or self-care (01) | DRG 690 ==
LOC: ED 07:41 → MEDSURG B 10:05
PROVIDERS: ADMIT Internal Medicine; ATTEND Internal Medicine
DX: E86.0 Dehydration; I73.9 Peripheral vascular disease, unspecified; R31.9 Hematuria, unspecified; Z68.30 Body mass index [BMI] 30.0-30.9, adult; Z91.19 Patient's noncompliance with other medical treatment and regimen; Z72.0 Tobacco use; J44.9 Chronic obstructive pulmonary disease, unspecified; N39.0 Urinary tract infection, site not specified; E66.9 Obesity, unspecified; I10 Essential (primary) hypertension; F41.8 Other specified anxiety disorders; E11.9 Type 2 diabetes mellitus without complications; B96.20 Unspecified Escherichia coli [E. coli] as the cause of diseases classified elsewhere; M19.90 Unspecified osteoarthritis, unspecified site; G47.30 Sleep apnea, unspecified; K21.9 Gastro-esophageal reflux disease without esophagitis; E78.5 Hyperlipidemia, unspecified; R30.0 Dysuria; N10 Acute pyelonephritis

== ENCOUNTER 2020-02-12 17:25 | Inpatient (IN) ==
[2020-02-12 17:30] VITALS: BMI 28.2
[2020-02-12] MEDS ORDERED: ZOFRAN 4 MG/2 ML IM STA (17:36)
[2020-02-12] MEDS ORDERED: SODIUM CHLORIDE 1,000 ML IV STA ×2 (17:36→19:07)
--- NOTE | 2020-02-12 17:41 | ED.PDOC ---
General ED Provider: Dr. LAMONTE KANG MD Chief Complaint: Nausea/Vomiting Stated Complaint: mild to mod NV off and on for 2 weeks, denies abdominal pain, no blood in stool, hx hysterectomy and dm, no injury Time Seen by Physician: 17:39 Mode of Arrival: Walk-In Information Source: Patient Primary Care Provider: VINOD BLANC Nursing and Triage Documentation Reviewed and Agree: Yes Does patient meet sepsis criteria?: No System Inflammatory Response Syndrome: Not Applicable Sepsis Protocol: For patient's 13 years and over: Temp is 96.8 and below OR 101 and greater Pulse >90 BPM Resp >20/minute Acutely Altered Mental Status Are patient's symptoms suggestive of a new infection, such as: -Pneumonia -Skin, Soft Tissue -Endocarditis -UTI -Bone, Joint Infection -Implantable Device -Acute Abdominal Infection -Wound Infection -Meningitis -Blood Stream Catheter Infection -Unknown GI Complaint Exam Vomiting/Diarrhea Complaint/Exam Onset/Duration: 2 weeks Symptoms Are: Still present Initial Severity: Mild Current Severity: Moderate Character of Vomiting: Denies Bloody Character of Diarrhea: Denies Bloody Associated Signs and Symptoms: Denies Dizziness, Melena, Fever and Abdominal pain Related History: Reports Similar episode Related Surgical History: Denies Appendectomy and Colectomy Review of Systems Review Of Systems Constitutional: Denies Fever Eyes: Denies Vision change Ears, Nose, Mouth, Throat: Denies Throat pain Respiratory: Denies Short of air Cardiac: Denies Chest pain GI: Reports Vomiting; Denies Abdominal pain : Denies Burning Musculoskeletal: Denies Neck pain Skin: Denies Rash Neurological: Denies Cognitive dysfunction and Headache All Other Systems: Other [facility] Social History Smoking and tobacco status: Current every day smoker Alcohol intake: never Substance use type: does not use History of recent travel: No Female Reproductive History Menstrual Hx Hysterectomy: Yes Hx Tubal Ligation: No Physical Exam Physical Exam Appearance: Reports Well-appearing Ill-appearing: None Pain Distress: None Eyes: Reports ELOISA, EOMI and Conjunctiva clear ENT: Reports Oropharynx normal Neck: Supple Respiratory: Reports Airway patent Cardiovascular: Reports Tachycardia GI/: Reports Soft and Nontender Musculoskeletal: Reports ROM intact and No edema Skin: Reports Warm and Dry Neurological: Reports Cranial nerves intact, Alert and Oriented Psychiatric: Reports Affect appropriate Interpretation Radiology Interpretation Radiology Interpretation By: Radiologist Radiology Results: No acute changes Exam Interpreted: CXR Radiology Interpretation By: Radiologist Radiology Results: No acute changes Exam Interpreted: CT Scan Xray Comments: no obstruction EKG Interpretation Time of EKG #1: 19:19 Rate: Tachy Rhythm: Sinus Ectopy: None Interpretation: no stemi Re-Evaluation Re-Evaluation Time of Re-Evaluation: 19:20 Status: Improved Vital Signs Stable: Yes Appearance: NAD Lungs: Clear Skin: Warm and Dry Neuro: Alert and Oriented X3 Additional Comments: admit d/w Dr Blanc, differential includes cholecystitis, uti, viral syndrome w/ vomiting Critical Care Note Critical Care Note Total Time (mins): 0 Course Course Hematology/Chemistry: 02/12/20 17:44 02/12/20 17:44 Orders, Labs, Meds: Lab Review 02/12/20 02/12/20 02/12/20 17:44 17:44 17:44 WBC 18.71 H RBC 4.53 Hgb 14.0 Hct 39.7 MCV 87.6 MCH 30.9 MCHC 35.3 RDW Coeff of Barry 12.4 Plt Count 359 Immature Gran % (Auto) 0.5 Neut % (Auto) 63.0 Lymph % (Auto) 30.4 [place] % (Auto) 4.4 Eos % (Auto) 1.3 Baso % (Auto) 0.4 Neut # (Auto) 11.8 H Lymph # (Auto) 5.7 H [place] # (Auto) 0.8 Eos # (Auto) 0.2 Baso # (Auto) 0.1 Immature Gran # (Auto) 0.1 Sodium 132.1 L Potassium 4.33 Chloride 98.0 Carbon Dioxide 23.0 Anion Gap 15.43 BUN 18.7 H Creatinine 0.96 Estimated GFR (MDRD) 61.00 BUN/Creatinine Ratio 19.47 Glucose 394.2 H Lactic Acid Calcium 9.82 Total Bilirubin 0.39 AST 39.5 H ALT 31.8 Alkaline Phosphatase 141.9 H Troponin I < 0.012 Total Protein 7.35 Albumin 4.37 Globulin 2.98 Albumin/Globulin Ratio 1.46 Lipase 132.3 Procalcitonin 0.05 Urine Color Urine Clarity Urine pH Ur Specific [place] Urine Protein Urine Glucose (UA) Urine Ketones Urine Blood Urine Nitrite Urine Bilirubin Urine Urobilinogen Ur Leukocyte Esterase Urine Microscopic WBC Ur Squamous Epith Cells Urine Bacteria Urine Opiates Screen Ur Oxycodone Screen Urine Methadone Screen Ur Propoxyphene Screen Ur Barbiturates Screen U Tricyclic Antidepress Ur Phencyclidine Scrn Ur Amphetamine Screen U Methamphetamines Scrn U Benzodiazepines Scrn Urine Cocaine Screen U Cannabinoids Screen 02/12/20 02/12/20 02/12/20 18:50 18:58 18:58 WBC RBC Hgb Hct MCV MCH MCHC RDW Coeff of Barry Plt Count Immature Gran % (Auto) Neut % (Auto) Lymph % (Auto) [place] % (Auto) Eos % (Auto) Baso % (Auto) Neut # (Auto) Lymph # (Auto) [place] # (Auto) Eos # (Auto) Baso # (Auto) Immature Gran # (Auto) Sodium Potassium Chloride Carbon Dioxide Anion Gap BUN Creatinine Estimated GFR (MDRD) BUN/Creatinine Ratio Glucose Lactic Acid 2.18 H Calcium Total Bilirubin AST ALT Alkaline Phosphatase Troponin I Total Protein Albumin Globulin Albumin/Globulin Ratio Lipase Procalcitonin Urine Color Yellow Urine Clarity Slightly Urine pH 5.5 Ur Specific [place] 1.020 Urine Protein Negative Urine Glucose (UA) 2+ H Urine Ketones Negative Urine Blood Negative Urine Nitrite Positive H Urine Bilirubin Negative Urine Urobilinogen 0.2 Ur Leukocyte Esterase Negative Urine Microscopic WBC 0-2 Ur Squamous Epith Cells 0-2 Urine Bacteria 2+ Urine Opiates Screen Negative Ur Oxycodone Screen Positive H Urine Methadone Screen Negative Ur Propoxyphene Screen Negative Ur Barbiturates Screen Negative U Tricyclic Antidepress Negative Ur Phencyclidine Scrn Negative Ur Amphetamine Screen Negative U Methamphetamines Scrn Negative U Benzodiazepines Scrn Negative Urine Cocaine Screen Negative U Cannabinoids Screen Negative Orders Category Date Time Status ADMIT PATIENT INPATIENT .TO [facility] (MONITORED BED) ADMISSION 02/12/20 19:22 Active ADMIT PATIENT INPATIENT .TO [facility] (MONITORED BED) ADMISSION 02/12/20 19:33 Active EKG-(ED ONLY) Stat CARDIO 02/12/20 17:36 Completed EKG-(IP & OP ONLY) DAILY CARDIO 02/13/20 06:00 Ordered EKG-(IP & OP ONLY) DAILY CARDIO 02/14/20 06:00 Ordered EKG-(IP & OP ONLY) Stat CARDIO 02/12/20 19:23 Ordered OXYGEN Routine CARDIO 02/12/20 19:23 Ordered ACTIVITY .BR with BRP CARE 02/12/20 19:22 Active BLOOD GLUCOSE MONITORING 0630,1100,1700,2100 CARE 02/12/20 19:27 Active INSERT SALINE LOCK ONCE CARE 02/12/20 19:23 Active NPO REMINDER: IMAGING ONCE CARE 02/12/20 19:24 Active TELEMETRY MONITORING TELE CARE 02/12/20 19:23 Active TELEMETRY MONITORING TELE CARE 02/12/20 19:23 Active TELEMETRY MONITORING TELE CARE 02/12/20 19:33 Active VITAL SIGNS Q8HR CARE 02/12/20 19:23 Active NOTHING BY MOUTH DIETARY 02/13/20 Breakfast Ordered BLOOD CULTURE Stat LAB 02/12/20 19:20 Received CBC W/ AUTO DIFF Stat LAB 02/12/20 17:44 Completed CBC W/ AUTO DIFF Stat LAB 02/12/20 19:23 Ordered COMPREHENSIVE METABOLIC PANEL Stat LAB 02/12/20 17:44 Completed COMPREHENSIVE METABOLIC PANEL Stat LAB 02/12/20 19:23 Ordered CREATINE KINASE Q8H LAB 02/12/20 19:30 Ordered CREATINE KINASE Q8H LAB 02/13/20 03:30 Ordered DRUG SCREEN, URINE, RAPID Stat LAB 02/12/20 18:58 Completed LACTIC ACID Stat LAB 02/12/20 18:50 Completed LIPASE Stat LAB 02/12/20 17:44 Completed PROCALCITONIN Stat LAB 02/12/20 17:44 Completed TROPONIN I Q8H LAB 02/12/20 19:30 Ordered TROPONIN I Q8H LAB 02/13/20 03:30 Ordered TROPONIN I Stat LAB 02/12/20 17:44 Completed URINALYSIS C & S IF INDICATED Stat LAB 02/12/20 18:58 Completed URINALYSIS C & S IF INDICATED Stat LAB 02/12/20 19:23 Uncollected URINE CULTURE Stat LAB 02/12/20 18:58 Received 0.9 % Sodium Chloride [Saline Flush] MEDS 02/12/20 21:00 Active 1 syr IVF Q8HR Acetaminophen [Tylenol] MEDS 02/12/20 19:22 Active 650 mg PO Q4H PRN Aspirin [Aspirin EC] MEDS 02/13/20 08:30 Active 81 mg PO DAILYWM Atropine Sulfate Inj [Atropine Sulfate Pfs] MEDS 02/12/20 19:22 Active 0.5 mg IVP ONCE PRN Bisoprolol Fumarate [Zebeta] MEDS 02/13/20 09:00 Active 5 mg PO DAILY Clopidogrel Bisulfate [Plavix] MEDS 02/13/20 09:00 Ordered 75 mg PO DAILY Ezetimibe [Zetia] MEDS 02/13/20 09:00 Ordered 10 mg PO DAILY Hydroxyzine HCl [Vistaril Inj] MEDS 02/12/20 19:22 Active 25 mg IM Q4H PRN Insulin Regular, Human [Humulin R] MEDS 02/12/20 18:39 Discontinued 3 unit IVP ONCE STA Insulin Regular, Human [Humulin R] MEDS 02/12/20 19:22 Active See Protocol SUBCUT PRN PRN Levofloxacin/D5w [Levaquin 750 mg/150 ml D5w] MEDS 02/12/20 18:36 Active 750 mg in 150 ml IV ONCE Lisinopril [Zestril] MEDS 02/13/20 09:00 Ordered 10 mg PO DAILY Lovastatin [Mevacor] MEDS 02/12/20 21:00 Ordered 20 mg PO BEDTIME Nitroglycerin [Nitrostat] MEDS 02/12/20 19:22 Active 0.4 mg SL Q5MIN X 3 DOSES PRN Omeprazole [Prilosec] MEDS 02/13/20 06:30 Ordered 20 mg PO QDAC Ondansetron HCl/Pf [Zofran 4 mg/2 ml] MEDS 02/12/20 17:48 Discontinued 4 mg IVP ONCE STA Ondansetron HCl/Pf [Zofran 4 mg/2 ml] MEDS 02/12/20 19:22 Active 4 mg IVP Q4H PRN Potassium Chloride [K-Dur] MEDS 02/13/20 19:30 Ordered 20 meq PO MOWEFR Pregabalin [Lyrica] MEDS 02/13/20 09:00 Ordered 75 mg PO DAILY Sodium Chloride 0.9% [Sodium Chloride] 1,000 ml MEDS 02/12/20 17:36 Discontinued IV BOLUS Sodium Chloride 0.9% [Sodium Chloride] 1,000 ml MEDS 02/12/20 19:07 Active IV BOLUS Sodium Chloride 0.9% [Sodium Chloride] 500 ml MEDS 02/12/20 19:22 Active IV 100 mls/hr CHEST, 1V AP ONLY Stat RADS 02/12/20 18:[address] ABDOMEN/PELVIS WO CONTRAST Stat RADS 02/12/20 17:36 Completed U/S ABDOMEN RT UPPER QUAD Stat RADS 02/12/20 19:22 Ordered Medications Generic Name Dose Route Start Last Admin Trade Name Freq PRN Reason Stop Dose Admin Acetaminophen 650 mg 02/12/20 19:22 Tylenol PO Q4H PRN Headache Aspirin 81 mg 02/13/20 08:30 Aspirin Ec PO DAILYWM [facility] Atropine Sulfate 0.5 mg 02/12/20 19:22 Atropine Sulfate Pfs IVP ONCE PRN Symptomatic Bradycardia Bisoprolol Fumarate 5 mg 02/13/20 09:00 Zebeta PO DAILY [facility] Clopidogrel Bisulfate 75 mg 02/13/20 09:00 Plavix PO DAILY [facility] Ezetimibe 10 mg 02/13/20 09:00 Zetia PO DAILY [facility] Hydroxyzine HCl 25 mg 02/12/20 19:22 Vistaril Inj IM Q4H PRN Nausea/Vomiting/Restlessness Levofloxacin/Dextrose 750 mg in 150 mls @ 100 mls/hr 02/12/20 18:36 02/12/20 18:47 Levaquin 750 Mg/150 Ml D5w IV 02/12/20 20:05 100 mls/hr ONCE STA Administration Sodium Chloride 1,000 mls @ 1,000 mls/hr 02/12/20 19:07 02/12/20 19:12 Sodium Chloride IV 02/12/20 20:06 1,000 mls/hr BOLUS STA Administration Sodium Chloride 500 mls @ 100 mls/hr 02/12/20 19:22 Sodium Chloride IV 02/13/20 00:21 .Q5H STA Insulin Human Regular 0 unit 02/12/20 19:22 Humulin R SUBCUT PRN PRN Hyperglycemia Protocol Lisinopril 10 mg 02/13/20 09:00 Zestril PO DAILY [facility] Lovastatin 20 mg 02/12/20 21:00 Mevacor PO BEDTIME [facility] Nitroglycerin 0.4 mg 02/12/20 19:22 Nitrostat SL Q5MIN X 3 DOSES PRN Chest Pain Omeprazole 20 mg 02/13/20 06:30 Prilosec PO QDAC [facility] Ondansetron HCl 4 mg 02/12/20 19:22 Zofran 4 Mg/2 Ml IVP Q4H PRN Nausea / Vomiting Potassium Chloride 20 meq 02/13/20 19:30 K-Dur PO MOWEFR CAMILA Pregabalin 75 mg 02/13/20 09:00 Lyrica PO DAILY CAMILA Sodium Chloride 1 syr 02/12/20 21:00 Saline Flush IVF Q8HR CAMILA Discontinued Medications Generic Name Dose Route Start Last Admin Trade Name Freq PRN Reason Stop Dose Admin Sodium Chloride 1,000 mls @ 1,000 mls/hr 02/12/20 17:36 02/12/20 18:09 Sodium Chloride IV 02/12/20 18:35 1,000 mls/hr BOLUS STA Administration Insulin Human Regular 3 unit 02/12/20 18:39 02/12/20 18:47 Humulin R IVP 02/12/20 18:40 3 unit ONCE STA Administration Ondansetron HCl 4 mg 02/12/20 17:48 02/12/20 18:09 Zofran 4 Mg/2 Ml IVP 02/12/20 17:49 4 mg ONCE STA Administration Vital Signs: Temp Pulse Resp BP Pulse Ox 02/12/20 17:25 99.8 F H 120 H 18 122/78 96 Discharge Plan Discharge Patient Disposition: ADMITTED INPATIENT Discharge Problem: Vomiting UTI (urinary tract infection) Qualifiers: Urinary tract infection type: site unspecified Hematuria presence: without hematuria Qualified Code(s): N39.0 - Urinary tract infection, site not specified ED Provider: LAMONTE KANG Condition: Stable
[2020-02-12 17:48] LABS: HEMATOCRIT 39.7 % (37.0-47.0)
[2020-02-12] MEDS ORDERED: ZOFRAN 4 MG/2 ML IVP STA (17:48)
--- NOTE | 2020-02-12 18:17 | CT ---
EXAM: CT scan of the abdomen and pelvis without contrast HISTORY: Vomiting TECHNIQUE: Helical imaging of the abdomen pelvis was performed without contrast. 3 mm thin axial im ages and coronal and sagittal reconstructions were provided for internal. FINDINGS: The liver, spleen, pancreas, kidneys appear normal. The proximal ureters are normal size. The small and large bowel loops are normal caliber. There is no free air. No retroperitoneal abno rmalities are seen. The appendix appears normal. There is no free fluid seen within the pelvis. There has been previous hysterectomy. Lung bases are clear. No lytic or blastic lesions are seen within the osseous structures. IMPRESSION: There is no bowel obstruction or acute inflammatory change seen within the abdomen and p genaro. There is no ureteral obstruction.
[2020-02-12] MEDS ORDERED: LEVAQUIN 750 MG/150 ML D5W 750 MG/150 ML BAG IV STA (18:36)
[2020-02-12] MEDS ORDERED: HUMULIN R IVP STA (18:39)
--- NOTE | 2020-02-12 18:50 | DI ---
EXAM: Single view chest COMPARISON: Chest Xray from 10/20/2019 HISTORY: Vomiting FINDINGS: Lungs are clear with no lobar consolidation, failure, large effusion or significant atelec tasis. Cardiac and mediastinal silhouettes show no acute abnormality. No acute soft tissue or osseo us abnormalities. IMPRESSION: No active disease.
[2020-02-12] MEDS ORDERED: SODIUM CHLORIDE 500 ML IV STA (19:22)
[2020-02-12] MEDS ORDERED: ATROPINE SULFATE PFS IVP PRN (19:22)
[2020-02-12] MEDS ORDERED: TYLENOL PO PRN (19:22)
[2020-02-12] MEDS ORDERED: NITROSTAT SL PRN (19:22)
[2020-02-12] MEDS ORDERED: ZOFRAN 4 MG/2 ML IVP PRN (19:22)
[2020-02-12] MEDS ORDERED: VISTARIL INJ IM PRN (19:22)
[2020-02-12] MEDS: MEVACOR PO SCH (20:41)
[2020-02-12] MEDS: PERCOCET 10-325 PO PRN (21:26)
[2020-02-12] MEDS: CELEXA PO SCH (21:26)
[2020-02-12] MEDS: VALIUM PO PRN (21:27)
[2020-02-13 03:41] LABS: HEMATOCRIT 35.4 % (37.0-47.0)
[2020-02-13] MEDS: PRILOSEC PO SCH (06:20)
--- NOTE | 2020-02-13 08:24 | PCM.PROG ---
Attending Provider: ATTENDING PROVIDER: Dr. VINOD BLANC This patient is seen with Edie Carter, Nurse Practitioner. DATE OF SERVICE: 02/13/20 SUBJECTIVE: This 54 year old /WHITE F was hospitalized 02/12/20. The patient is resting comfortably in bed. She reports that she is feeling better. The patient is denying any further nausea or vomiting. She is NPO this morning for ultrasound of liver. We will start the patient on IV normal saline at 75cc per hour and Levaquin 500mg daily for treatment of UTI. She is afebrile this morning. REVIEW OF SYSTEMS: CONSTITUTIONAL: No night sweats. No fatigue, malaise, lethargy. No fever or chills. Weakness. HEENT: Eyes: No visual changes. No eye pain. No eye discharge. ENT: No runny nose. No epistaxis. No sinus pain. No odynophagia. No congestion. RESPIRATORY: No cough, no congestion. No hemoptysis. No shortness of breath. CARDIOVASCULAR: No angina symptoms. No CHF symptoms. No atypical chest pain for CAD. No palpitations. No orthopnea.. GASTROINTESTINAL: No abdominal pain. No nausea or vomiting. No diarrhea or constipation. No hematemesis. No hematochezia. GENITOURINARY: No urgency. No frequency. No dysuria. No hematuria. No obstructive symptoms. No discharge. No pain. No significant abnormal bleeding. MUSCULOSKELETAL: No musculoskeletal pain; no joint swelling. NEUROLOGICAL: Awake, alert, oriented to time, place and person. No headache. No neck pain. No syncope. No seizures. No dizziness. PSYCHIATRIC: Not anxious. No depression. No suicidal thoughts. No homicidal thoughts. SKIN: No rash. No lesions. No wounds. ENDOCRINE: No unexplained weight loss. No weight gain. HEMATOLOGIC/LYMPHATIC: No anemia. No purpura. No petechiae. No prolonged or excessive bleeding. No palpable lymph nodes. PHYSICAL EXAMINATION: GENERAL: The patient is awake, alert and oriented, lying in bed in no distress. VITAL SIGNS: Temperature 97.9 F, Pulse 80, Respiratory Rate 18, BP 118/72, Pulse Ox 99% HEENT: Head normocephalic, atraumatic. Eyes: Extraocular muscles are intact. Pupils are equal, round and reactive to light and accommodation. Ears: No lesions. Nose appeared normal. Throat: No exudate or erythema. NECK: Supple. No JVD, no carotid bruit. No lymphadenopathy or thyromegaly. LUNGS: Diminished breath sounds. Clear to auscultation. Percussion note normal. Chest symmetrical. HEART: S1, S2, no S3. No murmurs. No cyanosis or clubbing. No ascites. Pulses: Dorsalis pedis and posterior tibial pulses +1 to +2 both sides. ABDOMEN: Soft. Non-tender. Bowel sounds active. No CVA tenderness. No mass felt. EXTREMITIES: No edema. Full range of motion of all extremities, equal. NEUROLOGIC: No focal deficit. Cranial nerves II through XII are grossly intact. No headache, no double vision or headache. SKIN: Not dry. Intact. Turgor-normal. LYMPHATIC: No palpable lymph nodes/no lymphedema. MUSCULOSKELETAL: Normal joints with no swelling. Muscle tone is normal. LAB REVIEW: 02/13/20 03:40 02/13/20 03:50 02/13/20 03:50: Sodium 136.8, Potassium 4.20, Chloride 103.9, Carbon Dioxide 26.0, Anion Gap 11.10, BUN 15.6, Creatinine 0.75, Estimated GFR (MDRD) 81.00, BUN/Creatinine Ratio 20.80, Glucose 135.3 H D, Calcium 9.10, Total Bilirubin 0.32, AST 30.0, ALT 26.0, Alkaline Phosphatase 100.7 D, Total Protein 6.29 L, Albumin 3.69, Globulin 2.60, Albumin/Globulin Ratio 1.41 02/13/20 03:50: Total Creatine Kinase 44.9, Troponin I 0.016 02/13/20 03:40: WBC 13.68 H D, RBC 3.92 L, Hgb 12.1, Hct 35.4 L, MCV 90.3, MCH 30.9, MCHC 34.2, RDW Coeff of [place] 12.6, Plt Count 261, Immature Gran % (Auto) 0.5, Neut % (Auto) 42.1 L, Lymph % (Auto) 49.2, [place] % (Auto) 5.6, Eos % (Auto) 2.0, Baso % (Auto) 0.6, Neut # (Auto) 5.8, Lymph # (Auto) 6.7 H, [place] # (Auto) 0.8, Eos # (Auto) 0.3, Baso # (Auto) 0.1, Immature Gran # (Auto) 0.1 02/12/20 19:55: Total Creatine Kinase 46.3, Troponin I 0.013 02/12/20 18:58: Urine Opiates Screen Negative, Ur Oxycodone Screen Positive H, Urine Methadone Screen Negative, Ur Propoxyphene Screen Negative, Ur Barbiturates Screen Negative, U Tricyclic Antidepress Negative, Ur Phencyclidine Scrn Negative, Ur Amphetamine Screen Negative, U Methamphetamines Scrn Negative, U Benzodiazepines Scrn Negative, Urine Cocaine Screen Negative, U Cannabinoids Screen Negative 02/12/20 18:58: Urine Color Yellow, Urine Clarity Slightly, Urine pH 5.5, Ur Specific [place] 1.020, Urine Protein Negative, Urine Glucose (UA) 2+ H, Urine Ketones Negative, Urine Blood Negative, Urine Nitrite Positive H, Urine Bilirubin Negative, Urine Urobilinogen 0.2, Ur Leukocyte Esterase Negative, Urine Microscopic WBC 0-2, Ur Squamous Epith Cells 0-2, Urine Bacteria 2+ 02/12/20 18:50: Lactic Acid 2.18 H 02/12/20 17:44: Procalcitonin 0.05 02/12/20 17:44: Sodium 132.1 L, Potassium 4.33, Chloride 98.0, Carbon Dioxide 23.0, Anion Gap 15.43, BUN 18.7 H, Creatinine 0.96, Estimated GFR (MDRD) 61.00, BUN/Creatinine Ratio 19.47, Glucose 394.2 H, Calcium 9.82, Total Bilirubin 0.39, AST 39.5 H, ALT 31.8, Alkaline Phosphatase 141.9 H, Troponin I < 0.012, Total Protein 7.35, Albumin 4.37, Globulin 2.98, Albumin/Globulin Ratio 1.46, Lipase 132.3 02/12/20 17:44: WBC 18.71 H, RBC 4.53, Hgb 14.0, Hct 39.7, MCV 87.6, MCH 30.9, MCHC 35.3, RDW Coeff of [place] 12.4, Plt Count 359, Immature Gran % (Auto) 0.5, Neut % (Auto) 63.0, Lymph % (Auto) 30.4, [place] % (Auto) 4.4, Eos % (Auto) 1.3, Baso % (Auto) 0.4, Neut # (Auto) 11.8 H, Lymph # (Auto) 5.7 H, [place] # (Auto) 0.8, Eos # (Auto) 0.2, Baso # (Auto) 0.1, Immature Gran # (Auto) 0.1 ASSESSMENT: Please see below. 1. UTI 2. Nausea 2. Vomiting 3. Weakness 4. Diabetes Mellitus type 2 5. Hypertension 6. Dyslipidemia PLAN: 1. 500mg Levaquin 2. Sliding scale 3. Normal saline at 75cc an hour 4. Ultrasound of the liver Plan and coordination of the patient's care discussed in the presence of [employer] Supervisor and nurse. SCRIBED BY: Hernan HUMMEList scribed while in presence of service performed by Dr. Blanc/Edie Carter APRN on 02/13/20 ([id number])
[2020-02-13] MEDS ORDERED: K-DUR PO SCH (08:30)
[2020-02-13] MEDS: SODIUM CHLORIDE 1,000 ML IV SCH ×2 (08:58→22:29)
[2020-02-13] MEDS ORDERED: NON-FORMULARY MEDICATION (Bupropion Hcl 150 MG) PO SCH (09:00)
[2020-02-13] MEDS: ZETIA PO SCH (10:14)
[2020-02-13] MEDS: WELLBUTRIN XL PO SCH (10:15)
[2020-02-13] MEDS: LYRICA PO SCH (10:15)
[2020-02-13] MEDS: ZESTRIL PO SCH (10:15)
[2020-02-13] MEDS: VALIUM PO PRN ×2 (10:16→21:22)
[2020-02-13] MEDS: PLAVIX PO SCH (10:16)
[2020-02-13] MEDS: ASPIRIN EC PO SCH (10:16)
[2020-02-13] MEDS: ZEBETA PO SCH (10:16)
[2020-02-13] MEDS: PERCOCET 10-325 PO PRN (10:18)
--- NOTE | 2020-02-13 10:44 | US ---
EXAM: Limited abdominal sonogram. HISTORY: Evaluate for cholecystitis TECHNIQUE: Real time with duplex. COMPARISON: CT dated 02/12/2020 FINDINGS: The liver measures up to a 17.4 cm in length. The liver demonstrates normal echogencity. There is n o intrahepatic biliary dilation. The portal vein is patent and antegrade. The visualized pancreas is unremarkable. The gallbladder wall measures 0.14 cm. No evidense of cholelithiasis, gallbladder wall thickening, or pericholecystic fluid. The common bile duct measures 0.43 cm. The right kidney measures 13.9 x 5.3 x 5.6 cm. There is no hydronephrosis or renal calculus. IMPRESSION: Normal right upper quadrant sonogram.
[2020-02-13] MEDS: HUMULIN R SUBCUT PRN ×3 (12:02→21:14)
--- NOTE | 2020-02-13 14:50 | PN ---
DATE OF SERVICE: 02/12/2020 ADMIT NOTE SUBJECTIVE: The patient was brought to the emergency room. Dr. Wells examined the patient. The patient had acute gastroenteritis with nausea and vomiting. CT scan of the abdomen was negative for any acute event. Chest x-ray was normal. Procalcitonin was normal. Lactic was slightly elevated. The patient had no distress. No abdominal pain. Amylase and lipase was negative. REVIEW OF SYSTEMS: CONSTITUTIONAL: No night sweats. No fatigue, malaise, lethargy. No fever or chills. HEENT: Eyes: No visual changes. No eye pain. No eye discharge. ENT: No runny nose. No epistaxis. No sinus pain. No sore throat. No odynophagia. No congestion. RESPIRATORY: No cough, no congestion. No hemoptysis. No shortness of breath. CARDIOVASCULAR: No angina symptoms. No CHF symptoms. No atypical chest pain for CAD. No palpitations. No PND. No orthopnea. GASTROINTESTINAL: No abdominal pain. No nausea or vomiting. No diarrhea or constipation. No hematemesis. No hematochezia. GENITOURINARY: No urgency. No frequency. No dysuria. No hematuria. No obstructive symptoms. No discharge. No pain. No significant abnormal bleeding. MUSCULOSKELETAL: No musculoskeletal pain; no joint swelling. NEUROLOGICAL: No headache. No neck pain. No syncope. No seizures. No dizziness. PSYCHIATRIC: Not anxious. No depression. No suicidal thoughts. No homicidal thoughts. SKIN: No rash. No lesions. No wounds. ENDOCRINE: No unexplained weight loss. No weight gain. HEMATOLOGIC/LYMPHATIC: No anemia. No purpura. No petechiae. No prolonged or excessive bleeding. No palpable lymph nodes. PHYSICAL EXAMINATION: HEENT: Head normocephalic, atraumatic. Eyes: Extraocular muscles are intact. Pupils are equal, round and reactive to light and accommodation. Ears: No lesions. Nose appeared normal. Throat: No exudate or erythema. NECK: Supple. No JVD, no carotid bruit. No lymphadenopathy or thyromegaly. LUNGS: Clear to auscultation. Percussion note normal. Chest symmetrical. HEART: S1, S2, no S3. No murmurs. No cyanosis or clubbing. No ascites. Pulses: Dorsalis pedis and posterior tibial pulses +1 to +2 bilaterally. ABDOMEN: Soft. Nontender. Bowel sounds active. No CVA tenderness. No mass felt. EXTREMITIES: No edema. Full range of motion of all extremities, equal. NEUROLOGIC: No focal deficit. Cranial nerves II through XII are grossly intact. No headache, no double vision or headache. SKIN: Not dry. Intact. Turgor - normal. LYMPHATIC: No palpable lymph nodes/no lymphedema. MUSCULOSKELETAL: Normal joints with no swelling. Muscle tone is normal. ASSESSMENT: 1. Acute gastroenteritis 2. U/A slightly abnormal PLAN: 1. We will give Levaquin 500mg just one dose and see where we go from there. 2. IV fluids will be start 3. The patient will have telemetry and we will watch her for any fluid overload 4. EKG sinus tachycardia 5. The patient has diabetes mellitus. We will be covering the diabetes with accu-check with sliding scale CONDITION: Stable. TIME SPENT: More than 30 minutes. Plan and coordination of the patient's care discussed in the presence of nurse. LASHANDA
[2020-02-13] MEDS: OXYCODONE PO SCH ×2 (15:40→21:15)
[2020-02-13] MEDS ORDERED: LEVAQUIN 500 MG/100 ML D5W 500 MG/100 ML BAG IV SCH (21:00)
[2020-02-13] MEDS: CELEXA PO SCH (21:14)
[2020-02-13] MEDS: MEVACOR PO SCH (21:15)
[2020-02-14 05:26] LABS: HEMATOCRIT 34.3 % (37.0-47.0)
[2020-02-14] MEDS: PRILOSEC PO SCH (05:34)
[2020-02-14 05:35] VITALS: BP 133/68; TEMP 98.1
[2020-02-14] MEDS: HUMULIN R SUBCUT PRN ×2 (06:12→11:04)
[2020-02-14] MEDS: ASPIRIN EC PO SCH (08:38)
[2020-02-14] MEDS: PLAVIX PO SCH (08:38)
[2020-02-14] MEDS: ZEBETA PO SCH (08:38)
[2020-02-14] MEDS: ZESTRIL PO SCH (08:38)
[2020-02-14] MEDS: OXYCODONE PO SCH (08:39)
[2020-02-14] MEDS: LYRICA PO SCH (08:39)
[2020-02-14] MEDS: ZETIA PO SCH (08:39)
[2020-02-14] MEDS: WELLBUTRIN XL PO SCH (08:39)
--- NOTE | 2020-02-14 09:04 | PN ---
DATE OF SERVICE: 02/13/20 SUBJECTIVE: The patient was hospitalized with acute gastroenteritis. The patient possibly had trace UTI since being treated with Levaquin and IV fluids and is feeling better. Nausea is still present but vomiting has subsided. The patient was seen with the nurse practitioner. The patient will be treated with IV fluids. Cardiovascular status stable. TIME SPENT: More than 30 minutes. Plan and coordination of the patient's care discussed in the presence of nurse. LASHANDA
[2020-02-14] MEDS ORDERED: ROCEPHIN 1 GM/50 ML D5W 1 GM/50 ML BAG IV STA (09:19)
--- NOTE | 2020-02-14 09:34 | PCM.PROG ---
Attending Provider: ATTENDING PROVIDER: Dr. VINOD BLANC This patient is seen with Edie Carter, Nurse Practitioner. DATE OF SERVICE: 02/14/20 SUBJECTIVE: This 54 year old /WHITE F was hospitalized 02/12/20. The patient is resting comfortably in bed. She reports she is feeling much better. She denies any further nausea and vomiting. She has had a good appetite. She has been up in the room. Abdominal US reviewed. The patient's liver enzymes are mildly elevated today. Her morning blood sugar is 298, A1C 10.82. She is very noncompliant with medications, diet and lifestyle. She is stable for discharge. We will continue Levaquin 500 mg p.o. for 7 days and will see her back in office in one week. The patient states she needs something for her bowels. REVIEW OF SYSTEMS: CONSTITUTIONAL: No night sweats. No fatigue, malaise, lethargy. No fever or chills. HEENT: Eyes: No visual changes. No eye pain. No eye discharge. ENT: No runny nose. No epistaxis. No sinus pain. No odynophagia. No congestion. RESPIRATORY: No cough, no congestion. No hemoptysis. No shortness of breath. CARDIOVASCULAR: No angina symptoms. No CHF symptoms. No atypical chest pain for CAD. No palpitations. No orthopnea.. GASTROINTESTINAL: No abdominal pain. No nausea or vomiting. No diarrhea or constipation. No hematemesis. No hematochezia. GENITOURINARY: No urgency. No frequency. No dysuria. No hematuria. No obstructive symptoms. No discharge. No pain. No significant abnormal bleeding. MUSCULOSKELETAL: No musculoskeletal pain; no joint swelling. NEUROLOGICAL: Awake, alert, oriented to time, place and person. No headache. No neck pain. No syncope. No seizures. No dizziness. PSYCHIATRIC: Not anxious. No depression. No suicidal thoughts. No homicidal thoughts. SKIN: No rash. No lesions. No wounds. ENDOCRINE: No unexplained weight loss. No weight gain. HEMATOLOGIC/LYMPHATIC: No anemia. No purpura. No petechiae. No prolonged or excessive bleeding. No palpable lymph nodes. PHYSICAL EXAMINATION: GENERAL: The patient is awake, alert and oriented, lying/sitting in bed in no distress. VITAL SIGNS: Temperature 98.1 F, Pulse 75, Respiratory Rate 15, BP 133/68, Pulse Ox 96% HEENT: Head normocephalic, atraumatic. Eyes: Extraocular muscles are intact. Pupils are equal, round and reactive to light and accommodation. Ears: No lesions. Nose appeared normal. Throat: No exudate or erythema. NECK: Supple. No JVD, no carotid bruit. No lymphadenopathy or thyromegaly. LUNGS: Clear to auscultation. Percussion note normal. Chest symmetrical. HEART: S1, S2, no S3. No murmurs. No cyanosis or clubbing. No ascites. Pulses: Dorsalis pedis and posterior tibial pulses +1 to +2 both sides. ABDOMEN: Soft. Non-tender. Bowel sounds active. No CVA tenderness. No mass felt. EXTREMITIES: No edema. Full range of motion of all extremities, equal. NEUROLOGIC: No focal deficit. Cranial nerves II through XII are grossly intact. No headache, no double vision or headache. SKIN: Not dry. Intact. Turgor-normal. LYMPHATIC: No palpable lymph nodes/no lymphedema. MUSCULOSKELETAL: Normal joints with no swelling. Muscle tone is normal. LAB REVIEW: 02/14/20 05:20 02/14/20 05:20 02/14/20 05:20: Free T4 1.07 02/14/20 05:20: Hemoglobin A1c 10.82 H D 02/14/20 05:20: Sodium 135.7, Potassium 4.94, Chloride 103.4, Carbon Dioxide 27.0, Anion Gap 10.24, BUN 16.9, Creatinine 0.72, Estimated GFR (MDRD) 85.00, BUN/Creatinine Ratio 23.47, Glucose 297.9 H, Calcium 9.18, Total Bilirubin 0.22, AST 47.8 H, ALT 40.1 H, Alkaline Phosphatase 143.0 H D, Total Protein 6.18 L, Albumin 3.72, Globulin 2.46, Albumin/Globulin Ratio 1.51, Triglycerides 466.6 H, Cholesterol 269.2 H, LDL Cholesterol, Calc , VLDL Cholesterol , HDL Cholesterol 34.1 L, Cholesterol/HDL Ratio 7.9 H, TSH 2.290 02/14/20 05:20: WBC 10.94 H, RBC 3.75 L, Hgb 11.5 L, Hct 34.3 L, MCV 91.5, MCH 30.7, MCHC 33.5, RDW Coeff of Barry 12.5, Plt Count 269, Immature Gran % (Auto) 0.5, Neut % (Auto) 42.3, Lymph % (Auto) 48.7, [place] % (Auto) 5.9, Eos % (Auto) 2.1, Baso % (Auto) 0.5, Neut # (Auto) 4.6, Lymph # (Auto) 5.3 H, [place] # (Auto) 0.6, Eos # (Auto) 0.2, Baso # (Auto) 0.1, Immature Gran # (Auto) 0.1 ASSESSMENT: Please see below. 1. UTI improving 2. Nausea resolved 2. Vomiting resolved 3. Weakness 4. Diabetes Mellitus type 2 5. Hypertension 6. Dyslipidemia 7. Noncompliance PLAN: 1. Discharge home. 2. Levaquin 500 mg times 7 days. 3. Increase fluids. 4. Increase Lantus to 75 at bedtime. 5. Followup in one week. Plan and coordination of the patient's care discussed in the presence of Script Developer and nurse. CONDITION: Stable SCRIBED BY: GLEN STANTON [employer] scribed while in presence of service performed by Dr. Blanc/Edie Carter APRN on 02/14/20 ([id number])
--- NOTE | 2020-02-14 11:00 | CM.DICTOOL ---
ADMISSION: 02/12/20 19:35 DISCHARGE: January DATE OF SERVICE: 02/14/20 FINAL DIAGNOSIS UTI - E-COLI PER C/S 02/13- IMPROVING ACUTE GASTROENTERITIS- IMPROVED WEAKNESS DIABETES MELLITUS TYPE 2 HYPERTENSION DYSLIPIDEMIA NON-COMPLIANCE: MEDS,DIET, LIFESTYLE AND FOLLOW-UP HX: PYELONEPHRITIS UTI- E- COLI COPD HYPERTENSION PERIPHERAL ARTERY DISEASE DIABETES MELLITUS, TYPE 2 OBESITY, BMI 30.5 DYSLIPIDEMIA GERD DEPRESSION ANXIETY OSTEOARTHRITIS CONTINUED SMOKING SLEEP APNEA -- USES CPAP NON-COMPLIANT OF MEDS, DIET, LIFESTYLE AND FOLLOW-UPS LAST VITALS Temp Pulse Resp BP Pulse Ox 98.1 F 75 15 133/68 96 02/14/20 05:34 02/14/20 05:34 02/14/20 05:34 02/14/20 05:34 02/14/20 05:34 TAKE THESE MEDICATIONS AT HOME Bisoprolol Fumarate (Zebeta) 5 mg PO DAILY [facility] Last Admin: 02/14/20 08:38 Dose: 5 mg Bupropion HCl (Wellbutrin Xl) 150 mg PO QAM [facility] Last Admin: 02/14/20 08:39 Dose: 150 mg Citalopram Hydrobromide (Celexa) 40 mg PO BEDTIME [facility] Last Admin: 02/13/20 21:14 Dose: 40 mg Clopidogrel Bisulfate (Plavix) 75 mg PO DAILY [facility] Last Admin: 02/14/20 08:38 Dose: 75 mg Diazepam (Valium) 10 mg PO TID PRN PRN Reason: Anxiety Last Admin: 02/13/20 21:22 Dose: 10 mg Ezetimibe (Zetia) 10 mg PO DAILY [facility] Last Admin: 02/14/20 08:39 Dose: 10 mg Lisinopril (Zestril) 10 mg PO DAILY [facility] Last Admin: 02/14/20 08:38 Dose: 10 mg Lovastatin (Mevacor) 20 mg PO BEDTIME [facility] Last Admin: 02/13/20 21:15 Dose: 20 mg Omeprazole (Prilosec) 20 mg PO QDAC [facility] Last Admin: 02/14/20 05:34 Dose: 20 mg Oxycodone HCl (Oxycodone) 10 mg PO TID [facility] Last Admin: 02/14/20 08:39 Dose: 10 mg Potassium Chloride (K-Dur) 20 meq PO [id number] [facility] Last Admin: 02/13/20 10:16 Dose: 20 meq Pregabalin (Lyrica) 75 mg PO DAILY [facility] Last Admin: 02/14/20 08:39 Dose: 75 mg DYAZIDE 37.5/25 MG 1 PO TWICE WEEKLY IPRATROPIUM-ALBUTEROL 1 VIAL INHALATION TID PRN METFORMIN 500 MG PO BID ZOFRAN 4 MG PO EVERY 12 HOURS PRN VASCEPA 1 GRAM PO BID REPATHA 140 MG IM EVERY OTHER WEEK LANTUS 75 UNITS SQ AT BEDTIME -- ( CHANGED) HUMULIN R REGULAR SQ PRN USE DR. BLANC PROTOCOL ACHS MOVANTIK 25 MG PO DAILY IN THE AM -- ( NEW) MACROBID 100 MG PO BID X 7 DAYS, START 02/15/2020 -- ( NEW) ALLERGIES codeine Adverse Reaction (Verified 02/12/20 17:32) Rash morphine Adverse Reaction (Verified 02/12/20 17:32) Vomiting DISCONTINUED MEDICATIONS NONE NEW PRESCRIPTIONS: MOVANTIK 25 MG PO DAILY IN THE AM ( SAMPLES FROM DR. MARTINEZ OFFICE PROVIDED AND LABELED) -- ( NEW) MACROBID 100 MG PO BID X 7 DAYS, START 02/15/2020 -- ( NEW) LANTUS 75 UNITS SQ AT BEDTIME -- ( CHANGED) SMOKING: SMOKING CESSATION DISEASE SPECIFIC EDUCATION: EFFECTS OF SMOKING UTI DM CHOLESTEROL HEART HEALTHY, 1800 ADA DIET COVID LAB REVIEW: 02/14/20 05:20 02/14/20 05:20 02/14/20 05:20: Free T4 1.07 02/14/20 05:20: Hemoglobin A1c 10.82 H D 02/14/20 05:20: Sodium 135.7, Potassium 4.94, Chloride 103.4, Carbon Dioxide 27.0, Anion Gap 10.24, BUN 16.9, Creatinine 0.72, Estimated GFR (MDRD) 85.00, BUN/Creatinine Ratio 23.47, Glucose 297.9 H, Calcium 9.18, Total Bilirubin 0.22, AST 47.8 H, ALT 40.1 H, Alkaline Phosphatase 143.0 H D, Total Protein 6.18 L, Albumin 3.72, Globulin 2.46, Albumin/Globulin Ratio 1.51, Triglycerides 466.6 H, Cholesterol 269.2 H, LDL Cholesterol, Calc , VLDL Cholesterol , HDL Cholesterol 34.1 L, Cholesterol/HDL Ratio 7.9 H, TSH 2.290 02/14/20 05:20: WBC 10.94 H, RBC 3.75 L, Hgb 11.5 L, Hct 34.3 L, MCV 91.5, MCH 30.7, MCHC 33.5, RDW Coeff of Barry 12.5, Plt Count 269, Immature Gran % (Auto) 0.5, Neut % (Auto) 42.3, Lymph % (Auto) 48.7, [place] % (Auto) 5.9, Eos % (Auto) 2. 1, Baso % (Auto) 0.5, Neut # (Auto) 4.6, Lymph # (Auto) 5.3 H, [place] # (Auto) 0.6, Eos # (Auto) 0.2, Baso # (Auto) 0.1, Immature Gran # (Auto) 0.1 PLAN: DISCHARGE HOME TODAY, TUESDAY, FEBRUARY 13 ACTIVITY: UP TOLERATED. WALK FREQUENTLY WITH REST PERIODS. DIET: HEART HEALTHY, 1800 ADA. DM MANAGEMENT: TAKE HOME MEDS CHECK BLOOD SUGARS BEFORE, UTILIZE INSULIN BEFORE. MD FOLLOW-UP: SEE DR. BLANC/CHRIS LACEY APRN/MIGEL BREAUX APRN IN THE OFFICE THURSDAY, FEBRUARY 20, 2020 @ 1030 AM. ANY QUESTIONS CALL DR. MARTINEZ OFFICE AT [phone]. IF DISTRESS PRESENT SELF TO LOCAL EMERGENCY ROOM DEPARTMENT. CODE STATUS: FULL CODE. M[facility] CLARK REMAINS ALERT AND ORIENTED X4. NO FURTHER NAUSEA OR VOMITING. NO ACUTE BACK/NECK OR LEG PAIN. OXYCODONE EFFECTIVE. DENIES ANY BURNING UPON URINATION. VERBALIZED BEING OUT OF HOME MEDS FOR A WHILE NOW AND WAS TO SEE DR. BLANC OR OFFICE STAFF ON ( 02/16/2020) FOR REFILLS. INSTRUCTED TO CALL DR OFFICE IF A REFILL IS NEEDED. SHE IS UP TOLERATED, INDEPENDENTLY, STEADY GAIT AND NO DIZZINESS OR WEAKNESS. APPETITE AND NUTRITIONAL INTAKE HAS BEEN GOOD EVEN WITH PERIODS OF NAUSEA. SKIN WARM AND DRY AND INTACT. CONTINENT OF BOWEL AND BLADDER. LAST BM 02/10/2020. NO ABDOMINAL PAIN, NAUSEA OR CRAMPING. PRUNE JUICE PROVIDED. MD CHRIS MERA APRN ALYCE HANNAN, APRN
[2020-02-14] MEDS: SODIUM CHLORIDE 1,000 ML IV SCH (11:11)
--- NOTE | 2020-02-14 13:08 | HP ---
DATE OF SERVICE: 02/12/20 HISTORY OF PRESENT ILLNESS: This is a 54-year-old white female who was admitted with a UTI. She came to the emergency room with nausea and vomiting. She has had this off and on for two weeks. She denied any abdominal pain. She did have a low grade fever. She is very noncompliant, uncontrolled diabetes mellitus type 2. PAST MEDICAL HISTORY: CAD Palpitations Fatigue Colitis Polycythemia Depression GERD Dyslipidemia Metabolic syndrome Hypertension Obesity Hyperproteinemia Mitral regurgitation Diabetes mellitus type 2 - last A1C was 11 Cyst on neck Renal artery [place] [address] Montelongo Noncompliance with medications, diet and lifestyle REVIEW OF SYSTEMS: CONSTITUTIONAL: Low grade fever. No night sweats. No fatigue, malaise, lethargy. No chills. HEENT: Eyes: No visual changes. No eye pain. No eye discharge. ENT: No runny nose. No epistaxis. No sinus pain. No sore throat. No odynophagia. No ear pain. No congestion. RESPIRATORY: No cough, no congestion. No hemoptysis. No shortness of breath. CARDIOVASCULAR: No angina symptoms. No CHF symptoms. No atypical chest pain for CAD. No palpitations. No PND. No orthopnea. GASTROINTESTINAL: Positive for nausea and vomiting. No abdominal pain. No diarrhea or constipation. No hematemesis. No hematochezia. GENITOURINARY: Dysuria. No urgency. No frequency. No hematuria. No obstructive symptoms. No discharge. No pain. No significant abnormal bleeding. MUSCULOSKELETAL: No musculoskeletal pain. No joint swelling. No arthritis. NEUROLOGICAL: No headache. No neck pain. No syncope. No seizures. No dizziness. PSYCHIATRIC: Not anxious. No depression. No suicidal thoughts. No homicidal thoughts. SKIN: No rash. No lesions. No wounds. ENDOCRINE: No unexplained weight loss. No weight gain. HEMATOLOGIC/LYMPHATIC: No anemia. No purpura. No petechiae. No prolonged or excessive bleeding. No palpable lymph nodes. PERSONAL/FAMILY/SOCIAL HISTORY: Family History is positive for colon cancer. Social History: She is a smoker. She is single. No alcohol or illicit drug use. MEDICATIONS: (HOME) Zetia 10 mg p.o. daily Plavix 75 mg p.o. daily Humulin R Regular-100 Insulin see protocol SQ a.c. h.s. p.r.n. Omeprazole 20 mg p.o. q.d a.c. Lantus U-100 Insulin 60 unit subcut bedtime Vascepa 1 gm p.o. b.i.d. Bisoprolol 5 mg p.o. daily Lisinopril 10 mg p.o. daily Pregabalin (Lyrica) 75 mg p.o. daily Diazepam 10 mg p.o. t.i.d. p.r.n. Citalopram (Celexa) 40 mg p.o. bedtime Repatha syringe 140 mg IM every other week Metformin 500 mg p.o. b.i.d. Lovastatin 20 mg p.o. bedtime Ipratropium-albuterol 0.5 mg-3 mg one vial INH t.i.d. p.r.n. Potassium Chloride (K-Dur) 20 mEq p.o. MoWeFr Triamterene-Hydrochlorothiazide one each p.o. two times per week p.r.n. Ondansetron 4 mg p.o. q.12h p.r.n. Bupropion 150 mg p.o. q.a.m. Oxycodone 10 mg p.o. t.i.d. ALLERGIES: CODEINE, MORPHINE PHYSICAL EXAMINATION: GENERAL: The patient is alert and oriented times three. HEENT: Head normocephalic, atraumatic. Eyes: Extraocular muscles are intact. Pupils are equal, round and reactive to light and accommodation. Ears: No lesions. Nose appeared normal. Throat: No exudate or erythema. NECK: Supple. No JVD, no carotid bruit. No lymphadenopathy or thyromegaly. LUNGS: Diminished breath sounds. Clear to auscultation. Percussion note normal. Chest symmetrical. HEART: S1, S2, no S3. No murmur. No cyanosis or clubbing. No ascites. Pulses: Dorsalis pedis and posterior tibial pulses +1 to +2 bilaterally. ABDOMEN: Soft. Nontender. Bowel sounds active. No CVA tenderness. No mass felt. EXTREMITIES: No edema. Full range of motion of all extremities, equal. PELVIC/EXTERNAL GENITALIA: Slight suprapubic tenderness. NEUROLOGIC: No focal deficit. Cranial nerves II through XII are grossly intact. No headache, no double vision or headache. SKIN: Not dry. Intact. Turgor - normal. LYMPHATIC: No palpable lymph nodes/no lymphedema. MUSCULOSKELETAL: Normal joints with no swelling. Muscle tone is normal. White count 18,000, hemoglobin 14, hematocrit 39.7, platelets 359. Sodium 132, potassium 4.3, BUN 18, creatinine 0.96, glucose 394, AST 39, ALT 31, alkaline phosphatase 141. Lactic acid 2.18. Urine is yellow, pH 5.5, protein negative, 2+ glucose, negative ketones, negative blood, positive nitrites, 2+ bacteria. ASSESSMENT: 1. ACUTE URINARY TRACT INFECTION 2. FEVER 3. UNCONTROLLED DIABETES MELLITUS TYPE 2 PLAN: 1. We will admit. 2. Routine telemetry orders. 3. CBC, CMP daily. 4. Levaquin 500 mg IV daily. 5. Tylenol for fever. 6. NS IV @ 75 cc/hr. 7. Zofran 4 mg IV q.6hr p.r.n. nausea. 8. ER has ordered an ultrasound of the abdomen due to the right upper quadrant pain. 9. Continue home medications. 10. Sliding scale for insulin. 11. Will monitor glucose. 12. Follow closely. TIME SPENT: More than 70 minutes. MTDD
--- NOTE | 2020-02-14 13:51 | PN ---
DATE OF SERVICE: 02/14/20 - Discharge Note SUBJECTIVE: The patient was seen and examined with the nurse practitioner. The patient is up and about doing well. No nausea, no vomiting. Cardiovascular status is stable. UTI is being treated with antibiotics. The patient's condition is stable. REVIEW OF SYSTEMS: CONSTITUTIONAL: No night sweats. No fatigue, malaise, lethargy. No fever or chills. HEENT: Eyes: No visual changes. No eye pain. No eye discharge. ENT: No runny nose. No epistaxis. No sinus pain. No sore throat. No odynophagia. No congestion. RESPIRATORY: No cough, no congestion. No hemoptysis. No shortness of breath. CARDIOVASCULAR: No angina symptoms. No CHF symptoms. No atypical chest pain for CAD. No palpitations. No PND. No orthopnea. GASTROINTESTINAL: No abdominal pain. No nausea or vomiting. No diarrhea or constipation. No hematemesis. No hematochezia. GENITOURINARY: No urgency. No frequency. No dysuria. No hematuria. No obstructive symptoms. No discharge. No pain. No significant abnormal bleeding. MUSCULOSKELETAL: No musculoskeletal pain; no joint swelling. NEUROLOGICAL: No headache. No neck pain. No syncope. No seizures. No dizziness. PSYCHIATRIC: Not anxious. No depression. No suicidal thoughts. No homicidal thoughts. SKIN: No rash. No lesions. No wounds. ENDOCRINE: No unexplained weight loss. No weight gain. HEMATOLOGIC/LYMPHATIC: No anemia. No purpura. No petechiae. No prolonged or excessive bleeding. No palpable lymph nodes. PHYSICAL EXAMINATION: HEENT: Head normocephalic, atraumatic. Eyes: Extraocular muscles are intact. Pupils are equal, round and reactive to light and accommodation. Ears: No lesions. Nose appeared normal. Throat: No exudate or erythema. NECK: Supple. No JVD, no carotid bruit. No lymphadenopathy or thyromegaly. LUNGS: Clear to auscultation. Percussion note normal. Chest symmetrical. HEART: S1, S2, no S3. No murmurs. No cyanosis or clubbing. No ascites. Pulses: Dorsalis pedis and posterior tibial pulses +1 to +2 bilaterally. ABDOMEN: Soft. Nontender. Bowel sounds active. No CVA tenderness. No mass felt. EXTREMITIES: No edema. Full range of motion of all extremities, equal. NEUROLOGIC: No focal deficit. Cranial nerves II through XII are grossly intact. No headache, no double vision or headache. SKIN: Not dry. Intact. Turgor - normal. LYMPHATIC: No palpable lymph nodes/no lymphedema. MUSCULOSKELETAL: Normal joints with no swelling. Muscle tone is normal. Condition is stable. Noncompliant of medications, diet, lifestyle with multiple comorbidities. Prognosis is poor. TIME SPENT: More than 30 minutes. Plan and coordination of the patient's care discussed in the presence of nurse. LASHANDA
--- NOTE | 2020-02-17 13:27 | DS ---
DATE OF SERVICE: 02/14/20 FINAL DIAGNOSIS: 1. UTI - E-COLI PER C/S 02/13- IMPROVING 2. ACUTE GASTROENTERITIS- IMPROVED 3. WEAKNESS 4. DIABETES MELLITUS TYPE 2 5. HYPERTENSION 6. DYSLIPIDEMIA 7. NON-COMPLIANCE: MEDS,DIET, LIFESTYLE AND FOLLOW-UP HX: 8. PYELONEPHRITIS 9. UTI- E- COLI 10. COPD 11. HYPERTENSION 12. PERIPHERAL ARTERY DISEASE 13. DIABETES MELLITUS, TYPE 2 14. OBESITY, BMI 30.5 15. DYSLIPIDEMIA 16. GERD 17. DEPRESSION 18. ANXIETY 19. OSTEOARTHRITIS 20. CONTINUED SMOKING 21. SLEEP APNEA -- USES CPAP 22. NON-COMPLIANT OF MEDS, DIET, LIFESTYLE AND FOLLOW-UPS DISCHARGE INSTRUCTIONS: 1. DISCHARGE HOME TODAY, TUESDAY, FEBRUARY 13 DM MANAGEMENT: TAKE HOME MEDS CHECK BLOOD SUGARS BEFORE, UTILIZE INSULIN BEFORE. 2. MD FOLLOW-UP: SEE DR. BLANC/CHRIS LACEY APRN/MIGEL BREAUX APRN IN THE OFFICE THURSDAY, FEBRUARY 20, 2020 @ 1030 AM. ANY QUESTIONS CALL DR. MARTINEZ OFFICE AT [phone]. IF DISTRESS PRESENT SELF TO LOCAL EMERGENCY ROOM DEPARTMENT. 3. CODE STATUS: FULL CODE. MEDICATIONS AT DISCHARGE: Bisoprolol Fumarate (Zebeta) 5 mg PO DAILY [facility] Last Admin: 02/14/20 08:38 Dose: 5 mg Bupropion HCl (Wellbutrin Xl) 150 mg PO QAM [facility] Last Admin: 02/14/20 08:39 Dose: 150 mg Citalopram Hydrobromide (Celexa) 40 mg PO BEDTIME [facility] Last Admin: 02/13/20 21:14 Dose: 40 mg Clopidogrel Bisulfate (Plavix) 75 mg PO DAILY [facility] Last Admin: 02/14/20 08:38 Dose: 75 mg Diazepam (Valium) 10 mg PO TID PRN PRN Reason: Anxiety Last Admin: 02/13/20 21:22 Dose: 10 mg Ezetimibe (Zetia) 10 mg PO DAILY [facility] Last Admin: 02/14/20 08:39 Dose: 10 mg Lisinopril (Zestril) 10 mg PO DAILY [facility] Last Admin: 02/14/20 08:38 Dose: 10 mg Lovastatin (Mevacor) 20 mg PO BEDTIME [facility] Last Admin: 02/13/20 21:15 Dose: 20 mg Omeprazole (Prilosec) 20 mg PO QDAC [facility] Last Admin: 02/14/20 05:34 Dose: 20 mg Oxycodone HCl (Oxycodone) 10 mg PO TID [facility] Last Admin: 02/14/20 08:39 Dose: 10 mg Potassium Chloride (K-Dur) 20 meq PO [id number] [facility] Last Admin: 02/13/20 10:16 Dose: 20 meq Pregabalin (Lyrica) 75 mg PO DAILY [facility] Last Admin: 02/14/20 08:39 Dose: 75 mg DYAZIDE 37.5/25 MG 1 PO TWICE WEEKLY IPRATROPIUM-ALBUTEROL 1 VIAL INHALATION TID PRN METFORMIN 500 MG PO BID ZOFRAN 4 MG PO EVERY 12 HOURS PRN VASCEPA 1 GRAM PO BID REPATHA 140 MG IM EVERY OTHER WEEK LANTUS 75 UNITS SQ AT BEDTIME -- ( CHANGED) HUMULIN R REGULAR SQ PRN USE DR. BLANC PROTOCOL ACHS MOVANTIK 25 MG PO DAILY IN THE AM -- ( NEW) MACROBID 100 MG PO BID X 7 DAYS, START 02/15/2020 -- ( NEW) NEW PRESCRIPTIONS: MOVANTIK 25 MG PO DAILY IN THE AM ( SAMPLES FROM DR. MARTINEZ OFFICE PROVIDED AND LABELED) -- ( NEW) MACROBID 100 MG PO BID X 7 DAYS, START 02/15/2020 -- ( NEW) LANTUS 75 UNITS SQ AT BEDTIME -- (CHANGED) DISCONTINUED MEDICATIONS: NONE DIET INSTRUCTIONS: HEART HEALTHY, 1800 [address]. ACTIVITY: UP TOLERATED. WALK FREQUENTLY WITH REST PERIODS. SMOKING: SMOKING CESSATION DISEASE SPECIFIC EDUCATION: EFFECTS OF SMOKING UTI DM CHOLESTEROL HEART HEALTHY, 1800 ADA DIET [facility]: 54-year-old white female presented to the ER with mild to moderate nausea and vomiting that had been ongoing for approximately two weeks. This was accompanied with fever. Her UA was abnormal. Culture was positive for E. coli. She was begun on Levaquin IV. She was switched to Rocephin. She responded well to IV antibiotics. There was no further fever or vomiting for 48 hours. She did have a right upper quadrant ultrasound which was normal except fatty liver. The patient is noncompliant and has uncontrolled diabetes Type 2. She was discharged on Macrobid 100 mg b.i.d. orally for 7 days. She is discharged in stable condition. She is to followup in the office in one week. LAB REVIEW: 02/14/20 05:20: Free T4 1.07 02/14/20 05:20: Hemoglobin A1c 10.82 H D 02/14/20 05:20: Sodium 135.7, Potassium 4.94, Chloride 103.4, Carbon Dioxide 27.0, Anion Gap 10.24, BUN 16.9, Creatinine 0.72, Estimated GFR (MDRD) 85.00, BUN/Creatinine Ratio 23.47, Glucose 297.9 H, Calcium 9.18, Total Bilirubin 0.22, AST 47.8 H, ALT 40.1 H, Alkaline Phosphatase 143.0 H D, Total Protein 6.18 L, Albumin 3.72, Globulin 2.46, Albumin/Globulin Ratio 1.51, Triglycerides 466.6 H, Cholesterol 269.2 H, LDL Cholesterol, Calc , VLDL Cholesterol , HDL Cholesterol 34.1 L, Cholesterol/HDL Ratio 7.9 H, TSH 2.290 02/14/20 05:20: WBC 10.94 H, RBC 3.75 L, Hgb 11.5 L, Hct 34.3 L, MCV 91.5, MCH 30.7, MCHC 33.5, RDW Coeff of Barry 12.5, Plt Count 269, Immature Gran % (Auto) 0.5, Neut % (Auto) 42.3, Lymph % (Auto) 48.7, [place] % (Auto) 5.9, Eos % (Auto) 2.1, Baso % (Auto) 0.5, Neut # (Auto) 4.6, Lymph # (Auto) 5.3 H, [place] # (Auto) 0.6, Eos # (Auto) 0.2, Baso # (Auto) 0.1, Immature Gran # (Auto) 0.1 TIME SPENT: More than 60 minutes. MTDD
== END 2020-02-14 12:30 | disposition home or self-care (01) | DRG 392 ==
LOC: ED 17:25 → MEDSURG B 19:35
PROVIDERS: ADMIT Internal Medicine; ATTEND Internal Medicine
DX: E88.81 Metabolic syndrome and other insulin resistance; R10.11 Right upper quadrant pain; Z87.19 Personal history of other diseases of the digestive system; G47.30 Sleep apnea, unspecified; K21.9 Gastro-esophageal reflux disease without esophagitis; Z68.30 Body mass index [BMI] 30.0-30.9, adult; Z79.4 Long term (current) use of insulin; I10 Essential (primary) hypertension; R00.0 Tachycardia, unspecified; N39.0 Urinary tract infection, site not specified; I73.9 Peripheral vascular disease, unspecified; I25.10 Atherosclerotic heart disease of native coronary artery without angina pectoris; K52.9 Noninfective gastroenteritis and colitis, unspecified; E11.65 Type 2 diabetes mellitus with hyperglycemia; Z91.19 Patient's noncompliance with other medical treatment and regimen; F32.9 Major depressive disorder, single episode, unspecified; R11.2 Nausea with vomiting, unspecified; N10 Acute pyelonephritis; E66.9 Obesity, unspecified; R53.1 Weakness; F17.210 Nicotine dependence, cigarettes, uncomplicated; R50.9 Fever, unspecified; F41.9 Anxiety disorder, unspecified; J44.9 Chronic obstructive pulmonary disease, unspecified; R82.90 Unspecified abnormal findings in urine; M19.90 Unspecified osteoarthritis, unspecified site; B96.20 Unspecified Escherichia coli [E. coli] as the cause of diseases classified elsewhere; E78.5 Hyperlipidemia, unspecified; K76.0 Fatty (change of) liver, not elsewhere classified; Z79.899 Other long term (current) drug therapy; Z51.81 Encounter for therapeutic drug level monitoring

== ENCOUNTER 2020-06-03 12:59 | Inpatient (IN) ==
[2020-06-03 13:08] VITALS: BMI 28.8
[2020-06-03] MEDS ORDERED: SODIUM CHLORIDE 1,000 ML IV STA (13:31)
[2020-06-03 14:06] LABS: BASOPHILS # (AUTO) 0.1 K/uL (0-0.2); BASOPHILS % (AUTO) 0.5 % (0.0-3.0); EOSINOPHILS # (AUTO) 0.2 K/ul (0.0-0.7); EOSINOPHILS % (AUTO) 1.2 % (0.0-7.0); HEMATOCRIT 39.4 % (37.0-47.0); HEMOGLOBIN 13.7 g/dl (12.0-16.0); IMMATURE GRANULOCYTE # (AUTO) 0.1 (0.0-1.0); IMMATURE GRANULOCYTE % (AUTO) 0.6 % (0.0-5.0); LYMPHOCYTES # (AUTO) 4.3 K/uL (0.60-3.4); LYMPHOCYTES % (AUTO) 33.2 (10.0-50.0); MEAN CORPUSCULAR HEMOGLOBIN 30.4 pg (27.0-31.0); MEAN CORPUSCULAR HGB CONC 34.8 (31.8-35.4); MEAN CORPUSCULAR VOLUME 87.4 fl (81.0-99.0); MONOCYTES # (AUTO) 0.6 K/uL (0.4-2.0); MONOCYTES % (AUTO) 4.7 (0-10); NEUTROPHILS # (AUTO) 7.7 K/ul (2.0-6.9); NEUTROPHILS % (AUTO) 59.8 % (42.2-75.2); PLATELET COUNT 404 10^3/uL (140-440); RDW COEFFICIENT OF VARIATION 12.7 % (11.6-14.8); RED BLOOD COUNT 4.51 10^6/ul (4.20-5.40)
[2020-06-03 14:14] LABS: ALANINE AMINOTRANSFERASE 23.9 U/L (0-35); ALBUMIN 4.36 g/dL (3.5-5.0); ALKALINE PHOSPHATASE 139.7 U/L (38-126); ASPARTATE AMINO TRANSFERASE 36.2 U/L (14-36); BILIRUBIN,TOTAL 0.45 mg/dL (0.2-1.3); BLOOD UREA NITROGEN 13.3 mg/dL (7-17); CALCIUM 10.38 mg/dL (8.4-10.2); CARBON DIOXIDE 23.4 mmol/L (22-30.0); CHLORIDE 101.6 mmol/L (98-107); CREATINE KINASE 182.7 U/L (30-135); CREATININE 0.75 mg/dL (0.60-1.30); GLUCOSE 271.1 mg/dL (74-106); POTASSIUM 4.09 mmol/L (3.5-5.1); SODIUM 136.2 mmol/L (134.5-145); TOTAL PROTEIN 7.58 g/dL (6.3-8.2)
[2020-06-03 14:25] LABS: MOLECULAR FLU A NEGATIVE BY NAAT (NEGATIVE); MOLECULAR FLU B NEGATIVE BY NAAT (NEGATIVE)
[2020-06-03 14:29] LABS: CREATINE KINASE MB 0.975 ng/ml (0.0-2.38)
[2020-06-03 14:35] LABS: WHITE BLOOD COUNT 12.93 K/ul (4.6-10.2)
[2020-06-03 14:36] LABS: BILIRUBIN,URINE Negative (NEGATIVE); CLARITY,URINE Slightly (CLEAR); COLOR,URINE Dark (YELLOW); GLUCOSE, URINE (UA) 2+ (NEGATIVE); KETONES,URINE Negative (NEGATIVE); LEUKOCYTE ESTERASE ,URINE 1+ (NEGATIVE); NITRITE,URINE Positive (NEGATIVE); PH,URINE 5.5 (5-9); PROTEIN,URINE 1+ (NEGATIVE); URINE, BLOOD 2+ (NEGATIVE); UROBILINOGEN,URINE 0.2 (0.2)
[2020-06-03 14:40] LABS: BACTERIA,URINE 1+ (NOT PRESENT)
[2020-06-03 14:40] LABS: ERYTHROCYTE SEDIMENTATION RATE 15 mm/hr (0-20)
[2020-06-03 14:48] LABS: AMPHETAMINE SCREEN,URINE POSITIVE (NEGATIVE); BARBITURATE SCREEN,URINE NEGATIVE (NEGATIVE); BENZODIAZEPINES SCREEN,URINE POSITIVE (NEGATIVE); CANNABINOID SCREEN,URINE NEGATIVE (NEGATIVE); COCAIN SCREEN,URINE NEGATIVE (NEGATIVE); METHADONE URINE SCREEN NEGATIVE (NEGATIVE); METHAMPHETAMINES SCREEN,URINE POSITIVE (NEGATIVE); OPIATE SCREEN,URINE NEGATIVE (NEGATIVE); OXYCODONE URINE SCREEN NEGATIVE (NEGATIVE); PHENCYCLIDINE SCREEN,URINE NEGATIVE (NEGATIVE); PROPOXYPHENE URINE SCREEN NEGATIVE (NEGATIVE); TRICYCLIC ANTIDEPRESSANTS URIN NEGATIVE (NEGATIVE)
[2020-06-03] MEDS ORDERED: TYLENOL PO STA (15:09)
--- NOTE | 2020-06-03 15:21 | ED.PDOC ---
General ED Provider: Dr. CHESTER SANDOVAL Chief Complaint: Non-specific Complaint Stated Complaint: Dry non productive cough, fever chills and back aching. Cough for 2 months Time Seen by Physician: 13:20 Mode of Arrival: Walk-In Information Source: Patient Exam Limitations: No limitations Primary Care Provider: VINOD SIERRA Nursing and Triage Documentation Reviewed and Agree: Yes Does patient meet sepsis criteria?: Yes If yes, has appropriate treatment been initiated?: Yes System Inflammatory Response Syndrome: Temp 101F or Greater and Pulse >90 BPM Sepsis Protocol: For patient's 13 years and over: Temp is 96.8 and below OR 101 and greater Pulse >90 BPM Resp >20/minute Acutely Altered Mental Status Are patient's symptoms suggestive of a new infection, such as: -Pneumonia -Skin, Soft Tissue -Endocarditis -UTI -Bone, Joint Infection -Implantable Device -Acute Abdominal Infection -Wound Infection -Meningitis -Blood Stream Catheter Infection -Unknown Respiratory Complaint Exam Respiratory Complaint/Exam Onset/Duration: Over 2 weeks Symptoms Are: Still present Timing: Intermittent Initial Severity: Moderate Current Severity: Moderate Location: Chest Character: Reports Non-productive cough Aggravating: Reports Recumbent position Alleviating: Reports None Associated Signs and Symptoms: Reports Dyspnea, Fever, Wheezing and URI Related History: Denies Similar episode History of Healthcare-Acquired Pneumonia: No Related Surgical History: Reports None Pulmonary Embolism Risk Factors: None Cardiac Risk Factors: Reports None Pseudomonas Risk Factors: Reports None Tuberculosis Risk Factors: Reports None; Denies Drug addiction and Smoking Status Asthmaticus Risk Factors: Reports None Home Oxygen Use: No Recent Stress Test: No Recent Echo/LV Function: No Current Antibiotic Use: No Current Asthma Medication Use: No Respiratory Distress: None Inadequate Respiratory Effort: No Dysphagia Present: No Stridor Present: No Retractions: Not Present Diminished Breath Sounds: No Sinus Tenderness: None Grunting Respirations: No Kussmaul Respirations: No Differential Diagnoses: Pneumonia Quality Indicators For Pneumonia: Blood Cultures-SCU admit Review of Systems Review Of Systems Constitutional: Reports Chills, Fever, Malaise, Weakness, Sweats and Loss of appetite Eyes: Reports No symptoms Ears, Nose, Mouth, Throat: Reports No symptoms Respiratory: Reports Cough and Wheezing Cardiac: Reports No symptoms GI: Reports Nausea : Reports Dysuria Musculoskeletal: Reports No symptoms Skin: Reports No symptoms Neurological: Reports No symptoms Endocrine: Reports No symptoms Hematologic/Lymphatic: Reports No symptoms All Other Systems: Reviewed and Negative [facility] Medical History (Updated 06/03/20 @ 17:22 by CHESTER SANDOVAL DO) Anxiety COPD (chronic obstructive pulmonary disease) Depression Diabetes Hyperlipemia Hypertension PAD (peripheral artery disease) Social History Smoking and tobacco status: Current every day smoker Alcohol intake: never Substance use type: does not use History of recent travel: No Surgical History (Updated 02/13/20 @ 07:58 by OWEN MOCK) H/O hernia repair H/O: hysterectomy Female Reproductive History Menstrual Hx Hysterectomy: Yes Hx Tubal Ligation: No Physical Exam Physical Exam Appearance: Reports Well-appearing, No pain distress and Well-nourished Ill-appearing: Mild Pain Distress: Mild Eyes: Reports ELOISA, EOMI and Conjunctiva clear ENT: Reports Ears normal, Nose normal and Oropharynx normal Neck: Supple Respiratory: Reports Airway patent, Breath sounds clear, Breath sounds equal and Respirations nonlabored Cardiovascular: Reports RRR, Pulses normal, No rub and No murmur GI/: Reports Soft, No masses, Bowel sounds normal, No Organomegaly and Tender (suprapubic region ) Musculoskeletal: Reports Normal strength, ROM intact, No edema and No calf tenderness Skin: Reports Warm, Dry and Normal color Neurological: Reports Sensation intact, Motor intact, Reflexes intact, Cranial nerves intact, Alert and Oriented Psychiatric: Reports Affect appropriate and Mood appropriate Physician Notification Case Discussed Physician Notified: Dr Sierra -admit for urosepsis covid R/O Time of Notification: 17:23 Critical Care Note Critical Care Note Total Critical Care Time (mins): 60 Course Course Hematology/Chemistry: 06/03/20 13:40 06/03/20 13:40 Orders, Labs, Meds: Lab Review 06/03/20 06/03/20 06/03/20 13:30 13:40 13:40 WBC 12.93 H RBC 4.51 Hgb 13.7 Hct 39.4 MCV 87.4 MCH 30.4 MCHC 34.8 RDW Coeff of Barry 12.7 Plt Count 404 Immature Gran % (Auto) 0.6 Neut % (Auto) 59.8 Lymph % (Auto) 33.2 [place] % (Auto) 4.7 Eos % (Auto) 1.2 Baso % (Auto) 0.5 Neut # (Auto) 7.7 H Lymph # (Auto) 4.3 H [place] # (Auto) 0.6 Eos # (Auto) 0.2 Baso # (Auto) 0.1 Immature Gran # (Auto) 0.1 ESR 15 Sodium 136.2 Potassium 4.09 Chloride 101.6 Carbon Dioxide 23.4 Anion Gap 15.29 BUN 13.3 Creatinine 0.75 Estimated GFR (MDRD) 81.00 BUN/Creatinine Ratio 17.73 Glucose 271.1 H Lactic Acid Calcium 10.38 H Total Bilirubin 0.45 AST 36.2 H ALT 23.9 Alkaline Phosphatase 139.7 H Total Creatine Kinase 182.7 H CK-MB (CK-2) 0.975 CK-MB (CK-2) % 0.5300 Total Protein 7.58 Albumin 4.36 Globulin 3.22 Albumin/Globulin Ratio 1.35 Lipase 576.0 H Procalcitonin Urine Color Urine Clarity Urine pH Ur Specific [place] Urine Protein Urine Glucose (UA) Urine Ketones Urine Blood Urine Nitrite Urine Bilirubin Urine Urobilinogen Ur Leukocyte Esterase Urine Microscopic WBC Ur Squamous Epith Cells Urine Bacteria Urine Opiates Screen Ur Oxycodone Screen Urine Methadone Screen Ur Propoxyphene Screen Ur Barbiturates Screen U Tricyclic Antidepress Ur Phencyclidine Scrn Ur Amphetamine Screen U Methamphetamines Scrn U Benzodiazepines Scrn Urine Cocaine Screen U Cannabinoids Screen Influ A Molecular Assay Negative by naat Influ B Molecular Assay Negative by naat 06/03/20 06/03/20 06/03/20 13:40 13:40 14:20 WBC RBC Hgb Hct MCV MCH MCHC RDW Coeff of Barry Plt Count Immature Gran % (Auto) Neut % (Auto) Lymph % (Auto) [place] % (Auto) Eos % (Auto) Baso % (Auto) Neut # (Auto) Lymph # (Auto) [place] # (Auto) Eos # (Auto) Baso # (Auto) Immature Gran # (Auto) ESR Sodium Potassium Chloride Carbon Dioxide Anion Gap BUN Creatinine Estimated GFR (MDRD) BUN/Creatinine Ratio Glucose Lactic Acid 2.88 H Calcium Total Bilirubin AST ALT Alkaline Phosphatase Total Creatine Kinase CK-MB (CK-2) CK-MB (CK-2) % Total Protein Albumin Globulin Albumin/Globulin Ratio Lipase Procalcitonin < 0.05 Urine Color Dark Urine Clarity Slightly Urine pH 5.5 Ur Specific [place] 1.025 Urine Protein 1+ H Urine Glucose (UA) 2+ H Urine Ketones Negative Urine Blood 2+ H Urine Nitrite Positive H Urine Bilirubin Negative Urine Urobilinogen 0.2 Ur Leukocyte Esterase 1+ H Urine Microscopic WBC 5-10 Ur Squamous Epith Cells 5-10 Urine Bacteria 1+ Urine Opiates Screen Ur Oxycodone Screen Urine Methadone Screen Ur Propoxyphene Screen Ur Barbiturates Screen U Tricyclic Antidepress Ur Phencyclidine Scrn Ur Amphetamine Screen U Methamphetamines Scrn U Benzodiazepines Scrn Urine Cocaine Screen U Cannabinoids Screen Influ A Molecular Assay Influ B Molecular Assay 06/03/20 14:20 WBC RBC Hgb Hct MCV MCH MCHC RDW Coeff of Barry Plt Count Immature Gran % (Auto) Neut % (Auto) Lymph % (Auto) [place] % (Auto) Eos % (Auto) Baso % (Auto) Neut # (Auto) Lymph # (Auto) [place] # (Auto) Eos # (Auto) Baso # (Auto) Immature Gran # (Auto) ESR Sodium Potassium Chloride Carbon Dioxide Anion Gap BUN Creatinine Estimated GFR (MDRD) BUN/Creatinine Ratio Glucose Lactic Acid Calcium Total Bilirubin AST ALT Alkaline Phosphatase Total Creatine Kinase CK-MB (CK-2) CK-MB (CK-2) % Total Protein Albumin Globulin Albumin/Globulin Ratio Lipase Procalcitonin Urine Color Urine Clarity Urine pH Ur Specific [place] Urine Protein Urine Glucose (UA) Urine Ketones Urine Blood Urine Nitrite Urine Bilirubin Urine Urobilinogen Ur Leukocyte Esterase Urine Microscopic WBC Ur Squamous Epith Cells Urine Bacteria Urine Opiates Screen Negative Ur Oxycodone Screen Negative Urine Methadone Screen Negative Ur Propoxyphene Screen Negative Ur Barbiturates Screen Negative U Tricyclic Antidepress Negative Ur Phencyclidine Scrn Negative Ur Amphetamine Screen Positive H U Methamphetamines Scrn Positive H U Benzodiazepines Scrn Positive H Urine Cocaine Screen Negative U Cannabinoids Screen Negative Influ A Molecular Assay Influ B Molecular Assay Orders Category Date Time Status ABG DRAW REQUEST Stat CARDIO 06/03/20 17:17 Ordered EKG-(ED ONLY) Stat CARDIO 06/03/20 17:17 Ordered IV [ED IV/MEDIPORT/POWERPORT] .ONCE EMERGENCY 06/03/20 13:32 Active ABG Stat LAB 06/03/20 17:17 Ordered BLOOD CULTURE (ED ONLY) Stat LAB 06/03/20 13:40 Received CBC W/ AUTO DIFF Stat LAB 06/03/20 13:40 Completed CMP [COMPREHENSIVE METABOLIC PANEL] Stat LAB 06/03/20 13:40 Completed COVID19, PCR [facility] Stat LAB 06/03/20 13:30 Received CPK [CREATINE KINASE] Stat LAB 06/03/20 13:40 Completed ESR Stat LAB 06/03/20 13:40 Completed FLU A & B MOLECULAR [FLU A/B MOLECULAR] Stat LAB 06/03/20 13:30 Completed LACTIC ACID Stat LAB 06/03/20 13:40 Completed LIPASE Stat LAB 06/03/20 13:40 Completed PROCALCITONIN Stat LAB 06/03/20 13:40 Completed RAPID STREP SCREEN [MOLECULAR GROUP A STREP] Stat LAB 06/03/20 13:30 Completed SPUTUM CULTURE Stat LAB 06/03/20 13:32 Uncollected UA [URINALYSIS C & S IF INDICATED] Stat LAB 06/03/20 14:20 Completed URINE CULTURE Stat LAB 06/03/20 14:20 Received URINE DRUG SCREEN (RAPID FOR ED) [DRUG SCREEN, URINE, LAB 06/03/20 14:20 Completed RAPID] Stat 0.9 % Sodium Chloride [Saline Flush] MEDS 06/03/20 13:31 Active 1 syr IVF PRN PRN Acetaminophen [Tylenol] MEDS 06/03/20 15:09 Discontinued 650 mg PO ONCE STA Aztreonam [Azactam] 1 gm MEDS 06/03/20 17:17 Active 0.9 % Sodium Chloride [Sodium Chloride] 50 ml IV ONCE Ceftriaxone/D5w 1 gm Premix [Rocephin 1 gm/50 ml D5w] MEDS 06/03/20 15:23 Discontinued 1 gm in 50 ml IV ONCE Sodium Chloride 0.9% [Sodium Chloride] 1,000 ml MEDS 06/03/20 13:31 Discontinued IV BOLUS CHEST, 1V AP ONLY Stat RADS 06/03/20 15:22 Completed Medications Generic Name Dose Route Start Last Admin Trade Name Freq PRN Reason Stop Dose Admin Aztreonam 1 gm/ Sodium 50 mls @ 75 mls/hr 06/03/20 17:17 Chloride IV 06/03/20 17:56 ONCE STA Sodium Chloride 1 syr 06/03/20 13:31 06/03/20 15:47 0.9% Sodium Chloride 10 Ml Disp.Syrin IVF 1 syr PRN PRN Administration To flush IV Discontinued Medications Generic Name Dose Route Start Last Admin Trade Name Caroline PRN Reason Stop Dose Admin Acetaminophen 650 mg 06/03/20 15:09 06/03/20 15:47 Acetaminophen 325 Mg Tablet PO 06/03/20 15:10 650 mg ONCE STA Administration Sodium Chloride 1,000 mls @ 1,000 mls/hr 06/03/20 13:31 06/03/20 15:47 Sodium Chloride IV 06/03/20 14:30 1,000 mls/hr BOLUS STA Administration CEFTRIAXONE/D5W 1 GM PREMIX 1 gm in 50 mls @ 75 mls/hr 06/03/20 15:23 06/03/20 15:48 Rocephin 1 Gm/50 Ml D5w IV 06/03/20 16:02 75 mls/hr ONCE STA Administration Vital Signs: Temp Pulse Resp BP Pulse Ox 06/03/20 13:00 101.3 F H 109 H 18 151/87 H 96 Discharge Plan Discharge Patient Disposition: ADMITTED INPATIENT Discharge Problem: Pyelonephritis, Diabetes, URI with cough and congestion ED Provider: CHESTER SANDOVAL Physician Progress Note: [] Additional Information: Discussed results urine drug screen Denies use of Meth but shared a pipe of cannabis at a libertarian 2-3 days ago/cautioned patient about this type of activity and chance of being exposed to lethal dose of elicit drugs leading to
[2020-06-03] MEDS ORDERED: ROCEPHIN 1 GM/50 ML D5W 1 GM/50 ML BAG IV STA (15:23)
--- NOTE | 2020-06-03 15:45 | DI ---
EXAM: Single, portable AP view(s) chest. HISTORY: Cough congestion. COMPARISON: 02/12/2020 TECHNIQUE: Single, portable AP view(s) of the chest. FINDINGS: Lungs: The lung voulmes are normal.The lungs are clear without consolidation or effusion. There are n o suspicious nodules. There is no pneumothorax. Cardiovascular: The heart size and pulmonary vasculature is normal.. The aorta is unremarkable. Carol/Mediastinum: Normal. Osseous structures. Normal for age. IMPRESSION: No acute pulmonary disease.
[2020-06-03] MEDS ORDERED: AZACTAM 1 GM in SODIUM CHLORIDE 50 ML IV STA (17:17)
[2020-06-03] MEDS ORDERED: AZACTAM ONE (17:26)
[2020-06-03] MEDS ORDERED: ZOFRAN 4 MG/2 ML IVP PRN (17:39)
[2020-06-03] MEDS ORDERED: SODIUM CHLORIDE 1,000 ML IV SCH (18:00)
[2020-06-03 18:04] LABS: ABG BASE EXCESS -1 (-2.0-2.0); ABG HCO3 23.1 (22.0-26.0); ABG PCO2 35.8 mmHg (35-45); ABG PH 7.417 (7.35-7.45); ABG TCO2 24 (22.0-28.0)
[2020-06-03] MEDS ORDERED: PROAIR HFA (SINGLE PATIENT USE) IH STA (18:05)
[2020-06-03] MEDS ORDERED: VENTOLIN HFA (PER PUFF-WITH SPACER) IH PRN (18:34)
[2020-06-03] MEDS ORDERED: DYAZIDE PO PRN (18:35)
[2020-06-03] MEDS ORDERED: ONDANSETRON HCL 4 MG PO PRN (18:35)
[2020-06-03] MEDS: TORADOL IVP PRN (18:43)
[2020-06-03] MEDS: LOVENOX SUBCUT SCH (18:43)
[2020-06-03] MEDS: SOLU-MEDROL 125 MG IVP SCH ×2 (18:43→20:37)
[2020-06-03] MEDS ORDERED: EVOLOCUMAB 140 MG/ML IM SCH (18:45)
[2020-06-03] MEDS ORDERED: HUMULIN R SUBCUT PRN (19:52)
[2020-06-03] MEDS: GLUCOPHAGE PO SCH (20:22)
[2020-06-03] MEDS: LANTUS SUBCUT SCH (20:22)
[2020-06-03] MEDS: OXYCODONE PO SCH (20:22)
[2020-06-03] MEDS: MEVACOR PO SCH (20:22)
[2020-06-03] MEDS: CELEXA PO SCH (20:22)
[2020-06-03] MEDS: ICOSAPENT ETHYL 1 GM PO SCH (20:45)
[2020-06-03] MEDS: TYLENOL PO PRN (21:46)
[2020-06-04] MEDS ORDERED: CITRATE OF MAGNESIA PO STA (01:37)
[2020-06-04] MEDS ORDERED: CITRATE OF MAGNESIA ONE (01:40)
[2020-06-04] MEDS: TORADOL IVP PRN (01:41)
[2020-06-04 05:09] LABS: ALBUMIN 4.28 g/dL (3.5-5.0); ALKALINE PHOSPHATASE 149.6 U/L (38-126); ASPARTATE AMINO TRANSFERASE 37.8 U/L (14-36); BILIRUBIN,TOTAL 0.32 mg/dL (0.2-1.3); BLOOD UREA NITROGEN 20.8 mg/dL (7-17); CALCIUM 9.71 mg/dL (8.4-10.2); CARBON DIOXIDE 21.8 mmol/L (22-30.0); CHLORIDE 98.6 mmol/L (98-107); CREATININE 0.78 mg/dL (0.60-1.30); GLUCOSE 486.4 mg/dL (74-106); POTASSIUM 4.86 mmol/L (3.5-5.1); SODIUM 132.7 mmol/L (134.5-145); TOTAL PROTEIN 7.37 g/dL (6.3-8.2)
[2020-06-04 05:16] LABS: ALANINE AMINOTRANSFERASE 32.7 U/L (0-35)
[2020-06-04] MEDS: SOLU-MEDROL 125 MG IVP SCH (05:19)
[2020-06-04] MEDS ORDERED: HUMULIN R ONE (05:39)
[2020-06-04] MEDS: PRILOSEC PO SCH (05:41)
[2020-06-04] MEDS: NICODERM 21 MG TD SCH ×2 (05:49→10:11)
[2020-06-04 07:55] LABS: BASOPHILS # (AUTO) 0.1 K/uL (0-0.2); BASOPHILS % (AUTO) 0.3 % (0.0-3.0); HEMATOCRIT 39.9 % (37.0-47.0); HEMOGLOBIN 13.5 g/dl (12.0-16.0); IMMATURE GRANULOCYTE # (AUTO) 0.1 (0.0-1.0); IMMATURE GRANULOCYTE % (AUTO) 0.7 % (0.0-5.0); LYMPHOCYTES # (AUTO) 2.1 K/uL (0.60-3.4); LYMPHOCYTES % (AUTO) 14.4 (10.0-50.0); MEAN CORPUSCULAR HEMOGLOBIN 30.3 pg (27.0-31.0); MEAN CORPUSCULAR HGB CONC 33.8 (31.8-35.4); MEAN CORPUSCULAR VOLUME 89.7 fl (81.0-99.0); MONOCYTES # (AUTO) 0.1 K/uL (0.4-2.0); MONOCYTES % (AUTO) 0.9 (0-10); NEUTROPHILS # (AUTO) 12.2 K/ul (2.0-6.9); NEUTROPHILS % (AUTO) 83.7 % (42.2-75.2); PLATELET COUNT 425 10^3/uL (140-440); RDW COEFFICIENT OF VARIATION 12.6 % (11.6-14.8); RED BLOOD COUNT 4.45 10^6/ul (4.20-5.40); WHITE BLOOD COUNT 14.62 K/ul (4.6-10.2)
[2020-06-04] MEDS ORDERED: ZOFRAN TAB PO PRN (07:59)
[2020-06-04 08:41] LABS: TRIGLYCERIDES 831.7 mg/dL (0-150)
[2020-06-04] MEDS: ZITHROMAX PO SCH (08:41)
[2020-06-04] MEDS: ZESTRIL PO SCH (08:42)
[2020-06-04] MEDS: ZEBETA PO SCH (08:42)
[2020-06-04] MEDS: LYRICA PO SCH (08:42)
[2020-06-04] MEDS: WELLBUTRIN XL PO SCH (08:42)
[2020-06-04] MEDS: GLUCOPHAGE PO SCH ×2 (08:43→20:18)
[2020-06-04] MEDS: PLAVIX PO SCH (08:43)
[2020-06-04] MEDS: ZETIA PO SCH (08:43)
[2020-06-04] MEDS: ICOSAPENT ETHYL 1 GM PO SCH ×2 (08:43→21:09)
[2020-06-04] MEDS: NON-FORMULARY MEDICATION (Naloxegol [Movantik] 25 mg Tablet) PO SCH (08:44)
[2020-06-04] MEDS: OXYCODONE PO SCH ×3 (08:44→20:18)
[2020-06-04] MEDS: SODIUM CHLORIDE 1,000 ML IV SCH ×2 (08:50→17:03)
[2020-06-04] MEDS: ROCEPHIN 1 GM/50 ML D5W 1 GM/50 ML BAG IV SCH (08:54)
[2020-06-04] MEDS: VALIUM PO PRN ×2 (08:57→16:01)
[2020-06-04] MEDS: LOVENOX SUBCUT SCH (09:02)
[2020-06-04 09:06] LABS: CHOLESTEROL 383.4 mg/dL (0-200); THYROID STIMULATING HORMONE 0.53 uIU/L (0.465-4.68)
[2020-06-04 09:07] LABS: HDL CHOLESTEROL 40.4 mg/dL (35-80)
[2020-06-04] MEDS: HUMULIN R SUBCUT PRN ×3 (12:45→20:28)
[2020-06-04] MEDS ORDERED: K-DUR PO SCH (18:35)
[2020-06-04] MEDS: CELEXA PO SCH (20:18)
[2020-06-04] MEDS: MEVACOR PO SCH (20:18)
[2020-06-04] MEDS: LANTUS SUBCUT SCH (20:29)
[2020-06-05] MEDS: SODIUM CHLORIDE 1,000 ML IV SCH ×4 (04:05→23:43)
[2020-06-05 05:05] LABS: HEMOGLOBIN 11.4 g/dl (12.0-16.0); MEAN CORPUSCULAR HEMOGLOBIN 30.2 pg (27.0-31.0); MEAN CORPUSCULAR HGB CONC 33.5 (31.8-35.4); MEAN CORPUSCULAR VOLUME 89.9 fl (81.0-99.0); PLATELET COUNT 365 10^3/uL (140-440); RDW COEFFICIENT OF VARIATION 12.6 % (11.6-14.8); RED BLOOD COUNT 3.78 10^6/ul (4.20-5.40); WHITE BLOOD COUNT 16.36 K/ul (4.6-10.2)
[2020-06-05 05:15] LABS: ANISOCYTOSIS NOT PRESENT (NOT PRESENT)
[2020-06-05 05:18] LABS: ALANINE AMINOTRANSFERASE 23.5 U/L (0-35); ALBUMIN 3.64 g/dL (3.5-5.0); ALKALINE PHOSPHATASE 126.2 U/L (38-126); ASPARTATE AMINO TRANSFERASE 26.5 U/L (14-36); BILIRUBIN,TOTAL 0.19 mg/dL (0.2-1.3); BLOOD UREA NITROGEN 21.3 mg/dL (7-17); CALCIUM 9.45 mg/dL (8.4-10.2); CARBON DIOXIDE 24.4 mmol/L (22-30.0); CHLORIDE 103.5 mmol/L (98-107); CREATININE 0.66 mg/dL (0.60-1.30); GLUCOSE 250.3 mg/dL (74-106); POTASSIUM 4.33 mmol/L (3.5-5.1); SODIUM 135.5 mmol/L (134.5-145); TOTAL PROTEIN 6.46 g/dL (6.3-8.2)
[2020-06-05] MEDS: HUMULIN R SUBCUT PRN ×3 (05:30→20:29)
[2020-06-05] MEDS: PRILOSEC PO SCH (05:30)
[2020-06-05] MEDS: ROCEPHIN 1 GM/50 ML D5W 1 GM/50 ML BAG IV SCH (08:38)
[2020-06-05] MEDS: ZETIA PO SCH (08:39)
[2020-06-05] MEDS: ZITHROMAX PO SCH (08:39)
[2020-06-05] MEDS: OXYCODONE PO SCH ×3 (08:39→20:12)
[2020-06-05] MEDS: ZEBETA PO SCH (08:39)
[2020-06-05] MEDS: NICODERM 21 MG TD SCH (08:39)
[2020-06-05] MEDS: ZESTRIL PO SCH (08:40)
[2020-06-05] MEDS: GLUCOPHAGE PO SCH ×2 (08:40→17:11)
[2020-06-05] MEDS: DECADRON 4 MG/ML SDV IM SCH (08:40)
[2020-06-05] MEDS: LYRICA PO SCH (08:40)
[2020-06-05] MEDS: PLAVIX PO SCH (08:40)
[2020-06-05] MEDS: WELLBUTRIN XL PO SCH (08:40)
[2020-06-05] MEDS: LOVENOX SUBCUT SCH (08:41)
[2020-06-05] MEDS: ICOSAPENT ETHYL 1 GM PO SCH ×2 (08:41→20:30)
[2020-06-05] MEDS: NON-FORMULARY MEDICATION (Naloxegol [Movantik] 25 mg Tablet) PO SCH (08:42)
[2020-06-05] MEDS: FLONASE NAS SCH ×2 (12:04→20:14)
[2020-06-05] MEDS: VALIUM PO PRN ×2 (12:10→17:11)
--- NOTE | 2020-06-05 14:28 | HP ---
DATE OF SERVICE: 06/03/20 REASON FOR HOSPITALIZATION/HISTORY OF PRESENT ILLNESS/PAST MEDICAL HISTORY: This is a 54-year-old white female who presented to the emergency room with dry nonproductive cough, fever, chills, back aching although she states her cough has been present for two months. PAST MEDICAL HISTORY: History of pyelonephritis Reoccurring UTI Diabetes mellitus type 2, uncontrolled Hypertension Dyslipidemia Strong history of noncompliance with medications, diet, lifestyle, followup COPD Smoker Hypertension Peripheral arterial disease Obesity GERD Depression/anxiety Polyarthritis Sleep apnea, is supposed to use a CPAP Mitral regurg Cyst on neck PAST SURGICAL HISTORY: Renal artery stent [address] Montelongo Status post hysterectomy Degenerative disk disease of the back, sees Dr. [facility] Secondary polycythemia likely secondary to smoking and sleep apnea REVIEW OF SYSTEMS: CONSTITUTIONAL: Positive for fatigue, fever and chills. No night sweats. No malaise, lethargy. HEENT: Eyes: No visual changes. No eye pain. No eye discharge. ENT: No runny nose. No epistaxis. No sinus pain. No sore throat. No odynophagia. No ear pain. No congestion. RESPIRATORY: Positive for cough. No hemoptysis. No shortness of breath. CARDIOVASCULAR: No angina symptoms. No CHF symptoms. No atypical chest pain for CAD. No palpitations. No PND. No orthopnea. GASTROINTESTINAL: No abdominal pain. No nausea or vomiting. No diarrhea or constipation. No hematemesis. No hematochezia. GENITOURINARY: No urgency. No frequency. No dysuria. No hematuria. No obstructive symptoms. No discharge. No pain. No significant abnormal bleeding. MUSCULOSKELETAL: Back pain. NEUROLOGICAL: No headache. No neck pain. No syncope. No seizures. No dizziness. PSYCHIATRIC: Not anxious. No depression. No suicidal thoughts. No homicidal thoughts. SKIN: No rash. No lesions. No wounds. ENDOCRINE: No unexplained weight loss. No weight gain. HEMATOLOGIC/LYMPHATIC: No anemia. No purpura. No petechiae. No prolonged or excessive bleeding. No palpable lymph nodes. PERSONAL/FAMILY/SOCIAL HISTORY: She is a smoker, no previous known alcohol or ilicit drug use however in the emergency room today she has tested positive for amphetamines, methamphetamines and benzodiazepines, none of which she has a prescription for. MEDICATIONS: Ezetimibe 10 mg p.o. daily Clopidogrel 75 mg p.o. daily Humulin R sQ a.c. h.s. p.r.n. Omeprazole 20 mg p.o. q.d. a.c. Vascepa 1 gm capsule p.o. b.i.d. Bisoprolol Fumarate 5 mg p.o. daily Lisinopril 10 mg p.o. daily Pregablin 75 mg p.o. daily Diazepam 10 mg p.o. t.i.d. p.r.n. Citalopram 40 mg p.o. bedtime Repatha 140 mg IM every other week Metformin 500 mg p.o. b.i.d. Lovastatin 20 mg p.o. bedtime Ipratropium-albuterol 0.5 mg - 3 mg one vial INH t.i.d. p.r.n. Potassium Chloride 20 mEq p.o. MoWeFr Triamterene-hydrochlorothiazide one each p.o. two times per week p.r.n. Ondansetron 4 mg p.o. q.12h p.r.n. Bupropion 150 mg p.o. q.a.m. Oxycodone 10 mg p.o. t.i.d. Insulin glargine 75 unit subcut bedtime Naloxegol 25 mg p.o. q.a.m. ALLERGIES: CODEINE AND MORPHINE PHYSICAL EXAMINATION: GENERAL: Pale and clammy. VITAL SIGNS: Temperature 101.3, pulse 109, respirations 18, blood pressure 151/86, pulse ox 96%. HEENT: Head normocephalic, atraumatic. Eyes: Extraocular muscles are intact. Pupils are equal, round and reactive to light and accommodation. Ears: No lesions. Nose appeared normal. Throat: No exudate or erythema. NECK: Supple. No JVD, no carotid bruit. No lymphadenopathy or thyromegaly. LUNGS: Diminished breath sounds bilaterally. Clear to auscultation. Percussion note normal. Chest symmetrical. HEART: S1, S2, no S3. No murmur. No cyanosis or clubbing. No ascites. Pulses: Dorsalis pedis and posterior tibial pulses +1 to +2 bilaterally. ABDOMEN: Soft. Mild diffuse suprapubic tenderness. No guarding, no rigidity. Bowel sounds active. No CVA tenderness. No mass felt. EXTREMITIES: No edema. Full range of motion of all extremities, equal. NEUROLOGIC: No focal deficit. Cranial nerves II through XII are grossly intact. No headache, no double vision or headache. SKIN: Not dry. Intact. Turgor - normal. LYMPHATIC: No palpable lymph nodes/no lymphedema. MUSCULOSKELETAL: Normal joints with no swelling. Muscle tone is normal. ABG on room air: pH 7.417, pc02 35.8, p02 88, base excess of -1, bicarb 23.1, Tc02 24, 02 sat 97. Chest x-ray shows no acute pulmonary disease. Sodium 136, potassium 4.09, BUN 13.3, creatinine 0.75, glucose 271, calcium 10.38, total bilirubin 0.45, AST 36, ALT 23. CK 182, CK-MB percentage 0.5, total protein 7.8, alkaline phosphatase 139, lipase 576. AST 36, ALT 23.9, lactic acid 2.88, white count 12.9, hemoglobin 13.7, hematocrit 39.4, platelets 404, sed rate 15, rapid flu A & B is negative. Urine drug screen positive for methamphetamines, positive for amphetamines, positive for benzos. To be noted, it is negative for opiates and Oxycodone for which she does have a prescription for, which this is negative. Urine is dark with protein 1+, glucose 2+, blood 2+, nitrite positive, leuks 1+, 1+ bacteria. Covid-19 PCR was completed and sent to [facility], test is still pending. ASSESSMENT: 1. FEVER. 2. UTI, RULE OUT SEPSIS. 3. ACUTE BRONCHITIS. 4. COVID TEST PENDING. 5. SMOKER. 6. UNCONTROLLED DIABETES MELLITUS TYPE 2. 7. COPD. 8. ILLICIT DRUG USE POSITIVE FOR METHAMPHETAMINE AND BENZODIAZEPINE. 9. SEVERE DYSLIPIDEMIA. 10. ELEVATED LIVER FUNCTION. 11. HYPERTENSION. PLAN: 1. We will admit to [facility]. 2. The patient is to remain in isolation for suspicion of Covid. Covid test was done in the emergency room and was sent to [facility], results are pending. 3. Routine telemetry orders. 4. CBC, CMP daily. 5. Sliding scale for glucose coverage as the patient is an uncontrolled diabetic and is also going to be on steroids. 6. Rocephin 1 gm IV daily. 7. Decadron 4 mg IM daily. 8. Urine for culture and sensitivity. 9. A1C. 10. T4, TSH and lipids to be done. 11. Nicotine patch as needed. 12. Regular diet. 13. IV fluids, NS at 75 cc/hr. 14. Blood culture times two. 15. Daily CBC, CMP. 16. Will follow closely. TIME SPENT: More than 70 minutes. MTDD
[2020-06-05] MEDS: TYLENOL PO PRN (17:11)
[2020-06-05] MEDS: MEVACOR PO SCH (20:12)
[2020-06-05] MEDS: CELEXA PO SCH (20:13)
[2020-06-05] MEDS: LANTUS SUBCUT SCH (20:27)
[2020-06-06 05:34] LABS: HEMATOCRIT 36.6 % (37.0-47.0); HEMOGLOBIN 12.4 g/dl (12.0-16.0); MEAN CORPUSCULAR HEMOGLOBIN 30.7 pg (27.0-31.0); MEAN CORPUSCULAR HGB CONC 33.9 (31.8-35.4); MEAN CORPUSCULAR VOLUME 90.6 fl (81.0-99.0); PLATELET COUNT 392 10^3/uL (140-440); RED BLOOD COUNT 4.04 10^6/ul (4.20-5.40); WHITE BLOOD COUNT 16.33 K/ul (4.6-10.2)
[2020-06-06 05:50] LABS: ALANINE AMINOTRANSFERASE 56.8 U/L (0-35); ALBUMIN 3.94 g/dL (3.5-5.0); ALKALINE PHOSPHATASE 136.6 U/L (38-126); ASPARTATE AMINO TRANSFERASE 43.7 U/L (14-36); BILIRUBIN,TOTAL 0.29 mg/dL (0.2-1.3); CALCIUM 9.23 mg/dL (8.4-10.2); CARBON DIOXIDE 27.2 mmol/L (22-30.0); CREATININE 0.62 mg/dL (0.60-1.30); GLUCOSE 149.6 mg/dL (74-106); POTASSIUM 4.12 mmol/L (3.5-5.1); SODIUM 135.9 mmol/L (134.5-145); TOTAL PROTEIN 6.43 g/dL (6.3-8.2)
[2020-06-06 05:52] LABS: ANISOCYTOSIS NOT PRESENT (NOT PRESENT)
[2020-06-06] MEDS: PRILOSEC PO SCH (06:00)
[2020-06-06] MEDS: HUMULIN R SUBCUT PRN ×4 (06:01→20:22)
--- NOTE | 2020-06-06 08:52 | PN ---
DATE OF SERVICE: 06/04/20 - ADMIT NOTE SUBJECTIVE: The patient was seen in the emergency room by the ER attending with having urinary tract infection type of symptoms. The patient's UA was abnormal. Temperature more than 100F. She was tachycardic. The patient also had mild cough. She is going to have a Covid swab and be admitted with IV fluids, IV antibiotics, Rocephin and Azactam. She is going to be getting steroids, Symbicort two puffs q.a.m. The patient is noncompliant. Screen for the drugs positive besides narcotics. She is a heavy smoker. She has multiple risk factors for coronary artery disease, non compliant of all aspects of medical care like lifestyle, medications, followup and recommendations. She is intelligent. Condition is stable. TIME SPENT: More than 30 minutes. Plan and coordination of the patient's care discussed in the presence of nurse. LASHANDA
--- NOTE | 2020-06-06 08:55 | PN ---
DATE OF SERVICE: 06/04/20 SUBJECTIVE: The patient is in [facility], hospitalized with acute bronchitis, Covid pending. The patient is afebrile, feeling a lot better. She is as usual noncompliant, heavy smoker with multiple medical problems with multiple coronary artery disease risk factors. The patient's cardiovascular status is stable. She is noncompliant of all aspects of medical care. Condition is stable. Prognosis is guarded. TIME SPENT: More than 30 minutes. Plan and coordination of the patient's care discussed in the presence of nurse. LASHANDA
[2020-06-06] MEDS: NICODERM 21 MG TD SCH (09:05)
[2020-06-06] MEDS: ROCEPHIN 1 GM/50 ML D5W 1 GM/50 ML BAG IV SCH (09:08)
[2020-06-06] MEDS: OXYCODONE PO SCH ×3 (09:12→20:23)
[2020-06-06] MEDS: ZITHROMAX PO SCH (09:12)
[2020-06-06] MEDS: WELLBUTRIN XL PO SCH (09:13)
[2020-06-06] MEDS: GLUCOPHAGE PO SCH ×2 (09:14→16:58)
[2020-06-06] MEDS: K-DUR PO SCH (09:14)
[2020-06-06] MEDS: LYRICA PO SCH (09:14)
[2020-06-06] MEDS: ZESTRIL PO SCH (09:15)
[2020-06-06] MEDS: ZEBETA PO SCH (09:15)
[2020-06-06] MEDS: ZETIA PO SCH (09:15)
[2020-06-06] MEDS: PLAVIX PO SCH (09:17)
[2020-06-06] MEDS: DECADRON 4 MG/ML SDV IM SCH (09:17)
[2020-06-06] MEDS: LOVENOX SUBCUT SCH (09:19)
[2020-06-06] MEDS: VALIUM PO PRN ×3 (09:26→20:23)
[2020-06-06] MEDS: NON-FORMULARY MEDICATION (Naloxegol [Movantik] 25 mg Tablet) PO SCH (09:28)
[2020-06-06] MEDS: ICOSAPENT ETHYL 1 GM PO SCH ×2 (09:28→20:24)
[2020-06-06] MEDS: FLONASE NAS SCH ×2 (09:32→20:24)
[2020-06-06] MEDS: SODIUM CHLORIDE 1,000 ML IV SCH ×2 (10:11→20:21)
[2020-06-06] MEDS: LANTUS SUBCUT SCH (20:21)
[2020-06-06] MEDS: MEVACOR PO SCH (20:23)
[2020-06-06] MEDS: CELEXA PO SCH (20:23)
[2020-06-07] MEDS ORDERED: KEFLEX PO SCH (05:00)
[2020-06-07] MEDS: PRILOSEC PO SCH (05:48)
[2020-06-07 05:49] LABS: HEMATOCRIT 36.3 % (37.0-47.0); HEMOGLOBIN 12.1 g/dl (12.0-16.0); MEAN CORPUSCULAR HEMOGLOBIN 30.1 pg (27.0-31.0); MEAN CORPUSCULAR HGB CONC 33.3 (31.8-35.4); MEAN CORPUSCULAR VOLUME 90.3 fl (81.0-99.0); PLATELET COUNT 351 10^3/uL (140-440); RDW COEFFICIENT OF VARIATION 12.9 % (11.6-14.8); RED BLOOD COUNT 4.02 10^6/ul (4.20-5.40); WHITE BLOOD COUNT 18.04 K/ul (4.6-10.2)
[2020-06-07 06:00] LABS: ALANINE AMINOTRANSFERASE 60.9 U/L (0-35); ALBUMIN 3.84 g/dL (3.5-5.0); ALKALINE PHOSPHATASE 112.3 U/L (38-126); ASPARTATE AMINO TRANSFERASE 31.2 U/L (14-36); BILIRUBIN,TOTAL 0.31 mg/dL (0.2-1.3); BLOOD UREA NITROGEN 18.4 mg/dL (7-17); CALCIUM 9.42 mg/dL (8.4-10.2); CARBON DIOXIDE 27.6 mmol/L (22-30.0); CHLORIDE 103.3 mmol/L (98-107); CREATININE 0.73 mg/dL (0.60-1.30); GLUCOSE 115.1 mg/dL (74-106); POTASSIUM 3.92 mmol/L (3.5-5.1); SODIUM 136.9 mmol/L (134.5-145); TOTAL PROTEIN 6.69 g/dL (6.3-8.2)
[2020-06-07 06:01] LABS: ANISOCYTOSIS NOT PRESENT (NOT PRESENT)
[2020-06-07] MEDS ORDERED: ROCEPHIN 1 GM/50 ML D5W 1 GM/50 ML BAG IV STA (08:37)
--- NOTE | 2020-06-07 08:38 | PCM.PROG ---
Attending Provider: ATTENDING PROVIDER: Dr. VINOD SIERRA This patient is seen with Sonam Abel, Nurse Practitioner. DATE OF SERVICE: 06/07/20 SUBJECTIVE: This 54 year old /WHITE F was hospitalized 06/03/20. The patient is resting comfortably. Urinary symptoms have improved. No fever. The patient is still complaining of lymphadenopathy of neck and reports intermittent inguinal nodes. She has been eating well. REVIEW OF SYSTEMS: CONSTITUTIONAL: No night sweats. No fatigue, malaise, lethargy. No fever or chills. Weakness. HEENT: Eyes: No visual changes. No eye pain. No eye discharge. ENT: No runny nose. No epistaxis. No sinus pain. No odynophagia. No congestion. RESPIRATORY: No cough, no congestion. No hemoptysis. No shortness of breath. CARDIOVASCULAR: No angina symptoms. No CHF symptoms. No atypical chest pain for CAD. No palpitations. No orthopnea.. GASTROINTESTINAL: No abdominal pain. No nausea or vomiting. No diarrhea or constipation. No hematemesis. No hematochezia. GENITOURINARY: No urgency. No frequency. No dysuria. No hematuria. No obstructiv e symptoms. No discharge. No pain. No significant abnormal bleeding. MUSCULOSKELETAL: No musculoskeletal pain; no joint swelling. Lymphadenopathy NEUROLOGICAL: Awake, alert, oriented to time, place and person. No headache. No neck pain. No syncope. No seizures. No dizziness. PSYCHIATRIC: Not anxious. No depression. No suicidal thoughts. No homicidal thoughts. SKIN: No rash. No lesions. No wounds. ENDOCRINE: No unexplained weight loss. No weight gain. HEMATOLOGIC/LYMPHATIC: No anemia. No purpura. No petechiae. No prolonged or excessive bleeding. No palpable lymph nodes. PHYSICAL EXAMINATION: GENERAL: The patient is awake, alert and oriented, Sitting in the chair in no distress. VITAL SIGNS: Temperature 97.9 F, Pulse 64, Respiratory Rate 20, BP 172/92, Pulse Ox 97% HEENT: Head normocephalic, atraumatic. Eyes: Extraocular muscles are intact. Pupils are equal, round and reactive to light and accommodation. Ears: No lesions. Nose appeared normal. Throat: No exudate or erythema. NECK: Supple. No JVD, no carotid bruit. No lymphadenopathy or thyromegaly. LUNGS: Diminished breath sounds. Clear to auscultation. Percussion note normal. Chest symmetrical. HEART: S1, S2, no S3. No murmurs. No cyanosis or clubbing. No ascites. Pulses: Dorsalis pedis and posterior tibial pulses +1 to +2 both sides. ABDOMEN: Soft. Non-tender. Bowel sounds active. No CVA tenderness. No mass felt. EXTREMITIES: No edema. Full range of motion of all extremities, equal. NEUROLOGIC: No focal deficit. Cranial nerves II through XII are grossly intact. No headache, no double vision or headache. SKIN: Not dry. Intact. Turgor-normal. LYMPHATIC: Bilateral cervical lymphadenopathy. Axillary lymphadenopathy. Soft non-tender, mobile. MUSCULOSKELETAL: Normal joints with no swelling. Muscle tone is normal. LAB REVIEW: 06/07/20 05:34 06/07/20 05:34 06/07/20 05:34: Sodium 136.9, Potassium 3.92, Chloride 103.3, Carbon Dioxide 27.6, Anion Gap 9.92, BUN 18.4 H, Creatinine 0.73, Estimated GFR (MDRD) 84.00, BUN/Creatinine Ratio 25.20, Glucose 115.1 H, Calcium 9.42, Total Bilirubin 0.31, AST 31.2, ALT 60.9 H, Alkaline Phosphatase 112.3, Total Protein 6.69, Albumin 3.84, Globulin 2.85, Albumin/Globulin Ratio 1.34 06/07/20 05:34: WBC 18.04 H, RBC 4.02 L, Hgb 12.1, Hct 36.3 L, MCV 90.3, MCH 30.1, MCHC 33.3, RDW Coeff of Barry 12.9, Plt Count 351, Neutrophils % (Manual) 60.0, Lymphocytes % (Manual) 33.0, Eosinophils % (Manual) 2.0, Reactive Lymphocytes 5.0, Anisocytosis Not present ASSESSMENT: Please see below. 1. UTI, positive e-coli 2. Acute bronchitis 3. COPD 4. cervical and axillary lymphadenopathy 5. Smoker 6. Diabetes mellitus type 2, uncontrolled. PLAN: 1. Discontinue Decadrone 2. Referral to Dr. Garber 3. Discontinue fluids 4. Lisinopril 40mg 5. CT scan of chest abdomen and pelvis with and without 6. EBV titer 7. Cat scratch titer 8. LDH 9. Rocephin today Plan and coordination of the patient's care discussed in the presence of Home Decorator and nurse. SCRIBED BY: Hernan HUMMEList scribed while in presence of service performed by Dr. Sierra/Sonam Abel APRN on 06/07/20 ([id number])
[2020-06-07] MEDS: OXYCODONE PO SCH ×3 (09:09→20:47)
[2020-06-07] MEDS: FLONASE NAS SCH ×2 (09:09→20:47)
[2020-06-07] MEDS: ZEBETA PO SCH (09:10)
[2020-06-07] MEDS: ZETIA PO SCH (09:10)
[2020-06-07] MEDS: PLAVIX PO SCH (09:10)
[2020-06-07] MEDS: GLUCOPHAGE PO SCH (09:10)
[2020-06-07] MEDS: LYRICA PO SCH (09:10)
[2020-06-07] MEDS: WELLBUTRIN XL PO SCH (09:10)
[2020-06-07] MEDS: NICODERM 21 MG TD SCH ×2 (09:10→09:50)
[2020-06-07] MEDS: VALIUM PO PRN ×2 (09:10→20:46)
[2020-06-07] MEDS: ZESTRIL PO SCH (09:11)
[2020-06-07] MEDS: LOVENOX SUBCUT SCH (09:11)
[2020-06-07] MEDS: NON-FORMULARY MEDICATION (Naloxegol [Movantik] 25 mg Tablet) PO SCH (09:28)
[2020-06-07] MEDS: ICOSAPENT ETHYL 1 GM PO SCH ×2 (09:28→20:47)
--- NOTE | 2020-06-07 10:27 | PN ---
DATE OF SERVICE: 06/05/20 SUBJECTIVE: The patient is hospitalized with urosepsis and acute bronchitis. The patient is practically afebrile. Her appetite has improved. No vomiting. REVIEW OF SYSTEMS: CONSTITUTIONAL: No night sweats. No fatigue, malaise, lethargy. No fever or chills. HEENT: Eyes: No visual changes. No eye pain. No eye discharge. ENT: No runny nose. No epistaxis. No sinus pain. No sore throat. No odynophagia. No congestion. RESPIRATORY: No cough, no congestion. No hemoptysis. No shortness of breath. CARDIOVASCULAR: No angina symptoms. No CHF symptoms. No atypical chest pain for CAD. No palpitations. No PND. No orthopnea. GASTROINTESTINAL: Appetite has improved. No abdominal pain. No vomiting. No diarrhea or constipation. No hematemesis. No hematochezia. GENITOURINARY: No urgency. No frequency. No dysuria. No hematuria. No obstructive symptoms. No discharge. No pain. No significant abnormal bleeding. MUSCULOSKELETAL: No musculoskeletal pain; no joint swelling. NEUROLOGICAL: No headache. No neck pain. No syncope. No seizures. No dizziness. PSYCHIATRIC: Not anxious. No depression. No suicidal thoughts. No homicidal thoughts. SKIN: No rash. No lesions. No wounds. ENDOCRINE: No unexplained weight loss. No weight gain. HEMATOLOGIC/LYMPHATIC: No anemia. No purpura. No petechiae. No prolonged or excessive bleeding. No palpable lymph nodes. PHYSICAL EXAMINATION: VITAL SIGNS: Temperature 98, pulse 79, respiratory rate 14, BP 160/80, pulse ox 96%. HEENT: Head normocephalic, atraumatic. Eyes: Extraocular muscles are intact. Pupils are equal, round and reactive to light and accommodation. Ears: No lesions. Nose appeared normal. Throat: No exudate or erythema. NECK: Supple. No JVD, no carotid bruit. No lymphadenopathy or thyromegaly. LUNGS: Decreased breath sounds but clear to auscultation. Percussion note normal. Chest symmetrical. HEART: S1, S2, no S3. No murmurs. No cyanosis or clubbing. No ascites. Pulses: Dorsalis pedis and posterior tibial pulses +1 to +2 bilaterally. ABDOMEN: Soft. Nontender. Bowel sounds active. No CVA tenderness. No mass felt. EXTREMITIES: No edema. Full range of motion of all extremities, equal. NEUROLOGIC: No focal deficit. Cranial nerves II through XII are grossly intact. No headache, no double vision or headache. SKIN: Not dry. Intact. Turgor - normal. LYMPHATIC: No palpable lymph nodes/no lymphedema. MUSCULOSKELETAL: Normal joints with no swelling. Muscle tone is normal. LABS: WBC 16,000, hemoglobin 11, glucose 250, creatinine .6, BUN 21, potassium 4.3, TSH normal. CK-MB negative. ASSESSMENT: 1. Urosepsis being treated and UA shows E. coli sensitive to Rocephin and a lot of other antibiotics. 2. Acute bronchitis seems to be resolving. 3. Smoking with COPD. 4. Diabetes mellitus. 5. Severe dyslipidemia. 6. Chronic anemia. PLAN: 1. Continue Rocephin, Zithromax, steroids and nebs treatment. 2. The patient will be on CPAP. She is not elgible so they put her on oxygen at night. 3. Counseling for smoking done. The patient is noncompliant of all aspects of medical care. Lipids are extremely high and refused to take a deep breath. She is not taking her medications on a regular basis. She is intelligent. She is high risk for myocardial event and acute CVA. Diabetes mellitus discussed with her. She is not taking her insulin on a regular basis. The A1C is more than 11 discussed that the patient's average blood sugar is more than 270-280 every day plus the complications of diabetes and how it affects different body organs. CONDITION: Stable. TIME SPENT: More than 30 minutes. Plan and coordination of the patient's care discussed in the presence of nurse. LASHANDA
--- NOTE | 2020-06-07 10:55 | PN ---
DATE OF SERVICE: 06/06/20 SUBJECTIVE: The patient was seen and examined this morning. The patient's condition has improved. She is Covid negative so she has been transferred to the floor. REVIEW OF SYSTEMS: CONSTITUTIONAL: Occasional mild fatigue. No weakness. No night sweats. No malaise, lethargy. No fever or chills. HEENT: Eyes: No visual changes. No eye pain. No eye discharge. ENT: No runny nose. No epistaxis. No sinus pain. No sore throat. No odynophagia. No congestion. RESPIRATORY: Mild cough with chronic congestion but no yellowish sputum. No hemoptysis. No shortness of breath. CARDIOVASCULAR: No angina symptoms. No CHF symptoms. No atypical chest pain for CAD. No palpitations. No PND. No orthopnea. GASTROINTESTINAL: No abdominal pain. No nausea or vomiting. No diarrhea or constipation. No hematemesis. No hematochezia. GENITOURINARY: No burning on urination. MUSCULOSKELETAL: No musculoskeletal pain; no joint swelling. NEUROLOGICAL: No headache. No neck pain. No syncope. No seizures. No dizziness. PSYCHIATRIC: Not anxious. No depression. No suicidal thoughts. No homicidal thoughts. SKIN: No rash. No lesions. No wounds. ENDOCRINE: No unexplained weight loss. No weight gain. HEMATOLOGIC/LYMPHATIC: No anemia. No purpura. No petechiae. No prolonged or excessive bleeding. No palpable lymph nodes. PHYSICAL EXAMINATION: GENERAL: The patient is oriented to time, place and person. VITAL SIGNS: Temperature 98.6, pulse 70, respiratory rate 15, blood pressure 138/86. Oximetry 94% on room air. HEENT: Head normocephalic, atraumatic. Eyes: Extraocular muscles are intact. Pupils are equal, round and reactive to light and accommodation. Ears: No lesions. Nose appeared normal. Throat: No exudate or erythema. NECK: Supple. No JVD, no carotid bruit. No lymphadenopathy or thyromegaly. LUNGS: Decreased breath sounds but clear to auscultation. Percussion note normal. Chest symmetrical. HEART: S1, S2, no S3. No murmurs. No cyanosis or clubbing. No ascites. Pulses: Dorsalis pedis and posterior tibial pulses +1 to +2 bilaterally. ABDOMEN: Soft. Nontender. Bowel sounds active. No CVA tenderness. No mass felt. EXTREMITIES: No edema. Full range of motion of all extremities, equal. NEUROLOGIC: No focal deficit. Cranial nerves II through XII are grossly intact. No headache, no double vision or headache. SKIN: Not dry. Intact. Turgor - normal. LYMPHATIC: No palpable lymph nodes/no lymphedema. MUSCULOSKELETAL: Normal joints with no swelling. Muscle tone is normal. ASSESSMENT: 1. Urosepsis seems to be resolving with the patient being afebrile. The appetite has improved. No flank pain. 2. Bronchitis seems to be subsiding. 3. Chronic lung disease. 4. Diabetes mellitus. 5. Dyslipidemia. PLAN: 1. Discontinue IV antibiotics. 2. Restart Keflex 500 mg t.i.d. daily which would cover urinary tract infection and also bronchitis type problem. 3. The patient is Covid negative. Further discussion carried out about her medications. The nursing staff found out that the patient had been on a lot of other medications prescribed by nurse practitioner at [facility] taking care of her psychiatric problems and has been on Cymbalta, Lamictal, Buspar, Celexa. She was last seen there in August. After that she stopped going. She has been off all the medications for several months. At the present time the patient's mental status is normal. She has reasonable thinking. There is no abnormal behavior. The patient wants to be referred to a local psychiatrist and will refer the patient to Dr. Garber. At the present time, she doesn't want to take any of those medications. The patient hasn't been taking her diabetic pills. Also, she has stopped taking the shots several months ago. The patient as described earlier, is noncompliant of all aspects of medical care. She has some comorbidities plus she was found to have marijuana in her screening. Counseling for smoking done. Counseling for street drugs done. Prognosis is poor in the half-way. She is a candidate for stroke, acute myocardial event and explained about it. She is intelligent but noncompliant. Condition is stable. TIME SPENT: EXTENSIVE Plan and coordination of the patient's care discussed in the presence of nurse. LASHANDA
--- NOTE | 2020-06-07 12:46 | CT ---
EXAM: CT Abdomen Pelvis HISTORY: Systemic lymphadenopathy, bilateral groin tenderness COMPARISON: None TECHNIQUE: CT of the Abdomen Pelvis was performed . Coronal and sagital reformats were obtained. FINDINGS: Please refer to same day/time CT chest report for details of the thorax. Incidental lipomatous hyper trophy of the interatrial septum. Generalized hypoattenuation of the enlarged liver. No focal liver abnormality. Gallbladder, spleen, pancreas, and adrenal glands are unremarkable. The kidneys symmetrically enhance. No hydronephrosis or nephrolithiasis. Incidental right extrarenal pelvis. Nonspecific trace bilateral perinephric fa t stranding. No small or large bowel dilation. No abnormal bowel wall thickening. Moderate colonic stool volume. N ormal appendix. No adenopathy. Normal diameter aorta. Moderate scattered atherosclerotic calcifications. Left renal ostium stent. No abnormal fluid collection, free fluid or free air. No acute osseous abnormality. Subcutaneous ai r in the right abdomen, likely from prior injection. IMPRESSION: 1. No acute findings or intra-abdominal adenopathy. 2. Hepatomegaly and mild fatty infiltration. 3. Atherosclerosis.
--- NOTE | 2020-06-07 12:55 | CT ---
EXAM: CT Chest with and without contrast. HISTORY: Systemic lymphadenopathy. Left breast tenderness. COMPARISON: Chest radiograph 06/03/2020. Chest CT 05/20/2019, 09/30/2015. TECHNIQUE: Multiple axial images of the chest were obtained prior to and following intravenous admin istration of 75 mL of Omnipaque 350, low osmolar. Images were reformatted in the sagittal and herrera l planes. FINDINGS: Multiple mediastinal lymph nodes are present which measure up to 1.1 cm short axis on axia l images 16, 17, and 20, and 1.3 cm in the subcarinal region on axial image 24. Nonenlarged hilar ly mph nodes present bilaterally. No axillary lymphadenopathy is seen. There is no focal abnormality of the breasts. The heart size is at the upper limits of normal. Lipomatous hypertrophy of the interatrial septum no jus. No significant pericardial effusion identified although there is fluid in the superior pericard ial recess. Atherosclerotic calcifications noted. No consolidation is seen. There is interlobular septal thickening in the lung apices with associated ground-glass opacities. Mild ground-glass opacities seen throughout remainder of both lungs. No si gnificant basilar interlobular septal thickening noted. There is no pleural effusion or pneumothorax . There is no acute abnormality identified in the upper abdomen. No acute osseous abnormality is seen. IMPRESSION: 1. Upper lobe interlobular septal thickening and ground-glass opacities which are nonspecific. Cons ider inhalational injury or hypersensitivity pneumonitis. Atypical presentation of infectious or inf lammatory process also considered. 2. Nonspecific mediastinal lymphadenopathy. 3. Follow-up recommended in 3 months. 4. No visualized abnormality of the left breast or axilla. Consider targeted ultrasound and mammogr aphy as warranted.
[2020-06-07] MEDS: HUMULIN R SUBCUT PRN ×2 (17:37→22:37)
[2020-06-07] MEDS: CELEXA PO SCH (20:46)
[2020-06-07] MEDS: MEVACOR PO SCH (20:47)
[2020-06-07] MEDS: LANTUS SUBCUT SCH (21:17)
[2020-06-08 05:25] VITALS: TEMP 98.3
[2020-06-08] MEDS: KEFLEX PO SCH ×2 (05:29→13:00)
[2020-06-08] MEDS: PRILOSEC PO SCH (05:29)
[2020-06-08 05:34] LABS: HEMATOCRIT 36.3 % (37.0-47.0); MEAN CORPUSCULAR HEMOGLOBIN 29.9 pg (27.0-31.0); MEAN CORPUSCULAR HGB CONC 33.1 (31.8-35.4); MEAN CORPUSCULAR VOLUME 90.5 fl (81.0-99.0); PLATELET COUNT 349 10^3/uL (140-440); RDW COEFFICIENT OF VARIATION 12.9 % (11.6-14.8); RED BLOOD COUNT 4.01 10^6/ul (4.20-5.40); WHITE BLOOD COUNT 16.69 K/ul (4.6-10.2)
[2020-06-08 05:46] LABS: ALANINE AMINOTRANSFERASE 68.6 U/L (0-35); ALBUMIN 3.78 g/dL (3.5-5.0); ALKALINE PHOSPHATASE 109.7 U/L (38-126); ASPARTATE AMINO TRANSFERASE 35.6 U/L (14-36); BILIRUBIN,TOTAL 0.34 mg/dL (0.2-1.3); BLOOD UREA NITROGEN 21.6 mg/dL (7-17); CALCIUM 9.59 mg/dL (8.4-10.2); CARBON DIOXIDE 29.2 mmol/L (22-30.0); CHLORIDE 101.5 mmol/L (98-107); CREATININE 1.08 mg/dL (0.60-1.30); GLUCOSE 131.4 mg/dL (74-106); POTASSIUM 4.37 mmol/L (3.5-5.1); SODIUM 137.1 mmol/L (134.5-145); TOTAL PROTEIN 6.48 g/dL (6.3-8.2)
[2020-06-08 05:51] LABS: ANISOCYTOSIS NOT PRESENT (NOT PRESENT)
[2020-06-08] MEDS: FLONASE NAS SCH (08:35)
[2020-06-08] MEDS: K-DUR PO SCH (08:36)
[2020-06-08] MEDS: ZEBETA PO SCH (08:36)
[2020-06-08] MEDS: ZESTRIL PO SCH (08:36)
[2020-06-08] MEDS: ZETIA PO SCH (08:36)
[2020-06-08] MEDS: LYRICA PO SCH (08:36)
[2020-06-08] MEDS: WELLBUTRIN XL PO SCH (08:36)
[2020-06-08] MEDS: PLAVIX PO SCH (08:37)
[2020-06-08] MEDS: OXYCODONE PO SCH (08:37)
[2020-06-08] MEDS: LOVENOX SUBCUT SCH (08:37)
[2020-06-08] MEDS: VALIUM PO PRN (08:46)
--- NOTE | 2020-06-08 08:46 | PN ---
DATE OF SERVICE: 06/07/2020 SUBJECTIVE: The patient was seen and examined with the Nurse Practitioner. The patient's condition has improved. She is up and about. Noncompliant of all aspects of medical care. Her prognosis is poor. She is recovering from urosepsis and bronchitis. COVID Negative. TIME SPENT: More than 30 minutes. Plan and coordination of the patient's care discussed in the presence of nurse. LASHANDA
[2020-06-08] MEDS: NON-FORMULARY MEDICATION (Naloxegol [Movantik] 25 mg Tablet) PO SCH (09:00)
[2020-06-08] MEDS: ICOSAPENT ETHYL 1 GM PO SCH (09:00)
[2020-06-08] MEDS: NICODERM 21 MG TD SCH (09:00)
[2020-06-08 10:14] VITALS: BP 128/72
--- NOTE | 2020-06-08 10:51 | DI ---
EXAM: Three views of the right hand HISTORY: Right hand pain and soreness. COMPARISON: None FINDINGS: There is no displaced fracture or dislocation. The joint spaces demonstrate minimal scatte red joint space narrowing. There is no significant osteophyte formation or erosion. Soft tissues ar e normal. IMPRESSION: Minimal scattered degenerative disease of the right hand
--- NOTE | 2020-06-08 11:16 | CM.DICTOOL ---
ADMISSION: 06/03/20 17:27 DISCHARGE: JUNE 08, 2020 DATE OF SERVICE: 06/08/20 FINAL DIAGNOSIS UTI, POSITIVE FOR E- COLI ACUTE BRONCHITIS COPD CERVICAL AND AXILLARY LYMPHADENOPATHY SMOKER DIABETES MELLITUS TYPE 2, UNCONTROLLED HX: CAD MITRAL REGURGITATION COPD HYPERTENSION DIABETES MELLITUS, TYPE 2 (A1C 02-14-2020 10.82) PERIPHERAL ARTERY DISEASE GERD DYSLIPIDEMIA OSTEOARTHRITIS POLYARTHRITIS ANXIETY DEPRESSION OBESITY, BMI 29 PYELONEPHRITIS RE-OCCURRING UTI CONTINUED SMOKING POLYCYTHEMIA LIKELY SECONDARY TO SMOKING AND SLEEP APNEA SLEEP APNEA, SUPPOSED TO USE C-PAP NON-COMPLIANCE OF MEDS, DIET, LIFESTYLE AND FOLLOW-UPS CYST ON NECK DEGENERATIVE DISC DISEASE OF THE BACK, SEES DR. BURNHAM AT [facility] PROCEDURE HX: INGUINAL HERNIA REPAIR, LEFT HYSTERECTOMY RENAL ARTERY STENT - 2016 DR. HINES LAST VITALS Temp Pulse Resp BP Pulse Ox 98.3 F 64 18 159/91 H 97 06/08/20 05:23 06/08/20 05:23 06/08/20 05:23 06/08/20 05:23 06/08/20 05:23 TAKE THESE MEDICATIONS AT HOME Bisoprolol Fumarate (Bisoprolol Fumarate 5 Mg Tablet) 5 mg PO DAILY [facility] Last Admin: 06/08/20 08:36 Dose: 5 mg Documented by: Bupropion HCl (Bupropion Hcl 150 Mg Tab.Er.24h) 150 mg PO QAM [facility] Last Admin: 06/08/20 08:36 Dose: 150 mg Documented by: Cephalexin (Cephalexin 500 Mg Capsule) 500 mg PO Q8HR [facility] X 10 MORE DAYS Stop: 06/11/20 04:59 Last Admin: 06/08/20 05:29 Dose: 500 mg Documented by: Citalopram Hydrobromide (Citalopram Hydrobromide 20 Mg Tablet) 40 mg PO BEDTIME [facility] Last Admin: 06/07/20 20:46 Dose: 40 mg Documented by: Clopidogrel Bisulfate (Clopidogrel Bisulfate 75 Mg Tablet) 75 mg PO DAILY [facility] Last Admin: 06/08/20 08:37 Dose: 75 mg Documented by: Diazepam (Diazepam 5 Mg Tablet) 10 mg PO TID PRN -- ( DO NOT REFILL) PRESCRIBED BY DR. BURNHAM PRN Reason: ANXIETY' Last Admin: 06/08/20 08:46 Dose: 10 mg Documented by: Ezetimibe (Ezetimibe 10 Mg Tablet) 10 mg PO DAILY [facility] Last Admin: 06/08/20 08:36 Dose: 10 mg Documented by: Fluticasone Propionate (Fluticasone Propionate 16 Gm Nasal [place]) 1 spray JENNIFER BID [facility] Last Admin: 06/08/20 08:35 Dose: 1 spray Documented by: Insulin Glargine (Insulin Glargine,Hum.Rec.Anlog 100 Units/Ml) 75 unit SUBCUT BEDTIME [facility] Last Admin: 06/07/20 21:17 Dose: 75 unit Documented by: Lisinopril (Lisinopril 40 Mg Tablet) 40 mg PO DAILY [facility] Last Admin: 06/08/20 08:36 Dose: 40 mg Documented by: Lovastatin (Lovastatin 20 Mg Tablet) 20 mg PO BEDTIME [facility] Last Admin: 06/07/20 20:47 Dose: 20 mg Documented by: Metformin HCl (Metformin Hcl 500 Mg Tablet) 500 mg PO BIDWM [facility] Last Admin: 06/07/20 09:10 Dose: 500 mg Documented by: Nicotine (Nicotine 21 Mg Patch.Td24) 1 patch TD DAILY [facility] Last Admin: 06/07/20 09:50 Dose: 1 patch Documented by: Non-Formulary Medication (Evolocumab [Repatha Syringe]) 140 mg IM EVERY OTHER WEEK [facility] Non-Formulary Medication (Icosapent Ethyl [Vascepa]) 1 gm PO BID [facility] Last Admin: 06/07/20 20:47 Dose: Not Given Documented by: Non-Formulary Medication (Naloxegol [Movantik]) 25 mg PO QAM [facility] Last Admin: 06/07/20 09:28 Dose: Not Given Documented by: Omeprazole (Omeprazole 20 Mg Capsule.) 20 mg PO QDAC [facility] Last Admin: 06/08/20 05:29 Dose: 20 mg Documented by: Oxycodone HCl (Oxycodone Hcl 5 Mg Tablet) 10 mg PO TID [facility] --( DO NOT REFILL ) PRESCRIBED BY DR. BURNHAM Last Admin: 06/08/20 08:37 Dose: 10 mg Documented by: Potassium Chloride (Potassium Chloride 20 Meq Tab) 20 meq PO [email or web address] [facility] Last Admin: 06/08/20 08:36 Dose: 20 meq Documented by: Pregabalin (Pregabalin 75 Mg Capsule) 75 mg PO DAILY [facility] Last Admin: 06/08/20 08:36 Dose: 75 mg Documented by: Triamterene/HCTZ (Triamterene/Hydrochlorothiazid 37.5/25 Mg Capsule) 1 cap PO 2 TIMES PER WEEK PRN PRN Reason: EDEMA IPRATROPIUM - ALBUTEROL NEBS 1 VIAL TID PRN HUMULIN R U -100 UNITS EVERY ACHS PRN PER HOME SLIDING SCALE ZOFRAN 4 MG PO Q 12 HR PRN SENNA-S 1 TABLET PO BID ALLERGIES codeine Adverse Reaction (Verified 02/12/20 17:32) Rash morphine Adverse Reaction (Verified 02/12/20 17:32) Vomiting DISCONTINUED MEDICATIONS NONE NEW PRESCRIPTIONS: 1).KEFLEX 500 MG BY MOUTH 3 TIMES DAILY FOR 10 DAYS 2).FLONASE NASAL SPRAY ONE SPRAY EACH NOSTRIL TWICE DAILY 3).NICOTINE PATCH 21 MG TOPICAL APPLY/ CHANGE DAILY 4).ZESTRIL 40 BY MOUTH DAILY ( CHANGED) 5).SENNA S 1 TABLET BY MOUTH TWICE DAILY 6). RESTART REPATHA 140 MG SQ EVERY 15 DAYS 7). VOTAREN TOPICAL GEL 1 % TO RT HAND BID PRN SMOKING: CESSATION INSTRUCTION DISEASE SPECIFIC EDUCATION: UTI SMOKING CESSATION ACUTE BRONCHITIS COPD DM 1800 ADA CONSTIPATION LAB REVIEW: 06/08/20 05:22 06/08/20 05:22 06/08/20 05:22: Sodium 137.1, Potassium 4.37, Chloride 101.5, Carbon Dioxide 29.2, Anion Gap 10.77, BUN 21.6 H, Creatinine 1.08, Estimated GFR (MDRD) 53.00, BUN/Creatinine Ratio 20.00, Glucose 131.4 H, Calcium 9.59, Total Bilirubin 0.34, AST 35.6, ALT 68.6 H, Alkaline Phosphatase 109.7, Total Protein 6.48, Albumin 3.78, Globulin 2.70, Albumin/Globulin Ratio 1.40 06/08/20 05:22: WBC 16.69 H, RBC 4.01 L, Hgb 12.0, Hct 36.3 L, MCV 90.5, MCH 29.9, MCHC 33.1, RDW Coeff of Barry 12.9, Plt Count 349, Neutrophils % (Manual) 54.0, Band Neutrophils % 2.0, Lymphocytes % (Manual) 31.0, Monocytes % (Manual) 3.0, Eosinophils % (Manual) 3.0, Reactive Lymphocytes 7.0 H, Anisocytosis Not present 06/07/20 05:30: Lactate Dehydrogenase 147 PLAN: DISCHARGE: HOME TODAY, JUNE 08, 2020 . INDEPENDENT ACTIVITY: UP AD ALEKSANDER, SLOWLY RESUME PREVIOUS ACTIVITY DIET: 1800 ADA DIET CHECK BLOOD SUGARS AND FOLLOW SLIDING SCALE PROTOCAL FOLLOW UP: DR. BLANC/ CHRIS LACEY APRN/ MIGEL BREAUX APRN IN THE OFFICE JUNE 14, 2020 , THURSDAY @ 830 AM FOLLOW UP : PSYCHIATRIST REFERRAL WITH DR. FONSECA IN HIS OFFICE, [address], PHONE: [phone] THURSDAY, JUNE 11, 2020 @ 2:00 PM SPECIAL INSTRUCTIONS: [facility] IS TO FOLLOW UP WITH CPAP TODAY . PHONE # : [phone] CODE STATUS: FULL CODE MRS CLARK IS ALERT AND ORIENTED X 4. SHE GETS UP ON HER OWN WITH STEADY GAIT AND NO DIZZINESS OR WEAKNESS. CONTINENT OF BOWEL AND BLADDER WITH SOME FREQUENCY. NUTRITIONAL AND FLUID INTAKE ADEQUATE. SKIN WARM DRY AND INTACT. HAS SORENESS AND TIGHTNESS TO RT HAND AND A SMALL NODULE. NO REDNESS NO SEVERE PAIN. SEES DR. BURNHAM AT THE PAIN CLINIC IN [place] FOR CHRONIC BACK AND LEG PAIN. TO FOLLOW UP WITH DR. FONSECA, PSYCHIATRY, APPOINTMENT AND REFERRAL MADE. SHE HAD VERBALIZED SHE WAS BIPOLAR BUT NO EPISODES OR CRISIS DURING THIS INPATIENT STAY. 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 MD CHRIS MERA APRN ALYCE HANNAN, APRN
--- NOTE | 2020-06-08 12:58 | PN ---
DATE OF SERVICE: 06/08/2020 DISCHARGE NOTE SUBJECTIVE: 54 year old white female hospitalized with urinary tract infection, urosepsis and acute bronchitis. She was COVID negative. The patient has been treated with Rocephin. She had e-coli that was sensitive to Rocephin. She was given Zithromax for acute bronchitis. Her condition has improved. She is up and about. REVIEW OF SYSTEMS: CONSTITUTIONAL: No night sweats. No fatigue, malaise, lethargy. No fever or chills. HEENT: Eyes: No visual changes. No eye pain. No eye discharge. ENT: No runny nose. No epistaxis. No sinus pain. No sore throat. No odynophagia. No congestion. RESPIRATORY: No cough, no congestion. No hemoptysis. No shortness of breath. CARDIOVASCULAR: No angina symptoms. No CHF symptoms. No atypical chest pain for CAD. No palpitations. No PND. No orthopnea. GASTROINTESTINAL: No abdominal pain. No nausea or vomiting. No diarrhea or constipation. No hematemesis. No hematochezia. GENITOURINARY: No urgency. No frequency. No dysuria. No hematuria. No obstructive symptoms. No discharge. No pain. No significant abnormal bleeding. MUSCULOSKELETAL: No musculoskeletal pain; no joint swelling. NEUROLOGICAL: No headache. No neck pain. No syncope. No seizures. No dizziness. PSYCHIATRIC: Not anxious. No depression. No suicidal thoughts. No homicidal thoughts. SKIN: No rash. No lesions. No wounds. ENDOCRINE: No unexplained weight loss. No weight gain. HEMATOLOGIC/LYMPHATIC: No anemia. No purpura. No petechiae. No prolonged or excessive bleeding. No palpable lymph nodes. PHYSICAL EXAMINATION: VITAL SIGNS: HEENT: Head normocephalic, atraumatic. Eyes: Extraocular muscles are intact. Pupils are equal, round and reactive to light and accommodation. Ears: No lesions. Nose appeared normal. Throat: No exudate or erythema. NECK: Supple. No JVD, no carotid bruit. No lymphadenopathy or thyromegaly. LUNGS: Clear to auscultation. Percussion note normal. Chest symmetrical. HEART: S1, S2, no S3. No murmurs. No cyanosis or clubbing. No ascites. Pulses: Dorsalis pedis and posterior tibial pulses +1 to +2 bilaterally. ABDOMEN: Soft. Nontender. Bowel sounds active. No CVA tenderness. No mass felt. EXTREMITIES: No edema. Full range of motion of all extremities, equal. NEUROLOGIC: No focal deficit. Cranial nerves II through XII are grossly intact. No headache, no double vision or headache. SKIN: Not dry. Intact. Turgor - normal. LYMPHATIC: No palpable lymph nodes/no lymphedema. MUSCULOSKELETAL: Normal joints with no swelling. Muscle tone is normal. LABS: Hgb 12, hct 36, WBC 16,000 normal differential, creatinine 1, BUN 21, potassium 4.3. ASSESSMENT: 1. Urinary tract infection, e-coli seems to be under control PLAN: 1. Discharge her home on Keflex to be taken for 10 days 2. The patient's lipid profile as usual is markedly abnormal which she agreed to take Repatha again on a regular basis 3. The patient is noncompliant of all aspects of medical care. She has a lot of comorbidities and she is a high risk for any acute myocardial event, hepatic. She is also using drugs. Advised to quit that. 4. Advised to quit smoking. Counseling done. 5. She is going to be referred to Dr. Garber for her possible depression or other psychiatric issues. 6. The patient uses CPAP at home and benefits from it. CONDITION: Stable. TIME SPENT: More than 30 minutes. Plan and coordination of the patient's care discussed in the presence of nurse. LASHANDA
--- NOTE | 2020-06-12 08:14 | ECHO2D ---
Date of Exam: 06/08/2020 Ordering Physician: DR. VINOD BLANC Room #: 117 Reason for Echo: HTN, SOB M-Mode Normal Adult Results LV Dimensions Normal Adult Results AoV Opening excursions >1.6 >1.6 LVEDD-base- 3.5-5.8 4.7 Ao root dimensions 2.0-3.7 3.2 LVESD-base- 3.1-4.6 L. Atrium dimensions 1.9-3.8 5.0 Post. Wall thickness 0.8-1.1 1.3 IV septum (thickness) 0.7-1.2 1.3 Post. Wall excursion 0.72-1.3 NORMAL Septal motion NORMAL Systolic motion R. Ventricular cavity 1.5-2.0 NORMAL LVEF 60% 65% Paradoxical septal wall motion NORMAL 2-D : 2-D M Mode Echocardiogram was performed using apical four chamber and left parasternal long and short axis views. Mitral, tricuspid and aortic valves appear to be normal. Contractility of the left ventricle seems to be normal, so is the cavity size. ENLARGED LEFT ATRIAL CAVITY. Aortic root appears to be normal. There is no pericardial effusion. There is no thrombus noted in the left ventricle or left atrial cavity. No mitral valve prolapse noted. M-MODE: MV: NORMAL AV: NORMAL TV: NORMAL PV: CHAMBER SIZE: ENLARGED LEFT ATRIAL CAVITY WALL MOTION: NORMAL PERICARDIUM: NORMAL INTERPRETATION: 1. LEFT VENTRICULAR HYPERTROPHY WITH ENLARGED LEFT ATRIAL CAVITY 2. NORMAL VALVES 3. NORMAL LEFT VENTRICULAR CONTRACTILITY MTDD
--- NOTE | 2020-06-13 09:23 | DS ---
DATE OF SERVICE: 06/08/2020 FINAL DIAGNOSIS: UTI, POSITIVE FOR E- COLI ACUTE BRONCHITIS COPD CERVICAL AND AXILLARY LYMPHADENOPATHY SMOKER DIABETES MELLITUS TYPE 2, UNCONTROLLED HISTORY: CAD MITRAL REGURGITATION COPD HYPERTENSION DIABETES MELLITUS, TYPE 2 (A1C 02-14-2020 10.82) PERIPHERAL ARTERY DISEASE GERD DYSLIPIDEMIA OSTEOARTHRITIS POLYARTHRITIS ANXIETY DEPRESSION OBESITY, BMI 29 PYELONEPHRITIS RE-OCCURRING UTI CONTINUED SMOKING POLYCYTHEMIA LIKELY SECONDARY TO SMOKING AND SLEEP APNEA SLEEP APNEA, SUPPOSED TO USE C-PAP NON-COMPLIANCE OF MEDS, DIET, LIFESTYLE AND FOLLOW-UPS CYST ON NECK DEGENERATIVE DISC DISEASE OF THE BACK, SEES DR. BURNHAM AT PAIN MANAGEMENT PROCEDURE HX: INGUINAL HERNIA REPAIR, LEFT HYSTERECTOMY RENAL ARTERY STENT - 2016 DR. HINES LAST VITALS: Temp Pulse Resp BP Pulse Ox 98.3 F 64 18 159/91 H 97 06/08/20 05:23 06/08/20 05:23 06/08/20 05:23 06/08/20 05:23 06/08/20 05:23 DISCHARGE INSTRUCTIONS: DISCHARGE: HOME TODAY, JUNE 08, 2020 . INDEPENDENT.FOLLOW UP: DR. BLANC/ CHRIS LACEY APRN/ MIGEL BREAUX APRN IN THE OFFICE JUNE 14, 2020 , THURSDAY @ 830 AM. FOLLOW UP : PSYCHIATRIST REFERRAL WITH DR. GARBER IN HIS OFFICE, [facility] [address] [place] [address], PHONE: [phone] THURSDAY, JUNE 11, 2020 @ 2:00 PM. SPECIAL INSTRUCTIONS: [facility] IS TO FOLLOW UP WITH CPAP TODAY . PHONE # : [phone] TAKE THESE MEDICATIONS AT HOME: Bisoprolol Fumarate (Bisoprolol Fumarate 5 Mg Tablet) 5 mg PO DAILY [facility] Last Admin: 06/08/20 08:36 Dose: 5 mg Documented by: Bupropion HCl (Bupropion Hcl 150 Mg Tab.Er.24h) 150 mg PO QAM [facility] Last Admin: 06/08/20 08:36 Dose: 150 mg Documented by: Cephalexin (Cephalexin 500 Mg Capsule) 500 mg PO Q8HR [facility] X 10 MORE DAYS Stop: 06/11/20 04:59 Last Admin: 06/08/20 05:29 Dose: 500 mg Documented by: Citalopram Hydrobromide (Citalopram Hydrobromide 20 Mg Tablet) 40 mg PO BEDTIME [facility] Last Admin: 06/07/20 20:46 Dose: 40 mg Documented by: Clopidogrel Bisulfate (Clopidogrel Bisulfate 75 Mg Tablet) 75 mg PO DAILY [facility] Last Admin: 06/08/20 08:37 Dose: 75 mg Documented by: Diazepam (Diazepam 5 Mg Tablet) 10 mg PO TID PRN -- ( DO NOT REFILL) PRESCRIBED BY DR. BURNHAM PRN Reason: ANXIETY' Last Admin: 06/08/20 08:46 Dose: 10 mg Documented by: Ezetimibe (Ezetimibe 10 Mg Tablet) 10 mg PO DAILY [facility] Last Admin: 06/08/20 08:36 Dose: 10 mg Documented by: Fluticasone Propionate (Fluticasone Propionate 16 Gm Nasal [place]) 1 spray JENNIFER BID [facility] Last Admin: 06/08/20 08:35 Dose: 1 spray Documented by: Insulin Glargine (Insulin Glargine,Hum.Rec.Anlog 100 Units/Ml) 75 unit SUBCUT BEDTIME [facility] Last Admin: 06/07/20 21:17 Dose: 75 unit Documented by: Lisinopril (Lisinopril 40 Mg Tablet) 40 mg PO DAILY [facility] Last Admin: 06/08/20 08:36 Dose: 40 mg Documented by: Lovastatin (Lovastatin 20 Mg Tablet) 20 mg PO BEDTIME [facility] Last Admin: 06/07/20 20:47 Dose: 20 mg Documented by: Metformin HCl (Metformin Hcl 500 Mg Tablet) 500 mg PO BIDWM [facility] Last Admin: 06/07/20 09:10 Dose: 500 mg Documented by: Nicotine (Nicotine 21 Mg Patch.Td24) 1 patch TD DAILY [facility] Last Admin: 06/07/20 09:50 Dose: 1 patch Documented by: Non-Formulary Medication (Evolocumab [Repatha Syringe]) 140 mg IM EVERY OTHER WEEK [facility] Non-Formulary Medication (Icosapent Ethyl [Vascepa]) 1 gm PO BID [facility] Last Admin: 06/07/20 20:47 Dose: Not Given Documented by: Non-Formulary Medication (Naloxegol [Movantik]) 25 mg PO QAM [facility] Last Admin: 06/07/20 09:28 Dose: Not Given Documented by: Omeprazole (Omeprazole 20 Mg Chet.) 20 mg PO QDAC [facility] Last Admin: 06/08/20 05:29 Dose: 20 mg Documented by: Oxycodone HCl (Oxycodone Hcl 5 Mg Tablet) 10 mg PO TID [facility] --( DO NOT REFILL ) PRESCRIBED BY DR. BURNHAM Last Admin: 06/08/20 08:37 Dose: 10 mg Documented by: Potassium Chloride (Potassium Chloride 20 Meq Tab) 20 meq PO [id number] [facility] Last Admin: 06/08/20 08:36 Dose: 20 meq Documented by: Pregabalin (Pregabalin 75 Mg Capsule) 75 mg PO DAILY [facility] Last Admin: 06/08/20 08:36 Dose: 75 mg Documented by: Triamterene/HCTZ (Triamterene/Hydrochlorothiazid 37.5/25 Mg Capsule) 1 cap PO 2 TIMES PER WEEK PRN PRN Reason: EDEMA IPRATROPIUM - ALBUTEROL NEBS 1 VIAL TID PRN HUMULIN R U -100 UNITS EVERY ACHS PRN PER HOME SLIDING SCALE ZOFRAN 4 MG PO Q 12 HR PRN SENNA-S 1 TABLET PO BID ALLERGIES: codeine Adverse Reaction (Verified 02/12/20 17:32) Rash morphine Adverse Reaction (Verified 02/12/20 17:32) Vomiting DISCONTINUED MEDICATIONS: NONE NEW PRESCRIPTIONS: 1).KEFLEX 500 MG BY MOUTH 3 TIMES DAILY FOR 10 DAYS 2).FLONASE NASAL SPRAY ONE SPRAY EACH NOSTRIL TWICE DAILY 3).NICOTINE PATCH 21 MG TOPICAL APPLY/ CHANGE DAILY 4).ZESTRIL 40 BY MOUTH DAILY ( CHANGED) 5).SENNA S 1 TABLET BY MOUTH TWICE DAILY 6). RESTART REPATHA 140 MG SQ EVERY 15 DAYS 7). VOLTAREN TOPICAL GEL 1 % TO RT HAND BID PRN SMOKING: CESSATION INSTRUCTION DISEASE SPECIFIC EDUCATION: UTI SMOKING CESSATION ACUTE BRONCHITIS COPD DM 1800 ADA CONSTIPATION LAB REVIEW: 06/08/20 05:22 06/08/20 05:22 06/08/20 05:22: Sodium 137.1, Potassium 4.37, Chloride 101.5, Carbon Dioxide 29.2, Anion Gap 10.77, BUN 21.6 H, Creatinine 1.08, Estimated GFR (MDRD) 53.00, BUN/Creatinine Ratio 20.00, Glucose 131.4 H, Calcium 9.59, Total Bilirubin 0.34, AST 35.6, ALT 68.6 H, Alkaline Phosphatase 109.7, Total Protein 6.48, Albumin 3.78, Globulin 2.70, Albumin/Globulin Ratio 1.40 06/08/20 05:22: WBC 16.69 H, RBC 4.01 L, Hgb 12.0, Hct 36.3 L, MCV 90.5, MCH 29.9, MCHC 33.1, RDW Coeff of Barry 12.9, Plt Count 349, Neutrophils % (Manual) 54.0, Band Neutrophils % 2.0, Lymphocytes % (Manual) 31.0, Monocytes % (Manual) 3.0, Eosinophils % (Manual) 3.0, Reactive Lymphocytes 7.0 H, Anisocytosis Not present 06/07/20 05:30: Lactate Dehydrogenase 147 ACTIVITY: UP AD ALEKSANDER, SLOWLY RESUME PREVIOUS ACTIVITY DIET: 1800 ADA DIET CHECK BLOOD SUGARS AND FOLLOW SLIDING SCALE PROTOCOL CODE STATUS: FULL CODE LABS: Hgb 12, hct 36, WBC 16,000 normal differential, creatinine 1, BUN 21, potassium 4.3, glucose 131, TSH 0.5 which is normal. HOSPITAL COURSE: 54 year old white female hospitalized with urosepsis, acute bronchitis and she was COVID negative. She was treated with Rocephin and Zithromax. The patient's urine showed e-coli which was sensitive to Rocephin. The patient became afebrile and asymptomatic without 48 hours. She has been up and about. Cardiovascular status was stable with no evidence of CHF or coronary insufficiency. Counseling for smoking done. She also had marijuana in her drug screen and was strongly advised to quit all the street drugs. The patient had mentioned about her going to [facility] who is a psychiatrist and nurse practitioner and she was supposed to be Cymbalta, Lamictal, Celexa, Buspar and she had stopped taking for last several months. Mental status is stable. She is oriented to time, place and person. She is intelligent. She is very noncompliant. She is noncompliant of lifestyle, medications, recommendations, followups. The patient is going to be on Keflex to be taken for 10 days. Rest of the medications were continued on her. Strongly advised regular followups. She is going to be set up with Dr. Garber as an outpatient. She was strongly advised to restart her Repatha and all the rest of the medications. CONDITION: Stable PROGNOSIS: Guarded. TIME SPENT: More than 60 minutes. ADDENDUM: The patient had some questions about cervical lymphadenopathy. The patient barely has some lymph nodes palpable in cervical area. There is not much in a way of any axillary lymph nodes, none that I could feel. CT scan of the abdomen showed some nonspecific mediastinal small nodes adenopathy. Again the patient was strongly advised to see ENT for evaluation of lymphadenopathy in cervical area. Could be again coming from acute bronchitis and upper respiratory tract infection with smoking. The patient declined even to see any local ENT like Dr. Bernabe. The patient was also advised to see Hematology/Oncologist for possible lymphadenopathy. Differential diagnosis like Hodgkin's disease etc. She flatly declined. She is strongly advised to have regular followup and CT scan of the chest. Advised to be repeated in few months and remind us about repeating the CT scan of the chest. I strongly advised to take responsibility for her own health care like mammograms done, colonoscopy as indicating, to quit smoking and advised to quit the street drugs. Advised to follow the guidelines for COVID-19 protection. She needs to lose weight and get down to her BMI of 23 plus minus two so strongly advised to take her medications regularly especially Repatha. Coronary artery disease and risk factors discussed with her in detail. The patient's prognosis is guarded considering the patient's lifestyle and the medical problems and noncompliance. LASHANDA
--- NOTE | 2020-06-13 09:24 | PN ---
06/03/2020: Level 5 06/04/2020: Extensive 06/05/2020: Intermediate 06/06/2020: Intermediate 06/07/2020: Intermediate 06/08/2020: D as in discharge MTDD
== END 2020-06-08 13:00 | disposition home or self-care (01) | DRG 153 ==
LOC: ED 12:59 → SCU 17:27 → MEDSURG B 06-06 08:03
PROVIDERS: ADMIT Internal Medicine; ATTEND Internal Medicine
DX: R59.1 Generalized enlarged lymph nodes; N39.0 Urinary tract infection, site not specified; J40 Bronchitis, not specified as acute or chronic; J06.9 Acute upper respiratory infection, unspecified; B96.20 Unspecified Escherichia coli [E. coli] as the cause of diseases classified elsewhere; D64.9 Anemia, unspecified; E78.5 Hyperlipidemia, unspecified; I10 Essential (primary) hypertension; J44.9 Chronic obstructive pulmonary disease, unspecified

== ENCOUNTER 2023-11-17 13:28 | Observation (INO) ==
[2023-11-17 13:45] LABS: BASOPHILS # (AUTO) 0.1 K/uL (0-0.2); BASOPHILS % (AUTO) 0.6 % (0.0-3.0); EOSINOPHILS # (AUTO) 0.2 K/ul (0.0-0.7); EOSINOPHILS % (AUTO) 1.5 % (0.0-7.0); HEMATOCRIT 36.9 % (37.0-47.0); HEMOGLOBIN 12.3 g/dl (12.0-16.0); IMMATURE GRANULOCYTE # (AUTO) 0.1 (0.0-1.0); LYMPHOCYTES # (AUTO) 4.7 K/uL (0.60-3.4); LYMPHOCYTES % (AUTO) 33.3 (10.0-50.0); MEAN CORPUSCULAR HEMOGLOBIN 29.1 pg (27.0-31.0); MEAN CORPUSCULAR HGB CONC 33.3 (31.8-35.4); MEAN CORPUSCULAR VOLUME 87.2 fl (81.0-99.0); MONOCYTES # (AUTO) 0.8 K/uL (0.4-2.0); MONOCYTES % (AUTO) 5.4 (0-10); NEUTROPHILS # (AUTO) 8.3 K/ul (2.0-6.9); NEUTROPHILS % (AUTO) 58.2 % (42.2-75.2); PLATELET COUNT 340 10^3/uL (140-440); RDW COEFFICIENT OF VARIATION 13.2 % (11.6-14.8); RED BLOOD COUNT 4.23 10^6/ul (4.20-5.40); WHITE BLOOD COUNT 14.19 K/ul (4.6-10.2)
[2023-11-17] MEDS: ASPIRIN CHEWABLE PO ONE (13:47)
[2023-11-17 14:06] LABS: ALANINE AMINOTRANSFERASE 18.9 U/L (0-35); ALBUMIN 4.21 g/dL (3.5-5.0); ASPARTATE AMINO TRANSFERASE 18.3 U/L (14-36); BILIRUBIN,TOTAL 0.52 mg/dL (0.2-1.3); BLOOD UREA NITROGEN 17.9 mg/dL (7-17); CALCIUM 10.08 mg/dL (8.4-10.2); CARBON DIOXIDE 20.4 mmol/L (22-30.0); CHLORIDE 100.5 mmol/L (98-107); CREATININE 1.12 mg/dL (0.60-1.30); GLUCOSE 302.7 mg/dL (74-106); POTASSIUM 4.59 mmol/L (3.5-5.1); SODIUM 132.7 mmol/L (134.5-145); TOTAL PROTEIN 7.51 g/dL (6.3-8.2)
[2023-11-17 14:12] LABS: SARS COV-2 RNA RAPID NAAT NEGATIVE (NEGATIVE)
[2023-11-17 14:19] LABS: TROPONIN I < 0.012 ng/ml (0.0000-0.120)
--- NOTE | 2023-11-17 14:30 | DI ---
EXAM: CHEST RADIOGRAPH TECHNIQUE: Two views. Frontal and lateral. HISTORY: Chest pain. COMPARISON: 01/18/2022 FINDINGS: The patient is mildly leaning to the left. EKG leads project over the chest. No pulmonary infiltrate is identified. No pleural effusion or pneumothorax is seen. Heart size is normal. No acute displaced rib fractures are identified. IMPRESSION: 1. No acute findings in the chest.
--- NOTE | 2023-11-17 14:46 | ED.PDOC ---
General ED Provider: Dr. BREANN NAVARRETE DO Chief Complaint: Chest Pain Stated Complaint: Patient is a 58 yo F here for chest heaviness since 3 am this morning patient arrives afebrile and vitally stable by POV She is speaking in full sentences on room air spo2 95% Patient is a 1 PPD tobacco smoker She has a PMHX: PAD, mitral regurgitation, tobacco use, Renal artery stenosis, HTN, DM@ she does not use insulin, medicaiotn non compliance patient deneis chest pain, sob, hemoptysis No falls or injuires Patient stable She denies hx of ACS, VTE pr CVA patient stable Time Seen by Provider: 11/17/23 13:33 Information Source: Patient Primary Care Provider: VINOD BLANC MD Nursing and Triage Documentation Reviewed and Agree: Yes What is Opioid Naive?: *Opioid Naive implies the patient is not already taking opioids or not chronically receiving opioids on a daily basis. *PRN dosing is not "usually" associated with tolerance. *Patients are at higher risk of over-sedation and aspiration. What is Opioid Tolerant?: *Opioid Tolerance implies less than the expected response to an opioid. *Acquired tolerance is defined by the patient taking 60mg of oral morphine daily (or equianalgesic dose of another opioid) for 1 week or more. *Often associated with chronic pain. *May take more than usual dose to achieve desired pain control. Review of Systems Review Of Systems Constitutional: Denies Chills, Fever or Weakness Eyes: Denies Blindness or Vision change Ears, Nose, Mouth, Throat: Denies Ear pain, Ear discharge or Nose pain Respiratory: Denies Cough, Shortness of Breath or Stridor Cardiac: Reports Other (+ chest heaviness); Denies Chest pain, Palpitations or Syncope GI: Denies Abdominal pain, Constipated or Diarrhea : Reports Other (complains of vaginal yeast infection declines exam); Denies Burning or Dysuria Musculoskeletal: Denies Back pain or Joint pain Skin: Denies Bruising, Lesions or Rash Neurological: Denies Anxiety or Depressed Endocrine: Reports No symptoms Hematologic/Lymphatic: Reports No symptoms All Other Systems: Reviewed and Negative FOR[facility]LY [facility] Medical History History of stent insertion of renal artery Z98.890 - Other specified postprocedural states (ICD-10) Spondylosis M47.9 - Spondylosis, unspecified (ICD-10) Palpitations R00.2 - Palpitations (ICD-10) Family history of headache Z84.89 - Family history of other specified conditions (ICD-10) Atypical chest pain R07.89 - Other chest pain (ICD-10) Family History UNCLE Cancer pancreatic Suicide AUNT Cancer colon AUNT Cancer brain Depression MATERNAL GRANDMOTHER Diabetes PATERNAL GRANDMOTHER Diabetes Mother Heart attack Thyroid disorder Depression FATHER Hx of heart bypass surgery History of bipolar disorder PATERNAL GRANDMOTHER PAD (peripheral artery disease) UNCLE Heart disease UNCLE History of bipolar disorder Depression Suicide Other No known health problems Social History Smoking and tobacco status: Current every day smoker Alcohol intake: never Substance use type: does not use Margot/mandaeism: SAMARITAN Special margot needs: No Agree to transfusion: Yes Adopted: No Caregiver/support person: Yes (has guardianship of 4 year old otilio) Foster care: Yes Household members: other Other Household Members: 4 year old otilio Housing: apartment Marital status: D Lives independently: Yes Number of children: 2 Number of grandchildren: 3 Highest education level completed: high school graduate Financial difficulty paying for basics: somewhat hard service: No Current occupational status: disabled Pets and animals: No Leisure activites: art and games History of recent travel: No Sexually active: Yes Do you think of yourself as: straight/heterosexual Current gender identity: female Seatbelt use: always Helmet use: No Drives intoxicated or rides with intoxicated diesel truck driver: No Water heater temperature set < 120 degrees: Yes Working smoke detector in home: Yes Fire extinguisher in home: Yes Carbon monoxide detector in home: Yes Firearms in home: No Female Reproductive History Menstrual Hx Hysterectomy: Yes Hx Tubal Ligation: Yes Physical Exam Physical Exam Appearance: Reports Well-appearing, Well-nourished and Obese Ill-appearing: Not Applicable Pain Distress: Not Applicable Eyes: Reports ELOISA, EOMI and Conjunctiva clear ENT: Reports Ears normal, Nose normal and Oropharynx normal Neck: Supple Respiratory: Reports Airway patent and Breath sounds clear; Denies Crackles, Rhonchi, Wheezes or Retractions Cardiovascular: Reports RRR and Pulses normal GI/: Reports Soft, Nontender and Other (no peritonitis, central abdominal obesity, declines groin exam) Musculoskeletal: Reports Normal strength and ROM intact; Denies No edema Skin: Reports Warm and Dry Neurological: Reports Sensation intact and Motor intact Psychiatric: Reports Affect appropriate and Mood appropriate Interpretation EKG Interpretation EKG Interpretation By: ED Physician Time of EKG #1: 13:38 Interpretation: NSR rate 92 no stemi, PAC present TWI lateral Radiology Interpretation Radiology Interpretation By: ED Physician Radiology Results: Negative Exam Interpreted: CXR Xray Comments: No gross rib fractures or pneumothroaces Xray Comments: No gross rib fractures or pneumothroaces Course Course 11/17/23 13:41 11/17/23 13:41 Orders, Labs, Meds: Lab Review 11/17/23 11/17/23 11/17/23 13:41 13:45 15:17 WBC 14.19 H RBC 4.23 Hgb 12.3 Hct 36.9 L MCV 87.2 MCH 29.1 MCHC 33.3 RDW Coeff of Barry 13.2 Plt Count 340 Immature Gran % (Auto) 1.0 Neut % (Auto) 58.2 Lymph % (Auto) 33.3 Alger % (Auto) 5.4 Eos % (Auto) 1.5 Baso % (Auto) 0.6 Neut # (Auto) 8.3 H Lymph # (Auto) 4.7 H Alger # (Auto) 0.8 Eos # (Auto) 0.2 Baso # (Auto) 0.1 Immature Gran # (Auto) 0.1 Sodium 132.7 L Potassium 4.59 Chloride 100.5 Carbon Dioxide 20.4 L Anion Gap 16.39 BUN 17.9 H Creatinine 1.12 Estimated GFR (MDRD) 50.00 BUN/Creatinine Ratio 15.98 Glucose 302.7 H Calcium 10.08 Total Bilirubin 0.52 AST 18.3 ALT 18.9 Alkaline Phosphatase 151.0 H Troponin I < 0.012 < 0.012 Total Protein 7.51 Albumin 4.21 Globulin 3.30 Albumin/Globulin Ratio 1.27 D-Dimer 3135.01 H Acetone, Qual None SARS CoV-2 RNA Rapid LUISITO Negative Orders Category Date Time Status OBSERVATION [PLACE PATIENT OBSERVATION] .TO MEDSURG ADMISSION 11/17/23 16:53 Active (MONITORED BED) EKG-(ED ONLY) Stat CARDIO 11/17/23 13:33 Completed NPO REMINDER: IMAGING ONCE CARE 11/17/23 14:38 Active TELEMETRY MONITORING TELE CARE 11/17/23 16:54 Active ED APPLY O2 .ONCE EMERGENCY 11/17/23 13:33 Active ED GRINDING AND POLISHING LABORER APPLIED .ONCE EMERGENCY 11/17/23 13:33 Active ACETONE, QUALITATIVE Stat LAB 11/17/23 13:41 Completed CBC W/ AUTO DIFF Stat LAB 11/17/23 13:41 Completed COMPREHENSIVE METABOLIC PANEL Stat LAB 11/17/23 13:41 Completed D-DIMER Stat LAB 11/17/23 13:41 Completed SARS COV-2 RNA RAPID LUISITO Stat LAB 11/17/23 13:45 Completed TROPONIN I Stat LAB 11/17/23 13:41 Completed TROPONIN I Stat LAB 11/17/23 15:17 Completed Aspirin [Aspirin Chewable] Meds 11/17/23 13:34 Discontinued 324 mg PO ONCE ONE Fluconazole [Diflucan] Meds 11/17/23 16:55 Discontinued 150 mg PO ONCE ONE CHEST, 2 VIEWS PA & LAT Stat RADS 11/17/23 13:[address] CHEST PE PROTOCOL Stat RADS 11/17/23 14:38 Completed Medications Discontinued Medications Generic Name Dose Route Start Last Admin Trade Name Freq PRN Reason Stop Dose Admin Aspirin 324 mg 11/17/23 13:34 11/17/23 13:47 Aspirin 81 Mg Tab.Chew PO 11/17/23 13:35 324 mg ONCE ONE Administration Fluconazole 150 mg 11/17/23 16:55 Fluconazole 150 Mg Tablet PO 11/17/23 16:56 ONCE ONE Vital Signs: Temp Pulse Resp BP Pulse Ox 11/17/23 13:34 98.0 F 92 18 146/91 H 96 troponin negative, pending delta troponin D dimer positive pending CTA chest Pending acetone Diabetic lunch tray ordered troponins 2x negative CTPE shows no PE I consulted Dr. Blanc he recommends Hospitalist admit, OUTBOUND SALES ADVISOR srini called pending call back MDM: patient is a 58 yo F here for chest pressure Patient afebrile and vitally stable Hx from patient chart review by me Exam reassuring 3+ labs and 3 images reviewed by me I consulted Dr. Blanc and Hospitalist Srini and they agree with chest pain observation patietn agrees WDX: Chest pressure unknown etiology, tobacco use, yeast infection, incidental findings acute moderate complexity DDX: I considered ACS, sepsis, PE but these were not found SDOH: patient needs to quit smoking, she is high risk heart score and will benefit from observation and further care Patient passed PO and ambulation challenge All questions answered KATHY Risk Score KATHY Risk Score: Risk Score Odds of by 30D 0 0.1 (0.1-0.2) 1 0.3 (0.2-0.3) 2 0.4 (0.3-0.5) 3 0.7 (0.6-0.9) 4 1.2 (1.0-1.5) 5 2.2 (1.9-2.6) 6 3.0 (2.5-3.6) 7 4.8 (3.8-6.1) Physician Progress Note: [] Discharge Plan Discharge Patient Disposition: PLACED OBSERVATION Discharge Problem: Vaginal yeast infection, Hyperglycemia, LAD (lymphadenopathy), mediastinal, Pericardial effusion, Chest pressure, Tobacco use Did you review [place] COLLECTIVE BARGAINING SPECIALIST for ALL controlled substances?: Not Applicable ED Provider: BREANN NAVARRETE Condition: Fair
--- NOTE | 2023-11-17 16:17 | CT ---
EXAM: CT ANGIOGRAPHY CHEST (PE PROTOCOL) HISTORY: Chest heaviness, positive D-dimer, concern for pulmonary embolus TECHNIQUE: CTA chest with intravenous contrast. PE protocol. Multiplanar images were provided with MIP images and 3-D reconstructions. COMPARISON: 06/07/2020 FINDINGS: No pulmonary arterial thromboembolism. There is moderate atherosclerotic disease without aortic caliber dilatation. Coronary artery calcifications are present. Mild cardiomegaly. Small p ericardial effusion. Scattered nonspecific mediastinal lymph nodes appear smaller compared to prior study. Lungs reveal diffuse bilateral interstitial haziness which may represent mild edema or pneumo nitis. There is no bernardo consolidation. No pleural fluid or pneumothorax. Bones appear appropriate for age. Grossly stable fatty 15 mm nodule of the right adrenal gland most consistent with an adeno ma. Relative atrophy of the left kidney incidentally noted. IMPRESSION: 1. No pulmonary arterial thromboembolism. 2. There is moderate atherosclerotic disease without aortic caliber dilatation. Coronary artery omar cifications are present. 3. Mild cardiomegaly. Small pericardial effusion. 4. Scattered nonspecific mediastinal lymph nodes appear smaller compared to prior study. 5. Lungs reveal diffuse bilateral interstitial haziness which may represent mild edema or pneumoniti s. There is no bernardo consolidation. No pleural fluid. - - - - - All CT scans are performed using dose optimization techniques as appropriate to the performed exam an d include at least one of the following: Automated exposure control, adjustment of the mA and/or kV according t o size, and the use of iterative reconstruction technique.
[2023-11-17] MEDS: DIFLUCAN PO ONE (17:00)
[2023-11-17] MEDS ORDERED: TYLENOL PO PRN (17:15)
[2023-11-17 17:25] VITALS: BMI 30.7
[2023-11-17 17:44] LABS: HDL CHOLESTEROL 37.1 mg/dL (35-80)
[2023-11-17 17:54] LABS: CHOLESTEROL 380.4 mg/dL (0-200); TRIGLYCERIDES 779.4 mg/dL (0-150)
[2023-11-17 18:15] LABS: THYROID STIMULATING HORMONE 1.31 uIU/L (0.465-4.68)
[2023-11-17] MEDS ORDERED: NON-FORMULARY MEDICATION (Esomeprazole Magnesium 40 mg capsule,delayed release(DR/EC)) SCH (19:00)
[2023-11-17] MEDS: MEVACOR PO SCH (20:02)
[2023-11-17] MEDS: NORCO 10-325 PO PRN (20:02)
[2023-11-17] MEDS: HUMULIN R SUBCUT SCH (20:37)
[2023-11-17] MEDS: FLONASE NAS SCH (22:22)
[2023-11-18 05:15] VITALS: PULSE 78
[2023-11-18 05:41] LABS: BASOPHILS # (AUTO) 0.1 K/uL (0-0.2); BASOPHILS % (AUTO) 0.6 % (0.0-3.0); EOSINOPHILS # (AUTO) 0.3 K/ul (0.0-0.7); EOSINOPHILS % (AUTO) 2.1 % (0.0-7.0); HEMATOCRIT 34.5 % (37.0-47.0); HEMOGLOBIN 11.3 g/dl (12.0-16.0); IMMATURE GRANULOCYTE # (AUTO) 0.1 (0.0-1.0); IMMATURE GRANULOCYTE % (AUTO) 1.1 % (0.0-5.0); LYMPHOCYTES # (AUTO) 4.9 K/uL (0.60-3.4); LYMPHOCYTES % (AUTO) 40.6 (10.0-50.0); MEAN CORPUSCULAR HEMOGLOBIN 28.9 pg (27.0-31.0); MEAN CORPUSCULAR HGB CONC 32.8 (31.8-35.4); MEAN CORPUSCULAR VOLUME 88.2 fl (81.0-99.0); MONOCYTES # (AUTO) 0.7 K/uL (0.4-2.0); MONOCYTES % (AUTO) 5.6 (0-10); NEUTROPHILS # (AUTO) 6.1 K/ul (2.0-6.9); PLATELET COUNT 304 10^3/uL (140-440); RDW COEFFICIENT OF VARIATION 13.3 % (11.6-14.8); RED BLOOD COUNT 3.91 10^6/ul (4.20-5.40); WHITE BLOOD COUNT 12.13 K/ul (4.6-10.2)
[2023-11-18 05:59] LABS: ALANINE AMINOTRANSFERASE 17.8 U/L (0-35); ALBUMIN 3.7 g/dL (3.5-5.0); ALKALINE PHOSPHATASE 145.1 U/L (38-126); ASPARTATE AMINO TRANSFERASE 18.1 U/L (14-36); BILIRUBIN,TOTAL 0.41 mg/dL (0.2-1.3); BLOOD UREA NITROGEN 25.4 mg/dL (7-17); CALCIUM 9.21 mg/dL (8.4-10.2); CARBON DIOXIDE 22.5 mmol/L (22-30.0); CHLORIDE 101.5 mmol/L (98-107); CREATININE 1.13 mg/dL (0.60-1.30); GLUCOSE 317.7 mg/dL (74-106); POTASSIUM 4.73 mmol/L (3.5-5.1); TOTAL PROTEIN 6.53 g/dL (6.3-8.2)
[2023-11-18] MEDS: LANTUS SUBCUT SCH (09:03)
[2023-11-18] MEDS: PROTONIX PO SCH (09:05)
[2023-11-18] MEDS: CELEXA PO SCH (09:06)
[2023-11-18] MEDS: ZESTRIL PO SCH (09:06)
[2023-11-18 09:29] LABS: BILIRUBIN,URINE Negative (NEGATIVE); CLARITY,URINE Clear (CLEAR); COLOR,URINE Yellow (YELLOW); GLUCOSE, URINE (UA) 2+ (NEGATIVE); KETONES,URINE Negative (NEGATIVE); LEUKOCYTE ESTERASE ,URINE Negative (NEGATIVE); NITRITE,URINE Negative (NEGATIVE); PROTEIN,URINE Negative (NEGATIVE); URINE, BLOOD Negative (NEGATIVE); UROBILINOGEN,URINE 0.2 (0.2)
[2023-11-18 10:41] VITALS: BP 152/80; RESP 16; TEMP 97.5
--- NOTE | 2023-11-18 12:44 | PCM.SS ---
Provider Provider: SUE SKAGGS, [facility] Admission Date Admission Date: 11/17/23 Discharge Date Discharge Date: 11/18/23 Primary Care Physician Primary Care Physician: VINOD SIERRA MD Chief Complaint Reason For Visit: CHEST PAIN History of Present Illness History of Present Illness: Admitted 11/17/23 16:58, this 58 year old /WHITE/F presented to the ER with complaints of chest pain radiating to the L arm that started yesterday morning around 3 am. States that the pain was intermittent and sharp stabbing in nature. Denies any alleviating factors. Exertion aggravated. States that over the last few weeks she has been very fatigued and becomes short of breath on exertion. Has been a smoker for many years with hx of COPD. Has pmh of DM2 but does not check her sugar at home or follow diabetic diet. Has not seen PCP since May. Denies any fever, chills, N/V/D. [facility] Medical History History of stent insertion of renal artery Z98.890 - Other specified postprocedural states (ICD-10) Spondylosis M47.9 - Spondylosis, unspecified (ICD-10) Palpitations R00.2 - Palpitations (ICD-10) Family history of headache Z84.89 - Family history of other specified conditions (ICD-10) Atypical chest pain R07.89 - Other chest pain (ICD-10) Family History UNCLE Cancer pancreatic Suicide AUNT Cancer colon AUNT Cancer brain Depression MATERNAL GRANDMOTHER Diabetes PATERNAL GRANDMOTHER Diabetes Mother Heart attack Thyroid disorder Depression FATHER Hx of heart bypass surgery History of bipolar disorder PATERNAL GRANDMOTHER PAD (peripheral artery disease) UNCLE Heart disease UNCLE History of bipolar disorder Depression Suicide Other No known health problems Social History Smoking and tobacco status: Current every day smoker Alcohol intake: never Substance use type: does not use Margot/yarsanism: MANDAEISM Special margot needs: No Agree to transfusion: Yes Adopted: No Caregiver/support person: Yes (has guardianship of 4 year old otilio) Foster care: Yes Household members: other Other Household Members: 4 year old otilio Housing: apartment Marital status: D Lives independently: Yes Number of children: 2 Number of grandchildren: 3 Highest education level completed: high school graduate Financial difficulty paying for basics: somewhat hard service: No Current occupational status: disabled Pets and animals: No Leisure activites: art and games History of recent travel: No Sexually active: Yes Do you think of yourself as: straight/heterosexual Current gender identity: female Seatbelt use: always Helmet use: No Drives intoxicated or rides with intoxicated tower truck driver: No Water heater temperature set < 120 degrees: Yes Working smoke detector in home: Yes Fire extinguisher in home: Yes Carbon monoxide detector in home: Yes Firearms in home: No Medications Mecications: Medications at Discharge (Home Meds & RX) insulin regular human 100 unit/mL injection solution (Humulin R Regular U-100 Insulin) See Protocol SQ ACHS PRN Hyperglycemica 07/08/15 lovastatin 20 mg tablet 20 mg PO BEDTIME 01/21/18 blood-glucose meter #1 ea 10/14/22 hydrocodone 10 mg-acetaminophen 325 mg tablet 1 tab PO Q8H PRN pain 10/14/22 potassium chloride 20 mEq tablet,extended release(part/cryst) See Rx Instructions .Route .COMPLEX #30 tabs 09/07/23 lisinopril 40 mg tablet See Rx Instructions .Route .COMPLEX #30 tabs 09/08/23 insulin glargine 100 unit/mL (3 mL) subcutaneous pen (Lantus Solostar U-100 Insulin) See Rx Instructions .Route .COMPLEX #15 ea 10/19/23 metformin 500 mg tablet See Rx Instructions .Route .COMPLEX #60 tabs 10/19/23 pen needle, diabetic 31 gauge x 5/16" (TRUEplus Pen Needle) #100 ea 10/19/23 citalopram 40 mg tablet See Rx Instructions .Route .COMPLEX #30 tabs 11/11/23 esomeprazole magnesium 40 mg capsule,delayed release See Rx Instructions .Route .COMPLEX #30 caps 11/11/23 Allergies Allergies Allergy/AdvReac Type Severity Reaction Status Date / Time codeine AdvReac Rash Verified 11/17/23 13:41 morphine AdvReac Vomiting Verified 11/17/23 13:41 Review of Systems Constitutional: Reports Fatigue Head: Reports Normocephalic Eyes: Reports No symptoms Ears: Reports No symptoms Nose: Reports No symptoms Mouth: Reports No symptoms Throat: Reports No symptoms Cardiovascular: Reports Chest pain Respiratory: Reports Shortness of air Gastrointestinal: Reports No symptoms Genitourinary: Reports No Symptoms Musculoskeletal: Reports No symptoms Endocrine: Reports No symptoms Hematology: Reports No symptoms Immunology: Reports No symptoms Neurological: Reports No symptoms Psychiatric: Reports No symptoms Physical Examination Appearance: Positive No Apparent Distress and Alert and Oriented x3 Head: Positive Normocephalic Eyes: Positive ELOISA ENT: Positive Ears Normal, Nares Normal and Oropharynx Normal Neck: Positive Supple, Non-Tender, Trachea Midline and No Carotid Bruits Heart: Positive RRR and No Murmurs Respiratory: Positive Airway patent, Breath Sounds Clear, Bilaterally, Breath Sounds Equal and Respirations Nonlabored GI/: Positive Soft, Nontender, Bowel sounds normal and No Distention Extremities: Positive Pedal Pulses Palpable Bilaterally Neurological: Positive Normal Gait, Sensation Intact, Motor Intact, Alert and Oriented Psychiatric: Positive Normal Judgement, Normal Insight, Affect Appropriate and Mood Appropriate Vital Signs (Last 4 Hours) Vital Signs Last 4 Hours: Vital Signs: Last 4 Hours 11/18/23 09:00 11/18/23 10:00 11/18/23 10:00 Temperature 97.5 F L Temperature Source Temporal Artery Scan Pulse Rate 78 Respiratory Rate 16 Blood Pressure 152/80 H Blood Pressure Mean 104 Blood Pressure Location Right Arm Blood Pressure Position Sitting O2 Sat by Pulse Oximetry 98 Oxygen Delivery Method Room Air Room Air Room Air 11/18/23 11:00 11/18/23 12:00 Temperature Temperature Source Pulse Rate Respiratory Rate Blood Pressure Blood Pressure Mean Blood Pressure Location Blood Pressure Position O2 Sat by Pulse Oximetry Oxygen Delivery Method Room Air Room Air Labs This Visit Labs This Visit: Labs This Visit 11/17/23 11/17/23 11/17/23 13:41 13:45 15:17 WBC 14.19 H RBC 4.23 Hgb 12.3 Hct 36.9 L MCV 87.2 MCH 29.1 MCHC 33.3 RDW Coeff of Barry 13.2 Plt Count 340 Immature Gran % (Auto) 1.0 Neut % (Auto) 58.2 Lymph % (Auto) 33.3 [place] % (Auto) 5.4 Eos % (Auto) 1.5 Baso % (Auto) 0.6 Neut # (Auto) 8.3 H Lymph # (Auto) 4.7 H [place] # (Auto) 0.8 Eos # (Auto) 0.2 Baso # (Auto) 0.1 Immature Gran # (Auto) 0.1 Sodium 132.7 L Potassium 4.59 Chloride 100.5 Carbon Dioxide 20.4 L Anion Gap 16.39 BUN 17.9 H Creatinine 1.12 Estimated GFR (MDRD) 50.00 BUN/Creatinine Ratio 15.98 Glucose 302.7 H Hemoglobin A1c Calcium 10.08 Total Bilirubin 0.52 AST 18.3 ALT 18.9 Alkaline Phosphatase 151.0 H Troponin I < 0.012 < 0.012 Total Protein 7.51 Albumin 4.21 Globulin 3.30 Albumin/Globulin Ratio 1.27 Triglycerides Cholesterol LDL Cholesterol, Calc VLDL Cholesterol HDL Cholesterol Cholesterol/HDL Ratio TSH Free T4 D-Dimer 3135.01 H Urine Color Urine Clarity Urine pH Ur Specific Braxton Urine Protein Urine Glucose (UA) Urine Ketones Urine Blood Urine Nitrite Urine Bilirubin Urine Urobilinogen Ur Leukocyte Esterase Acetone, Qual None SARS CoV-2 RNA Rapid LUISITO Negative 11/17/23 11/17/23 11/18/23 17:27 19:32 05:22 WBC 12.13 H RBC 3.91 L Hgb 11.3 L Hct 34.5 L MCV 88.2 MCH 28.9 MCHC 32.8 RDW Coeff of Barry 13.3 Plt Count 304 Immature Gran % (Auto) 1.1 Neut % (Auto) 50.0 Lymph % (Auto) 40.6 [place] % (Auto) 5.6 Eos % (Auto) 2.1 Baso % (Auto) 0.6 Neut # (Auto) 6.1 Lymph # (Auto) 4.9 H [place] # (Auto) 0.7 Eos # (Auto) 0.3 Baso # (Auto) 0.1 Immature Gran # (Auto) 0.1 Sodium 131.0 L Potassium 4.73 Chloride 101.5 Carbon Dioxide 22.5 Anion Gap 11.73 BUN 25.4 H Creatinine 1.13 Estimated GFR (MDRD) 50.00 BUN/Creatinine Ratio 22.47 Glucose 317.7 H Hemoglobin A1c 11.93 H Calcium 9.21 Total Bilirubin 0.41 AST 18.1 ALT 17.8 Alkaline Phosphatase 145.1 H Troponin I < 0.012 Total Protein 6.53 Albumin 3.70 Globulin 2.83 Albumin/Globulin Ratio 1.30 Triglycerides 779.4 H Cholesterol 380.4 H LDL Cholesterol, Calc VLDL Cholesterol HDL Cholesterol 37.1 Cholesterol/HDL Ratio 10.3 H TSH 1.310 Free T4 1.35 D-Dimer Urine Color Urine Clarity Urine pH Ur Specific Braxton Urine Protein Urine Glucose (UA) Urine Ketones Urine Blood Urine Nitrite Urine Bilirubin Urine Urobilinogen Ur Leukocyte Esterase Acetone, Qual SARS CoV-2 RNA Rapid LUISITO 11/18/23 09:21 WBC RBC Hgb Hct MCV MCH MCHC RDW Coeff of Barry Plt Count Immature Gran % (Auto) Neut % (Auto) Lymph % (Auto) [place] % (Auto) Eos % (Auto) Baso % (Auto) Neut # (Auto) Lymph # (Auto) [place] # (Auto) Eos # (Auto) Baso # (Auto) Immature Gran # (Auto) Sodium Potassium Chloride Carbon Dioxide Anion Gap BUN Creatinine Estimated GFR (MDRD) BUN/Creatinine Ratio Glucose Hemoglobin A1c Calcium Total Bilirubin AST ALT Alkaline Phosphatase Troponin I Total Protein Albumin Globulin Albumin/Globulin Ratio Triglycerides Cholesterol LDL Cholesterol, Calc VLDL Cholesterol HDL Cholesterol Cholesterol/HDL Ratio TSH Free T4 D-Dimer Urine Color Yellow Urine Clarity Clear Urine pH 6.0 Ur Specific Braxton 1.015 Urine Protein Negative Urine Glucose (UA) 2+ H Urine Ketones Negative Urine Blood Negative Urine Nitrite Negative Urine Bilirubin Negative Urine Urobilinogen 0.2 Ur Leukocyte Esterase Negative Acetone, Qual SARS CoV-2 RNA Rapid LUISITO Imaging Imaging: EXAM: CT ANGIOGRAPHY CHEST (PE PROTOCOL) HISTORY: Chest heaviness, positive D-dimer, concern for pulmonary embolus TECHNIQUE: CTA chest with intravenous contrast. PE protocol. Multiplanar images were provided with MIP images and 3-D reconstructions. COMPARISON: 06/07/2020 FINDINGS: No pulmonary arterial thromboembolism. There is moderate atherosclerotic disease without aortic caliber dilatation. Coronary artery calcifications are present. Mild cardiomegaly. Small pericardial effusion. Scattered nonspecific mediastinal lymph nodes appear smaller compared to prior study. Lungs reveal diffuse bilateral interstitial haziness which may represent mild edema or pneumonitis. There is no bernardo consolidation. No pleural fluid or pneumothorax. Bones appear appropriate for age. Grossly stable fatty 15 mm nodule of the right adrenal gland most consistent with an adenoma. Relative atrophy of the left kidney incidentally noted. IMPRESSION: 1. No pulmonary arterial thromboembolism. 2. There is moderate atherosclerotic disease without aortic caliber dilatation. Coronary artery calcifications are present. 3. Mild cardiomegaly. Small pericardial effusion. 4. Scattered nonspecific mediastinal lymph nodes appear smaller compared to prior study. 5. Lungs reveal diffuse bilateral interstitial haziness which may represent mild edema or pneumonitis. There is no bernardo consolidation. No pleural fluid. Review Review Statement: I have independently reviewed and interpreted the labs/EKGs/imaging that were ordered by the ER provider. I have reviewed all outside records that are available currently in our EMR including imaging/notes/labs from previous visits. Plan Reccomendations/Plan: 1. Chest pain - serial troponins completed and negative, no further episodes of pain, lipid panel completed and worsened compared to last check, A1C worsened, thyroid labs normal, echo completed and unchanged from previous EF>60%. Stress test ordered outpatient upon discharge 2. Uncontrolled DM2 - discussed diet and exercise and compliance with medications, ADA diet, accuchecks qid with ssi 3. Hyperlipidemia - chronic, uncontrolled, increase dose of lovastatin to 40 mg from 20 mg 4. Hypertension - chronic, stable, continue home medications 5. COPD - not in exacerbation. stable D/c with steroid pack. Chest pain likely muscular vs copd Additional Planning: Case discussed with ED Physician, Dr. Lucero. DVT Prophylaxis: Ambulation Smoking Cessation: 3-10 minutes spent discussing smoking cessation. Disposition: Admit to: Med/Surg Observation Discussed Plan of Care with Dr. José Miguel Sierra. If patient discharged with Left Ventricular Systolic Dysfunction: No Discharged with a beta ila? [] If no, why not? [] Discharged with an oscar/arb? [] If no, why not? [] DX: CHEST PAIN RX: LOVASTATIN, MEDROL DANTE DIABETIC DIET ACTIVITY TOLERATED FOLLOW-UP WITH PCP NEXT WEEK Review With Patient Reviewed with Patient and Family: Patient and family have been counseled on condition and care plan and have no immediate questions. I have personally discussed and reviewed the patient's visit/current labs/imaging/decision making with Dr. James Sierra, my supervising attending. Total number of minutes spent with patient [ ] min. More than 50% of the time spent with this patient was devoted to counseling and coordination of care. Time of Admission:11/17/23 16:58 Time of Discharge: Discharge Plan Discharge Discharge Orders: Discharge Patient (ONCE); Ordered 11/18/23 Ordered By: SADAF LEIVA Activity Restrictions/Additional Instructions: Diabetic Diet Activity as tolerated Follow-up with Dr. Sierra next week. Stress test outpatient Medications: Steroid dose pack - take as directed until complete Dosage increase: lovastatin 40 mg at bedtime Instructions: Chest Pain (GEN), How to Stop Smoking (GEN), COPD (Chronic Obstructive Pulmonary Disease) (GEN) Patient Disposition: HOME SELF-CARE Prescriptions: New lovastatin 20 mg Tablet 40 mg PO BEDTIME Qty: 30 0RF methylprednisolone [Medrol (Dante)] 4 mg tablets,dose pack See Rx Instructions .ROUTE .COMPLEX Qty: 21 0RF Rx Instructions: for 6 days Continued potassium chloride 20 mEq tablet,ER particles/crystals See Rx Instructions .ROUTE .COMPLEX Qty: 30 1RF Dose Instruction: TAKE ONE TABLET DAILY Rx Instructions: TAKE ONE TABLET DAILY lisinopril 40 mg tablet See Rx Instructions .ROUTE .COMPLEX Qty: 30 2RF Dose Instruction: TAKE ONE TABLET DAILY Rx Instructions: TAKE ONE TABLET DAILY (DME) pen needle, diabetic [TRUEplus Pen Needle] 31 gauge x 5/16" needle See Rx Instructions .ROUTE .COMPLEX Qty: 100 3RF Dose Instruction: USE DIRECTED Rx Instructions: USE DIRECTED insulin glargine [Lantus Solostar U-100 Insulin] 100 unit/mL (3 mL) insulin pen See Rx Instructions .ROUTE .COMPLEX Qty: 15 1RF Dose Instruction: USE 60 UNITS SUB-Q DAILY Rx Instructions: USE 60 UNITS SUB-Q DAILY metformin 500 mg tablet See Rx Instructions .ROUTE .COMPLEX Qty: 60 3RF Dose Instruction: TAKE ONE TABLET TWICE DAILY Rx Instructions: TAKE ONE TABLET TWICE DAILY citalopram 40 mg tablet See Rx Instructions .ROUTE .COMPLEX Qty: 30 2RF Dose Instruction: TAKE ONE TABLET DAILY Rx Instructions: TAKE ONE TABLET DAILY esomeprazole magnesium 40 mg capsule,delayed release(DR/EC) See Rx Instructions .ROUTE .COMPLEX Qty: 30 2RF Dose Instruction: TAKE ONE TABLET DAILY FOR STOMACH ACID Rx Instructions: TAKE ONE TABLET DAILY FOR STOMACH ACID Humulin R Regular U-100 Insuln 1 UNIT solution See Protocol SQ ACHS PRN (Reason: Hyperglycemica) Protocol: Dr. Sierra's SS Insulin Protocol Condition: Glucose 0-140 mg/dl Dose/Route: 0 Units Sub-Q Condition: Glucose 141-200 Dose/Route: 3 units Sub-Q Condition: Glucose 201-260 Dose/Route: 4 units Sub-Q Condition: Glucose 261-320 Dose/Route: 6 units Sub-Q Condition: Glucose 321-400 Dose/Route: 8 units Sub-Q Condition: Glucose 401-600 Dose/Route: 15 units Sub-Q Condition: Glucose over 600 Dose/Route: Call Physician for Dose hydrocodone-acetaminophen 10-325 mg tablet 1 tab PO Q8H PRN (Reason: pain) (DME) blood-glucose meter Misc See Rx Instructions .ROUTE Qty: 1 3RF Rx Instructions: As directed Discontinued lovastatin 20 MG tablet 20 mg PO BEDTIME Did you review [place] [employer] for ALL controlled substances?: No Discussed opioids are addictive and Narcan is available by prescription or from pharmacy.: No Condition: Fair Referrals: VINOD SIERRA MD [Primary Care Provider] - 11/24/23 9:20 am
[2023-11-19] MEDS ORDERED: PROTONIX PO SCH (06:00)
--- NOTE | 2023-11-19 12:41 | ECHO2D ---
Date of Exam: 11/18/2023 Ordering Physician: DR. BLANC (PCP); SADAF LEIVA NP (HOSPITALIST) Room #: 116 Reason for Echo: CORONARY ARTERY DISEASE, SHORTNESS OF BREATH, CHEST PAIN M-Mode Normal Adult Results LV Dimensions Normal Adult Results AoV Opening excursions >1.6 >1.6 LVEDD-base- 3.5-5.8 4.6 Ao root dimensions 2.0-3.7 2.9 LVESD-base- 3.1-4.6 L. Atrium dimensions 1.9-3.8 4.7 Post. Wall thickness 0.8-1.1 1.3 IV septum (thickness) 0.7-1.2 1.3 Post. Wall excursion 0.72-1.3 NORMAL Septal motion NORMAL Systolic motion R. Ventricular cavity 1.5-2.0 NORMAL LVEF 60% 61% Paradoxical septal wall motion NORMAL [] 2-D : 2-D M Mode Echocardiogram was performed using apical four chamber and left parasternal long and short axis views. Mitral, tricuspid and aortic valves appear to be normal. Contractility of the left ventricle seems to be normal, so is the cavity size. LEFT ATRIAL CAVITY SIZE IS ENLARGED. Aortic root appears to be normal. There is no pericardial effusion. There is no thrombus noted in the left ventricle or left atrial cavity. M-MODE: MV: MILD CALCIFIC MITRAL VALVE ANNULUS. AV: NORMAL TV: NORMAL PV: NORMAL CHAMBER SIZE: ENLARGED LEFT ATRIAL CAVITY. WALL MOTION: NORMAL PERICARDIUM: NORMAL INTERPRETATION: 1. LEFT VENTRICULAR HYPERTROPHY WITH ENLARGED LEFT ATRIAL CAVITY. 2. NORMAL EFT VENTRICLE SIZE AND LEFT VENTRICULAR CONTRACTILITY. 3. NORMAL VALVES. 4. CALCIFIC MITRAL VALVE ANNULUS. 5. UNCHANGED FROM 2021. MTDD
== END 2023-11-18 13:04 | disposition home or self-care (01) ==
LOC: MEDSURG B 13:28 → ED 13:28 → MEDSURG B 17:13
PROVIDERS: ADMIT Hospitalist; ATTEND Nurse Practitioner Family

== ENCOUNTER 2024-05-30 09:14 | Observation (INO) ==
--- NOTE | 2024-05-30 09:34 | ED.PDOC ---
General ED Provider: Dr. HEIDI SERRANO MD Chief Complaint: Hypertension Stated Complaint: 58-year-old female reported to the emergency department from her primary care office for chest discomfort and lower extremity discomfort. Patient stated that her chest discomfort started yesterday in the afternoon and has been intermittent in nature. Patient stated that it is a dull left-sided chest pain that does not radiate. Patient stated that she had similar symptoms last month and was sent over to [facility] in [facility] where she received a heart catheterization and a stent placement. Patient stated that since that time she has done better however she started having this chest discomfort yesterday. Patient also stated that she has had intermittent upper and lower lower extremity pain. Patient stated that she has not had no change in coloration in her lower extremities. Patient stated that she has not noticed any swelling in her lower extremity. Patient stated that she is a smoker and smokes half a pack of cigarettes daily. Patient states that she is also a diabetic. Patient has a history of COPD, essential hypertension, anxiety, peripheral artery disease, dyslipidemia and obesity. When asked about the patient's chest pain she states that she notices it when she is at rest and during activities. Patient did endorse mild shortness of breath during these episodes. Again patient states that this chest discomfort comes and goes for the past close to 24 hours now. Patient denied any other symptoms such as nausea, vomiting, diarrhea, dizziness, syncope, loss consciousness, headache, fever, or any other acute symptoms not currently mentioned in HPI. Patient's vital signs are currently stable. Patient's blood pressure is 145/96. Patient's GCS is 15. Time Seen by Provider: 05/30/24 09:20 Mode of Arrival: Walk-In Information Source: Patient Exam Limitations: No limitations Primary Care Provider: VINOD BLANC MD Referred to ED by: PCP Nursing and Triage Documentation Reviewed and Agree: Yes Does Patient Take Opioids?: No Is Patient Opioid Naive?: No What is Opioid Naive?: *Opioid Naive implies the patient is not already taking opioids or not chronically receiving opioids on a daily basis. *PRN dosing is not "usually" associated with tolerance. *Patients are at higher risk of over-sedation and aspiration. Is Patient Opioid Tolerant?: No What is Opioid Tolerant?: *Opioid Tolerance implies less than the expected response to an opioid. *Acquired tolerance is defined by the patient taking 60mg of oral morphine daily (or equianalgesic dose of another opioid) for 1 week or more. *Often associated with chronic pain. *May take more than usual dose to achieve desired pain control. Review of Systems Review Of Systems Constitutional: Reports No symptoms Eyes: Reports No symptoms Ears, Nose, Mouth, Throat: Reports No symptoms Respiratory: Reports No symptoms Cardiac: Reports Chest pain GI: Reports No symptoms : Reports No symptoms Musculoskeletal: Reports Muscle pain (LE pain) Skin: Reports No symptoms Neurological: Reports No symptoms Endocrine: Reports No symptoms Hematologic/Lymphatic: Reports No symptoms All Other Systems: Reviewed and Negative [facility] Medical History (Updated 05/30/24 @ 12:47 by HEIDI SERRANO MD) History of stent insertion of renal artery Z98.890 - Other specified postprocedural states (ICD-10) Spondylosis M47.9 - Spondylosis, unspecified (ICD-10) Palpitations R00.2 - Palpitations (ICD-10) Family history of headache Z84.89 - Family history of other specified conditions (ICD-10) Atypical chest pain R07.89 - Other chest pain (ICD-10) Family History UNCLE Cancer pancreatic Suicide AUNT Cancer colon AUNT Cancer brain Depression MATERNAL GRANDMOTHER Diabetes PATERNAL GRANDMOTHER Diabetes Mother Heart attack Thyroid disorder Depression FATHER Hx of heart bypass surgery History of bipolar disorder PATERNAL GRANDMOTHER PAD (peripheral artery disease) UNCLE Heart disease UNCLE History of bipolar disorder Depression Suicide Other No known health problems Social History Smoking and tobacco status: Current every day smoker Alcohol intake: never Substance use type: does not use Margot/adventist: CHURCH Special margot needs: No Agree to transfusion: Yes Adopted: No Caregiver/support person: Yes (has guardianship of 4 year old nevishal) Foster care: Yes Household members: other Other Household Members: 4 year old otilio Housing: apartment Marital status: D Lives independently: Yes Number of children: 2 Number of grandchildren: 3 Highest education level completed: high school graduate Financial difficulty paying for basics: somewhat hard service: No Current occupational status: disabled Pets and animals: No Leisure activites: art and games History of recent travel: No Sexually active: Yes Do you think of yourself as: straight/heterosexual Current gender identity: female Seatbelt use: always Helmet use: No Drives intoxicated or rides with intoxicated city route driver: No Water heater temperature set < 120 degrees: Yes Working smoke detector in home: Yes Fire extinguisher in home: Yes Carbon monoxide detector in home: Yes Firearms in home: No Female Reproductive History Menstrual Hx Hysterectomy: Yes Hx Tubal Ligation: No Physical Exam Physical Exam Appearance: Reports Well-appearing, No pain distress and Well-nourished Ill-appearing: None Pain Distress: None Eyes: Reports ELOISA, EOMI and Conjunctiva clear ENT: Reports Ears normal, Nose normal and Oropharynx normal Neck: Supple Respiratory: Reports Airway patent, Breath sounds clear, Breath sounds equal and Respirations nonlabored Cardiovascular: Reports RRR, Pulses normal (Dorsalis pedis and posterior tibialis 3+ pulses bilaterally. Radial pulses 3+ bilaterally.), No rub and No murmur GI/: Reports Soft, Nontender, No masses, Bowel sounds normal and No Organomegaly Musculoskeletal: Reports Normal strength, ROM intact, No edema and No calf tenderness Skin: Reports Warm, Dry and Normal color Neurological: Reports Sensation intact, Motor intact, Reflexes intact, Cranial nerves intact, Alert and Oriented Psychiatric: Reports Affect appropriate and Mood appropriate Course Course 05/30/24 09:38 05/30/24 09:38 Orders, Labs, Meds: Lab Review 05/30/24 05/30/24 05/30/24 09:34 09:38 11:36 WBC 12.02 H RBC 3.95 L Hgb 11.4 L Hct 35.4 L MCV 89.6 MCH 28.9 MCHC 32.2 RDW Coeff of Barry 13.1 Plt Count 331 Immature Gran % (Auto) 0.4 Neut % (Auto) 55.3 Lymph % (Auto) 35.9 [place] % (Auto) 5.8 Eos % (Auto) 2.0 Baso % (Auto) 0.6 Neut # (Auto) 6.7 Lymph # (Auto) 4.3 H [place] # (Auto) 0.7 Eos # (Auto) 0.2 Baso # (Auto) 0.1 Immature Gran # (Auto) 0.1 Sodium 134.1 L Potassium 4.65 Chloride 104.1 Carbon Dioxide 20.9 L Anion Gap 13.75 BUN 12.1 Creatinine 1.00 Estimated GFR (MDRD) 57.00 BUN/Creatinine Ratio 12.10 Glucose 156.1 H Lactic Acid 1.65 Calcium 9.46 Total Bilirubin 0.39 AST 27.6 ALT 16.6 Alkaline Phosphatase 128.8 H Troponin I < 0.012 < 0.012 NT-Pro-B Natriuret Pep 496 H Total Protein 7.55 Albumin 4.49 Globulin 3.06 Albumin/Globulin Ratio 1.46 D-Dimer 561.60 H Influ A Molecular Assay Negative by naat Influ B Molecular Assay Negative by naat SARS CoV-2 RNA Rapid LUISITO Negative Orders Category Date Time Status EKG-(ED ONLY) Stat CARDIO 05/30/24 09:30 Completed NPO REMINDER: IMAGING ONCE CARE 05/30/24 10:26 Completed ED CYBER OPERATOR APPLIED .ONCE EMERGENCY 05/30/24 09:30 Active CBC W/ AUTO DIFF Stat LAB 05/30/24 09:38 Completed COMPREHENSIVE METABOLIC PANEL Stat LAB 05/30/24 09:38 Completed D-DIMER Stat LAB 05/30/24 09:38 Completed FLU A/B MOLECULAR Stat LAB 05/30/24 09:34 Completed LACTIC ACID Stat LAB 05/30/24 09:38 Completed NT-PROBNP(ED) Stat LAB 05/30/24 09:38 Completed SARS COV-2 RNA RAPID LUISITO Stat LAB 05/30/24 09:34 Completed TROPONIN I Stat LAB 05/30/24 09:38 Completed TROPONIN I Stat LAB 05/30/24 11:36 Completed Aspirin [Aspirin Chewable] Meds 05/30/24 09:30 Discontinued 324 mg PO ONCE ONE Ketorolac Tromethamine [Toradol] Meds 05/30/24 11:39 Discontinued 30 mg IVP ONCE STA CHEST, 1V AP ONLY Stat RADS 05/30/24 09:30 Completed CTA ANGIO ABD/PELVIS Stat RADS 05/30/24 10:26 Completed CTA CHEST PE PROTOCOL Stat RADS 05/30/24 10:26 Completed U/S VENOUS SCAN MICHELLE LEGS Stat RADS 05/30/24 10:26 Completed Medications Discontinued Medications Generic Name Dose Route Start Last Admin Trade Name Freq PRN Reason Stop Dose Admin Aspirin 324 mg 05/30/24 09:30 05/30/24 09:44 Aspirin 81 Mg Tab.Chew PO 05/30/24 09:31 324 mg ONCE ONE Administration Ketorolac Tromethamine 30 mg 05/30/24 11:39 05/30/24 11:49 Ketorolac Tromethamine 30 Mg/Ml Vial IVP 05/30/24 11:40 30 mg ONCE STA Administration Vital Signs: Temp Pulse Resp BP Pulse Ox 05/30/24 09:23 97.8 F 82 18 145/96 H 98 KATYH Risk Score KATHY Risk Score: Risk Score Odds of by 30D 0 0.1 (0.1-0.2) 1 0.3 (0.2-0.3) 2 0.4 (0.3-0.5) 3 0.7 (0.6-0.9) 4 1.2 (1.0-1.5) 5 2.2 (1.9-2.6) 6 3.0 (2.5-3.6) 7 4.8 (3.8-6.1) Physician Progress Note: 58-year-old female reported to the emergency department from her primary care office for chest discomfort and lower extremity discomfort. Patient stated that her chest discomfort started yesterday in the afternoon and has been intermittent in nature. Patient stated that it is a dull left-sided chest pain that does not radiate. Patient stated that she had similar symptoms last month and was sent over to [facility] in [facility] where she received a heart catheterization and a stent placement. Patient stated that since that time she has done better however she started having this chest discomfort yesterday. Patient also stated that she has had intermittent upper and lower lower extremity pain. Patient stated that she has not had no change in coloration in her lower extremities. Patient stated that she has not noticed any swelling in her lower extremity. Patient stated that she is a smoker and smokes half a pack of cigarettes daily. Patient states that she is also a diabetic. Patient has a history of COPD, essential hypertension, anxiety, peripheral artery disease, dyslipidemia and obesity. When asked about the patient's chest pain she states that she notices it when she is at rest and during activities. Patient did endorse mild shortness of breath during these episodes. Again patient states that this chest discomfort comes and goes for the past close to 24 hours now. Patient denied any other symptoms such as nausea, vomiting, diarrhea, dizziness, syncope, loss consciousness, headache, fever, or any other acute symptoms not currently mentioned in HPI. Patient's vital signs are currently stable. Patient's blood pressure is 145/96. Patient's GCS is 15. -Will order EKG, CXR, ASA 324 mg PO once, troponin and baseline labs. -EKG shows normal sinus rhythm with a rate of 78 bpm. QTc 440 ms, QRS 80 ms, PA interval 166 ms, normal axis, and no acute ST elevations. This EKG was interpreted by the ER physician. -CBC shows a very mild leukocytosis of 12,000. Patient has a hemoglobin of 11 and a hematocrit of 35 indicating anemia of chronic disease. -Patient's checks x-ray shows no acute cardiopulmonary disease. This was interpreted by the ER physician. -CMP shows a baseline mild hyponatremia with hyperglycemia. Patient's BNP is elevated at over 400 (this appears to be baseline for this pt.). Patient's troponin is negative. Will repeat troponin at 2 hours (1130). -Patient's COVID and flu test was negative. -Patient's heart score is a 4 which places her at moderate risk for adverse cardiovascular events upon discharge from the hospital. -Will place a call over to [facility] in [facility] where patient had a cardiac catheterization last month for further guidance from cardiology and possible transfer. -Nursing staff has spoke with [facility] in [facility] and they are at capacity currently. -Patient's Wells score is 4.5 which puts her at moderate risk for PE and DVT. Patient's D-dimer is elevated at 546. Due to patient's leg pain and chest discomfort will order a CTA chest to r/o PE, CTA abdomen and pelvis to r/o blood clots, and bilateral venous duplex ultrasound to rule out DVT. -Record of the venous duplex ultrasound of the left and right lower extremity showed no DVT. This was read by radiology. -CTA of the chest showed no pulmonary embolism or acute pathology. -CTA of the abdomen and pelvis showed Atherosclerotic plaque in the abdominal aorta and branches. There is pronounced as in the left renal artery stent which is patent distal to this. There is thrombus in the common femoral arteries and proximal superficial femoral arteries. Approximately 50% stenosis involving a 1.2 cm segment of the proximal left superficial femoral artery. -Repeat troponin was negative. Will contact hospitalist for admission. -Spoke to Josse Cantrell NP hospitalist at [facility] who has agreed to accept the patient for observation on telemetry. At the time of admission the patient is stable. All treatment, laboratory, and radiographic studies have been endorsed to the hospitalist. Discharge Plan Discharge Patient Disposition: PLACED OBSERVATION Discharge Problem: Chest discomfort, Essential hypertension, Anemia of chronic disease, Thrombosis of arteries of lower extremity, Stable angina Did you review [place] ANESTHESIOLOGIST ATTENDING for ALL controlled substances?: Not Applicable ED Provider: HEIDI SERRANO Condition: Stable
[2024-05-30 09:42] LABS: BASOPHILS # (AUTO) 0.1 K/uL (0-0.2); BASOPHILS % (AUTO) 0.6 % (0.0-3.0); EOSINOPHILS # (AUTO) 0.2 K/ul (0.0-0.7); HEMATOCRIT 35.4 % (37.0-47.0); HEMOGLOBIN 11.4 g/dl (12.0-16.0); IMMATURE GRANULOCYTE # (AUTO) 0.1 (0.0-1.0); IMMATURE GRANULOCYTE % (AUTO) 0.4 % (0.0-5.0); LYMPHOCYTES # (AUTO) 4.3 K/uL (0.60-3.4); LYMPHOCYTES % (AUTO) 35.9 (10.0-50.0); MEAN CORPUSCULAR HEMOGLOBIN 28.9 pg (27.0-31.0); MEAN CORPUSCULAR HGB CONC 32.2 (31.8-35.4); MEAN CORPUSCULAR VOLUME 89.6 fl (81.0-99.0); MONOCYTES # (AUTO) 0.7 K/uL (0.4-2.0); MONOCYTES % (AUTO) 5.8 (0-10); NEUTROPHILS # (AUTO) 6.7 K/ul (2.0-6.9); NEUTROPHILS % (AUTO) 55.3 % (42.2-75.2); PLATELET COUNT 331 10^3/uL (140-440); RDW COEFFICIENT OF VARIATION 13.1 % (11.6-14.8); RED BLOOD COUNT 3.95 10^6/ul (4.20-5.40); WHITE BLOOD COUNT 12.02 K/ul (4.6-10.2)
[2024-05-30] MEDS: ASPIRIN CHEWABLE PO ONE (09:44)
[2024-05-30 09:55] LABS: ALANINE AMINOTRANSFERASE 16.6 U/L (0-35); ALBUMIN 4.49 g/dL (3.5-5.0); ALKALINE PHOSPHATASE 128.8 U/L (38-126); ASPARTATE AMINO TRANSFERASE 27.6 U/L (14-36); BILIRUBIN,TOTAL 0.39 mg/dL (0.2-1.3); BLOOD UREA NITROGEN 12.1 mg/dL (7-17); CALCIUM 9.46 mg/dL (8.4-10.2); CARBON DIOXIDE 20.9 mmol/L (22-30.0); CHLORIDE 104.1 mmol/L (98-107); GLUCOSE 156.1 mg/dL (74-106); POTASSIUM 4.65 mmol/L (3.5-5.1); SODIUM 134.1 mmol/L (134.5-145); TOTAL PROTEIN 7.55 g/dL (6.3-8.2)
[2024-05-30 10:01] LABS: MOLECULAR FLU A NEGATIVE BY NAAT (NEGATIVE); MOLECULAR FLU B NEGATIVE BY NAAT (NEGATIVE); SARS COV-2 RNA RAPID NAAT NEGATIVE (NEGATIVE)
[2024-05-30 10:07] LABS: TROPONIN I < 0.012 ng/ml (0.0000-0.120)
--- NOTE | 2024-05-30 10:10 | DI ---
EXAM: CHEST RADIOGRAPH (1 VIEW) TECHNIQUE: Frontal Chest Radiograph. HISTORY: Chest pain COMPARISON: 04/26/2024. FINDINGS: Lines, Tubes, Devices: None Lungs and Pleura: No focal consolidation. No pleural effusion. No pneumothorax. Cardiac silhouette: Stable. Bones: No acute abnormality. IMPRESSION: No acute radiographic abnormality.
[2024-05-30] MEDS: TORADOL IVP STA (11:49)
--- NOTE | 2024-05-30 11:50 | US ---
EXAM: BILATERAL LOWER EXTREMITY DEEP VENOUS ULTRASOUND WITH DOPPLER IMAGING HISTORY: Leg pain, elevated D-dimer. TECHNIQUE: Mclean-scale ultrasound with compression maneuvers and color and spectral Doppler ultrasound at rest and with augmentation of the veins was performed. Images were obtained and stored in a perm anent archive. COMPARISON: None FINDINGS: RIGHT LOWER EXTREMITY: Common Femoral Vein: Normal compression. Normal flow on color Doppler images. Normal response to augm entation. Deep Femoral Vein: Normal compression. Normal flow on color Doppler images. Normal response to augmen tation. Femoral Vein: Normal compression. Normal flow on color Doppler images. Normal response to augmentatio n. Popliteal Vein: Normal compression. Normal flow on color Doppler images. Normal response to augmentat ion. Peroneal Vein: Normal compression. Normal flow on color Doppler images. Posterior Tibial Vein: Normal compression. Normal flow on color Doppler images. Anterior Tibial Vein: Normal compression. Normal flow on color Doppler images. Greater Saphenous Vein (Superficial): Normal compression. Normal flow on color Doppler images. LEFT LOWER EXTREMITY: Common Femoral Vein: Normal compression. Normal flow on color Doppler images. Normal response to augm entation. Deep Femoral Vein: Normal compression. Normal flow on color Doppler images. Normal response to augmen tation. Femoral Vein: Normal compression. Normal flow on color Doppler images. Normal response to augmentatio n. Popliteal Vein: Normal compression. Normal flow on color Doppler images. Normal response to augmentat ion. Peroneal Vein: Normal compression. Normal flow on color Doppler images. Posterior Tibial Vein: Normal compression. Normal flow on color Doppler images. Anterior Tibial Vein: Normal compression. Normal flow on color Doppler images. Greater Saphenous Vein (Superficial): Normal compression. Normal flow on color Doppler images. IMPRESSION: No deep venous thrombosis (DVT) in the bilateral lower extremities.
--- NOTE | 2024-05-30 12:00 | CT ---
EXAM: CT ANGIOGRAM ABDOMEN PELVIS WITHOUT AND WITH CONTRAST HISTORY: Elevated D-dimer, bilateral lower extremity leg pain COMPARISON: CT abdomen pelvis from 06/07/2020. FINDINGS: Axial CT angiogram images of the abdomen pelvis without and with IV contrast. Multiplanar and MIP/VR T reformatted images. Possible lipomatous hypertrophy of the interatrial septum. Please see report from CTA chest obtained at the same time for description of findings in the lower chest. The liver, gallbladder, pancreas and spleen are unremarkable. No obstructive uropathy. Atrophic left kidney. 2 cm right adrenal adenoma. Nodular left adrenal gla nd. No acute process involving the colon, small bowel or appendix. Moderate amount of stool in the colon . No acute process in the pelvis. Atherosclerotic plaque in the abdominal aorta and branches. Circumferential thrombus in the distal s uperficial femoral artery. Degenerative changes to the spine, pelvis and hips. Left renal artery stent. There is thrombus in the proximal stent but the renal artery is patent dist al to this. Atherosclerotic plaque at the origin of the right renal artery contributing to 0.8 cm segment of low to moderate grade stenosis. The right renal artery is patent distal to this. The celiac trunk and superior mesenteric artery are patent. The inferior mesenteric artery is patent . The iliac arteries are patent. There is atherosclerotic plaque in the proximal superficial femora l arteries. 12 mm segment of approximately 50% stenosis in the proximal left superficial femoral art arlene (see coronal image 42). IMPRESSION: Atherosclerotic plaque in the abdominal aorta and branches. There is pronounced as in the left renal artery stent which is patent distal to this. There is thrombus in the common femoral arteries and proximal superficial femoral arteries. Approxim ately 50% stenosis involving a 1.2 cm segment of the proximal left superficial femoral artery. Please see above description and additional findings. All CT scans are performed using dose optimization techniques as appropriate to the performed exam an d include at least one of the following: Automated exposure control, adjustment of the mA and/or kV according t o size, and the use of iterative reconstruction technique.
--- NOTE | 2024-05-30 12:01 | CT ---
EXAM: CHEST CTA WITH CONTRAST (PULMONARY ARTERY) HISTORY: Chest pain. Elevated D-dimer. TECHNIQUE: CTA acquisition of the chest from the thoracic inlet to the upper abdomen following IV con trast administration timed to filling of the pulmonary artery. The abdomen and pelvis were also imag ed but will be interpreted separately. 3D/MIP/VR images were utilized. CT Dose Reduction Techniques Employed: Yes. COMPARISON: 11/17/2023 FINDINGS: Adequate opacification of the pulmonary arteries. No pulmonary embolus is identified. No enlarged m ediastinal, hilar, or axillary nodes are identified. Moderate atherosclerosis results in approximate ly 50 - 60% stenosis of the proximal left common carotid artery and the proximal left subclavian noa ry, before takeoff of the vertebral artery, similar to before. Coronary artery calcifications, again noted. Lipomatous hypertrophy of the inter-atrial septum, again noted, a finding weakly associated with cardiac arrhythmias. Stable mild cardiomegaly and findings suggesting left ventricular hypertro phy. The patient pericardial fluid/thickening. No pleural fluid. Lung window images show no consolidation or significant ground-glass. Interval resolution of the pre viously seen bilateral ground-glass, with improvement in the previously seen mosaic attenuation, prob ably air trapping secondary to small airways disease. No pneumothorax. Bone window images show no significant lytic or sclerotic bone lesions. No visible fractures. IMPRESSION: 1. No pulmonary embolus is identified. 2. No acute findings in the chest. 3. Stable cardiomegaly and findings suggesting left ventricular hypertrophy. 4. For findings in the abdomen/pelvis, please refer to separate report. All CT scans are performed using dose optimization techniques as appropriate to the performed exam an d include at least one of the following: Automated exposure control, adjustment of the mA and/or kV according t o size, and the use of iterative reconstruction technique.
[2024-05-30 13:32] LABS: PARTIAL THROMBOPLASTIN TIME 22.9 SEC (23.9-40.0); PROTHROMBIN TIME 9.9 SEC (9.3-11.0)
[2024-05-30 13:37] VITALS: BMI 29.2
--- NOTE | 2024-05-30 15:30 | PCM ---
Date of Service Date Seen by Provider: 05/30/24 Time Seen by Provider: 14:30 Admit Day/Time Admission Date: 05/30/24 Reason for Admission Chief Complaint: STABLE ANGINA, ARTERIAL THROMBUS OF LOWER EXTREMIT Hospital Provider Hospital Provider: SUE SKAGGS, [facility] [place] [facility] Physician Primary Care Physician: VINOD SIERRA MD History of Present Illness History of Present Illness: 58 yo female presented to the ER with complaints of lower extremity pain and chest pressure. Has pmh of distal R coronary artery stenting on 04/[address] Jacobo at [facility] [place]. States that she was having leg pain prior to this and it has continued to worsen. Chest pain is described as a pressure that is midsternal that occurred at rest. Leg pain is worse on ambulation, but shoots down the leg. Venous Doppler negative for DVT. CTA of abd pelvis showed: Atherosclerotic plaque in the abdominal aorta and branches. There is pronounced as in the left renal artery stent which is patent distal to this. There is thrombus in the common femoral arteries and proximal superficial femoral arteries. Approximately 50% stenosis involving a 1.2 cm segment of the proximal left superficial femoral artery. She is anticoagulated with plavix and aspirin. Has not seen Dr. Jacobo since stent placement. Troponin negative x 2. Chest pain resolved at this time. Admitted to med/surg observation to r/o ACS. Case Discussed With Case Discussed With: Patient's case was discussed with the ER Physicians, Dr. Gaspar. [facility] Medical History History of stent insertion of renal artery Z98.890 - Other specified postprocedural states (ICD-10) Spondylosis M47.9 - Spondylosis, unspecified (ICD-10) Palpitations R00.2 - Palpitations (ICD-10) Family history of headache Z84.89 - Family history of other specified conditions (ICD-10) Atypical chest pain R07.89 - Other chest pain (ICD-10) Surgical History H/O heart artery stent Z95.5 - Presence of coronary angioplasty implant and graft (ICD-10) Family History UNCLE Cancer pancreatic Suicide AUNT Cancer colon AUNT Cancer brain Depression MATERNAL GRANDMOTHER Diabetes PATERNAL GRANDMOTHER Diabetes Mother Heart attack Thyroid disorder Depression FATHER Hx of heart bypass surgery History of bipolar disorder PATERNAL GRANDMOTHER PAD (peripheral artery disease) UNCLE Heart disease UNCLE History of bipolar disorder Depression Suicide Other No known health problems Social History Smoking and tobacco status: Current every day smoker Alcohol intake: never Substance use type: does not use Margot/taoism: DENOMINATIONAL Special margot needs: No Agree to transfusion: Yes Adopted: No Caregiver/support person: Yes (has guardianship of 4 year old otilio) Foster care: Yes Household members: other Other Household Members: 4 year old otilio Housing: apartment Marital status: D Lives independently: Yes Number of children: 2 Number of grandchildren: 3 Highest education level completed: high school graduate Financial difficulty paying for basics: somewhat hard service: No Current occupational status: disabled Pets and animals: No Leisure activites: art and games History of recent travel: No Sexually active: Yes Do you think of yourself as: straight/heterosexual Current gender identity: female Seatbelt use: always Helmet use: No Drives intoxicated or rides with intoxicated otr company driver: No Water heater temperature set < 120 degrees: Yes Working smoke detector in home: Yes Fire extinguisher in home: Yes Carbon monoxide detector in home: Yes Firearms in home: No Allergies Allergies Allergy/AdvReac Type Severity Reaction Status Date / Time cefdinir [From Omnicef] AdvReac Nausea Verified 05/30/24 09:22 codeine AdvReac Rash Verified 05/30/24 09:22 morphine AdvReac Vomiting Verified 05/30/24 09:22 Current Medications Home Medications blood-glucose meter #1 ea 10/14/22 [Rx Confirmed 05/30/24 Last Taken Unknown] hydrocodone 10 mg-acetaminophen 325 mg tablet 1 tab PO TID PRN back pain 10/14/22 [History Confirmed 05/30/24 Last Taken 05/30/24 08:00 1 tab] metformin 500 mg tablet See Rx Instructions .Route .COMPLEX #60 tabs 10/19/23 [Rx Confirmed 05/30/24 Last Taken 05/30/24 08:00 500] pen needle, diabetic 31 gauge x 5/16" (TRUEplus Pen Needle) #100 ea 10/19/23 [Rx Confirmed 05/30/24 Last Taken Unknown] mecobalamin (vitamin B12) 1,000 mcg chewable tablet 1,000 mcg PO QDAY 01/19/24 [History Confirmed 05/30/24 Last Taken 05/30/24 08:00 1,000 mcg] atorvastatin 80 mg tablet 80 mg PO QHS #30 tabs 05/02/24 [Rx Confirmed 05/30/24 Last Taken 05/29/24 21:00 80 mg] clopidogrel 75 mg tablet (Plavix) 75 mg PO QDAY #30 tabs 05/02/24 [Rx Confirmed 05/30/24 Last Taken 05/30/24 08:00 75 mg] esomeprazole magnesium 40 mg capsule,delayed release 40 mg PO QDAY #30 caps 05/02/24 [Rx Confirmed 05/30/24 Last Taken 05/30/24 08:00 40 mg] insulin glargine 100 unit/mL (3 mL) subcutaneous pen (Lantus Solostar U-100 Insulin) See Rx Instructions .Route .COMPLEX #15 ea 05/02/24 [Rx Confirmed 05/30/24 Last Taken 05/29/24 21:00 75 units] insulin regular human 100 unit/mL injection solution (Humulin R Regular U-100 Insulin) 15 unit subcut ACHS PRN Hyperglycemica #10 mL 05/02/24 [Rx Confirmed 05/30/24 Last Taken 05/29/24 17:00 15 units] citalopram 40 mg tablet 40 mg PO DAILY 05/05/24 [History Confirmed 05/30/24 Last Taken 05/30/24 08:00 40 mg] lisinopril 40 mg tablet 40 mg PO DAILY #30 tabs 05/17/24 [Rx Confirmed 05/30/24 Last Taken 05/30/24 08:00 40 mg] bupropion HCl 150 mg 24 hr tablet, extended release (Wellbutrin XL) 150 mg PO QAM #30 tabs 05/23/24 [Rx Confirmed 05/30/24 Last Taken 05/30/24 08:00 150 mg] naloxone 4 mg/actuation nasal spray 1 spray intranasal Q2M PRN opioid overdose 05/30/24 [History Confirmed 05/30/24 Last Taken Unknown] Home Isosorbide Mononitrate (Isosorbide Mononitrate 30 Mg Tab.Er.24h) 30 mg PO DAILY [facility] Last Admin: 05/30/24 15:34 Dose: 30 mg Nicotine (Nicotine 21 Mg Patch.Td24) 1 patch TD DAILY [facility] Discontinued Medications Aspirin (Aspirin 81 Mg Tab.Chew) 324 mg PO ONCE ONE Stop: 05/30/24 09:31 Last Admin: 05/30/24 09:44 Dose: 324 mg Ketorolac Tromethamine (Ketorolac Tromethamine 30 Mg/Ml Vial) 30 mg IVP ONCE STA Stop: 05/30/24 11:40 Last Admin: 05/30/24 11:49 Dose: 30 mg Opioid Naive vs. Tolerant Does Patient Take Opioids?: Yes Is Patient Opioid Naive?: No What is Opioid Naive?: *Opioid Naive implies the patient is not already taking opioids or not chronically receiving opioids on a daily basis. *PRN dosing is not "usually" associated with tolerance. *Patients are at higher risk of over-sedation and aspiration. Is Patient Opioid Tolerant?: No What is Opioid Tolerant?: *Opioid Tolerance implies less than the expected response to an opioid. *Acquired tolerance is defined by the patient taking 60mg of oral morphine daily (or equianalgesic dose of another opioid) for 1 week or more. *Often associated with chronic pain. *May take more than usual dose to achieve desired pain control. Review of Systems Constitutional: Reports No symptoms Head: Reports Normocephalic Eyes: Reports No symptoms Ears: Reports No symptoms Nose: Reports No symptoms Mouth: Reports No symptoms Throat: Reports No symptoms Cardiovascular: Reports Chest Pressure Respiratory: Reports No symptoms Gastrointestinal: Reports No symptoms Genitourinary: Reports No Symptoms Musculoskeletal: Reports Other (L leg pain) Endocrine: Reports No symptoms Hematology: Reports No symptoms Immunology: Reports No symptoms Neurological: Reports No symptoms Psychiatric: Reports No symptoms Physical examination Most Recent Vital Signs: Most Recent Vital Signs Temperature 97.7 F 05/30/24 13:24 Temperature Source Temporal Artery Scan 05/30/24 13:24 Temperature Source Temporal Artery Scan 05/30/24 09:23 Pulse Rate 73 05/30/24 13:24 Respiratory Rate 20 05/30/24 13:24 Blood Pressure 145/96 H 05/30/24 09:23 Blood Pressure Left Arm 170/82 05/30/24 13:24 Blood Pressure Position Supine 05/30/24 13:24 O2 Sat by Pulse Oximetry 99 05/30/24 13:24 Oxygen Delivery Method Room Air 05/30/24 15:00 Height 5 ft 6 in 05/30/24 13:24 Weight 82 kg 05/30/24 13:24 Telemetry Heart Rate 70 11/18/23 07:00 Telemetry SPO2 93 12/20/20 17:23 Appearance: Positive No Apparent Distress and Alert and Oriented x3 Skin: Positive Warm and Good Turgor HEENT: Positive Normocephalic and PERRLA Neck: Positive Supple and Midline Trachea Chest/Lungs: Positive Symmetrical With Equal Breath Sounds, Clear to Auscultation Bilaterally and Good Air Movement all 4 Lung Tripp Heart: Positive RRR and Pulses Normal GI/: Positive Soft, Nontender, Bowel Sounds Normal and No Distention Musculoskeletal: Positive Normal Gait and Station Extremities: Positive Intact Peripheral Pulses (weak to LLE), Stable Joints Without Laxity and Good ROM in All Joints Neurological: Positive Sensation Intact, Motor intact, Alert, Oriented and Muscle Strength 5/5 in Upper and Lower Extremities Bilaterally Labs This Visit Labs This Visit: Labs This Visit 05/30/24 05/30/24 05/30/24 09:34 09:38 09:48 WBC 12.02 H RBC 3.95 L Hgb 11.4 L Hct 35.4 L MCV 89.6 MCH 28.9 MCHC 32.2 RDW Coeff of Barry 13.1 Plt Count 331 Immature Gran % (Auto) 0.4 Neut % (Auto) 55.3 Lymph % (Auto) 35.9 [place] % (Auto) 5.8 Eos % (Auto) 2.0 Baso % (Auto) 0.6 Neut # (Auto) 6.7 Lymph # (Auto) 4.3 H [place] # (Auto) 0.7 Eos # (Auto) 0.2 Baso # (Auto) 0.1 Immature Gran # (Auto) 0.1 PT 9.9 INR 0.95 APTT 22.9 L Sodium 134.1 L Potassium 4.65 Chloride 104.1 Carbon Dioxide 20.9 L Anion Gap 13.75 BUN 12.1 Creatinine 1.00 Estimated GFR (MDRD) 57.00 BUN/Creatinine Ratio 12.10 Glucose 156.1 H Lactic Acid 1.65 Calcium 9.46 Total Bilirubin 0.39 AST 27.6 ALT 16.6 Alkaline Phosphatase 128.8 H Troponin I < 0.012 NT-Pro-B Natriuret Pep 496 H Total Protein 7.55 Albumin 4.49 Globulin 3.06 Albumin/Globulin Ratio 1.46 D-Dimer 561.60 H Influ A Molecular Assay Negative by naat Influ B Molecular Assay Negative by naat SARS CoV-2 RNA Rapid LUISITO Negative 05/30/24 05/30/24 11:36 14:35 WBC RBC Hgb Hct MCV MCH MCHC RDW Coeff of Barry Plt Count Immature Gran % (Auto) Neut % (Auto) Lymph % (Auto) [place] % (Auto) Eos % (Auto) Baso % (Auto) Neut # (Auto) Lymph # (Auto) [place] # (Auto) Eos # (Auto) Baso # (Auto) Immature Gran # (Auto) PT INR APTT Sodium Potassium Chloride Carbon Dioxide Anion Gap BUN Creatinine Estimated GFR (MDRD) BUN/Creatinine Ratio Glucose Lactic Acid Calcium Total Bilirubin AST ALT Alkaline Phosphatase Troponin I < 0.012 < 0.012 NT-Pro-B Natriuret Pep Total Protein Albumin Globulin Albumin/Globulin Ratio D-Dimer Influ A Molecular Assay Influ B Molecular Assay SARS CoV-2 RNA Rapid LUISITO Imaging Imaging: EXAM: CT ANGIOGRAM ABDOMEN PELVIS WITHOUT AND WITH CONTRAST HISTORY: Elevated D-dimer, bilateral lower extremity leg pain COMPARISON: CT abdomen pelvis from 06/07/2020. FINDINGS: Axial CT angiogram images of the abdomen pelvis without and with IV contrast. Multiplanar and MIP/VRT reformatted images. Possible lipomatous hypertrophy of the interatrial septum. Please see report from CTA chest obtained at the same time for description of findings in the lower chest. The liver, gallbladder, pancreas and spleen are unremarkable. No obstructive uropathy. Atrophic left kidney. 2 cm right adrenal adenoma. Nodular left adrenal gland. No acute process involving the colon, small bowel or appendix. Moderate amount of stool in the colon. No acute process in the pelvis. Atherosclerotic plaque in the abdominal aorta and branches. Circumferential thrombus in the distal superficial femoral artery. Degenerative changes to the spine, pelvis and hips. Left renal artery stent. There is thrombus in the proximal stent but the renal artery is patent distal to this. Atherosclerotic plaque at the origin of the right renal artery contributing to 0.8 cm segment of low to moderate grade stenosis. The right renal artery is patent distal to this. The celiac trunk and superior mesenteric artery are patent. The inferior mesenteric artery is patent. The iliac arteries are patent. There is ather osclerotic plaque in the proximal superficial femoral arteries. 12 mm segment of approximately 50% stenosis in the proximal left superficial femoral artery (see coronal image 42). IMPRESSION: Atherosclerotic plaque in the abdominal aorta and branches. There is pronounced as in the left renal artery stent which is patent distal to this. There is thrombus in the common femoral arteries and proximal superficial femoral arteries. Approximately 50% stenosis involving a 1.2 cm segment of the proximal left superficial femoral artery. Please see above description and additional findings. EXAM: CHEST CTA WITH CONTRAST (PULMONARY ARTERY) HISTORY: Chest pain. Elevated D-dimer. TECHNIQUE: CTA acquisition of the chest from the thoracic inlet to the upper abdomen following IV contrast administration timed to filling of the pulmonary artery. The abdomen and pelvis were also imaged but will be interpreted separately. 3D/MIP/VR images were utilized. CT Dose Reduction Techniques Employed: Yes. COMPARISON: 11/17/2023 FINDINGS: Adequate opacification of the pulmonary arteries. No pulmonary embolus is identified. No enlarged mediastinal, hilar, or axillary nodes are identified. Moderate atherosclerosis results in approximately 50 - 60% stenosis of the proximal left common carotid artery and the proximal left subclavian artery, before takeoff of the vertebral artery, similar to before. Coronary artery calcifications, again noted. Lipomatous hypertrophy of the inter-atrial septum, again noted, a finding weakly associated with cardiac arrhythmias. Stable mild cardiomegaly and findings suggesting left ventricular hypertrophy. The patient pericardial fluid/thickening. No pleural fluid. Lung window images show no consolidation or significant ground-glass. Interval resolution of the previously seen bilateral ground-glass, with improvement in the previously seen mosaic attenuation, probably air trapping secondary to small airways disease. No pneumothorax. Bone window images show no significant lytic or sclerotic bone lesions. No visible fractures. IMPRESSION: 1. No pulmonary embolus is identified. 2. No acute findings in the chest. 3. Stable cardiomegaly and findings suggesting left ventricular hypertrophy. 4. For findings in the abdomen/pelvis, please refer to separate report. EXAM: BILATERAL LOWER EXTREMITY DEEP VENOUS ULTRASOUND WITH DOPPLER IMAGING HISTORY: Leg pain, elevated D-dimer. TECHNIQUE: Mclean-scale ultrasound with compression maneuvers and color and spectral Doppler ultrasound at rest and with augmentation of the veins was performed. Images were obtained and stored in a permanent archive. COMPARISON: None FINDINGS: RIGHT LOWER EXTREMITY: Common Femoral Vein: Normal compression. Normal flow on color Doppler images. Normal response to augmentation. Deep Femoral Vein: Normal compression. Normal flow on color Doppler images. Normal response to augmentation. Femoral Vein: Normal compression. Normal flow on color Doppler images. Normal response to augmentation. Popliteal Vein: Normal compression. Normal flow on color Doppler images. Normal response to augmentation. Peroneal Vein: Normal compression. Normal flow on color Doppler images. Posterior Tibial Vein: Normal compression. Normal flow on color Doppler images. Anterior Tibial Vein: Normal compression. Normal flow on color Doppler images. Greater Saphenous Vein (Superficial): Normal compression. Normal flow on color Doppler images. LEFT LOWER EXTREMITY: Common Femoral Vein: Normal compression. Normal flow on color Doppler images. Normal response to augmentation. Deep Femoral Vein: Normal compression. Normal flow on color Doppler images. Normal response to augmentation. Femoral Vein: Normal compression. Normal flow on color Doppler images. Normal response to augmentation. Popliteal Vein: Normal compression. Normal flow on color Doppler images. Normal response to augmentation. Peroneal Vein: Normal compression. Normal flow on color Doppler images. Posterior Tibial Vein: Normal compression. Normal flow on color Doppler images. Anterior Tibial Vein: Normal compression. Normal flow on color Doppler images. Greater Saphenous Vein (Superficial): Normal compression. Normal flow on color Doppler images. IMPRESSION: No deep venous thrombosis (DVT) in the bilateral lower extremities. Review Statement Review Statement: I have independently reviewed and interpreted the labs/EKGs/imaging that were ordered by the ER provider. I have reviewed all outside records that are available currently in our EMR including imaging/notes/labs from previous visits. Plan Plan: 1. Chest pain - troponins negative x 3, resolved at this time, start on imdur 30 mg daily 2. Intermittent claudication secondary to femoral artery stenosis - refer to vascular upon discharge, continue previously prescribed pain medications 3. CAD with recent stenting - Dr. Jacobo, continue ASA and plavix 4. Diabetes Mellitus - ADA diet, accuchecks qid with ssi, continue home insulin regimen 5. Anemia of chronic disease - stable, monitor DVT Prophylaxis: Plavix Time Spent: Greater than 80 minutes spent with patient, 50% of the time spent with this patient was devoted to counseling and coordination of care. [facility] minutes spent discussing advance care planning. Smoking Cessation: 3-10 minutes spent discussing smoking cessation. Disposition: Admit to: Med/Surg Observation Full Code Discussed Plan of Care with Dr. José Miguel Sierra. Medications Medication Orders: Medications Ordered Category Date Time Status Isosorbide Mononitrate [Imdur] Meds 05/30/24 13:30 Active 30 mg PO DAILY
[2024-05-30] MEDS: IMDUR PO SCH (15:34)
[2024-05-30] MEDS ORDERED: HUMULIN R (10ML) SUBCUT PRN (15:41)
[2024-05-30] MEDS: NICODERM 21 MG TD SCH (15:47)
[2024-05-30] MEDS: NORCO 10-325 PO PRN (17:14)
[2024-05-30] MEDS: LIPITOR PO SCH (20:21)
[2024-05-30] MEDS: HUMULIN R (10ML) SUBCUT PRN (20:22)
[2024-05-30] MEDS: LANTUS SUBCUT SCH (20:23)
[2024-05-31 01:51] VITALS: RESP 16
[2024-05-31 05:41] LABS: BASOPHILS # (AUTO) 0.1 K/uL (0-0.2); BASOPHILS % (AUTO) 0.4 % (0.0-3.0); EOSINOPHILS # (AUTO) 0.3 K/ul (0.0-0.7); EOSINOPHILS % (AUTO) 2.7 % (0.0-7.0); HEMATOCRIT 30.8 % (37.0-47.0); HEMOGLOBIN 10.1 g/dl (12.0-16.0); IMMATURE GRANULOCYTE # (AUTO) 0.1 (0.0-1.0); IMMATURE GRANULOCYTE % (AUTO) 0.4 % (0.0-5.0); LYMPHOCYTES # (AUTO) 4.3 K/uL (0.60-3.4); LYMPHOCYTES % (AUTO) 36.1 (10.0-50.0); MEAN CORPUSCULAR HEMOGLOBIN 29.3 pg (27.0-31.0); MEAN CORPUSCULAR HGB CONC 32.8 (31.8-35.4); MEAN CORPUSCULAR VOLUME 89.3 fl (81.0-99.0); MONOCYTES # (AUTO) 0.8 K/uL (0.4-2.0); MONOCYTES % (AUTO) 6.8 (0-10); NEUTROPHILS # (AUTO) 6.3 K/ul (2.0-6.9); NEUTROPHILS % (AUTO) 53.6 % (42.2-75.2); PLATELET COUNT 282 10^3/uL (140-440); RDW COEFFICIENT OF VARIATION 13.2 % (11.6-14.8); RED BLOOD COUNT 3.45 10^6/ul (4.20-5.40); WHITE BLOOD COUNT 11.81 K/ul (4.6-10.2)
[2024-05-31 06:00] LABS: ALANINE AMINOTRANSFERASE 14.6 U/L (0-35); ALBUMIN 3.66 g/dL (3.5-5.0); ASPARTATE AMINO TRANSFERASE 27.2 U/L (14-36); BILIRUBIN,TOTAL 0.2 mg/dL (0.2-1.3); BLOOD UREA NITROGEN 20.3 mg/dL (7-17); CALCIUM 8.67 mg/dL (8.4-10.2); CHLORIDE 101.1 mmol/L (98-107); CREATININE 1.29 mg/dL (0.60-1.30); POTASSIUM 4.48 mmol/L (3.5-5.1); SODIUM 132.4 mmol/L (134.5-145); TOTAL PROTEIN 6.33 g/dL (6.3-8.2)
[2024-05-31 06:01] VITALS: BP 121/62; PULSE 82; TEMP 97.7
[2024-05-31] MEDS: ASPIRIN EC PO SCH (08:14)
[2024-05-31] MEDS: WELLBUTRIN XL PO SCH (08:16)
[2024-05-31] MEDS: CELEXA PO SCH (08:16)
[2024-05-31] MEDS: ZESTRIL PO SCH (08:17)
[2024-05-31] MEDS: PLAVIX PO SCH (08:18)
--- NOTE | 2024-05-31 09:46 | DCSUM ---
Admission Date Admission Date: 05/30/24 Discharge Date Discharge Date: 05/31/24 Admission Diagnosis Admission Diagnosis: 1. Chest pain 2. Intermittent claudication secondary to femoral artery stenosis 3. CAD with recent stenting 4. Diabetes Mellitus 5. Anemia of chronic disease Discharge Diagnosis Discharge Diagnosis: 1. Chest pain - Resolved at this time, imdur 30 mg daily 2. Intermittent claudication secondary to femoral artery stenosis - Vascular referral sent to [facility] 3. CAD with recent stenting - Dr. Jacobo - ASA plavix 4. Diabetes Mellitus - Chronic, stable 5. Anemia of chronic disease - stable, monitor Hospital Provider Hospital Provider: SUE SKAGGS, [facility] Primary Care Physician Primary Care Physician: VINOD SIERRA MD Summary of History and Physical Summary of History and Physical: 58 yo female presented to the ER with complaints of lower extremity pain and chest pressure. Has pmh of distal R coronary artery stenting on 04/[address] Jacobo at [facility]. States that she was having leg pain prior to this and it has continued to worsen. Chest pain is described as a pressure that is midsternal that occurred at rest. Leg pain is worse on ambulation, but shoots down the leg. Venous Doppler negative for DVT. CTA of abd pelvis showed: Atherosclerotic plaque in the abdominal aorta and branches. There is pronounced as in the left renal artery stent which is patent distal to this. There is thrombus in the common femoral arteries and proximal superficial femoral arteries. Approximately 50% stenosis involving a 1.2 cm segment of the proximal left superficial femoral artery. She is anticoagulated with plavix and aspirin. Has not seen Dr. Jacobo since stent placement. Troponin negative x 2. Chest pain resolved at this time. Admitted to med/surg observation to r/o ACS. Hospital Course Subjective: During stay, troponins negative x 3. Chest pressure resolved with imdur. Reporting intermittent claudication symptoms to L leg. Referral sent to vascular at [facility] per patient request to follow 50% stenosis. Continue ASA and plavix. Reported thrush and requested medication as well as flonase for allergies. Rx for imdur 30 mg daily sent as well No further changes to home medications. Discussed need to complete carotid us as previously scheduled outpatient. Follow-up with PCP next week, Appearance: Pleasant, No Apparent Distress and Alert HEENT: MMM, Supple and No JVD CVS: No Murmur, No Rubs and No Gallop Abdomen: Soft, Non-Tender and No Distention Respiratory: No Dyspnea Extremities: No Edema Vital Signs: Most Recent Vital Signs Temperature 97.7 F 05/31/24 06:00 Temperature Source Temporal Artery Scan 05/31/24 06:00 Temperature Source Temporal Artery Scan 05/30/24 09:23 Pulse Rate 82 05/31/24 06:00 Respiratory Rate 16 05/31/24 06:00 Blood Pressure 121/62 05/31/24 06:00 Blood Pressure Mean 81 05/31/24 06:00 Blood Pressure Left Arm 170/82 05/30/24 13:24 Blood Pressure Location Left Arm 05/31/24 06:00 Blood Pressure Position Supine 05/31/24 06:00 O2 Sat by Pulse Oximetry 97 05/31/24 06:00 Oxygen Delivery Method Room Air 05/31/24 09:00 Height 5 ft 6 in 05/30/24 13:24 Weight 82 kg 05/30/24 13:24 Telemetry Type Remote Telemetry 05/31/24 07:00 Telemetry Monitoring Continues 05/31/24 07:00 Telemetry Heart Rate 80 05/31/24 07:00 Telemetry SPO2 93 12/20/20 17:23 EKG DC Interval 0.16 05/31/24 07:00 EKG QRS Interval 0.07 05/31/24 07:00 Telemetry Strip Reading NSR 05/31/24 07:00 Imaging: EXAM: CT ANGIOGRAM ABDOMEN PELVIS WITHOUT AND WITH CONTRAST HISTORY: Elevated D-dimer, bilateral lower extremity leg pain COMPARISON: CT abdomen pelvis from 06/07/2020. FINDINGS: Axial CT angiogram images of the abdomen pelvis without and with IV contrast. Multiplanar and MIP/VRT reformatted images. Possible lipomatous hypertrophy of the interatrial septum. Please see report from CTA chest obtained at the same time for description of findings in the lower chest. The liver, gallbladder, pancreas and spleen are unremarkable. No obstructive uropathy. Atrophic left kidney. 2 cm right adrenal adenoma. Nodular left adrenal gland. No acute process involving the colon, small bowel or appendix. Moderate amount of stool in the colon. No acute process in the pelvis. Atherosclerotic plaque in the abdominal aorta and branches. Circumferential thrombus in the distal superficial femoral artery. Degenerative changes to the spine, pelvis and hips. Left renal artery stent. There is thrombus in the proximal stent but the renal artery is patent distal to this. Atherosclerotic plaque at the origin of the right renal artery contributing to 0.8 cm segment of low to moderate grade stenosis. The right renal artery is patent distal to this. The celiac trunk and superior mesenteric artery are patent. The inferior mesenteric artery is patent. The iliac arteries are patent. There is atherosclerotic plaque in the proximal superficial femoral arteries. 12 mm segment of approximately 50% stenosis in the proximal left superficial femoral artery (see coronal image 42). IMPRESSION: Atherosclerotic plaque in the abdominal aorta and branches. There is pronounced as in the left renal artery stent which is patent distal to this. There is thrombus in the common femoral arteries and proximal superficial femoral arteries. Approximately 50% stenosis involving a 1.2 cm segment of the proximal left superficial femoral artery. Please see above description and additional findings. EXAM: CHEST CTA WITH CONTRAST (PULMONARY ARTERY) HISTORY: Chest pain. Elevated D-dimer. TECHNIQUE: CTA acquisition of the chest from the thoracic inlet to the upper abdomen following IV contrast administration timed to filling of the pulmonary artery. The abdomen and pelvis were also imaged but will be interpreted separately. 3D/MIP/VR images were utilized. CT Dose Reduction Techniques Employed: Yes. COMPARISON: 11/17/2023 FINDINGS: Adequate opacification of the pulmonary arteries. No pulmonary embolus is identified. No enlarged mediastinal, hilar, or axillary nodes are identified. Moderate atherosclerosis results in approximately 50 - 60% stenosis of the proximal left common carotid artery and the proximal left subclavian artery, bef ore takeoff of the vertebral artery, similar to before. Coronary artery calcifications, again noted. Lipomatous hypertrophy of the inter-atrial septum, again noted, a finding weakly associated with cardiac arrhythmias. Stable mild cardiomegaly and findings suggesting left ventricular hypertrophy. The patient pericardial fluid/thickening. No pleural fluid. Lung window images show no consolidation or significant ground-glass. Interval resolution of the previously seen bilateral ground-glass, with improvement in the previously seen mosaic attenuation, probably air trapping secondary to small airways disease. No pneumothorax. Bone window images show no significant lytic or sclerotic bone lesions. No visible fractures. IMPRESSION: 1. No pulmonary embolus is identified. 2. No acute findings in the chest. 3. Stable cardiomegaly and findings suggesting left ventricular hypertrophy. 4. For findings in the abdomen/pelvis, please refer to separate report. EXAM: BILATERAL LOWER EXTREMITY DEEP VENOUS ULTRASOUND WITH DOPPLER IMAGING HISTORY: Leg pain, elevated D-dimer. TECHNIQUE: Mclean-scale ultrasound with compression maneuvers and color and spectral Doppler ultrasound at rest and with augmentation of the veins was performed. Images were obtained and stored in a permanent archive. COMPARISON: None FINDINGS: RIGHT LOWER EXTREMITY: Common Femoral Vein: Normal compression. Normal flow on color Doppler images. Normal response to augmentation. Deep Femoral Vein: Normal compression. Normal flow on color Doppler images. Normal response to augmentation. Femoral Vein: Normal compression. Normal flow on color Doppler images. Normal response to augmentation. Popliteal Vein: Normal compression. Normal flow on color Doppler images. Normal response to augmentation. Peroneal Vein: Normal compression. Normal flow on color Doppler images. Posterior Tibial Vein: Normal compression. Normal flow on color Doppler images. Anterior Tibial Vein: Normal compression. Normal flow on color Doppler images. Greater Saphenous Vein (Superficial): Normal compression. Normal flow on color Doppler images. LEFT LOWER EXTREMITY: Common Femoral Vein: Normal compression. Normal flow on color Doppler images. Normal response to augmentation. Deep Femoral Vein: Normal compression. Normal flow on color Doppler images. Normal response to augmentation. Femoral Vein: Normal compression. Normal flow on color Doppler images. Normal response to augmentation. Popliteal Vein: Normal compression. Normal flow on color Doppler images. Normal response to augmentation. Peroneal Vein: Normal compression. Normal flow on color Doppler images. Posterior Tibial Vein: Normal compression. Normal flow on color Doppler images. Anterior Tibial Vein: Normal compression. Normal flow on color Doppler images. Greater Saphenous Vein (Superficial): Normal compression. Normal flow on color Doppler images. IMPRESSION: No deep venous thrombosis (DVT) in the bilateral lower extremities. Lab Results Last 24 Hours: 05/31/24 05/30/24 05/30/24 05:30 14:35 11:36 WBC 11.81 H RBC 3.45 L Hgb 10.1 L Hct 30.8 L MCV 89.3 MCH 29.3 MCHC 32.8 RDW Coeff of Barry 13.2 Plt Count 282 Immature Gran % (Auto) 0.4 Neut % (Auto) 53.6 Lymph % (Auto) 36.1 [place] % (Auto) 6.8 Eos % (Auto) 2.7 Baso % (Auto) 0.4 Neut # (Auto) 6.3 Lymph # (Auto) 4.3 H [place] # (Auto) 0.8 Eos # (Auto) 0.3 Baso # (Auto) 0.1 Immature Gran # (Auto) 0.1 PT INR APTT Sodium 132.4 L Potassium 4.48 Chloride 101.1 Carbon Dioxide 23.0 Anion Gap 12.78 BUN 20.3 H Creatinine 1.29 Estimated GFR (MDRD) 43.00 BUN/Creatinine Ratio 15.73 Glucose 189.0 H Lactic Acid Calcium 8.67 Total Bilirubin 0.20 AST 27.2 ALT 14.6 Alkaline Phosphatase 130.0 H Troponin I < 0.012 < 0.012 NT-Pro-B Natriuret Pep Total Protein 6.33 Albumin 3.66 Globulin 2.67 Albumin/Globulin Ratio 1.37 D-Dimer Influ A Molecular Assay Influ B Molecular Assay SARS CoV-2 RNA Rapid LUISITO 05/30/24 05/30/24 05/30/24 09:48 09:38 09:34 WBC RBC Hgb Hct MCV MCH MCHC RDW Coeff of Barry Plt Count Immature Gran % (Auto) Neut % (Auto) Lymph % (Auto) [place] % (Auto) Eos % (Auto) Baso % (Auto) Neut # (Auto) Lymph # (Auto) [place] # (Auto) Eos # (Auto) Baso # (Auto) Immature Gran # (Auto) PT 9.9 INR 0.95 APTT 22.9 L Sodium 134.1 L Potassium 4.65 Chloride 104.1 Carbon Dioxide 20.9 L Anion Gap 13.75 BUN 12.1 Creatinine 1.00 Estimated GFR (MDRD) 57.00 BUN/Creatinine Ratio 12.10 Glucose 156.1 H Lactic Acid 1.65 Calcium 9.46 Total Bilirubin 0.39 AST 27.6 ALT 16.6 Alkaline Phosphatase 128.8 H Troponin I < 0.012 NT-Pro-B Natriuret Pep 496 H Total Protein 7.55 Albumin 4.49 Globulin 3.06 Albumin/Globulin Ratio 1.46 D-Dimer 561.60 H Influ A Molecular Assay Negative by naat Influ B Molecular Assay Negative by naat SARS CoV-2 RNA Rapid LUISITO Negative Discharge Instructions Discharge Planning: Discharge Planning > 40 minutes If patient is discharged with left ventricular systolic dysfunction: NA Discharged with a beta ila? [] If no, why not? [] Discharged with an oscar/arb? [] If no, why not? [] Diagnosis: Chest pain, Peripheral Artery Disease Diet: Diabetic Activity: as tolerated Follow-up with Dr. Sierra next week. YOU HAVE BEEN REFERRED TO [facility] IN [place], [place]. THEY WILL REVIEW YOUR REFERRAL AND CALL YOU WITH AN APPOINTMENT. THEIR PHONE NUMBER IS [phone] Medications: Flonase - 2 sprays daily Imdur 30 mg - daily Nystatin swish and swallow daily for 7 days - thrush Discharge Medications: Medications at Discharge (Home Meds & RX) blood-glucose meter #1 ea 10/14/22 hydrocodone 10 mg-acetaminophen 325 mg tablet 1 tab PO TID PRN back pain 10/14/22 metformin 500 mg tablet See Rx Instructions .Route .COMPLEX #60 tabs 10/19/23 pen needle, diabetic 31 gauge x 5/16" (TRUEplus Pen Needle) #100 ea 10/19/23 mecobalamin (vitamin B12) 1,000 mcg chewable tablet 1,000 mcg PO QDAY 01/19/24 atorvastatin 80 mg tablet 80 mg PO QHS #30 tabs 05/02/24 clopidogrel 75 mg tablet (Plavix) 75 mg PO QDAY #30 tabs 05/02/24 esomeprazole magnesium 40 mg capsule,delayed release 40 mg PO QDAY #30 caps 05/02/24 insulin glargine 100 unit/mL (3 mL) subcutaneous pen (Lantus Solostar U-100 Insulin) See Rx Instructions .Route .COMPLEX #15 ea 05/02/24 insulin regular human 100 unit/mL injection solution (Humulin R Regular U-100 Insulin) 15 unit subcut ACHS PRN Hyperglycemica #10 mL 05/02/24 citalopram 40 mg tablet 40 mg PO DAILY 05/05/24 lisinopril 40 mg tablet 40 mg PO DAILY #30 tabs 05/17/24 bupropion HCl 150 mg 24 hr tablet, extended release (Wellbutrin XL) 150 mg PO QAM #30 tabs 05/23/24 aspirin 81 mg tablet,delayed release 81 mg PO DAILY 05/30/24 naloxone 4 mg/actuation nasal spray 1 spray intranasal Q2M PRN opioid overdose 05/30/24 Discharge Plan Discharge Discharge Orders: Discharge Patient (ONCE); Ordered 05/31/24 Ordered By: SADAF LEIVA Activity Restrictions/Additional Instructions: Diagnosis: Chest pain, Peripheral Artery Disease Diet: Diabetic Activity: as tolerated Follow-up with Dr. Sierra next week. YOU HAVE BEEN REFERRED TO [facility] IN [place], [place]. THEY WILL REVIEW YOUR REFERRAL AND CALL YOU WITH AN APPOINTMENT. THEIR PHONE NUMBER IS [phone] Medications: Flonase - 2 sprays daily Imdur 30 mg - daily Nystatin swish and swallow daily for 7 days - thrush Instructions: Chest Pain (GEN), Peripheral Artery Disease (GEN) Patient Disposition: HOME SELF-CARE Prescriptions: New isosorbide mononitrate 30 mg Tablet Extended Release 24 Hr 30 mg PO DAILY Qty: 30 0RF fluticasone propionate 50 mcg/actuation [place],Suspension 1 spray BOTHNARES DAILY Qty: 1 0RF nystatin 100,000 unit/mL suspension 1 ml PO DAILY Qty: 7 0RF Rx Instructions: swish and swallow Continued (DME) pen needle, diabetic [TRUEplus Pen Needle] 31 gauge x 5/16" needle See Rx Instructions .ROUTE .COMPLEX Qty: 100 3RF Dose Instruction: USE DIRECTED Rx Instructions: USE DIRECTED metformin 500 mg tablet See Rx Instructions .ROUTE .COMPLEX Qty: 60 3RF Dose Instruction: TAKE ONE TABLET TWICE DAILY Rx Instructions: TAKE ONE TABLET TWICE DAILY esomeprazole magnesium 40 mg capsule,delayed release(DR/EC) 40 mg PO QDAY Qty: 30 0RF clopidogrel [Plavix] 75 mg tablet 75 mg PO QDAY Qty: 30 0RF Humulin R Regular U-100 Insuln 100 unit/mL solution 15 unit subcut ACHS PRN (Reason: Hyperglycemica) Qty: 10 0RF Protocol: Dr. Sierra's SS Insulin Protocol Condition: Glucose 0-140 mg/dl Dose/Route: 0 Units Sub-Q Condition: Glucose 141-200 Dose/Route: 3 units Sub-Q Condition: Glucose 201-260 Dose/Route: 4 units Sub-Q Condition: Glucose 261-320 Dose/Route: 6 units Sub-Q Condition: Glucose 321-400 Dose/Route: 8 units Sub-Q Condition: Glucose 401-600 Dose/Route: 15 units Sub-Q Condition: Glucose over 600 Dose/Route: Call Physician for Dose atorvastatin 80 mg tablet 80 mg PO QHS Qty: 30 0RF insulin glargine [Lantus Solostar U-100 Insulin] 100 unit/mL (3 mL) insulin pen See Rx Instructions .ROUTE .COMPLEX Qty: 15 1RF Dose Instruction: USE 60 UNITS SUB-Q DAILY Rx Instructions: USE 75 UNITS SUB-Q AT HS lisinopril 40 mg tablet 40 mg PO DAILY Qty: 30 0RF naloxone 4 mg/actuation spray,non-aerosol 1 spray INTRANASAL Q2M PRN (Reason: opioid overdose) Patient Comments: [NO ORIGINAL SIG] aspirin 81 mg tablet,delayed release (DR/EC) 81 mg PO DAILY citalopram 40 mg tablet 40 mg PO DAILY hydrocodone-acetaminophen 10-325 mg tablet 1 tab PO TID PRN (Reason: back pain) (DME) blood-glucose meter Misc See Rx Instructions .ROUTE Qty: 1 3RF Rx Instructions: As directed mecobalamin (vitamin B12) 1,000 mcg tablet,chewable 1,000 mcg PO QDAY bupropion HCl [Wellbutrin XL] 150 mg tablet extended release 24 hr 150 mg PO QAM Qty: 30 0RF Did you review [place] [employer] for ALL controlled substances?: No Discussed opioids are addictive and Narcan is available by prescription or from pharmacy.: No Condition: Stable Referrals: VINOD SIERRA MD [Primary Care Provider] - 06/07/24 1:20 pm
[2024-05-31] MEDS: FLONASE NAS SCH (09:47)
== END 2024-05-31 10:15 | disposition home or self-care (01) ==
LOC: ED 09:14 → SCU 09:14
PROVIDERS: ADMIT Hospitalist; ATTEND Nurse Practitioner Family